=== PATIENT | female | born 1960 | race African-American/Black ===

== ENCOUNTER 2017-05-28 22:27 | Inpatient (IN) | payer SELFPAY ==
[2017-05-28] MEDS ORDERED: NITROGLYCERIN/D5W 50 MG/250 ML RTUINJ IV ONE (22:31)
[2017-05-28] MEDS ORDERED: FUROSEMIDE INJ/PF 40 MG/4 ML SDV ONE (22:31)
[2017-05-28] MEDS ORDERED: FUROSEMIDE INJ/PF 40 MG/4 ML SDV IV ONE (22:58)
[2017-05-28] MEDS ORDERED: NITROGLYCERIN/D5W 50 MG/250 ML RTUINJ IV PRN (22:58)
--- NOTE | 2017-05-28 23:08 | ER Document Report ---
ED General - General Chief Complaint: Respiratory Distress Stated Complaint: DIFFICULTY BREATHING Time Seen by Provider: 05/28/17 23:04 Cannot obtain history due to: Unstable vital signs Notes: Patient is a 56-year-old female with a past medical history of morbid obesity, hypertension, hyperlipidemia, type 2 diabetes, who presents in severe respiratory distress. History is initially somewhat limited due to the severe nature of patient's symptoms at time of presentation. Per EMS, patient apparently began having difficulty breathing approximately 20 minutes prior to their arrival. When EMS arrived patient was in clear respiratory distress, saturating 65% on room air. Patient was placed on the CPAP, Nitropaste was applied as her blood pressure was noted to be extremely elevated, and she was transported to the emergency department. On tomorrow patient continues to gasp for air, is not able to provide any additional meaningful history. She does shake her head no when asked if she has had similar symptoms in the past. - Related Data Allergies/Adverse Reactions: No Known Drug Allergies Allergy (Verified 05/28/17 23:15) Past Medical History - General Information source: Emergency Med Personnel Cannot obtain history due to: Unstable vital signs - Social History Smoking Status: Unknown if Ever Smoked Lives with: Family Family History: Reviewed & Not Pertinent Review of Systems - Review of Systems Notes: Constitutional: Negative for fever. HENT: Negative for sore throat. Eyes: Negative for visual changes. Cardiovascular: Negative for chest pain. Respiratory: Positive for shortness of breath. Gastrointestinal: Negative for abdominal pain, vomiting or diarrhea. Genitourinary: Negative for dysuria. Musculoskeletal: Negative for back pain. Skin: Negative for rash. Neurological: Negative for headaches, weakness or numbness. 10 point ROS negative except as marked above and in HPI. Physical Exam - Vital signs Vitals: Resp Pulse Ox 30 H 98 05/28/17 22:27 05/28/17 22:27 Interpretation: Hypoxic, Tachypneic Notes: PHYSICAL EXAMINATION: GENERAL: Appears extremely unwell, and respiratory distress, unable to speak more than 1-2 words in a sentence. HEAD: Atraumatic, normocephalic. EYES: Pupils equal round and reactive to light, extraocular movements intact, sclera anicteric, conjunctiva are normal. ENT: nares patent, oropharynx clear without exudates. Moist mucous membranes. NECK: Normal range of motion, supple without lymphadenopathy LUNGS: Diminished breath sounds at the bases bilaterally. Scattered rhonchi throughout. HEART: Regular tachycardia without murmurs ABDOMEN: Soft, obese abdomen, nontender, normoactive bowel sounds. No guarding , no rebound. No masses appreciated. EXTREMITIES: 3+ pitting edema that is equal and symmetric in the bilateral lower extremities. NEUROLOGICAL: No focal neurological deficits. Moves all extremities spontaneously and on command. PSYCH: Appropriately anxious SKIN: Warm, Dry, normal turgor, no rashes or lesions noted. Course - Re-evaluation Re-evalutation: 05/28/175 Patient presents in severe respiratory distress, initial oxygen saturations for EMS was 65% on room air. She arrives on CPAP. Patient was admitted transition to our bed and placed on monitor. Initial blood pressures were noted to be in the 230s systolic. IV access is established. The bedside pleural ultrasound shows diffuse B-lines. IVC grossly distended. Patient had diffuse crackles on lung examination. I did push 500 mmc of nitroglycerin IV. We waited 3 minutes and patient continued to persist with blood pressures in the mid 200s on initial 500 mcg IV push of nitroglycerin was administered. After receiving a total of 1 mg of nitroglycerin IV push patient had significant improvement in her symptoms and blood pressure. 40 mg of IV furosemide was also administered. Presentation is most consistent with flash pulmonary edema in the setting of CHF. Patient is critically ill require frequent reassessments 05/28/17 23:08 Patient's blood pressure is normalizing now down to the 150 systolic on 100 mg/ min drip of nitroglycerin. She continues on BiPAP. Work of breathing is much improved. She is now saturating 98% on 35% FiO2. Labs have been initiated. Will continue to monitor very closely. 05/29/17 00:18 Patient blood pressure continues to trend down nicely and we are weaning off of the nitroglycerin infusion currently down to 40 mg/min. Her blood work has returned and does show mildly elevated troponin at 0.045 as well as a elevated creatinine with no known prior history of chronic kidney disease with her current GFR at 16. She is continuing to make urine. I suspect that there is some component of chronic renal failure but there may also be a large component of acute renal failure given her severe hypertension and distress at time of presentation. I have discussed the case with Dr. Garza who is agreeable to admit the patient. Patient overall clinically appears dramatically improved relative to time of presentation. - Vital Signs Vital signs: Temp Pulse Resp BP Pulse Ox 97.9 F 15 182/91 H 100 05/29/17 03:06 05/29/17 03:06 05/29/17 03:06 05/29/17 03:06 - Laboratory Result Diagrams: 05/28/17 22:38 05/28/17 22:38 Laboratory results interpreted by me: 05/28/17 05/28/17 05/28/17 22:38 22:38 22:38 WBC 14.6 H RBC 3.33 L Hgb 9.3 L Hct 28.1 L RDW 16.7 H Seg Neutrophils % 79.6 H Absolute Neutrophils 11.6 H VBG pH BUN 35 H Creatinine 4.18 H Est GFR ( Amer) 13 L Est GFR (Non-Af Amer) 11 L Glucose 295 H Calcium 6.9 L* NT-Pro-B Natriuret Pep 16546 H Total Protein 5.8 L Albumin 3.0 L 05/28/17 23:26 WBC RBC Hgb Hct RDW Seg Neutrophils % Absolute Neutrophils VBG pH 7.21 L BUN Creatinine Est GFR ( Amer) Est GFR (Non-Af Amer) Glucose Calcium NT-Pro-B Natriuret Pep Total Protein Albumin - Diagnostic Test Radiology reviewed: Image reviewed, Reports reviewed Radiology results interpreted by me: 05/29/17 03:39 Chest x-ray: Vascular congestion, cardiomegaly - EKG Interpretation by Me Additional EKG results interpreted by me: 05/29/17 03:40 Normal sinus rhythm. Rate 96. No ST elevations or depressions. LVH. QTC 501 Critical Care Note - Critical Care Note Total time excluding time spent on procedures (mins): 40 Comments: Critical care time spent obtaining history from patient or surrogate, discussions with consultants, development of treatment plan with patient or surrogate, evaluation of patient's response to treatment, examination of patient , ordering and performing treatments and interventions, ordering and review of laboratory studies, re-evaluation of patient's condition, ordering and review of radiographic studies and review of old charts Discharge - Discharge Clinical Impression: Hypertensive emergency, Acute kidney injury superimposed on chronic kidney disease Congestive heart failure Qualifiers: Congestive heart failure type: unspecified congestive heart failure type Congestive heart failure chronicity: acute Qualified Code(s): I50.9 - Heart failure, unspecified Condition: Fair Disposition: ADMITTED INPATIENT Admitting Provider: Hospitalist [facility] Admitted: [facility]
--- NOTE | 2017-05-28 23:14 | RADIOLOGY REPORT (SQ) ---
EXAM DESCRIPTION: CHEST SINGLE VIEW COMPLETED DATE/TIME: 05/28/2017 10:37 pm REASON FOR STUDY: DIFFICULTY BREATHING COMPARISON: None. EXAM PARAMETERS: NUMBER OF VIEWS: One view. TECHNIQUE: Single frontal radiographic view of the chest acquired. RADIATION DOSE: NA LIMITATIONS: None. FINDINGS: LUNGS AND PLEURA: No consolidation, masses or pneumothorax. No pleural effusion. MEDIASTINUM AND HILAR STRUCTURES: Age-appropriate. HEART AND VASCULAR STRUCTURES: Borderline cardiomegaly. BONES: No acute findings. HARDWARE: None in the chest. OTHER: No other significant finding. IMPRESSION: NO ACUTE RADIOGRAPHIC FINDING IN THE CHEST. TECHNICAL DOCUMENTATION: JOB ID: [id number] 2010 [employer]- All Rights Reserved
--- NOTE | 2017-05-28 23:16 | EKG REPORT ---
SEVERITY:- ABNORMAL ECG - SINUS RHYTHM NONSPECIFIC T ABNORMALITIES, LATERAL LEADS BORDERLINE PROLONGED QT INTERVAL : Confirmed by: Jalen Hallman MD 28-May-2017 23:15:52
[2017-05-28 23:31] LABS: ABSOLUTE BASOPHILS # (AUTO) 0.1 10^3/uL (0.0-0.2); ABSOLUTE LYMPHOCYTES (AUTO) 2.1 10^3/uL (0.5-4.7); ABSOLUTE MONOCYTES (AUTO) 0.7 10^3/uL (0.1-1.4); ABSOLUTE NEUT (AUTO) 11.6 10^3/uL (1.7-8.2); BASOPHILS % (AUTO) 0.5 % (0-2); EOSINOPHILS % (AUTO) 0.2 % (0-6); HEMATOCRIT 28.1 % (36.0-47.0); HEMOGLOBIN 9.3 g/dL (12.0-15.5); HGB HCT DIFFERENCE -0.2; LYMPHOCYTES % (AUTO) 14.6 % (13-45); MEAN CORPUSCULAR HEMOGLOBIN 27.8 pg (27.0-33.4); MEAN CORPUSCULAR VOLUME 84 fl (80-97); MONOCYTES % (AUTO) 5.1 % (3-13); RED BLOOD COUNT 3.33 10^6/uL (3.72-5.28); RED CELL DISTRIBUTION WIDTH 16.7 % (11.5-14.0); SEGMENTED NEUTROPHILS % (AUTO) 79.6 % (42-78); WHITE BLOOD COUNT 14.6 10^3/uL (4.0-10.5)
[2017-05-28 23:37] LABS: VENOUS BLOOD BASE EXCESS -4.8 mmol/L; VENOUS BLOOD HCO3 23.4 mmol/L (20-32); VENOUS BLOOD PCO2 59.8 mmHg (35-63); VENOUS BLOOD PH 7.21 (7.30-7.42)
[2017-05-28 23:47] LABS: ALANINE AMINOTRANSFERASE 25 U/L (9-52); ALKALINE PHOSPHATASE 109 U/L (38-126); ANION GAP 8 (5-19); ASPARTATE AMINO TRANSFERASE 23 U/L (14-36); BILIRUBIN,DIRECT 0.3 mg/dL (0.0-0.4); BILIRUBIN,TOTAL 0.3 mg/dL (0.2-1.3); BLOOD UREA NITROGEN 35 mg/dL (7-20); CARBON DIOXIDE 25 mmol/L (22-30); CHLORIDE 105 mmol/L (98-107); CREATININE RESULT 4.18 mg/dL (0.52-1.25); GLUCOSE 295 mg/dL (75-110); POTASSIUM 3.8 mmol/L (3.6-5.0); SODIUM 137.8 mmol/L (137-145); TOTAL PROTEIN 5.8 g/dL (6.3-8.2)
[2017-05-29 00:05] LABS: CALCIUM 6.9 mg/dL (8.4-10.2)
[2017-05-29 00:06] LABS: TROPONIN I 0.045 ng/mL
[2017-05-29] MEDS ORDERED: ONDANSETRON HCL INJ/PF 4 MG/2 ML SDV IV PRN (01:43)
[2017-05-29] MEDS ORDERED: ASPIRIN 325 MG TABLET, ENT COATED PO ONE (02:15)
[2017-05-29] MEDS ORDERED: DEXTROSE 40% GEL 15 GM TUBE PO PRN ×2 (02:24)
[2017-05-29] MEDS ORDERED: GLUCAGON,HUMAN RECOMB 1 MG INJ IM PRN (02:24)
[2017-05-29] MEDS ORDERED: DEXTROSE 50%-WATER 25 GM/50 ML DISP.SYRIN IV PRN ×2 (02:24)
[2017-05-29] MEDS ORDERED: MAGNESIUM SULFATE/D5W 1 GM/100 ML RTUPB IV ONE (02:28)
[2017-05-29] MEDS: ASPIRIN 325 MG TABLET, ENT COATED PO SCH (02:30)
[2017-05-29 02:35] LABS: APPEARANCE,URINE SLIGHTLY-CLOUDY; BILIRUBIN,URINE NEGATIVE (NEGATIVE); GLUCOSE, URINE >=500 mg/dL (NEGATIVE); KETONES,URINE NEGATIVE (NEGATIVE); LEUKOCYTE ESTERASE,URINE NEGATIVE (NEGATIVE); NITRITE,URINE NEGATIVE (NEGATIVE); PROTEIN,URINE >=500 mg/dL (NEGATIVE); URINE SPECIFIC GRAVITY 1.012; UROBILINOGEN,URINE NEGATIVE mg/dL (<2.0)
[2017-05-29] MEDS ORDERED: CALCIUM GLUCONATE 1000 MG/10 ML INJ IV ONE (02:42)
--- NOTE | 2017-05-29 02:50 | PDOC H&P ---
History of Present Illness Admission Date/PCP: 05/29/17 00:51 No PCP History of Present Illness: JESUS CALDERÓN is a 56 year old female with past medical history of insulin- dependent diabetes mellitus, hype tension, and chronic kidney disease who presented to the emergency department with shortness of breath. Patient's daughter is at bedside and reports that her mother has not been taking her blood pressure medication since moving in with her. Patient does report a history of an elevated kidney numbers. Patient reports that she had shortness of breath all of a sudden, but her daughter does note that her mother has been short of breath with exertion and had significant edema over the past several weeks. Patient does admit to PND and orthopnea. Patient was initially found by EMS to have saturations of 65% on room air and was placed on CPAP which is transitioned to BiPAP in the emergency department. Patient was initially started on a nitroglycerin drip, and given IV Lasix. Patient's blood pressure dramatically improved and patient has been weaned off of nitroglycerin drip. Initial blood pressures were in the 230 systolic. She is referred to the hospitalist service for hypertensive emergency and pulmonary edema in the setting of acute congestive heart failure. Bedside review of patient's medications include an unlabeled bottle of tramadol , Norvasc which was last filled on 817, Tradjenta, Procardia, Nexium, pravastatin, Lantus, and NovoLog FlexPen. Patient currently she is automatically generated by [employer] and does not reflect an accurate description of her medications. She also admits that she has not been taking her blood sugar at home. Past Medical History Cardiac Medical History: Reports: Hyperlipidema, Hypertension Endocrine Medical History: Reports: Diabetes Mellitus Type 2, Obesity Renal/ Medical History: Reports: Chronic Kidney Disease Past Surgical History Past Surgical History: Reports: Cholecystectomy, Hysterectomy Social History Smoking Status: Current Every Day Smoker Cigarettes Packs Per Day: 0.2 Frequency of Alcohol Use: None Hx Recreational Drug Use: No Hx Prescription Drug Abuse: No - Advance Directive Resuscitation Status: Full Code Surrogate healthcare decision maker:: Jake Mario, daughter Family History Family History: DM, Hypertension Parental Family History Reviewed: Yes Children Family History Reviewed: Yes Sibling(s) Family History Reviewed.: Yes Medication/Allergy Allergies/Adverse Reactions: No Known Drug Allergies Allergy (Verified 05/28/17 23:15) Review of Systems Constitutional: PRESENT: fatigue, weight gain. ABSENT: chills, fever(s), headache(s), weight loss Eyes: ABSENT: visual disturbances Ears: ABSENT: hearing changes Cardiovascular: PRESENT: dyspnea on exertion, edema, orthropnea. ABSENT: chest pain, palpitations Respiratory: PRESENT: dyspnea. ABSENT: cough, hemoptysis, sputum Gastrointestinal: ABSENT: abdominal pain, constipation, diarrhea, hematemesis, hematochezia, melena, nausea, vomiting Genitourinary: ABSENT: dysuria, hematuria Musculoskeletal: ABSENT: joint swelling Integumentary: ABSENT: rash, wounds Neurological: ABSENT: abnormal gait, abnormal speech, confusion, dizziness, focal weakness, syncope Psychiatric: ABSENT: anxiety, depression, homidical ideation, suicidal ideation Endocrine: ABSENT: cold intolerance, heat intolerance, polydipsia, polyuria Hematologic/Lymphatic: ABSENT: easy bleeding, easy bruising Physical Exam Vital Signs: Temp Pulse Resp BP Pulse Ox 98.0 F 15 157/82 H 100 05/29/17 01:56 05/29/17 01:56 05/29/17 01:56 05/29/17 01:56 General appearance: PRESENT: morbidly obese, severe distress, well-developed, well-nourished Head exam: PRESENT: atraumatic, normocephalic Eye exam: PRESENT: conjunctiva pink, EOMI, PERRLA. ABSENT: conjunctival injection, scleral icterus Ear exam: PRESENT: normal external ear exam Mouth exam: PRESENT: moist, tongue midline Neck exam: PRESENT: other - Limited by body habitus. ABSENT: JVD, lymphadenopathy, thyromegaly, tracheal deviation Respiratory exam: PRESENT: rales, tachypnea, wheezes. ABSENT: accessory muscle use, retraction, rhonchi, unlabored - On BiPAP Cardiovascular exam: PRESENT: gallop, RRR, +S1, +S2, systolic murmur. ABSENT: diastolic murmur, rubs Pulses: PRESENT: normal dorsalis pedis pul Vascular exam: PRESENT: normal capillary refill GI/Abdominal exam: PRESENT: distended, normal bowel sounds, soft. ABSENT: firm , guarding, mass, Tilley's sign, organolmegaly, rebound, rigid, tenderness Rectal exam: PRESENT: deferred Extremities exam: PRESENT: full ROM, other - 3+ bilateral lower extremity edema. ABSENT: calf tenderness, clubbing Neurological exam: PRESENT: alert, awake, oriented to person, oriented to place , oriented to time, oriented to situation, CN II-XII grossly intact. ABSENT: motor sensory deficit Psychiatric exam: PRESENT: appropriate affect, normal mood. ABSENT: homicidal ideation, suicidal ideation Skin exam: PRESENT: dry, intact, warm. ABSENT: cyanosis, rash Results Laboratory Results: 05/28/17 05/28/17 05/28/17 22:38 22:38 22:38 WBC 14.6 H Hgb 9.3 L MCV 84 Plt Count 243 VBG pH VBG pCO2 VBG HCO3 Sodium 137.8 Potassium 3.8 Chloride 105 Carbon Dioxide 25 Anion Gap 8 BUN 35 H Creatinine 4.18 H Glucose 295 H Calcium 6.9 L* Magnesium Total Bilirubin 0.3 Direct Bilirubin 0.3 AST 23 ALT 25 Alkaline Phosphatase 109 Troponin I 0.045 NT-Pro-B Natriuret Pep 68274 H Total Protein 5.8 L Albumin 3.0 L 05/28/17 05/28/17 22:38 23:26 WBC Hgb MCV Plt Count VBG pH 7.21 L VBG pCO2 59.8 VBG HCO3 23.4 Sodium Potassium Chloride Carbon Dioxide Anion Gap BUN Creatinine Glucose Calcium Magnesium 1.7 Total Bilirubin Direct Bilirubin AST ALT Alkaline Phosphatase Troponin I NT-Pro-B Natriuret Pep Total Protein Albumin Impressions: Chest X-Ray 05/28/17 00:00 IMPRESSION: NO ACUTE RADIOGRAPHIC FINDING IN THE CHEST. Status: Imported from PACS Assessment & Plan - Diagnosis (1) Hypertensive emergency Is this a current diagnosis for this admission?: Yes (2) Congestive heart failure Qualifiers: Congestive heart failure type: unspecified congestive heart failure type Congestive heart failure chronicity: acute Qualified Code(s): I50.9 - Heart failure, unspecified Is this a current diagnosis for this admission?: Yes Plan: Likely secondary to her hypertensive emergency and likely an acute on chronic episode. Will obtain echo. No LYLA/ARB at this time secondary to acute on chronic renal failure. No beta-blockers at this time secondary to acute phase of congestive heart failure. Place patient on Lasix. Consult transition of care nurse as well as heart failure education nurse. (3) Acute kidney injury superimposed on chronic kidney disease Is this a current diagnosis for this admission?: Yes Plan: Will attempt to obtain outside records from [facility] regarding past hospitalizations and particularly to look at her prior creatinine. She does report that her creatinine has been elevated in the past, but cannot tell me what it was. obtain spot urine creatinine and sodium. Obtain renal ultrasound (4) Insulin dependent diabetes mellitus Is this a current diagnosis for this admission?: Yes Plan: Check hemoglobin A1c. Place patient on reduced dose of Lantus and on sliding scale. Place patient on carb controlled diet. Consult public health educator (5) Anemia Qualifiers: Anemia type: unspecified type Qualified Code(s): D64.9 - Anemia, unspecified Is this a current diagnosis for this admission?: Yes Plan: Likely anemia of chronic disease. Check occult blood and iron studies. (6) Leukocytosis Qualifiers: Leukocytosis type: unspecified Qualified Code(s): D72.829 - Elevated white blood cell count, unspecified Is this a current diagnosis for this admission?: Yes Plan: Likely demargination due to stress response, will follow repeat CBC. Patient admits to no antecedent illness. (7) Hypocalcemia Is this a current diagnosis for this admission?: Yes Plan: Check PTH and vitamin D studies. Give IV calcium gluconate (8) Noncompliance Is this a current diagnosis for this admission?: Yes Plan: Patient is self admittedly noncompliant. Have expressed to her the importance of compliance including need for dialysis, loss of limb, early heart disease, or stroke. (9) Morbid obesity Is this a current diagnosis for this admission?: Yes (10) Tobacco abuse Is this a current diagnosis for this admission?: Yes Plan: Encourage cessation. Have offered nicotine patch but was declined. - Time Time Spent: 50 to 70 Minutes Medications reviewed and adjusted accordingly: Yes Anticipated discharge: Home with Homehealth Within: Other - Upon improvement of symptomatology - Inpatient Certification Based on my medical assessment, after consideration of the patient's comorbidities, presenting symptoms, or acuity I expect that the services needed warrant INPATIENT care.: Yes I certify that my determination is in accordance with my understanding of Medicare's requirements for reasonable and necessary INPATIENT services [42 CFR 412.3e].: Yes Medical Necessity: Need Close Monitoring Due to Risk of Patient Decompensation, Need For Continuous Telemetry Monitoring Post Hospital Care: D/C Service Desk Analyst Documentation
[2017-05-29 03:00] LABS: CREATINE KINASE MB 2.49 ng/mL (<4.55); TROPONIN I 0.051 ng/mL
[2017-05-29 03:59] LABS: URINE CREATININE 61.6 mg/dL (15-278)
[2017-05-29] MEDS: NITROGLYCERIN 2% OINTMENT 1 GM PACKET TP SCH ×3 (04:30→18:12)
[2017-05-29] MEDS: HEPARIN SOD (PORCINE) 5,000 UNIT/ML 1 ML SYRINGE SUBCUT SCH ×3 (05:00→21:36)
[2017-05-29] MEDS ORDERED: FUROSEMIDE INJ/PF 40 MG/4 ML SDV IV SCH ×2 (06:00→10:00)
--- NOTE | 2017-05-29 06:25 | RADIOLOGY REPORT (SQ) ---
EXAM DESCRIPTION: U/S RETROPERITON (RENAL/AORTA) COMPLETED DATE/TIME: 05/29/2017 5:50 am REASON FOR STUDY: arf COMPARISON: None. TECHNIQUE: Grayscale images acquired of the kidneys and bladder and recorded on PACS. Additional yaquelin ected color Doppler images recorded. LIMITATIONS: Patient's body habitus. FINDINGS: RIGHT KIDNEY: Poorly visualized. Measures 8.5 x 4.5 x 5.1 cm. Increased renal cortical echogenicity. No hydronephrosis. LEFT KIDNEY: Measures 11.5 x 5.7 x 5.0 cm. Increased renal cortical echogenicity. No hydronephrosis . BLADDER: Decompressed by a Ruelas catheter. IMPRESSION: No hydronephrosis. Increased echogenicity of the renal parenchyma, suggestive of medica l renal disease. TECHNICAL DOCUMENTATION: JOB ID: [id number] 2010 [employer]- All Rights Reserved
[2017-05-29] MEDS: INSULIN LISPRO 100 UNIT/ML 3 ML VIAL SUBCUT SCH ×3 (07:00→15:07)
[2017-05-29 09:05] LABS: CREATINE KINASE MB 2.97 ng/mL (<4.55); TROPONIN I 0.059 ng/mL
--- NOTE | 2017-05-29 13:10 | Progress Note ---
Provider Note Provider Note: Patient was admitted this morning by Dr. Garza for dyspnea due to CHF exacerbation and hypertensive emergency. Patient is currently on bipap and is asking for something for anxiety. Patient given vistaril. Patient lasix increased to 60mg IV bid. Cardiac echo is still pending.
--- NOTE | 2017-05-29 15:21 | XCELERA REPORT ---
[address] [address] Transthoracic Echocardiogram Report Name: JESUS CALDERÓN Age: 56 yrs Gender: Female : 1960 Patient Status: Inpatient Patient Location: [address] [place], [place] [id number] Study Date: 05/29/2017 02:14 PM Height: 64 in Weight: 314 lb BSA: 2.4 m2 Procedure: A two-dimensional transthoracic echocardiogram with color flow and Doppler was performed. Study Quality: Fair. Reason For Study: CHF History: CHF. Ordering Physician: RUBY PATEL Performed By: Margoth Galvez Interpretation Summary The left ventricle is normal in size. There is moderate concentric left ventricular hypertrophy. LV EF is > THAN 60% Doppler measurements suggest normal left ventricular diastolic function The left ventricular wall motion is normal. There is no thrombus. The right ventricle is normal in size and function. The left atrial size is normal. There is no evidence of mitral valve prolapse. There is no mitral valve stenosis. There is no mitral regurgitation noted. There is no aortic valvular vegetation. There is no aortic valve stenosis There is no LVOT obstruction. No aortic regurgitation is present. There is no tricuspid stenosis. There is a trace amount of tricuspid regurgitation Right ventricular systolic pressure is normal. rvsp IS 20 MM OF hG , WITH ra MEAN OF 5. There is no pericardial effusion. MMode/2D Measurements & Calculations RVDd: 2.3 cm LVIDd: 4.8 cmFS: 34.7 % Ao root diam: 2.9 cm IVSd: 1.5 cm LVIDs: 3.2 cmEDV(Teich): 109.5 ml LVPWd: 1.5 cmESV(Teich): 39.7 ml Ao root area: 6.4 cm2 EF(Teich): 63.7 % LA dimension: 3.6 cm LVOT diam: 2.2 cm LVOT area: 3.7 cm2 Doppler Measurements & Calculations MV E max elton: MV P1/2t max elton: Ao V2 max: LV V1 max P.0 cm/sec 115.0 cm/sec 143.6 cm/sec 3.7 mmHg MV A max elton: MV P1/2t: 53.4 msec Ao max PG: LV V1 max: 105.1 cm/sec MVA(P1/2t): 4.1 cm2 8.2 mmHg 95.8 cm/sec MV E/A: 1.1 MV dec slope: SHAISTA(V,D): 2.5 cm2 630.8 cm/sec2 PA V2 max: PI end-d elton: TR max elton: 82.4 cm/sec 112.9 cm/sec 193.7 cm/sec PA max P.7 mmHg TR max P.0 mmHg Left Ventricle The left ventricle is normal in size. There is moderate concentric left ventricular hypertrophy. LV EF is > THAN 60%. Left ventricular systolic function is normal. Doppler measurements suggest normal left ventricular diastolic function. The left ventricular wall motion is normal. There is no thrombus. There is no ventricular septal defect visualized. Right Ventricle The right ventricle is normal in size and function. Atria The right atrium is normal. The left atrial size is normal. The interatrial septum is intact with no evidence for an atrial septal defect. Mitral Valve There is no evidence of mitral valve prolapse. There is no vegetation seen on the mitral valve. There is no mitral valve stenosis. There is no mitral regurgitation noted. Aortic Valve There is no aortic valvular vegetation. There is no aortic valve stenosis. There is no LVOT obstruction. No aortic regurgitation is present. Tricuspid Valve There is no tricuspid stenosis. There is a trace amount of tricuspid regurgitation. Right ventricular systolic pressure is normal. rvsp IS 20 MM OF hG , WITH ra MEAN OF 5. Pulmonic Valve There is no pulmonic valvular stenosis. There is a trace amount of pulmonic regurgitation. Great Vessels The aortic root is normal size. Effusions There is no pericardial effusion. : RUBY PATEL > Ivory Mcelroy
[2017-05-29 16:02] LABS: CREATINE KINASE MB 3.51 ng/mL (<4.55); TROPONIN I 0.043 ng/mL
[2017-05-29] MEDS: FUROSEMIDE INJ/PF 40 MG/4 ML SDV IV SCH (18:11)
[2017-05-29] MEDS: INSULIN LISPRO 100 UNIT/ML 3 ML VIAL SUBCUT PRN (21:38)
[2017-05-29] MEDS: INSULIN GLARGINE,HUM.REC.ANLOG 300 UNIT/3 ML INSULN.PEN SUBCUT SCH (21:40)
[2017-05-30] MEDS: NITROGLYCERIN 2% OINTMENT 1 GM PACKET TP SCH ×4 (02:20→17:58)
[2017-05-30 05:14] LABS: ABSOLUTE BASOPHILS # (AUTO) 0.1 10^3/uL (0.0-0.2); ABSOLUTE EOSINOPHILS # (AUTO) 0.1 10^3/uL (0.0-0.6); ABSOLUTE LYMPHOCYTES (AUTO) 2.6 10^3/uL (0.5-4.7); ABSOLUTE MONOCYTES (AUTO) 0.7 10^3/uL (0.1-1.4); ABSOLUTE NEUT (AUTO) 6.8 10^3/uL (1.7-8.2); BASOPHILS % (AUTO) 0.6 % (0-2); EOSINOPHILS % (AUTO) 0.9 % (0-6); HEMATOCRIT 24.1 % (36.0-47.0); HGB HCT DIFFERENCE -0.1; LYMPHOCYTES % (AUTO) 25.3 % (13-45); MEAN CORPUSCULAR HGB CONC 33.3 g/dL (32.0-36.0); MEAN CORPUSCULAR VOLUME 84 fl (80-97); MONOCYTES % (AUTO) 7.1 % (3-13); RED BLOOD COUNT 2.87 10^6/uL (3.72-5.28); RED CELL DISTRIBUTION WIDTH 16.8 % (11.5-14.0); SEGMENTED NEUTROPHILS % (AUTO) 66.1 % (42-78); WHITE BLOOD COUNT 10.3 10^3/uL (4.0-10.5)
[2017-05-30] MEDS: FUROSEMIDE INJ/PF 40 MG/4 ML SDV IV SCH (05:23)
[2017-05-30 05:24] LABS: STAIN REACTIVITY CHECK ACCEPTABLE
[2017-05-30] MEDS: HEPARIN SOD (PORCINE) 5,000 UNIT/ML 1 ML SYRINGE SUBCUT SCH ×3 (05:24→21:39)
[2017-05-30 05:36] LABS: ANION GAP 12 (5-19); BLOOD UREA NITROGEN 45 mg/dL (7-20); CARBON DIOXIDE 24 mmol/L (22-30); CHLORIDE 105 mmol/L (98-107); CHOLESTEROL 255.82 mg/dL (0-200); CREATININE RESULT 5.61 mg/dL (0.52-1.25); Direct HDL 62 mg/dL (>40); GLUCOSE 61 mg/dL (75-110); POTASSIUM 3.8 mmol/L (3.6-5.0); SODIUM 140.5 mmol/L (137-145); TRIGLYCERIDES 201 mg/dL (<150)
[2017-05-30 05:46] LABS: DIRECT LDL 138 mg/dL (<100)
[2017-05-30 06:08] LABS: VLDL CHOLESTEROL 40.2 mg/dL (10-31)
[2017-05-30 06:11] LABS: CALCIUM 6.4 mg/dL (8.4-10.2)
[2017-05-30] MEDS ORDERED: CALCIUM GLUCONATE 1000 MG/10 ML INJ IV ONE (06:23)
[2017-05-30] MEDS: INSULIN LISPRO 100 UNIT/ML 3 ML VIAL SUBCUT SCH ×3 (07:54→16:06)
[2017-05-30] MEDS ORDERED: NORMAL SALINE 1000 ML 1,000 ML IV PRN ×2 (08:07→18:58)
[2017-05-30] MEDS: ASPIRIN 325 MG TABLET, ENT COATED PO SCH (09:35)
[2017-05-30] MEDS ORDERED: PSEUDOEPHEDRINE HCL 30 MG TABLET PO ONE (12:30)
--- NOTE | 2017-05-30 13:12 | RADIOLOGY REPORT (SQ) ---
EXAM DESCRIPTION: CHEST PA/LAT COMPLETED DATE/TIME: 05/30/2017 12:44 pm REASON FOR STUDY: SOB COMPARISON: None. EXAM PARAMETERS: NUMBER OF VIEWS: two views TECHNIQUE: Digital Frontal and Lateral radiographic views of the chest acquired. RADIATION DOSE: NA LIMITATIONS: none FINDINGS: LUNGS AND PLEURA: Increased density over the posterior clear space on lateral view. This could represent airspace disease in the superior segment left lower lobe. Remainder of the lungs are clear. No pleural effusion. No pneumothorax. MEDIASTINUM AND HILAR STRUCTURES: No masses or contour abnormalities. HEART AND VASCULAR STRUCTURES: Heart normal size. No evidence for failure. BONES: No acute findings. HARDWARE: None in the chest. OTHER: No other significant finding. IMPRESSION: Suspect airspace disease in the superior segment left lower lobe best shown on lateral f ilm TECHNICAL DOCUMENTATION: JOB ID: [id number] [employer]- All Rights Reserved
--- NOTE | 2017-05-30 13:18 | RADIOLOGY REPORT (SQ) ---
EXAM DESCRIPTION: NM LUNG VENT/PERF SCAN COMPLETED DATE/TIME: 05/30/2017 1:09 pm REASON FOR STUDY: Shortness of breathe COMPARISON: Two-view chest 05/30/2017 RADIONUCLIDE AND DOSE: 5.3 millicuries TC-99m MAA Intravenous 29.7 millicuries TC-99m DTPA Inhaled aerosol TECHNIQUE: Two views of the lungs acquired post ventilation of DTPA aerosol. Eight views of the lungs acquired following injection of MAA. LIMITATIONS: None. FINDINGS: VENTILATION: Symmetric and homogeneous distribution of DTPA aerosol during ventilatory pha se. No significant areas of photopenia. PERFUSION: Perfusion images with normal homogenous activity and no wedge-shaped or segmental defects. No ventilation-perfusion mismatches. OTHER: No other significant finding. IMPRESSION: NORMAL VENTILATION-PERFUSION LUNG SCAN. NEGATIVE FOR PULMONARY EMBOLI. TECHNICAL DOCUMENTATION: JOB ID: [id number] [employer]- All Rights Reserved
[2017-05-30] MEDS: IPRATROPIUM/ALBUTEROL 0.5-2.5 MG/3 ML AMPUL NEB SCH (15:46)
[2017-05-30] MEDS: INSULIN LISPRO 100 UNIT/ML 3 ML VIAL SUBCUT PRN ×2 (17:15→21:42)
[2017-05-30] MEDS: FERROUS SULFATE 325 MG TABLET PO SCH (17:17)
[2017-05-30] MEDS: BUDESONIDE NEB 0.5 MG/2 ML AMPUL NEB SCH (19:49)
[2017-05-30] MEDS: HYDROXYZINE PAMOATE 25 MG CAPSULE PO PRN (21:36)
[2017-05-30] MEDS: GUAIFENESIN 600 MG TABLET.SA PO SCH (21:38)
[2017-05-30] MEDS: TRAZODONE HCL 50 MG TABLET PO SCH (21:38)
[2017-05-30] MEDS: INSULIN GLARGINE,HUM.REC.ANLOG 300 UNIT/3 ML INSULN.PEN SUBCUT SCH (21:44)
[2017-05-31] MEDS: IPRATROPIUM/ALBUTEROL 0.5-2.5 MG/3 ML AMPUL NEB SCH ×3 (00:09→16:07)
[2017-05-31] MEDS: NITROGLYCERIN 2% OINTMENT 1 GM PACKET TP SCH ×4 (01:06→17:53)
--- NOTE | 2017-05-31 04:17 | PDOC PROGRESS REPORT ---
Subjective Progress Note for:: 05/30/17 Subjective:: Patient admitted for SOB, she was found to be extremely hypertensive and diagnosed with hypertensive emergency with possible flash pulmonary edema. She was placed on bipap. Patient is now doing with her breathing. Patient stating that she has bad anxiety. Patient is asking for something to sleep. Patient states she was told about her kidney function being a little abnormal in the past but she does not know the number. Patient has poor IV access but is refusing a central line. Reason For Visit: ACUTE CONGESTIVE HEART FAILURE Physical Exam Vital Signs: Temp Pulse Resp BP Pulse Ox 98.2 F 81 20 152/78 H 100 05/30/17 07:17 05/30/17 11:19 05/30/17 07:17 05/30/17 07:17 05/30/17 07:17 Intake & Output 05/29/17 05/30/17 05/31/17 06:59 06:59 06:59 Intake Total 370 696 Output Total 950 1400 Balance -580 -704 General appearance: PRESENT: no acute distress, morbidly obese Eye exam: ABSENT: scleral icterus Ear exam: PRESENT: normal external ear exam Mouth exam: PRESENT: moist Neck exam: ABSENT: carotid bruit, JVD, lymphadenopathy, thyromegaly Respiratory exam: PRESENT: clear to auscultation adrianne. ABSENT: rales, rhonchi, wheezes Cardiovascular exam: PRESENT: RRR. ABSENT: diastolic murmur, rubs, systolic murmur GI/Abdominal exam: PRESENT: normal bowel sounds, soft. ABSENT: distended, guarding, mass, organolmegaly, rebound, tenderness Rectal exam: PRESENT: deferred Gentrourinary exam: PRESENT: indwelling catheter Extremities exam: PRESENT: full ROM, +2 edema. ABSENT: calf tenderness, clubbing Neurological exam: PRESENT: alert, awake, oriented to person, oriented to place , oriented to time, oriented to situation, CN II-XII grossly intact. ABSENT: motor sensory deficit Psychiatric exam: PRESENT: appropriate affect, normal mood. ABSENT: homicidal ideation, suicidal ideation Skin exam: PRESENT: dry, intact, warm, other. ABSENT: cyanosis, rash Results Laboratory Results: 05/30/17 04:41 05/30/17 04:41 05/30/17 05/30/17 04:41 04:41 WBC 10.3 RBC 2.87 L Hgb 8.0 L Hct 24.1 L MCV 84 MCH 28.0 MCHC 33.3 RDW 16.8 H Plt Count 195 Seg Neutrophils % 66.1 Lymphocytes % 25.3 Monocytes % 7.1 Eosinophils % 0.9 Basophils % 0.6 Absolute Neutrophils 6.8 Absolute Lymphocytes 2.6 Absolute Monocytes 0.7 Absolute Eosinophils 0.1 Absolute Basophils 0.1 Retic Count (auto) 3.50 H Absolute Retic 0.100 Sodium 140.5 Potassium 3.8 Chloride 105 Carbon Dioxide 24 Anion Gap 12 BUN 45 H Creatinine 5.61 H Est GFR ( Amer) 10 L Est GFR (Non-Af Amer) 8 L Glucose 61 L Calcium 6.4 L* Magnesium 2.0 Iron 32.2 L TIBC 201 L % Saturation 16 Ferritin 76.10 Triglycerides 201 H Cholesterol 255.82 H LDL Cholesterol Direct 138 H VLDL Cholesterol 40.2 H HDL Cholesterol 62 Vitamin B12 366.0 Folate 8.60 05/29/17 05/29/17 05/29/17 02:11 02:11 08:10 Creatine Kinase 696 H 697 H CK-MB (CK-2) 2.49 Troponin I 0.051 05/29/17 05/29/17 05/29/17 08:10 15:28 15:28 Creatine Kinase 647 H CK-MB (CK-2) 2.97 3.51 Troponin I 0.059 0.043 Impressions: Renal Ultrasound 05/29/17 00:00 IMPRESSION: No hydronephrosis. Increased echogenicity of the renal parenchyma , suggestive of medical renal disease. Chest X-Ray 05/30/17 00:00 IMPRESSION: Suspect airspace disease in the superior segment left lower lobe best shown on lateral film Lung Scan-VQ NM 05/30/17 00:00 IMPRESSION: NORMAL VENTILATION-PERFUSION LUNG SCAN. NEGATIVE FOR PULMONARY EMBOLI. Assessment & Plan - Diagnosis (1) Pneumonia Qualifiers: Pneumonia type: due to unspecified organism Laterality: left Lung location: lower lobe of lung Qualified Code(s): J18.1 - Lobar pneumonia, unspecified organism Is this a current diagnosis for this admission?: Yes Plan: Airspace disease seen on 2 view chest X ray. Patient presented with SOB and leukocytosis. Patient started on ceftriaxone and doxycycline. (2) COPD (chronic obstructive pulmonary disease) Qualifiers: COPD type: COPD with acute exacerbation Qualified Code(s): J44.1 - Chronic obstructive pulmonary disease with (acute) exacerbation Is this a current diagnosis for this admission?: Yes Plan: Most likely due to pneumonia. Patient is a recent smoker. Patient started on nebs and po steroids. Continue with PRN bipap. (3) Acute kidney injury superimposed on chronic kidney disease Is this a current diagnosis for this admission?: Yes Plan: Possible secondary to diabetes and hypertension. Now that its know that patient cardiac history is normal will start IV fluids, discontinue lasix and monitor strict I/O. Patient has zhu in place. (4) Hypertensive emergency Is this a current diagnosis for this admission?: Yes Plan: Patient with SBP in the 200 with SOB requiring IV antihypertensive. Patient's blood pressure is now better controlled. (5) Insulin dependent diabetes mellitus Is this a current diagnosis for this admission?: Yes Plan: Patient A1c >8. Continue current basal bolus insulin regimen. This may need to be adjusted as patient was started on oral prednisone for COPD exacerbation. (6) Leukocytosis Qualifiers: Leukocytosis type: unspecified Qualified Code(s): D72.829 - Elevated white blood cell count, unspecified Is this a current diagnosis for this admission?: Yes Plan: Due to pneumonia. Improving. (7) Noncompliance Is this a current diagnosis for this admission?: Yes Plan: Patient needs to be referred to a PCP. Patient counseled on taking her medications. Patient daughter at bedside who will assist mother. (8) Tobacco abuse Is this a current diagnosis for this admission?: Yes Plan: Patient counseled on cessation. (9) Congestive heart failure Qualifiers: Congestive heart failure type: unspecified congestive heart failure type Congestive heart failure chronicity: acute Qualified Code(s): I50.9 - Heart failure, unspecified Is this a current diagnosis for this admission?: Yes Plan: Patient does not have CHF based on her recent echo. She does have COPD exacerbation as a result of a pneumonia for which she is currently being treated. Which may explain her SOB. Furthermore, PE was ruled out with VQ scan. - Time Time Spent with patient: 15-24 minutes Anticipated discharge: Home with Homehealth Within: within 72 hours - Inpatient Certification Medical Necessity: Significant Comorbidiites Make Outpatient Treatment Too Risky , Need Close Monitoring Due to Risk of Patient Decompensation, Need for IV Antibiotics
[2017-05-31] MEDS: HEPARIN SOD (PORCINE) 5,000 UNIT/ML 1 ML SYRINGE SUBCUT SCH ×3 (05:32→22:19)
[2017-05-31 07:11] LABS: ANION GAP 9 (5-19); BLOOD UREA NITROGEN 55 mg/dL (7-20); CARBON DIOXIDE 24 mmol/L (22-30); CHLORIDE 106 mmol/L (98-107); CREATININE RESULT 5.24 mg/dL (0.52-1.25); GLUCOSE 134 mg/dL (75-110); POTASSIUM 3.8 mmol/L (3.6-5.0); SODIUM 138.5 mmol/L (137-145)
[2017-05-31 07:23] LABS: CALCIUM 6.8 mg/dL (8.4-10.2)
[2017-05-31] MEDS: BUDESONIDE NEB 0.5 MG/2 ML AMPUL NEB SCH ×2 (08:10→19:43)
[2017-05-31] MEDS: CEFTRIAXONE 1 GM/D5W RTU 1 GM/50 ML RTUPB IV SCH (09:34)
[2017-05-31] MEDS: GUAIFENESIN 600 MG TABLET.SA PO SCH ×2 (09:35→22:18)
[2017-05-31] MEDS: FERROUS SULFATE 325 MG TABLET PO SCH ×2 (09:36→17:53)
[2017-05-31] MEDS: INSULIN LISPRO 100 UNIT/ML 3 ML VIAL SUBCUT SCH ×3 (09:36→17:54)
[2017-05-31] MEDS: DULOXETINE HCL 20 MG CAPSULE.DR PO SCH (09:36)
[2017-05-31] MEDS: ASPIRIN 325 MG TABLET, ENT COATED PO SCH (09:36)
[2017-05-31] MEDS ORDERED: DOXYCYCLINE HYCLATE 100 MG TABLET PO SCH (10:00)
[2017-05-31] MEDS ORDERED: PREDNISONE 20 MG TABLET PO SCH (10:00)
--- NOTE | 2017-05-31 10:35 | PDOC PROGRESS REPORT ---
Subjective Progress Note for:: 05/31/17 Subjective:: Pt states that she is not sure of her renal function. Pt states that she is feeling better. Reason For Visit: ACUTE CONGESTIVE HEART FAILURE Physical Exam Vital Signs: Temp Pulse Resp BP Pulse Ox 97.3 F 84 16 182/69 H 96 05/31/17 07:50 05/31/17 08:10 05/31/17 08:10 05/31/17 07:50 05/31/17 08:10 Intake & Output 05/30/17 05/31/17 06/01/17 06:59 06:59 06:59 Intake Total 370 2152 Output Total 950 2725 Balance -580 -573 Weight 143.2 kg General appearance: PRESENT: no acute distress, well-developed, well-nourished Head exam: PRESENT: atraumatic, normocephalic Eye exam: PRESENT: conjunctiva pink, EOMI, PERRLA. ABSENT: scleral icterus Ear exam: PRESENT: normal external ear exam Mouth exam: PRESENT: moist, tongue midline Neck exam: ABSENT: carotid bruit, JVD, lymphadenopathy, thyromegaly Respiratory exam: PRESENT: clear to auscultation adrianne. ABSENT: rales, rhonchi, wheezes Cardiovascular exam: PRESENT: RRR. ABSENT: diastolic murmur, rubs, systolic murmur Pulses: PRESENT: normal dorsalis pedis pul Vascular exam: PRESENT: normal capillary refill GI/Abdominal exam: PRESENT: normal bowel sounds, soft. ABSENT: distended, guarding, mass, organolmegaly, rebound, tenderness Rectal exam: PRESENT: deferred Extremities exam: PRESENT: full ROM. ABSENT: calf tenderness, clubbing, pedal edema Neurological exam: PRESENT: alert, awake, oriented to person, oriented to place , oriented to time, oriented to situation, CN II-XII grossly intact. ABSENT: motor sensory deficit Psychiatric exam: PRESENT: appropriate affect, normal mood. ABSENT: homicidal ideation, suicidal ideation Skin exam: PRESENT: dry, intact, warm. ABSENT: cyanosis, rash Results Laboratory Results: 05/30/17 04:41 05/31/17 06:20 05/31/17 06:20 Sodium 138.5 Potassium 3.8 Chloride 106 Carbon Dioxide 24 Anion Gap 9 BUN 55 H Creatinine 5.24 H Est GFR ( Amer) 10 L Est GFR (Non-Af Amer) 9 L Glucose 134 H Calcium 6.8 L* Magnesium 2.0 05/29/17 05/29/17 05/29/17 02:11 02:11 08:10 Creatine Kinase 696 H 697 H CK-MB (CK-2) 2.49 Troponin I 0.051 05/29/17 05/29/17 05/29/17 08:10 15:28 15:28 Creatine Kinase 647 H CK-MB (CK-2) 2.97 3.51 Troponin I 0.059 0.043 Impressions: Renal Ultrasound 05/29/17 00:00 IMPRESSION: No hydronephrosis. Increased echogenicity of the renal parenchyma , suggestive of medical renal disease. Chest X-Ray 05/30/17 00:00 IMPRESSION: Suspect airspace disease in the superior segment left lower lobe best shown on lateral film Lung Scan-VQ NM 05/30/17 00:00 IMPRESSION: NORMAL VENTILATION-PERFUSION LUNG SCAN. NEGATIVE FOR PULMONARY EMBOLI. Assessment & Plan - Diagnosis (1) Pulmonary edema Qualifiers: Chronicity: acute Qualified Code(s): J81.0 - Acute pulmonary edema Is this a current diagnosis for this admission?: Yes Plan: Pt given Lasix x 1. Will continue to monitor. Resolved. (2) Acute kidney injury superimposed on chronic kidney disease Is this a current diagnosis for this admission?: Yes Plan: Will continue light IVF hydration. Renal function slightly improved. Will continue monitor. (3) Congestive heart failure Qualifiers: Congestive heart failure type: unspecified congestive heart failure type Congestive heart failure chronicity: chronic Qualified Code(s): I50.9 - Heart failure, unspecified Is this a current diagnosis for this admission?: Yes Plan: Resolved. (4) Hypertensive emergency Is this a current diagnosis for this admission?: Yes Plan: Will add Procardia. Will monitor blood pressure. (5) Insulin dependent diabetes mellitus Is this a current diagnosis for this admission?: Yes Plan: Will continue current insulin regimen. (6) Morbid obesity Is this a current diagnosis for this admission?: Yes Plan: discuss dietary changes. (7) Pneumonia Qualifiers: Pneumonia type: due to unspecified organism Laterality: left Lung location: lower lobe of lung Qualified Code(s): J18.1 - Lobar pneumonia, unspecified organism Is this a current diagnosis for this admission?: Yes Plan: Will continue Rocephin. (8) Tobacco abuse Is this a current diagnosis for this admission?: Yes Plan: Encourage pt to stop smoking. (9) COPD (chronic obstructive pulmonary disease) Qualifiers: COPD type: COPD with acute exacerbation Qualified Code(s): J44.1 - Chronic obstructive pulmonary disease with (acute) exacerbation Is this a current diagnosis for this admission?: Yes Plan: Resolved. Will discontinue steroids. - Time Time Spent with patient: 15-24 minutes
[2017-05-31] MEDS: INSULIN LISPRO 100 UNIT/ML 3 ML VIAL SUBCUT PRN ×2 (17:58→22:28)
[2017-05-31] MEDS: NIFEDIPINE 30 MG TAB.ER.24 PO SCH (22:18)
[2017-05-31] MEDS: TRAZODONE HCL 50 MG TABLET PO SCH (22:19)
[2017-05-31] MEDS: INSULIN GLARGINE,HUM.REC.ANLOG 300 UNIT/3 ML INSULN.PEN SUBCUT SCH (22:23)
[2017-06-01] MEDS: IPRATROPIUM/ALBUTEROL 0.5-2.5 MG/3 ML AMPUL NEB SCH ×4 (00:11→23:57)
[2017-06-01] MEDS: NITROGLYCERIN 2% OINTMENT 1 GM PACKET TP SCH ×5 (01:14→23:33)
[2017-06-01 05:15] LABS: ABSOLUTE LYMPHOCYTES (AUTO) 1.8 10^3/uL (0.5-4.7); ABSOLUTE MONOCYTES (AUTO) 0.7 10^3/uL (0.1-1.4); ABSOLUTE NEUT (AUTO) 7.1 10^3/uL (1.7-8.2); BASOPHILS % (AUTO) 0.3 % (0-2); EOSINOPHILS % (AUTO) 0.1 % (0-6); HEMATOCRIT 23.1 % (36.0-47.0); HGB HCT DIFFERENCE 0.3; LYMPHOCYTES % (AUTO) 18.4 % (13-45); MEAN CORPUSCULAR HEMOGLOBIN 28.2 pg (27.0-33.4); MEAN CORPUSCULAR HGB CONC 33.6 g/dL (32.0-36.0); MEAN CORPUSCULAR VOLUME 84 fl (80-97); MONOCYTES % (AUTO) 7.2 % (3-13); RED BLOOD COUNT 2.75 10^6/uL (3.72-5.28); WHITE BLOOD COUNT 9.6 10^3/uL (4.0-10.5)
[2017-06-01 05:40] LABS: ALANINE AMINOTRANSFERASE 30 U/L (9-52); ALBUMIN 2.9 g/dL (3.5-5.0); ALKALINE PHOSPHATASE 100 U/L (38-126); ANION GAP 12 (5-19); ASPARTATE AMINO TRANSFERASE 15 U/L (14-36); BILIRUBIN,DIRECT 0.2 mg/dL (0.0-0.4); BILIRUBIN,TOTAL 0.2 mg/dL (0.2-1.3); BLOOD UREA NITROGEN 52 mg/dL (7-20); CARBON DIOXIDE 21 mmol/L (22-30); CHLORIDE 106 mmol/L (98-107); CREATININE RESULT 4.87 mg/dL (0.52-1.25); GLUCOSE 192 mg/dL (75-110); POTASSIUM 3.7 mmol/L (3.6-5.0); SODIUM 138.5 mmol/L (137-145); TOTAL PROTEIN 5.4 g/dL (6.3-8.2)
[2017-06-01 05:42] LABS: HEMOGLOBIN 7.8 g/dL (12.0-15.5)
[2017-06-01] MEDS: HEPARIN SOD (PORCINE) 5,000 UNIT/ML 1 ML SYRINGE SUBCUT SCH ×3 (06:13→23:23)
[2017-06-01 06:26] LABS: CALCIUM 6.7 mg/dL (8.4-10.2)
[2017-06-01] MEDS: BUDESONIDE NEB 0.5 MG/2 ML AMPUL NEB SCH ×2 (07:57→20:13)
[2017-06-01] MEDS: FERROUS SULFATE 325 MG TABLET PO SCH ×2 (08:25→17:57)
[2017-06-01] MEDS: INSULIN LISPRO 100 UNIT/ML 3 ML VIAL SUBCUT SCH ×3 (08:25→18:02)
[2017-06-01] MEDS: INSULIN LISPRO 100 UNIT/ML 3 ML VIAL SUBCUT PRN ×2 (08:27→18:02)
[2017-06-01] MEDS: ASPIRIN 325 MG TABLET, ENT COATED PO SCH (10:17)
[2017-06-01] MEDS: GUAIFENESIN 600 MG TABLET.SA PO SCH ×2 (10:18→23:25)
[2017-06-01] MEDS: CEFTRIAXONE 1 GM/D5W RTU 1 GM/50 ML RTUPB IV SCH (10:18)
[2017-06-01] MEDS: NIFEDIPINE 30 MG TAB.ER.24 PO SCH ×2 (10:18→23:22)
[2017-06-01] MEDS: DULOXETINE HCL 20 MG CAPSULE.DR PO SCH (10:19)
[2017-06-01] MEDS ORDERED: HYDRALAZINE HCL 50 MG TABLET PO PRN ×2 (11:27→11:31)
[2017-06-01] MEDS ORDERED: HYDRALAZINE HCL 50 MG TABLET PO ONE (11:30)
--- NOTE | 2017-06-01 11:48 | PDOC PROGRESS REPORT ---
Subjective Progress Note for:: 06/01/17 Subjective:: Pt states that she is doing ok. Pt states that she has some swelling in her legs. Pt states that her breathing is good. Reason For Visit: ACUTE CONGESTIVE HEART FAILURE Physical Exam Vital Signs: Temp Pulse Resp BP Pulse Ox 98.0 F 82 16 169/79 H 97 06/01/17 07:32 06/01/17 07:59 06/01/17 07:59 06/01/17 07:32 06/01/17 07:59 Intake & Output 05/31/17 06/01/17 06/02/17 06:59 06:59 06:59 Intake Total 2152 3039 Output Total 2725 2850 Balance -573 189 Weight 143.2 kg 143.8 kg General appearance: PRESENT: no acute distress, morbidly obese, other - laying in bed. Head exam: PRESENT: atraumatic, normocephalic Eye exam: PRESENT: conjunctiva pink, EOMI. ABSENT: scleral icterus Ear exam: PRESENT: normal external ear exam Mouth exam: PRESENT: moist, tongue midline Neck exam: ABSENT: carotid bruit, JVD, lymphadenopathy, thyromegaly Respiratory exam: PRESENT: clear to auscultation adrianne, other - diminished at bases bilaterally due to habitus.. ABSENT: rales, rhonchi, wheezes Cardiovascular exam: PRESENT: RRR, other - + 1 pitting edema of lower ext. ABSENT: diastolic murmur, rubs, systolic murmur Pulses: PRESENT: normal dorsalis pedis pul Vascular exam: PRESENT: normal capillary refill GI/Abdominal exam: PRESENT: normal bowel sounds, soft. ABSENT: distended, guarding, mass, organolmegaly, rebound, tenderness Rectal exam: PRESENT: deferred Extremities exam: PRESENT: full ROM, pedal edema, +1 edema - of leg ext bilaterally.. ABSENT: calf tenderness, clubbing Neurological exam: PRESENT: alert, awake, oriented to person, oriented to place , oriented to time, oriented to situation, CN II-XII grossly intact. ABSENT: motor sensory deficit Psychiatric exam: PRESENT: appropriate affect, normal mood. ABSENT: homicidal ideation, suicidal ideation Skin exam: PRESENT: dry, intact, warm. ABSENT: cyanosis, rash Results Laboratory Results: 06/01/17 04:52 06/01/17 04:52 06/01/17 06/01/17 06/01/17 04:52 04:52 04:52 WBC 9.6 RBC 2.75 L Hgb 7.8 L Hct 23.1 L MCV 84 MCH 28.2 MCHC 33.6 RDW 17.0 H Plt Count 181 Seg Neutrophils % 74.0 Lymphocytes % 18.4 Monocytes % 7.2 Eosinophils % 0.1 Basophils % 0.3 Absolute Neutrophils 7.1 Absolute Lymphocytes 1.8 Absolute Monocytes 0.7 Absolute Eosinophils 0.0 Absolute Basophils 0.0 Sodium 138.5 Potassium 3.7 Chloride 106 Carbon Dioxide 21 L Anion Gap 12 BUN 52 H Creatinine 4.87 H Est GFR ( Amer) 11 L Est GFR (Non-Af Amer) 9 L Glucose 192 H Calcium 6.7 L* Total Bilirubin 0.2 AST 15 ALT 30 Alkaline Phosphatase 100 Total Protein 5.4 L Albumin 2.9 L 2.8 L 05/29/17 05/29/17 05/29/17 02:11 02:11 08:10 Creatine Kinase 696 H 697 H CK-MB (CK-2) 2.49 Troponin I 0.051 05/29/17 05/29/17 05/29/17 08:10 15:28 15:28 Creatine Kinase 647 H CK-MB (CK-2) 2.97 3.51 Troponin I 0.059 0.043 Impressions: Renal Ultrasound 05/29/17 00:00 IMPRESSION: No hydronephrosis. Increased echogenicity of the renal parenchyma , suggestive of medical renal disease. Chest X-Ray 05/30/17 00:00 IMPRESSION: Suspect airspace disease in the superior segment left lower lobe best shown on lateral film Lung Scan-VQ NM 05/30/17 00:00 IMPRESSION: NORMAL VENTILATION-PERFUSION LUNG SCAN. NEGATIVE FOR PULMONARY EMBOLI. Assessment & Plan - Diagnosis (1) Pulmonary edema Qualifiers: Chronicity: acute Qualified Code(s): J81.0 - Acute pulmonary edema Is this a current diagnosis for this admission?: Yes Plan: Pt thought to have had flash pulmonary edema at time of admission and was given Lasix X 1. Resolved. Pt states that she is breathing fine. Will continue to monitor. Will check CXR. (2) Acute kidney injury superimposed on chronic kidney disease Is this a current diagnosis for this admission?: Yes Plan: Will continue light IVF hydration. Renal function slightly improved today. Will Consult Dr. Blanc. Will request for medical records again. Will continue monitor. (3) Congestive heart failure Qualifiers: Congestive heart failure type: unspecified congestive heart failure type Congestive heart failure chronicity: chronic Qualified Code(s): I50.9 - Heart failure, unspecified Is this a current diagnosis for this admission?: Yes Plan: Resolved. (4) Hypertensive emergency Is this a current diagnosis for this admission?: Yes Plan: Will increase Procardia today and will add PRN Hydralazine for SBP Greater than 160mmHg. (5) Insulin dependent diabetes mellitus Is this a current diagnosis for this admission?: Yes Plan: Will continue current insulin regimen. (6) Morbid obesity Is this a current diagnosis for this admission?: Yes Plan: Encourage dietary changes. (7) Pneumonia Qualifiers: Pneumonia type: due to unspecified organism Laterality: left Lung location: lower lobe of lung Qualified Code(s): J18.1 - Lobar pneumonia, unspecified organism Is this a current diagnosis for this admission?: Yes Plan: Will continue Rocephin. Will check CXR. If repeat imaging does not support diagnosis recommend discontinuing antibiotics. (8) Tobacco abuse Is this a current diagnosis for this admission?: Yes Plan: Encourage pt to stop smoking. (9) COPD (chronic obstructive pulmonary disease) Qualifiers: COPD type: COPD with acute exacerbation Qualified Code(s): J44.1 - Chronic obstructive pulmonary disease with (acute) exacerbation Is this a current diagnosis for this admission?: Yes Plan: Resolved. Will discontinue steroids. - Time Time Spent with patient: 15-24 minutes Anticipated discharge: Home - Will request for records from outside facility to obtain baseline renal function.
[2017-06-01 13:10] LABS: VITAMIN D 25-HYDROXY 5.3 ng/mL (30.0-100.0)
--- NOTE | 2017-06-01 14:24 | RADIOLOGY REPORT (SQ) ---
EXAM DESCRIPTION: CHEST SINGLE VIEW COMPLETED DATE/TIME: 06/01/2017 12:47 pm REASON FOR STUDY: Pulmonary edema and Pneumonia. COMPARISON: 05/30/2017 EXAM PARAMETERS: NUMBER OF VIEWS: One view. TECHNIQUE: Single frontal radiographic view of the chest acquired. RADIATION DOSE: NA LIMITATIONS: Body habitus. FINDINGS: LUNGS AND PLEURA: No opacities, masses or pneumothorax. No pleural effusion. MEDIASTINUM AND HILAR STRUCTURES: No masses. Contour normal. HEART AND VASCULAR STRUCTURES: Stable heart size. BONES: No acute findings. HARDWARE: None in the chest. OTHER: No other significant finding. IMPRESSION: NO ACUTE RADIOGRAPHIC FINDING IN THE CHEST. TECHNICAL DOCUMENTATION: JOB ID: [id number] All Rights Reserved
[2017-06-01] MEDS: CALCIUM CARBONATE 500 MG TABLET PO SCH (17:58)
--- NOTE | 2017-06-01 22:53 | PDOC CONSULTATION ---
Consultation Consult Date: 06/01/17 Attending physician:: TREVOR SAPP Consult reason:: I was asked by Dr. Sapp to see this patient for hypertension and renal failure. History of Present Illness Admission Date/PCP: 05/29/17 00:51 History of Present Illness: JESUS CALDERÓN is a 56 year old female with past medical history of insulin- dependent diabetes mellitus, hypertension, and chronic kidney disease who presented to the emergency department with shortness of breath. Patient's daughter is at bedside and reports that her mother has not been taking her blood pressure medication since moving in with her. Patient does report a history of an elevated kidney numbers. Patient reports that she had shortness of breath all of a sudden, but her daughter does note that her mother has been short of breath with exertion and had significant edema over the past several weeks. Patient does admit to PND and orthopnea. Patient was initially found by EMS to have saturations of 65% on room air and was placed on CPAP which is transitioned to BiPAP in the emergency department. Patient was initially started on a nitroglycerin drip, and given IV Lasix. Patient's blood pressure dramatically improved and patient has been weaned off of nitroglycerin drip. Initial blood pressures were in the 230 systolic. She is admitted to the hospitalist service for hypertensive emergency and pulmonary edema in the setting of acute congestive heart failure. Bedside review of patient's medications include an unlabeled bottle of tramadol , Norvasc which was last filled on 817, Tradjenta, Procardia, Nexium, pravastatin, Lantus, and NovoLog FlexPen. Patient currently she is automatically generated by [employer] and does not reflect an accurate description of her medications. She also admits that she has not been taking her blood sugar at home. Patient tells me that she does not have any cough no known fever or chills. She relates that in February her blood pressure medications were changed from Procardia to another new blood pressure medication which she could not remember. She said that her atenolol was also changed to atenolol plus diuretic combination. She admits to missing doses of medications and prior to admission she missed 3 doses of her blood pressure medications. However she claims that she is taking her insulin for her diabetes. She does not check her blood sugars and her blood pressures at home. Patient denies any chest pains. She denies any history of heart disease no history of congestive heart failure. She was last admitted in the hospital in May 2015 at [facility] for some MRSA infection. On presentation the patient has abnormal kidney function with BUN of 35 and creatinine 4.18 with estimated GFR of 13. On May 30 she had a BUN of 45 and creatinine of 5.61 with estimated GFR of 10. Today she has a BUN of 52 and creatinine of 4.87 with estimated GFR of 11. She has hypocalcemia with corrected calcium of 7.58 today. She has low vitamin D of 5.3 with elevated parathyroid hormone of 923.4. She has significant anemia with iron deficiency. Her urinalysis showed proteinuria and glucosuria. Her kidney ultrasound showed a small right kidney measuring 8.5 cm compared to the left kidney of 11.5 cm, there was increased echogenicity but no hydronephrosis. Patient's echocardiogram was interpreted as normal with normal systolic and diastolic dysfunction. Furthermore the patient tells me that her primary care provider told her that her kidney function was abnormal may be 7-8 months ago but could not really say as to what extent. She denies any history of kidney stones no history of any hepatitis B or C. She did mention though that she had some abnormal liver functions. She tells me that she does not have any problems with urination except for nocturia. She also relates that she was taking Mobic for the last 3-4 months and before that was taking ibuprofen for unknown period of time. As of this time we do not have the records from her primary provider yet so we do not have any known baseline kidney function. Past Medical History Cardiac Medical History: Reports: Hyperlipidemia, Hypertension-primary - Since 1995 Endocrine Medical History: Reports: Diabetes Mellitus Type 2, Obesity Complications of Diabetes: Reports: Autonomic Neuropathy, Retinopathy Past Surgical History Past Surgical History: Reports: Cholecystectomy, Hysterectomy Social History Information Source: Patient Lives with: Family Smoking Status: Former Smoker Cigarettes Packs Per Day: 0.2 Frequency of Alcohol Use: None Hx Recreational Drug Use: No Hx Prescription Drug Abuse: No - Advance Directive Resuscitation Status: Full Code Family History Family History: DM - Sibling, Hypertension - Siblings Parental Family History Reviewed: Yes Children Family History Reviewed: Yes Sibling(s) Family History Reviewed.: Yes Medication/Allergy Home Medications: Amlodipine Besylate [Norvasc 5 mg Tablet] 5 mg PO DAILY 05/29/17 Atenolol [Tenormin 50 mg Tablet] 50 mg PO DAILY 05/29/17 Clonazepam [Klonopin] 0.25 mg PO BID 05/29/17 Hydrochlorothiazide [Hydrodiuril 25 mg Tablet] 25 mg PO DAILY 05/29/17 Insulin Aspart [Novolog Flexpen] 10 unit SQ TID 05/29/17 Meloxicam [Mobic] 7.5 mg PO Q12 05/29/17 Allergies/Adverse Reactions: No Known Drug Allergies Allergy (Verified 05/28/17 23:15) Review of Systems All systems: reviewed and no additional remarkable complaints except as stated Review of Systems: Constitutional: ABSENT: chills, fatigue, fever(s), headache(s), weight gain, weight loss Eyes: ABSENT: visual disturbances Ears: ABSENT: hearing changes Cardiovascular: ABSENT: chest pain, orthropnea, palpitations; admits progressive shortness of breath and lower extremity edema Respiratory: ABSENT: cough, dyspnea, hemoptysis Gastrointestinal: ABSENT: abdominal pain, constipation, diarrhea, hematemesis, hematochezia, nausea, vomiting Genitourinary: ABSENT: dysuria, hematuria Musculoskeletal: ABSENT: joint swelling Integumentary: ABSENT: rash, wounds Neurological: ABSENT: abnormal gait, abnormal speech, confusion, dizziness, focal weakness, numbness, syncope Psychiatric: ABSENT: anxiety, depression Endocrine: ABSENT: cold intolerance, heat intolerance, polydipsia, polyuria Hematologic/Lymphatic: ABSENT: easy bleeding, easy bruising, lymphadenopathy Physical Exam Vital Signs: Temp Pulse Resp BP Pulse Ox 98.5 F 95 17 159/74 H 100 06/01/17 19:35 06/01/17 20:13 06/01/17 20:13 06/01/17 19:35 06/01/17 20:13 Intake & Output 05/31/17 06/01/17 06/02/17 06:59 06:59 06:59 Intake Total 2152 3039 2289 Output Total 5734 3190 1000 Balance -785 406 1981 Weight 143.2 kg 143.8 kg 143.8 kg Exam: General appearance: no acute distress, cooperative, well-developed, well- nourished, morbidly obese Head exam: PRESENT: atraumatic, normocephalic Eye exam: PRESENT: Conjunctiva pale, EOMI, PERRLA. ABSENT: conjunctival injection, scleral icterus Mouth exam: PRESENT: moist, neck supple, tongue midline Neck exam: PRESENT: full ROM. ABSENT: carotid bruit, JVD, lymphadenopathy, thyromegaly Respiratory exam: PRESENT: clear to auscultation bilaterally. ABSENT: rales, rhonchi, stridor, wheezes Cardiovascular exam: PRESENT: RRR, +S1, +S2. ABSENT: systolic murmur Pulses: PRESENT: normal radial pulses, normal dorsalis pedis pulses GI/Abdominal exam: PRESENT: normal bowel sounds, soft. ABSENT: guarding, mass, tenderness Rectal exam: deferred Extremities exam: PRESENT: full ROM. Grade 1 bilateral lower extremity edema which patient said has improved. ABSENT: calf tenderness Musculoskeletal: PRESENT: full ROM. ABSENT: deformity Neurological exam: PRESENT: alert, Awake, Oriented to person, Oriented to place , Oriented to time, reflexes normal, CN II-XII grossly intact. ABSENT: motor sensory deficit Psychiatric exam: PRESENT: appropriate affect, normal mood. ABSENT: homicidal ideation, suicidal ideation Skin exam: PRESENT: intact, dry, warm. ABSENT: rash Results Laboratory Results: 06/01/17 04:52 06/01/17 04:52 05/30/17 06/01/17 06/01/17 04:41 04:52 04:52 WBC 9.6 RBC 2.75 L Hgb 7.8 L Hct 23.1 L MCV 84 MCH 28.2 MCHC 33.6 RDW 17.0 H Plt Count 181 Seg Neutrophils % 74.0 Lymphocytes % 18.4 Monocytes % 7.2 Eosinophils % 0.1 Basophils % 0.3 Absolute Neutrophils 7.1 Absolute Lymphocytes 1.8 Absolute Monocytes 0.7 Absolute Eosinophils 0.0 Absolute Basophils 0.0 Sodium 138.5 Potassium 3.7 Chloride 106 Carbon Dioxide 21 L Anion Gap 12 BUN 52 H Creatinine 4.87 H Est GFR ( Amer) 11 L Est GFR (Non-Af Amer) 9 L Glucose 192 H Calcium 6.7 L* Transferrin 158 L Total Bilirubin 0.2 AST 15 ALT 30 Alkaline Phosphatase 100 Total Protein 5.4 L Albumin 2.9 L 06/01/17 04:52 WBC RBC Hgb Hct MCV MCH MCHC RDW Plt Count Seg Neutrophils % Lymphocytes % Monocytes % Eosinophils % Basophils % Absolute Neutrophils Absolute Lymphocytes Absolute Monocytes Absolute Eosinophils Absolute Basophils Sodium Potassium Chloride Carbon Dioxide Anion Gap BUN Creatinine Est GFR ( Amer) Est GFR (Non-Af Amer) Glucose Calcium Transferrin Total Bilirubin AST ALT Alkaline Phosphatase Total Protein Albumin 2.8 L 05/29/17 05/29/17 05/29/17 02:11 02:11 08:10 Creatine Kinase 696 H 697 H CK-MB (CK-2) 2.49 Troponin I 0.051 05/29/17 05/29/17 05/29/17 08:10 15:28 15:28 Creatine Kinase 647 H CK-MB (CK-2) 2.97 3.51 Troponin I 0.059 0.043 Impressions: Renal Ultrasound 05/29/17 00:00 IMPRESSION: No hydronephrosis. Increased echogenicity of the renal parenchyma , suggestive of medical renal disease. Lung Scan-VQ NM 05/30/17 00:00 IMPRESSION: NORMAL VENTILATION-PERFUSION LUNG SCAN. NEGATIVE FOR PULMONARY EMBOLI. Chest X-Ray 06/01/17 00:00 IMPRESSION: NO ACUTE RADIOGRAPHIC FINDING IN THE CHEST. Assessment & Plan - Diagnosis (1) Renal failure Qualifiers: Renal failure chronicity: unspecified chronicity Qualified Code(s): N19 - Unspecified kidney failure Is this a current diagnosis for this admission?: Yes Plan: Acute versus chronic or acute on chronic. Patient is currently nonoliguric. Unknown baseline kidney function. Patient has significant proteinuria. There are several factors that points to progressive chronic kidney disease in this patient. Although we cannot totally rule out an acute component. The proteinuria points to a possible underlying diabetic nephropathy and likely a contribution of hypertensive nephrosclerosis in this patient with known noncompliance. Factors pointing to chronic kidney disease possibly nearing end- stage renal disease include uncontrolled hypertension, acute flash pulmonary edema, anemia, hyperparathyroidism, hypocalcemia, and peripheral edema. We will try to get records from [facility] from her primary care provider and [facility] currently called [facility]. I discussed with the patient in the presence of her daughter at bedside regarding the possibility of acute versus chronic kidney disease. If it is acute we expect the patient to have improvement. Since admission though we do not see much significant improvement in the patient's kidney function. If this is indeed a chronic progressive kidney disease in the patient's kidney function does not improve there is a high chance that the patient needs to be initiated with renal replacement therapy in the form of hemodialysis. We will monitor the patient very closely for the next few days and review previous records and decide accordingly. All questions of the patient and her daughter answered. (2) Pulmonary edema Qualifiers: Chronicity: acute Qualified Code(s): J81.0 - Acute pulmonary edema Is this a current diagnosis for this admission?: Yes Plan: Since the patient's echocardiogram did not support a diagnosis of congestive heart failure, it is very possible that this could be due to chronic kidney disease. He also needs to rule out possibility of renal artery stenosis especially with a smaller right kidney compared to the left in conjunction with hypertension. Currently the patient feels much better. (3) Hypertensive emergency Is this a current diagnosis for this admission?: Yes Plan: Continue current blood pressure medications. Since the patient's systolic blood pressure started very high as 230, current blood pressure readings of around 150-160 systolic is acceptable at this time. If the patient indeed has progressive chronic kidney disease a diuretic should be added for better blood pressure control in the next few days. We also need to rule out renal artery stenosis although difficult to the patient's body habitus. We will try to do duplex of renal arteries. This may be difficult to do but the other alternative cannot be done due to patient's renal failure. (4) Anemia in chronic kidney disease (CKD) Is this a current diagnosis for this admission?: Yes Plan: Patient would need to be initiated with Procrit if she does have chronic kidney disease after iron is corrected. (5) Iron deficiency anemia Is this a current diagnosis for this admission?: Yes Plan: Once the patient's blood pressure is a little bit better I think I would like to give the patient IV iron supplement. Continue oral iron for now. (6) Vitamin D deficiency Is this a current diagnosis for this admission?: Yes (7) Secondary hyperparathyroidism (of renal origin) Is this a current diagnosis for this admission?: Yes Plan: We will start calcitriol. (8) Small kidney, unilateral Is this a current diagnosis for this admission?: Yes Plan: Needs to rule out renal artery stenosis. (9) Hypocalcemia Is this a current diagnosis for this admission?: Yes Plan: We will check phosphorus since this could be most likely secondary to hyperphosphatemia and will correct it accordingly. (10) Insulin dependent diabetes mellitus Is this a current diagnosis for this admission?: Yes (11) Hyperlipidemia Is this a current diagnosis for this admission?: Yes (12) Morbid obesity Is this a current diagnosis for this admission?: Yes (13) Noncompliance Is this a current diagnosis for this admission?: Yes - Notes Notes: Discussed impression and plan with the patient and daughter at bedside extensively. I answered all their questions to the best of my knowledge. I will follow the patient with you. Thank you very much for this consultation. - Time Time Spent: Greater than 70 Minutes
[2017-06-01] MEDS: INSULIN GLARGINE,HUM.REC.ANLOG 300 UNIT/3 ML INSULN.PEN SUBCUT SCH (23:23)
[2017-06-01] MEDS: TRAZODONE HCL 50 MG TABLET PO SCH (23:37)
[2017-06-02 05:32] LABS: URINE CREATININE 30.8 mg/dL (15-278)
[2017-06-02 05:43] LABS: URINE PROTEIN 300.9 mg/dL (<12)
[2017-06-02] MEDS: HEPARIN SOD (PORCINE) 5,000 UNIT/ML 1 ML SYRINGE SUBCUT SCH ×3 (06:29→22:21)
[2017-06-02] MEDS: NITROGLYCERIN 2% OINTMENT 1 GM PACKET TP SCH ×3 (06:29→17:29)
[2017-06-02 06:33] LABS: ABSOLUTE BASOPHILS # (AUTO) 0.1 10^3/uL (0.0-0.2); ABSOLUTE EOSINOPHILS # (AUTO) 0.1 10^3/uL (0.0-0.6); ABSOLUTE MONOCYTES (AUTO) 0.6 10^3/uL (0.1-1.4); ABSOLUTE NEUT (AUTO) 7.2 10^3/uL (1.7-8.2); BASOPHILS % (AUTO) 0.6 % (0-2); EOSINOPHILS % (AUTO) 0.6 % (0-6); HEMATOCRIT 23.9 % (36.0-47.0); HEMOGLOBIN 8.1 g/dL (12.0-15.5); HGB HCT DIFFERENCE 0.4; LYMPHOCYTES % (AUTO) 20.4 % (13-45); MEAN CORPUSCULAR HEMOGLOBIN 28.5 pg (27.0-33.4); MEAN CORPUSCULAR HGB CONC 33.8 g/dL (32.0-36.0); MEAN CORPUSCULAR VOLUME 84 fl (80-97); MONOCYTES % (AUTO) 5.8 % (3-13); RED BLOOD COUNT 2.83 10^6/uL (3.72-5.28); RED CELL DISTRIBUTION WIDTH 16.8 % (11.5-14.0); SEGMENTED NEUTROPHILS % (AUTO) 72.6 % (42-78); WHITE BLOOD COUNT 9.9 10^3/uL (4.0-10.5)
[2017-06-02 06:44] LABS: ANION GAP 11 (5-19); BLOOD UREA NITROGEN 50 mg/dL (7-20); CALCIUM 7.1 mg/dL (8.4-10.2); CARBON DIOXIDE 22 mmol/L (22-30); CHLORIDE 106 mmol/L (98-107); CREATININE RESULT 4.65 mg/dL (0.52-1.25); GLUCOSE 96 mg/dL (75-110); PHOSPHORUS 5.4 mg/dL (2.5-4.5); POTASSIUM 3.9 mmol/L (3.6-5.0)
--- NOTE | 2017-06-02 08:27 | RADIOLOGY REPORT (SQ) ---
EXAM DESCRIPTION: U/S LTD DUPLEX ART/GLORIA FLOW COMPLETED DATE/TIME: 06/02/2017 6:23 am REASON FOR STUDY: R/ JARET, Hypertension, Renal failure COMPARISON: None. TECHNIQUE: Realtime and static grayscale images acquired. Selected color Doppler, velocities and spe ctral images recorded. LIMITATIONS: Limited imaging due to the patient's obesity. FINDINGS: RIGHT KIDNEY: RENAL ARTERY VELOCITIES: 76 cm/sec. Segmental artery velocity 89 cm/sec. RENAL VEIN: Color doppler flow present, patent. VELOCITY RATIO: 0.79. Normal waveforms. KIDNEY: Normal size. No significant pathology. LEFT KIDNEY: RENAL ARTERY VELOCITIES: 88 cm/sec. Segmental artery velocity 37 cm/sec. RENAL VEIN: Color doppler flow present, patent. VELOCITY RATIO: 0.91. Normal waveforms. KIDNEY: Normal size. No significant pathology. BLADDER: Normal. OTHER: No other significant finding. IMPRESSION: NO DOPPLER EVIDENCE OF HEMODYNAMICALLY SIGNIFICANT RENAL ARTERY STENOSIS. COMMENT: NORMAL RENAL ARTERY/AORTA VELOCITY RATIO IS LESS THAN OR EQUAL TO 3.5. TECHNICAL DOCUMENTATION: JOB ID: [id number] All Rights Reserved
[2017-06-02] MEDS: ONDANSETRON HCL INJ/PF 4 MG/2 ML SDV IV PRN ×2 (08:31→17:40)
[2017-06-02] MEDS: INSULIN LISPRO 100 UNIT/ML 3 ML VIAL SUBCUT SCH ×3 (08:32→16:30)
[2017-06-02] MEDS: IPRATROPIUM/ALBUTEROL 0.5-2.5 MG/3 ML AMPUL NEB SCH ×3 (09:01→23:51)
[2017-06-02] MEDS: BUDESONIDE NEB 0.5 MG/2 ML AMPUL NEB SCH ×2 (09:02→20:46)
[2017-06-02] MEDS: FERROUS SULFATE 325 MG TABLET PO SCH ×2 (09:04→17:29)
[2017-06-02] MEDS ORDERED: CALCITRIOL 0.25 MCG CAPSULE PO SCH (10:00)
[2017-06-02] MEDS: ASPIRIN 325 MG TABLET, ENT COATED PO SCH (10:13)
[2017-06-02] MEDS: CALCIUM CARBONATE 500 MG TABLET PO SCH ×2 (10:13→17:29)
[2017-06-02] MEDS: DULOXETINE HCL 20 MG CAPSULE.DR PO SCH (10:14)
[2017-06-02] MEDS: GUAIFENESIN 600 MG TABLET.SA PO SCH ×2 (10:15→22:21)
[2017-06-02] MEDS: NIFEDIPINE 30 MG TAB.ER.24 PO SCH ×2 (10:15→22:22)
[2017-06-02] MEDS: CEFTRIAXONE 1 GM/D5W RTU 1 GM/50 ML RTUPB IV SCH (10:16)
[2017-06-02] MEDS: INSULIN LISPRO 100 UNIT/ML 3 ML VIAL SUBCUT PRN (11:50)
[2017-06-02 14:22] LABS: VITAMIN D 1,25 DIHYDROXY 11.7 pg/mL (19.9-79.3)
--- NOTE | 2017-06-02 17:08 | PDOC PROGRESS REPORT ---
Subjective Progress Note for:: 06/02/17 Subjective:: Overall the patient just is not feeling well today. She states she is not sleeping well at night and that she feels constipated. She denies fever chills. Her shortness of breath is somewhat improved. She has been followed closely by the nephrology service and we certainly appreciate their input. She has had no chest pain. She really does not have a cough. No nausea, vomiting or diarrhea. No dysuria, frequency or hematuria Reason For Visit: ACUTE CONGESTIVE HEART FAILURE Physical Exam Vital Signs: Temp Pulse Resp BP Pulse Ox 98.1 F 100 18 139/87 H 100 06/02/17 11:08 06/02/17 16:05 06/02/17 16:05 06/02/17 11:08 06/02/17 16:05 Intake & Output 06/01/17 06/02/17 06/03/17 06:59 06:59 06:59 Intake Total 3039 3407 300 Output Total 2850 2925 375 Balance 189 482 -75 Weight 143.8 kg 144.2 kg General appearance: PRESENT: no acute distress, obese, well-developed, well- nourished Head exam: PRESENT: atraumatic, normocephalic Mouth exam: PRESENT: moist, tongue midline Neck exam: ABSENT: carotid bruit, JVD, lymphadenopathy, thyromegaly Respiratory exam: PRESENT: other - She has some fine crackles in the lower bases bilaterally. ABSENT: rales, rhonchi, wheezes Cardiovascular exam: PRESENT: RRR. ABSENT: diastolic murmur, rubs, systolic murmur GI/Abdominal exam: PRESENT: other - Morbidly obese. I cannot assess for organomegaly due to the patient's body habitus. Her abdomen is somewhat firm. ABSENT: organolmegaly, tenderness Rectal exam: PRESENT: deferred Extremities exam: PRESENT: +1 edema. ABSENT: calf tenderness Neurological exam: PRESENT: alert, awake, oriented to person, oriented to place , oriented to time, oriented to situation, CN II-XII grossly intact. ABSENT: motor sensory deficit Psychiatric exam: PRESENT: depressed. ABSENT: agitated, anxious Skin exam: PRESENT: dry, intact, warm. ABSENT: cyanosis, rash Results Laboratory Results: 06/02/17 06:10 06/02/17 06:10 06/02/17 06/02/17 06:10 06:10 WBC 9.9 RBC 2.83 L Hgb 8.1 L Hct 23.9 L MCV 84 MCH 28.5 MCHC 33.8 RDW 16.8 H Plt Count 210 Seg Neutrophils % 72.6 Lymphocytes % 20.4 Monocytes % 5.8 Eosinophils % 0.6 Basophils % 0.6 Absolute Neutrophils 7.2 Absolute Lymphocytes 2.0 Absolute Monocytes 0.6 Absolute Eosinophils 0.1 Absolute Basophils 0.1 Sodium 139.0 Potassium 3.9 Chloride 106 Carbon Dioxide 22 Anion Gap 11 BUN 50 H Creatinine 4.65 H Est GFR ( Amer) 12 L Est GFR (Non-Af Amer) 10 L Glucose 96 Calcium 7.1 L Phosphorus 5.4 H 05/29/17 05/29/17 05/29/17 02:11 02:11 08:10 Creatine Kinase 696 H 697 H CK-MB (CK-2) 2.49 Troponin I 0.051 05/29/17 05/29/17 05/29/17 08:10 15:28 15:28 Creatine Kinase 647 H CK-MB (CK-2) 2.97 3.51 Troponin I 0.059 0.043 Impressions: Renal Ultrasound 05/29/17 00:00 IMPRESSION: No hydronephrosis. Increased echogenicity of the renal parenchyma , suggestive of medical renal disease. Lung Scan-VQ NM 05/30/17 00:00 IMPRESSION: NORMAL VENTILATION-PERFUSION LUNG SCAN. NEGATIVE FOR PULMONARY EMBOLI. Chest X-Ray 06/01/17 00:00 IMPRESSION: NO ACUTE RADIOGRAPHIC FINDING IN THE CHEST. Vascular Ultrasound 06/02/17 00:00 IMPRESSION: NO DOPPLER EVIDENCE OF HEMODYNAMICALLY SIGNIFICANT RENAL ARTERY STENOSIS. Assessment & Plan - Diagnosis (1) Acute on chronic renal failure Plan: This seems to be the patient's biggest problem. She has been followed closely by nephrology. Will check a chemistry panel in the morning. We certainly appreciate their input. Her creatinine is still 4.65. (2) Acute respiratory failure with hypoxia Plan: Secondary to vascular congestion and diastolic congestive heart failure exacerbation. Patient remains on oxygen. (3) Acute diastolic (congestive) heart failure Plan: The patient had a normal echocardiogram. This is presumed diastolic dysfunction. Also her vascular congestion is likely related to her underlying renal failure. She is being followed closely by nephrology. (4) Pulmonary edema Qualifiers: Chronicity: acute Qualified Code(s): J81.0 - Acute pulmonary edema Is this a current diagnosis for this admission?: Yes Plan: Resolved at this point. (5) Pneumonia Qualifiers: Pneumonia type: due to unspecified organism Laterality: left Lung location: lower lobe of lung Qualified Code(s): J18.1 - Lobar pneumonia, unspecified organism Is this a current diagnosis for this admission?: Yes Plan: Ruled out. The initial concerns were for gram-positive organisms. I do not believe the patient had pneumonia. (6) COPD with exacerbation Plan: Resolved. (7) Hypertensive emergency Plan: Much improved. Continue current regimen. (8) Insulin dependent diabetes mellitus Is this a current diagnosis for this admission?: Yes Plan: I will place her back on her home regimen of insulin. (9) Morbid obesity Is this a current diagnosis for this admission?: Yes Plan: Dietary discretion is advised. Her morbid obesity is contributing to all of her problems. (10) Tobacco abuse Is this a current diagnosis for this admission?: Yes Plan: Certainly she needs to quit smoking in light of her respiratory issues. (11) Anemia Qualifiers: Anemia type: unspecified type Qualified Code(s): D64.9 - Anemia, unspecified Is this a current diagnosis for this admission?: Yes Plan: This is an anemia of chronic disease (12) Constipation Plan: She will be placed on a bowel regimen (13) Insomnia Plan: I am going to increase the patient's trazodone tonight. (14) Medical non-compliance Plan: Unfortunately she has a history of medical noncompliance. - Time Time Spent with patient: 25-34 minutes - Inpatient Certification Medical Necessity: Significant Comorbidiites Make Outpatient Treatment Too Risky , Need Close Monitoring Due to Risk of Patient Decompensation - Inpatient hospitalization remains necessary. The patient is having no improvement in her renal function. She is at high risk of decompensation. She needs further input from nephrology and close monitoring in the hospital. Timing of disposition will be determined by her clinical course
--- NOTE | 2017-06-02 17:35 | PSYCHOLOGICAL NOTE ---
Psych Note - Psych Note Psych Note: Patient is a 56 year old female admitted to hospitalist care due to hypertensive emergency, congestive heart failure, acute kidney injury superimposed on chronic kidney disease, insulin dependent diabetes mellitus, anemia, hypocalcemia, noncompliance, morbid obesity and tobacco use. A psychiatric consult was ordered for anxiety. Hospitalist ordered Cymbalta which patient refused and asked for the Klonopin she is prescribed at home. Patient reported her outpatient provider is at the [facility] in [place]. She noted she was seeing Lillie Freire but that provider left the practice so she has been seeing Dr. Pérez. She noted she had been on Xanax for 13-15 years until 4-5 months ago when she was switched to Klonopin 1MG BID which was decreased to the current 0.25BID. She stated she was also prescribed something for depression/mood, it ended in "clam" or "anastasia" and was a pink pill. She reported when Dr. Pérez took over her care he did not continue this. She stated she is going through a recent separation with her because he is diagnosed with Schizophrenia. She stated his behaviors and symptoms kept her from sleeping and caused anxiety. She denied SI/HI. She denied previous hospitalizations. Patient was alert and oriented to person, place, and situation. Mood was euthymic with congruent affect. She denied SI/HI and these were not presenting concerns. She did not appear to be responding to internal stimuli AEB fair eye contact and ability to carry on dialogue conversation. Thought processes were organized and linear. Conversational speech was WNL for rate, tone and prosody. Intellectual abilities are estimated to be average. Insight, judgment and impulse control are fair AEB linear and organized thinking. Consulted with Dr. Dumont who completed a Narcotic/Controlled Substance report on patient. Since December 2016 [address] Lillie Freire and Dr. Pérez were prescribing medications. She also saw a Ting Miranda in [place]. It appeared she was getting some of the same prescriptions (such as Ambien) from these doctors. She filled scripts at a [facility] in [place], a [facility] in [place] and a [facility] in [place]. The most recent date for medications refills was 03/17/2017 which was Lyrica 100MG (270 pills for 90 days). The last time a benzodiazepine (Klonopin) was filled was in January 2017. There is concern patient is possibly medication seeking. Diagnosis: V61.10 (Z63.0) Relationship Distress with Spouse (she noted anxiety and poor sleep in response to hers 's Schizophrenia symptoms to the extent that she has filed for separation) R/O 300.00 (F41.9) Unspecified Anxiety Disorder Multiple medical problems Impression/Plan: Psychiatric team in agreement with attending hospitalist in avoiding use of benzodiazepines given these are addictive medications. Also per Narcotic/Controlled Substance report patient has not had any benzodiazepines prescribed since January 2017. Consulted with Dr. Dumont regarding the management and care of patient. Attending hospitalist aware of recommendations.
--- NOTE | 2017-06-02 19:14 | PDOC PROGRESS REPORT ---
Subjective Progress Note for:: 06/02/17 Subjective:: Patient said she is feeling nauseated and has no appetite. She continues to have some urine output. She denies any shortness of breath nor weakness nor tiredness. I reviewed the patient's records from [facility] as well as her records from [facility]. It appears that the patient does not really have much blood work including BMP since June when her BUN was 18, creatinine 1.17 and estimated GFR of 61%. She has had blood work for hemoglobin A1c ranging from 8-13 from her primary care provider Dr. Barth son. Since the patient does not have insurance she does not seem to be doing a lot of blood work. Reason For Visit: ACUTE CONGESTIVE HEART FAILURE Physical Exam Vital Signs: Temp Pulse Resp BP Pulse Ox 98.3 F 100 18 164/79 H 100 06/02/17 16:02 06/02/17 16:05 06/02/17 16:05 06/02/17 16:02 06/02/17 16:05 Intake & Output 06/01/17 06/02/17 06/03/17 06:59 06:59 06:59 Intake Total 3039 3407 780 Output Total 2850 2925 375 Balance 189 482 405 Weight 143.8 kg 144.2 kg Exam: General appearance: PRESENT: no acute distress, cooperative, well-developed, well-nourished Head exam: PRESENT: atraumatic, normocephalic Eye exam: PRESENT: conjunctiva pale, PERRLA. ABSENT: scleral icterus Neck exam: ABSENT: JVD Respiratory exam: PRESENT: Normal breath sounds. ABSENT: crackles, rales, rhonchi, unlabored, wheezes Cardiovascular exam: PRESENT: Regular rate rhythm -+S1, +S2. ABSENT: diastolic murmur, systolic murmur GI/Abdominal exam: PRESENT: normal bowel sounds, soft. ABSENT: guarding, mass, tenderness Extremities exam: Grade 1 bilateral lower extremity edema Neurological exam: PRESENT: alert, awake, oriented to person, place and time. Skin exam: PRESENT: dry, warm, Results Laboratory Results: 06/02/17 06:10 06/02/17 06:10 06/02/17 06/02/17 06:10 06:10 WBC 9.9 RBC 2.83 L Hgb 8.1 L Hct 23.9 L MCV 84 MCH 28.5 MCHC 33.8 RDW 16.8 H Plt Count 210 Seg Neutrophils % 72.6 Lymphocytes % 20.4 Monocytes % 5.8 Eosinophils % 0.6 Basophils % 0.6 Absolute Neutrophils 7.2 Absolute Lymphocytes 2.0 Absolute Monocytes 0.6 Absolute Eosinophils 0.1 Absolute Basophils 0.1 Sodium 139.0 Potassium 3.9 Chloride 106 Carbon Dioxide 22 Anion Gap 11 BUN 50 H Creatinine 4.65 H Est GFR ( Amer) 12 L Est GFR (Non-Af Amer) 10 L Glucose 96 Calcium 7.1 L Phosphorus 5.4 H 05/29/17 05/29/17 05/29/17 02:11 02:11 08:10 Creatine Kinase 696 H 697 H CK-MB (CK-2) 2.49 Troponin I 0.051 05/29/17 05/29/17 05/29/17 08:10 15:28 15:28 Creatine Kinase 647 H CK-MB (CK-2) 2.97 3.51 Troponin I 0.059 0.043 Impressions: Renal Ultrasound 05/29/17 00:00 IMPRESSION: No hydronephrosis. Increased echogenicity of the renal parenchyma , suggestive of medical renal disease. Lung Scan-VQ NM 05/30/17 00:00 IMPRESSION: NORMAL VENTILATION-PERFUSION LUNG SCAN. NEGATIVE FOR PULMONARY EMBOLI. Chest X-Ray 06/01/17 00:00 IMPRESSION: NO ACUTE RADIOGRAPHIC FINDING IN THE CHEST. Vascular Ultrasound 06/02/17 00:00 IMPRESSION: NO DOPPLER EVIDENCE OF HEMODYNAMICALLY SIGNIFICANT RENAL ARTERY STENOSIS. Assessment & Plan - Diagnosis (1) Renal failure Qualifiers: Renal failure chronicity: unspecified chronicity Qualified Code(s): N19 - Unspecified kidney failure Is this a current diagnosis for this admission?: Yes Plan: Acute versus chronic or acute on chronic. Patient is currently nonoliguric. Unknown baseline kidney function. Records from July 23, 2015 showed an EGFR of 61% with creatinine of 1.17 but nothing in the interim. Patient has significant proteinuria. There are several factors that points to progressive chronic kidney disease in this patient. Although we cannot totally rule out an acute component. The proteinuria points to a possible underlying diabetic nephropathy and likely a contribution of hypertensive nephrosclerosis in this patient with known noncompliance. Factors pointing to chronic kidney disease possibly nearing end-stage renal disease include uncontrolled hypertension, acute flash pulmonary edema, anemia, hyperparathyroidism, hypocalcemia, and peripheral edema. I reviewed records from [facility] from her primary care provider and [facility] currently [facility]. Patient has significant nephrotic range proteinuria of 9.8 g. Kidney function today does not show any significant clinical improvement. Today did not ask sensitive discussion with the patient and her daughter Jake on the phone regarding a good possibility of end-stage renal disease versus acute on chronic kidney disease. I recommended that the patient start hemodialysis. Discussed benefits and risks including the procedures. Also discussed another option of kidney transplant evaluation in the future. Given the patient's condition and probably difficulty for [place] of medical care because of no insurance, I recommended to the patient to start dialysis now. Depending on the patient's response in terms of her kidney function will determine if she would need dialysis only temporarily or chronically. If she needs hemodialysis chronically then patient will need a PermCath to be placed and to be arranged for outpatient chronic hemodialysis treatment. Patient told me that she has already started application for Medicaid insurance with the professor of social work. After discussion and answering the patient and daughters questions they both consented to starting hemodialysis tomorrow. I have spoken with vascular surgeon Dr. Macias to place a trialysis catheter tomorrow so that we can initiate dialysis afterwards. (2) Pulmonary edema Qualifiers: Chronicity: acute Qualified Code(s): J81.0 - Acute pulmonary edema Is this a current diagnosis for this admission?: Yes Plan: Since the patient's echocardiogram did not support a diagnosis of congestive heart failure, it is very possible that this could be due to chronic kidney disease. Duplex of renal artery showed no evidence of hemodynamically significant renal artery stenosis. Nevertheless worsening kidney function can cause this as well. Currently the patient feels much better. (3) Hypertensive emergency Is this a current diagnosis for this admission?: Yes Plan: Continue current blood pressure medications. Since the patient's systolic blood pressure started very high as 230, current blood pressure readings of around 150-160 systolic is acceptable at this time. We will slowly initiate on her medications so I am going to start patient on atenolol 50 mg p.o. daily and furosemide 20 mg p.o. daily. (4) Anemia in chronic kidney disease (CKD) Is this a current diagnosis for this admission?: Yes Plan: Patient would need to be initiated with Procrit and IV Venofer during dialysis.. (5) Iron deficiency anemia Is this a current diagnosis for this admission?: Yes Plan: Once the patient's blood pressure is a little bit better I think I would like to give the patient IV iron supplement. (6) Vitamin D deficiency Is this a current diagnosis for this admission?: Yes (7) Secondary hyperparathyroidism (of renal origin) Is this a current diagnosis for this admission?: Yes Plan: We will replace calcitriol with Zemplar to be given IV during dialysis. (8) Small kidney, unilateral Is this a current diagnosis for this admission?: Yes Plan: Right kidney smaller than the left. Duplex of renal artery showed no evidence of renal artery stenosis. (9) Hypocalcemia Is this a current diagnosis for this admission?: Yes Plan: Continue calcium supplement (10) Hyperphosphatemia Is this a current diagnosis for this admission?: Yes (11) Insulin dependent diabetes mellitus Is this a current diagnosis for this admission?: Yes (12) Hyperlipidemia Is this a current diagnosis for this admission?: Yes (13) Morbid obesity Is this a current diagnosis for this admission?: Yes (14) Noncompliance Is this a current diagnosis for this admission?: Yes - Time Time with patient: Greater than 35 minutes
[2017-06-02] MEDS: HYDROXYZINE PAMOATE 25 MG CAPSULE PO PRN (20:39)
[2017-06-02] MEDS ORDERED: TUBERCULIN,PURIF.PROT.DERIV. 5 TU/0.1 ML TEST 1 ML VIAL ID ONE (21:00)
[2017-06-02] MEDS ORDERED: INSULIN GLARGINE,HUM.REC.ANLOG 300 UNIT/3 ML INSULN.PEN SUBCUT SCH (22:00)
[2017-06-02] MEDS: TRAZODONE HCL 50 MG TABLET PO SCH (22:21)
[2017-06-03] MEDS: NITROGLYCERIN 2% OINTMENT 1 GM PACKET TP SCH ×5 (00:34→23:56)
[2017-06-03] MEDS ORDERED: PARICALCITOL INJ/PF 5 MCG/1 ML SDV IV PRN (05:00)
[2017-06-03] MEDS ORDERED: NORMAL SALINE 1000 ML 1,000 ML IV PRN (05:00)
[2017-06-03] MEDS ORDERED: IRON SUCROSE COMPLEX INJ/PF 100 MG/5 ML SDV IV PRN (05:00)
[2017-06-03] MEDS ORDERED: EPOETIN ALFA INJ 20000 UNIT/1 ML VIAL (RENAL) IV PRN (05:00)
[2017-06-03] MEDS ORDERED: HEPARIN SOD (PORCINE) 1,000 UNIT/ML 10 ML VIAL IV PRN (05:00)
[2017-06-03 06:15] LABS: ABSOLUTE BASOPHILS # (AUTO) 0.1 10^3/uL (0.0-0.2); BASOPHILS % (AUTO) 0.7 % (0-2); EOSINOPHILS % (AUTO) 0.4 % (0-6); LYMPHOCYTES % (AUTO) 16.6 % (13-45)
[2017-06-03 06:30] LABS: ABSOLUTE LYMPHOCYTES (AUTO) 1.3 10^3/uL (0.5-4.7); ABSOLUTE MONOCYTES (AUTO) 0.4 10^3/uL (0.1-1.4); ABSOLUTE NEUT (AUTO) 6.3 10^3/uL (1.7-8.2); HEMATOCRIT 22.9 % (36.0-47.0); HGB HCT DIFFERENCE 0.2; MEAN CORPUSCULAR HEMOGLOBIN 28.2 pg (27.0-33.4); MEAN CORPUSCULAR HGB CONC 33.7 g/dL (32.0-36.0); MEAN CORPUSCULAR VOLUME 84 fl (80-97); MONOCYTES % (AUTO) 5.4 % (3-13); RED BLOOD COUNT 2.73 10^6/uL (3.72-5.28); RED CELL DISTRIBUTION WIDTH 16.9 % (11.5-14.0); SEGMENTED NEUTROPHILS % (AUTO) 76.9 % (42-78); WHITE BLOOD COUNT 8.1 10^3/uL (4.0-10.5)
[2017-06-03 06:31] LABS: ANION GAP 11 (5-19); BLOOD UREA NITROGEN 46 mg/dL (7-20); CALCIUM 7.4 mg/dL (8.4-10.2); CARBON DIOXIDE 22 mmol/L (22-30); CHLORIDE 107 mmol/L (98-107); CREATININE RESULT 4.52 mg/dL (0.52-1.25); GLUCOSE 53 mg/dL (75-110); MAGNESIUM 1.9 mg/dL (1.6-2.3); PHOSPHORUS 5.4 mg/dL (2.5-4.5); POTASSIUM 3.7 mmol/L (3.6-5.0); SODIUM 140.2 mmol/L (137-145)
[2017-06-03 06:33] LABS: HEMOGLOBIN 7.7 g/dL (12.0-15.5)
[2017-06-03] MEDS: ONDANSETRON HCL INJ/PF 4 MG/2 ML SDV IV PRN (06:42)
[2017-06-03] MEDS: HEPARIN SOD (PORCINE) 5,000 UNIT/ML 1 ML SYRINGE SUBCUT SCH ×3 (06:50→20:54)
[2017-06-03] MEDS: BUDESONIDE NEB 0.5 MG/2 ML AMPUL NEB SCH ×2 (08:29→19:46)
[2017-06-03] MEDS: IPRATROPIUM/ALBUTEROL 0.5-2.5 MG/3 ML AMPUL NEB SCH ×2 (08:29→16:54)
[2017-06-03] MEDS: FUROSEMIDE 20 MG TABLET PO SCH (09:53)
[2017-06-03] MEDS: CALCIUM CARBONATE 500 MG TABLET PO SCH ×2 (09:53→18:34)
[2017-06-03] MEDS: NIFEDIPINE 30 MG TAB.ER.24 PO SCH ×2 (09:54→20:55)
[2017-06-03] MEDS: DULOXETINE HCL 20 MG CAPSULE.DR PO SCH (09:54)
[2017-06-03] MEDS: GUAIFENESIN 600 MG TABLET.SA PO SCH ×2 (09:55→20:56)
[2017-06-03] MEDS: ASPIRIN 325 MG TABLET, ENT COATED PO SCH (09:55)
[2017-06-03] MEDS: ATENOLOL 50 MG TABLET PO SCH (09:55)
[2017-06-03] MEDS: CEFTRIAXONE 1 GM/D5W RTU 1 GM/50 ML RTUPB IV SCH (10:00)
--- NOTE | 2017-06-03 11:21 | PDOC PROGRESS REPORT ---
Subjective Progress Note for:: 06/03/17 Subjective:: The patient is resting in her bed. She states that she slept a little better last night. She is not having as much nausea this morning. She states that she is going down stairs this afternoon to get a temporary dialysis catheter placed. I spent quite some time discussing the plan of care with her and all of her questions were answered. Overall she denies fever chills. No chest pain. She states she felt as if her heart was racing a little bit this morning. No nausea this morning. She has not had any vomiting. She is tolerating her diet. No abdominal pain. She has not yet had a bowel movement today. She is making a little bit of urine. Reason For Visit: ACUTE CONGESTIVE HEART FAILURE Physical Exam Vital Signs: Temp Pulse Resp BP Pulse Ox 98.3 F 99 16 147/63 H 97 06/03/17 04:24 06/03/17 08:29 06/03/17 08:29 06/03/17 04:24 06/03/17 08:29 Intake & Output 06/02/17 06/03/17 06/04/17 06:59 06:59 06:59 Intake Total 3407 1308 Output Total 2925 675 Balance 482 633 Weight 144.2 kg 145 kg General appearance: PRESENT: no acute distress, obese, well-developed, well- nourished Head exam: PRESENT: atraumatic, normocephalic Respiratory exam: PRESENT: clear to auscultation adrianne. ABSENT: rales, rhonchi, wheezes Cardiovascular exam: PRESENT: RRR. ABSENT: diastolic murmur, rubs, systolic murmur GI/Abdominal exam: PRESENT: normal bowel sounds, soft, other - . I cannot assess for organomegaly due to the patient's body habitus her abdomen is obese. ABSENT: distended, guarding, mass, rebound, tenderness Extremities exam: PRESENT: full ROM. ABSENT: calf tenderness, clubbing, pedal edema Neurological exam: PRESENT: alert, awake, oriented to person, oriented to place , oriented to time, oriented to situation, CN II-XII grossly intact. ABSENT: motor sensory deficit Psychiatric exam: PRESENT: appropriate affect, normal mood. ABSENT: homicidal ideation, suicidal ideation Skin exam: PRESENT: dry, intact, warm. ABSENT: cyanosis, rash Results Laboratory Results: 06/03/17 05:53 06/03/17 05:53 06/03/17 06/03/17 05:53 05:53 WBC 8.1 RBC 2.73 L Hgb 7.7 L Hct 22.9 L MCV 84 MCH 28.2 MCHC 33.7 RDW 16.9 H Plt Count 208 Seg Neutrophils % 76.9 Lymphocytes % 16.6 Monocytes % 5.4 Eosinophils % 0.4 Basophils % 0.7 Absolute Neutrophils 6.3 Absolute Lymphocytes 1.3 Absolute Monocytes 0.4 Absolute Eosinophils 0.0 Absolute Basophils 0.1 Sodium 140.2 Potassium 3.7 Chloride 107 Carbon Dioxide 22 Anion Gap 11 BUN 46 H Creatinine 4.52 H Est GFR ( Amer) 12 L Est GFR (Non-Af Amer) 10 L Glucose 53 L Calcium 7.4 L Phosphorus 5.4 H Magnesium 1.9 05/29/17 05/29/17 05/29/17 02:11 02:11 08:10 Creatine Kinase 696 H 697 H CK-MB (CK-2) 2.49 Troponin I 0.051 05/29/17 05/29/17 05/29/17 08:10 15:28 15:28 Creatine Kinase 647 H CK-MB (CK-2) 2.97 3.51 Troponin I 0.059 0.043 Impressions: Renal Ultrasound 05/29/17 00:00 IMPRESSION: No hydronephrosis. Increased echogenicity of the renal parenchyma , suggestive of medical renal disease. Lung Scan-VQ NM 05/30/17 00:00 IMPRESSION: NORMAL VENTILATION-PERFUSION LUNG SCAN. NEGATIVE FOR PULMONARY EMBOLI. Chest X-Ray 06/01/17 00:00 IMPRESSION: NO ACUTE RADIOGRAPHIC FINDING IN THE CHEST. Vascular Ultrasound 06/02/17 00:00 IMPRESSION: NO DOPPLER EVIDENCE OF HEMODYNAMICALLY SIGNIFICANT RENAL ARTERY STENOSIS. Assessment & Plan - Diagnosis (1) Acute on chronic renal failure Plan: The patient is going downstairs to have a temporary dialysis catheter placed. Unfortunately her kidney function is not recuperating and she is not making much urine. Nephrology is following and we certainly appreciate their assistance. (2) Acute respiratory failure with hypoxia Plan: Secondary to vascular congestion and diastolic congestive heart failure exacerbation. Patient remains on oxygen. (3) Acute diastolic (congestive) heart failure Plan: The patient had a normal echocardiogram. This is presumed diastolic dysfunction. Also her vascular congestion is likely related to her underlying renal failure. She is being followed closely by nephrology. When she starts dialysis nephrology will be managing her volume status. (4) Pulmonary edema Qualifiers: Chronicity: acute Qualified Code(s): J81.0 - Acute pulmonary edema Is this a current diagnosis for this admission?: Yes Plan: Resolved at this point. (5) Pneumonia Qualifiers: Pneumonia type: due to unspecified organism Laterality: left Lung location: lower lobe of lung Qualified Code(s): J18.1 - Lobar pneumonia, unspecified organism Is this a current diagnosis for this admission?: Yes Plan: Ruled out. The initial concerns were for gram-positive organisms. I do not believe the patient had pneumonia. (6) COPD with exacerbation Plan: Resolved. (7) Hypertensive emergency Plan: Much improved. Continue current regimen. (8) Insulin dependent diabetes mellitus Is this a current diagnosis for this admission?: Yes Plan: I will place her back on her home regimen of insulin. (9) Tobacco abuse Is this a current diagnosis for this admission?: Yes (10) Morbid obesity Is this a current diagnosis for this admission?: Yes (12) Anemia Qualifiers: Anemia type: unspecified type Qualified Code(s): D64.9 - Anemia, unspecified Is this a current diagnosis for this admission?: Yes - Inpatient Certification Based on my medical assessment, after consideration of the patient's comorbidities, presenting symptoms, or acuity I expect that the services needed warrant INPATIENT care.: Yes I certify that my determination is in accordance with my understanding of Medicare's requirements for reasonable and necessary INPATIENT services [42 CFR 412.3e].: Yes Medical Necessity: Other - Inpatient hospitalization remains necessary. Her renal function continues to worsen. She is having a temporary dialysis catheter placed today and she will likely be dialyzed during this hospitalization. Timing of disposition will be determined by her clinical course.
--- NOTE | 2017-06-03 13:12 | Operative Report ---
Operative Report DATE OF SURGERY: 06/03/17 PREOPERATIVE DIAGNOSIS: Renal failure requiring hemodialysis. Multiple comorbidities. POSTOPERATIVE DIAGNOSIS: Renal failure requiring hemodialysis. Multiple comorbidities OPERATION: 1. Ultrasound evaluation of the femoral veins. 2. Insertion of temporary hemodialysis catheter on the real-time ultrasound guidance in the left femoral vein. SURGEON: ISAIAS PATRICIA DRAFTING CLERK: None ANESTHESIA: Local TISSUE REMOVED OR ALTERED: Not applicable. COMPLICATIONS: Difficult access in the right femoral vein. ESTIMATED BLOOD LOSS: 5 mL. INTRAOPERATIVE FINDINGS: Of very deeply placed femoral veins in this morbidly obese patient. Ultrasound was of great value in safe access. On the right side the micropuncture wire did not thread and therefore this was abandoned. On the left side the procedure was satisfactory and there was easy egress of blood and ingress of saline from all 3 ports. The veins were visualized on the ultrasound with some challenges due to the depth of the structures. PROCEDURE: After obtaining informed consent, the patient was positioned supine at bedside. The patient groin and adjacent areas were prepared with chlorhexidine and draped out with sterile linen. After the universal timeout the procedure commenced. A steriley sheathed ultrasound probe was used to evaluate the right femoral vein]. Local anesthesia was infiltrated adjacent to the probe. Access into the right femoral was accomplished using a micropuncture needle followed, by micropuncture wire and then with a micropuncture catheter. The passes was not smooth and the site was abandoned. The left side was now accessed in identical fashion successfully. This was followed by introduction of a 0.035 guidewire, the skin opening was enlarged slightly, serially larger dilators were now placed followed by introduction of a triaysis catheter. All of these transitions were smooth. Each lumen was aspirated of blood and irrigated with heparinized solution. The catheter was now sutured to the skin using 3-0 nylon. A Bio A patch was now applied, followed by sterile dressings. Caps were placed on the end of the each of the lumens. The procedure concluded. Copies dictated operative report to Dr. Isaias Macias MD.
[2017-06-03] MEDS: FOLIC ACID/VITAMIN B COMP W-C CAPSULE PO SCH (15:13)
--- NOTE | 2017-06-03 16:48 | PDOC PROGRESS REPORT ---
Subjective Progress Note for:: 06/03/17 Subjective:: I am seeing the patient during dialysis this afternoon. She underwent left trialysis catheter placement by Dr. Macias. She is tolerating dialysis very well without any problems or complaints. She had a little bit of nausea during placement of the trialysis catheter other than that she feels fine. Reason For Visit: Renal Failure Physical Exam Vital Signs: Temp Pulse Resp BP Pulse Ox 98.3 F 99 16 147/63 H 97 06/03/17 12:09 06/03/17 12:09 06/03/17 12:09 06/03/17 04:24 06/03/17 12:09 Intake & Output 06/02/17 06/03/17 06/04/17 06:59 06:59 06:59 Intake Total 3407 1308 Output Total 2925 675 Balance 482 633 Weight 144.2 kg 145 kg Vital signs during dialysis: Blood pressure 157/83, heart rate of 70, blood flow rate of 250 mL/min, dialysate flow rate of 500 mL/min. Exam: General appearance: PRESENT: no acute distress, cooperative, well-developed, well-nourished Head exam: PRESENT: atraumatic, normocephalic Eye exam: PRESENT: conjunctiva pale, PERRLA. ABSENT: scleral icterus Neck exam: ABSENT: JVD Respiratory exam: PRESENT: Diminished breath sounds. ABSENT: crackles, rales, rhonchi, unlabored, wheezes Cardiovascular exam: PRESENT: Regular rate rhythm -+S1, +S2. ABSENT: diastolic murmur, systolic murmur GI/Abdominal exam: PRESENT: normal bowel sounds, soft. ABSENT: guarding, mass, tenderness Extremities exam: Unchanged grade 1 bilateral lower extremity edema Neurological exam: PRESENT: alert, awake, oriented to person, place and time. Skin exam: PRESENT: dry, warm, Results Laboratory Results: 06/03/17 05:53 06/03/17 05:53 06/03/17 06/03/17 05:53 05:53 WBC 8.1 RBC 2.73 L Hgb 7.7 L Hct 22.9 L MCV 84 MCH 28.2 MCHC 33.7 RDW 16.9 H Plt Count 208 Seg Neutrophils % 76.9 Lymphocytes % 16.6 Monocytes % 5.4 Eosinophils % 0.4 Basophils % 0.7 Absolute Neutrophils 6.3 Absolute Lymphocytes 1.3 Absolute Monocytes 0.4 Absolute Eosinophils 0.0 Absolute Basophils 0.1 Sodium 140.2 Potassium 3.7 Chloride 107 Carbon Dioxide 22 Anion Gap 11 BUN 46 H Creatinine 4.52 H Est GFR ( Amer) 12 L Est GFR (Non-Af Amer) 10 L Glucose 53 L Calcium 7.4 L Phosphorus 5.4 H Magnesium 1.9 05/29/17 05/29/17 05/29/17 02:11 02:11 08:10 Creatine Kinase 696 H 697 H CK-MB (CK-2) 2.49 Troponin I 0.051 05/29/17 05/29/17 05/29/17 08:10 15:28 15:28 Creatine Kinase 647 H CK-MB (CK-2) 2.97 3.51 Troponin I 0.059 0.043 Impressions: Renal Ultrasound 05/29/17 00:00 IMPRESSION: No hydronephrosis. Increased echogenicity of the renal parenchyma , suggestive of medical renal disease. Lung Scan-VQ NM 05/30/17 00:00 IMPRESSION: NORMAL VENTILATION-PERFUSION LUNG SCAN. NEGATIVE FOR PULMONARY EMBOLI. Chest X-Ray 06/01/17 00:00 IMPRESSION: NO ACUTE RADIOGRAPHIC FINDING IN THE CHEST. Vascular Ultrasound 06/02/17 00:00 IMPRESSION: NO DOPPLER EVIDENCE OF HEMODYNAMICALLY SIGNIFICANT RENAL ARTERY STENOSIS. Assessment & Plan - Diagnosis (1) Renal failure Qualifiers: Renal failure chronicity: unspecified chronicity Qualified Code(s): N19 - Unspecified kidney failure Is this a current diagnosis for this admission?: Yes Plan: Acute versus chronic or acute on chronic. Patient is currently nonoliguric. Unknown baseline kidney function. Records from July 23, 2015 showed an EGFR of 61% with creatinine of 1.17 but nothing in the interim. Patient has significant proteinuria. There are several factors that points to progressive chronic kidney disease in this patient. Although we cannot totally rule out an acute component. The proteinuria points to a possible underlying diabetic nephropathy and likely a contribution of hypertensive nephrosclerosis in this patient with known noncompliance. Factors pointing to chronic kidney disease possibly nearing end-stage renal disease include uncontrolled hypertension, acute flash pulmonary edema, anemia, hyperparathyroidism, hypocalcemia, and peripheral edema. I reviewed records from [facility] from her primary care provider and [facility]. Patient has significant nephrotic range proteinuria of 9.8 g. Kidney function today does not show any significant clinical improvement. Patient is so far tolerating her first hemodialysis treatment. We are doing dialysis today for 2.5 hours, using the patient's left femoral trialysis catheter, with 3 potassium bath, blood flow rate of 250 mL per minute , dialysate flow rate of 500 mL per minute, ultrafiltration 3 L as tolerated, no heparin and Procrit with 20,000 units during dialysis intravenously. Patient is being monitored toward closely. We will plan to dialyze the patient on Thursday and monitor the patient's kidney function. We will decide next week if the patient needs short-term or long-term hemodialysis treatment and decide if she needs PermCath. (2) Pulmonary edema Qualifiers: Chronicity: acute Qualified Code(s): J81.0 - Acute pulmonary edema Is this a current diagnosis for this admission?: Yes Plan: Since the patient's echocardiogram did not support a diagnosis of congestive heart failure, it is very possible that this could be due to chronic kidney disease. Duplex of renal artery showed no evidence of hemodynamically significant renal artery stenosis. Nevertheless worsening kidney function can cause this as well. Currently the patient feels much better. (3) Hypertensive emergency Is this a current diagnosis for this admission?: Yes Plan: Continue current blood pressure medications. Since the patient's systolic blood pressure started very high as 230, current blood pressure readings of around 150-160 systolic is acceptable at this time. Continue current blood pressure regimen. (4) Anemia in chronic kidney disease (CKD) Is this a current diagnosis for this admission?: Yes Plan: Patient would need to be initiated with Procrit and IV Venofer during dialysis.. (5) Iron deficiency anemia Is this a current diagnosis for this admission?: Yes Plan: Once the patient's blood pressure is a little bit better I think I would like to give the patient IV iron supplement. (6) Vitamin D deficiency Is this a current diagnosis for this admission?: Yes (7) Secondary hyperparathyroidism (of renal origin) Is this a current diagnosis for this admission?: Yes Plan: We will replace calcitriol with Zemplar to be given IV during dialysis. (8) Small kidney, unilateral Is this a current diagnosis for this admission?: Yes Plan: Right kidney smaller than the left. Duplex of renal artery showed no evidence of renal artery stenosis. (9) Hypocalcemia Is this a current diagnosis for this admission?: Yes Plan: Continue calcium supplement (10) Hyperphosphatemia Is this a current diagnosis for this admission?: Yes Plan: Low phosphorus diet. (11) Insulin dependent diabetes mellitus Is this a current diagnosis for this admission?: Yes (12) Hyperlipidemia Is this a current diagnosis for this admission?: Yes (13) Morbid obesity Is this a current diagnosis for this admission?: Yes (14) Noncompliance Is this a current diagnosis for this admission?: Yes - Time Time with patient: 15-25 minutes
[2017-06-03] MEDS: TRAZODONE HCL 50 MG TABLET PO SCH (20:55)
[2017-06-03] MEDS: HYDROXYZINE PAMOATE 25 MG CAPSULE PO PRN (20:56)
[2017-06-03] MEDS: ACETAMINOPHEN 325 MG TABLET PO PRN (23:54)
[2017-06-03] MEDS: INSULIN GLARGINE,HUM.REC.ANLOG 300 UNIT/3 ML INSULN.PEN SUBCUT SCH (23:56)
[2017-06-04] MEDS: IPRATROPIUM/ALBUTEROL 0.5-2.5 MG/3 ML AMPUL NEB SCH ×4 (00:23→23:49)
[2017-06-04] MEDS: ONDANSETRON HCL INJ/PF 4 MG/2 ML SDV IV PRN ×2 (04:55→13:44)
[2017-06-04 05:03] LABS: ANION GAP 8 (5-19); BLOOD UREA NITROGEN 32 mg/dL (7-20); CALCIUM 7.6 mg/dL (8.4-10.2); CARBON DIOXIDE 28 mmol/L (22-30); CHLORIDE 104 mmol/L (98-107); CREATININE RESULT 3.69 mg/dL (0.52-1.25); GLUCOSE 76 mg/dL (75-110); PHOSPHORUS 4.2 mg/dL (2.5-4.5); SODIUM 140.3 mmol/L (137-145)
[2017-06-04 05:10] LABS: ABSOLUTE BASOPHILS # (AUTO) 0.1 10^3/uL (0.0-0.2); ABSOLUTE LYMPHOCYTES (AUTO) 2.3 10^3/uL (0.5-4.7); ABSOLUTE MONOCYTES (AUTO) 0.7 10^3/uL (0.1-1.4); ABSOLUTE NEUT (AUTO) 8.3 10^3/uL (1.7-8.2); BASOPHILS % (AUTO) 0.5 % (0-2); EOSINOPHILS % (AUTO) 0.4 % (0-6); HEMATOCRIT 24.4 % (36.0-47.0); HEMOGLOBIN 8.1 g/dL (12.0-15.5); HGB HCT DIFFERENCE -0.1; MEAN CORPUSCULAR HEMOGLOBIN 27.5 pg (27.0-33.4); MEAN CORPUSCULAR HGB CONC 33.1 g/dL (32.0-36.0); MEAN CORPUSCULAR VOLUME 83 fl (80-97); MONOCYTES % (AUTO) 6.4 % (3-13); RED BLOOD COUNT 2.93 10^6/uL (3.72-5.28); RED CELL DISTRIBUTION WIDTH 16.9 % (11.5-14.0); SEGMENTED NEUTROPHILS % (AUTO) 72.7 % (42-78); WHITE BLOOD COUNT 11.4 10^3/uL (4.0-10.5)
[2017-06-04] MEDS: HEPARIN SOD (PORCINE) 5,000 UNIT/ML 1 ML SYRINGE SUBCUT SCH ×3 (05:48→21:38)
[2017-06-04] MEDS: NITROGLYCERIN 2% OINTMENT 1 GM PACKET TP SCH ×4 (05:48→23:55)
[2017-06-04] MEDS: BUDESONIDE NEB 0.5 MG/2 ML AMPUL NEB SCH ×2 (08:04→20:10)
[2017-06-04] MEDS: DULOXETINE HCL 20 MG CAPSULE.DR PO SCH (10:13)
[2017-06-04] MEDS: GUAIFENESIN 600 MG TABLET.SA PO SCH ×2 (10:14→21:39)
[2017-06-04] MEDS: NIFEDIPINE 30 MG TAB.ER.24 PO SCH (10:14)
[2017-06-04] MEDS: ASPIRIN 325 MG TABLET, ENT COATED PO SCH (10:15)
[2017-06-04] MEDS: CALCIUM CARBONATE 500 MG TABLET PO SCH ×2 (10:15→17:09)
[2017-06-04] MEDS: FUROSEMIDE 20 MG TABLET PO SCH (10:16)
[2017-06-04] MEDS: CEFTRIAXONE 1 GM/D5W RTU 1 GM/50 ML RTUPB IV SCH (10:17)
[2017-06-04] MEDS: ATENOLOL 50 MG TABLET PO SCH (10:20)
[2017-06-04] MEDS: HYDROXYZINE PAMOATE 25 MG CAPSULE PO PRN ×2 (10:23→21:39)
[2017-06-04] MEDS ORDERED: PREGABALIN 25 MG CAPSULE PO ONE (14:30)
[2017-06-04] MEDS: FOLIC ACID/VITAMIN B COMP W-C CAPSULE PO SCH (17:09)
--- NOTE | 2017-06-04 17:22 | PDOC PROGRESS REPORT ---
Subjective Progress Note for:: 06/04/17 Subjective:: The patient states that she is feeling better today. States that she is having some pain and would like to take some Lyrica. I have expressed to her my concerns over her kidney function and she would like to take a very low dose. Otherwise she states that she tolerated her dialysis yesterday. She denies fever chills today. No chest pain, shortness of breath or heart palpitations. No nausea vomiting or diarrhea. She continues to make very little urine Reason For Visit: ACUTE CONGESTIVE HEART FAILURE Physical Exam Vital Signs: Temp Pulse Resp BP Pulse Ox 98.7 F 79 18 172/71 H 96 06/04/17 16:08 06/04/17 16:08 06/04/17 16:08 06/04/17 16:08 06/04/17 16:08 Intake & Output 06/03/17 06/04/17 06/05/17 06:59 06:59 06:59 Intake Total 1308 1204 275 Output Total 675 3200 600 Balance 633 -1996 -328 Weight 145 kg 141.3 kg General appearance: PRESENT: no acute distress, morbidly obese, well-developed Head exam: PRESENT: atraumatic Ear exam: PRESENT: normal external ear exam Mouth exam: PRESENT: moist, tongue midline Respiratory exam: PRESENT: clear to auscultation adrianne. ABSENT: rales, rhonchi, wheezes Cardiovascular exam: PRESENT: RRR. ABSENT: diastolic murmur, rubs, systolic murmur GI/Abdominal exam: PRESENT: normal bowel sounds, organolmegaly, soft, other - Her abdomen is obese. I cannot assess for organomegaly due to the patient's body habitus. ABSENT: distended, guarding, mass, rebound, tenderness Rectal exam: PRESENT: deferred Extremities exam: PRESENT: full ROM. ABSENT: calf tenderness, clubbing, pedal edema Neurological exam: PRESENT: alert, awake, oriented to person, oriented to place , oriented to time, oriented to situation, CN II-XII grossly intact. ABSENT: motor sensory deficit Psychiatric exam: PRESENT: appropriate affect, normal mood. ABSENT: homicidal ideation, suicidal ideation Skin exam: PRESENT: dry, intact, warm. ABSENT: cyanosis, rash Results Laboratory Results: 06/04/17 04:27 06/04/17 04:27 06/04/17 06/04/17 04:27 04:27 WBC 11.4 H RBC 2.93 L Hgb 8.1 L Hct 24.4 L MCV 83 MCH 27.5 MCHC 33.1 RDW 16.9 H Plt Count 220 Seg Neutrophils % 72.7 Lymphocytes % 20.0 Monocytes % 6.4 Eosinophils % 0.4 Basophils % 0.5 Absolute Neutrophils 8.3 H Absolute Lymphocytes 2.3 Absolute Monocytes 0.7 Absolute Eosinophils 0.0 Absolute Basophils 0.1 Sodium 140.3 Potassium 4.0 Chloride 104 Carbon Dioxide 28 Anion Gap 8 BUN 32 H Creatinine 3.69 H Est GFR ( Amer) 15 L Est GFR (Non-Af Amer) 13 L Glucose 76 Calcium 7.6 L Phosphorus 4.2 Magnesium 2.0 05/29/17 05/29/17 05/29/17 02:11 02:11 08:10 Creatine Kinase 696 H 697 H CK-MB (CK-2) 2.49 Troponin I 0.051 05/29/17 05/29/17 05/29/17 08:10 15:28 15:28 Creatine Kinase 647 H CK-MB (CK-2) 2.97 3.51 Troponin I 0.059 0.043 Impressions: Renal Ultrasound 05/29/17 00:00 IMPRESSION: No hydronephrosis. Increased echogenicity of the renal parenchyma , suggestive of medical renal disease. Lung Scan-VQ NM 05/30/17 00:00 IMPRESSION: NORMAL VENTILATION-PERFUSION LUNG SCAN. NEGATIVE FOR PULMONARY EMBOLI. Chest X-Ray 06/01/17 00:00 IMPRESSION: NO ACUTE RADIOGRAPHIC FINDING IN THE CHEST. Vascular Ultrasound 06/02/17 00:00 IMPRESSION: NO DOPPLER EVIDENCE OF HEMODYNAMICALLY SIGNIFICANT RENAL ARTERY STENOSIS. Assessment & Plan - Diagnosis (1) Acute on chronic renal failure Plan: The patient had her first dialysis yesterday. She is being followed by the nephrology service and we certainly appreciate their input. At this point it is not clear if her kidney function is going to recuperate. We will await further input. She does seem to feel better today. (2) Acute respiratory failure with hypoxia Plan: Secondary to vascular congestion and diastolic congestive heart failure exacerbation. Patient remains on oxygen. (3) Acute diastolic (congestive) heart failure Plan: The patient had a normal echocardiogram. This is presumed diastolic dysfunction. Also her vascular congestion is likely related to her underlying renal failure. She is being followed closely by nephrology. I will defer to nephrology on how to manage her volume status. She has been transitioned to 20 mg of p.o. Lasix daily. (4) Pulmonary edema Qualifiers: Chronicity: acute Qualified Code(s): J81.0 - Acute pulmonary edema Is this a current diagnosis for this admission?: Yes Plan: Resolved at this point. (5) Pneumonia Qualifiers: Pneumonia type: due to unspecified organism Laterality: left Lung location: lower lobe of lung Qualified Code(s): J18.1 - Lobar pneumonia, unspecified organism Is this a current diagnosis for this admission?: Yes Plan: Ruled out. The initial concerns were for gram-positive organisms. I do not believe the patient had pneumonia. (6) COPD with exacerbation Plan: Resolved. (7) Hypertensive emergency Plan: Much improved. Continue current regimen. (8) Insulin dependent diabetes mellitus Is this a current diagnosis for this admission?: Yes (9) Tobacco abuse Is this a current diagnosis for this admission?: Yes (10) Morbid obesity Is this a current diagnosis for this admission?: Yes (12) Anemia Qualifiers: Anemia type: unspecified type Qualified Code(s): D64.9 - Anemia, unspecified Is this a current diagnosis for this admission?: Yes (13) Insomnia Plan: I am going to increase the patient's trazodone tonight. - Time Time Spent with patient: 25-34 minutes - Inpatient Certification Based on my medical assessment, after consideration of the patient's comorbidities, presenting symptoms, or acuity I expect that the services needed warrant INPATIENT care.: Yes I certify that my determination is in accordance with my understanding of Medicare's requirements for reasonable and necessary INPATIENT services [42 CFR 412.3e].: Yes Medical Necessity: Other - Inpatient hospitalization remains necessary. She needs close monitoring of her kidney function. It is unclear whether she is going to need continued dialysis. Timing of disposition will be determined by her clinical course.
[2017-06-04] MEDS: ACETAMINOPHEN 325 MG TABLET PO PRN (20:54)
--- NOTE | 2017-06-04 20:56 | PDOC PROGRESS REPORT ---
Subjective Progress Note for:: 06/04/17 Subjective:: Patient tolerated her first hemodialysis treatment yesterday. Today she has been fairly stable. She denies any shortness of breath nor nausea nor vomiting. She continues to produce a good amount of urine output. She does not have any other complaints. Reason For Visit: ACUTE CONGESTIVE HEART FAILURE Physical Exam Vital Signs: Temp Pulse Resp BP Pulse Ox 98.7 F 69 18 172/71 H 100 06/04/17 16:08 06/04/17 16:36 06/04/17 16:36 06/04/17 16:08 06/04/17 16:36 Intake & Output 06/03/17 06/04/17 06/05/17 06:59 06:59 06:59 Intake Total 1308 1204 575 Output Total 675 3200 1050 Balance 633 1995 -244 Weight 145 kg 141.3 kg Exam: General appearance: PRESENT: no acute distress, cooperative, well-developed, well-nourished Head exam: PRESENT: atraumatic, normocephalic Eye exam: PRESENT: conjunctiva slightly pale, PERRLA. ABSENT: scleral icterus Neck exam: ABSENT: JVD Respiratory exam: PRESENT: Normal breath sounds. ABSENT: crackles, rales, rhonchi, unlabored, wheezes Cardiovascular exam: PRESENT: Regular rate rhythm -+S1, +S2. ABSENT: diastolic murmur, systolic murmur GI/Abdominal exam: PRESENT: normal bowel sounds, soft. ABSENT: guarding, mass, tenderness Extremities exam: Grade 1 bilateral lower extremity edema Neurological exam: PRESENT: alert, awake, oriented to person, place and time. Skin exam: PRESENT: dry, warm, Results Laboratory Results: 06/04/17 04:27 06/04/17 04:27 06/04/17 06/04/17 04:27 04:27 WBC 11.4 H RBC 2.93 L Hgb 8.1 L Hct 24.4 L MCV 83 MCH 27.5 MCHC 33.1 RDW 16.9 H Plt Count 220 Seg Neutrophils % 72.7 Lymphocytes % 20.0 Monocytes % 6.4 Eosinophils % 0.4 Basophils % 0.5 Absolute Neutrophils 8.3 H Absolute Lymphocytes 2.3 Absolute Monocytes 0.7 Absolute Eosinophils 0.0 Absolute Basophils 0.1 Sodium 140.3 Potassium 4.0 Chloride 104 Carbon Dioxide 28 Anion Gap 8 BUN 32 H Creatinine 3.69 H Est GFR ( Amer) 15 L Est GFR (Non-Af Amer) 13 L Glucose 76 Calcium 7.6 L Phosphorus 4.2 Magnesium 2.0 05/29/17 05/29/17 05/29/17 02:11 02:11 08:10 Creatine Kinase 696 H 697 H CK-MB (CK-2) 2.49 Troponin I 0.051 05/29/17 05/29/17 05/29/17 08:10 15:28 15:28 Creatine Kinase 647 H CK-MB (CK-2) 2.97 3.51 Troponin I 0.059 0.043 Impressions: Renal Ultrasound 05/29/17 00:00 IMPRESSION: No hydronephrosis. Increased echogenicity of the renal parenchyma , suggestive of medical renal disease. Lung Scan-VQ NM 05/30/17 00:00 IMPRESSION: NORMAL VENTILATION-PERFUSION LUNG SCAN. NEGATIVE FOR PULMONARY EMBOLI. Chest X-Ray 06/01/17 00:00 IMPRESSION: NO ACUTE RADIOGRAPHIC FINDING IN THE CHEST. Vascular Ultrasound 06/02/17 00:00 IMPRESSION: NO DOPPLER EVIDENCE OF HEMODYNAMICALLY SIGNIFICANT RENAL ARTERY STENOSIS. Assessment & Plan - Diagnosis (1) Renal failure Qualifiers: Renal failure chronicity: unspecified chronicity Qualified Code(s): N19 - Unspecified kidney failure Is this a current diagnosis for this admission?: Yes Plan: Acute versus chronic or acute on chronic. Patient is currently nonoliguric. Unknown baseline kidney function. Records from July 23, 2015 showed an EGFR of 61% with creatinine of 1.17 but nothing in the interim. Patient has significant proteinuria. There are several factors that points to progressive chronic kidney disease in this patient. Although we cannot totally rule out an acute component. The proteinuria points to a possible underlying diabetic nephropathy and likely a contribution of hypertensive nephrosclerosis in this patient with known noncompliance. Factors pointing to chronic kidney disease possibly nearing end-stage renal disease include uncontrolled hypertension, acute flash pulmonary edema, anemia, hyperparathyroidism, hypocalcemia, and peripheral edema. I reviewed records from [facility] from her primary care provider and [facility] currently called [facility]. Patient has significant nephrotic range proteinuria of 9.8 g. Kidney function today appears to be improved after her first hemodialysis yesterday. We will plan to do hemodialysis in the morning again. We will then monitor her kidney function over the weekend and see if she will have any renal recovery and decide from there if she is going to need either long-term or short-term hemodialysis treatment. (2) Pulmonary edema Qualifiers: Chronicity: acute Qualified Code(s): J81.0 - Acute pulmonary edema Is this a current diagnosis for this admission?: Yes Plan: Since the patient's echocardiogram did not support a diagnosis of congestive heart failure, it is very possible that this could be due to chronic kidney disease. Duplex of renal artery showed no evidence of hemodynamically significant renal artery stenosis. Nevertheless worsening kidney function can cause this as well. Currently the patient feels much better. (3) Hypertensive emergency Is this a current diagnosis for this admission?: Yes Plan: Continue current blood pressure medications. Since the patient's systolic blood pressure started very high as 230, current blood pressure readings of around 150-160 systolic is acceptable at this time. I will increase her atenolol 200 mg p.o. daily. (4) Anemia in chronic kidney disease (CKD) Is this a current diagnosis for this admission?: Yes Plan: Patient would need to be initiated with Procrit and IV Venofer during dialysis.. (5) Iron deficiency anemia Is this a current diagnosis for this admission?: Yes Plan: Once the patient's blood pressure is a little bit better I think I would like to give the patient IV iron supplement. (6) Vitamin D deficiency Is this a current diagnosis for this admission?: Yes (7) Secondary hyperparathyroidism (of renal origin) Is this a current diagnosis for this admission?: Yes Plan: We will replace calcitriol with Zemplar to be given IV during dialysis. (8) Small kidney, unilateral Is this a current diagnosis for this admission?: Yes Plan: Right kidney smaller than the left. Duplex of renal artery showed no evidence of renal artery stenosis. (9) Hypocalcemia Is this a current diagnosis for this admission?: Yes Plan: Continue calcium supplement (10) Hyperphosphatemia Is this a current diagnosis for this admission?: Yes Plan: Low phosphorus diet. (11) Insulin dependent diabetes mellitus Is this a current diagnosis for this admission?: Yes (12) Hyperlipidemia Is this a current diagnosis for this admission?: Yes (13) Morbid obesity Is this a current diagnosis for this admission?: Yes (14) Noncompliance Is this a current diagnosis for this admission?: Yes - Time Time with patient: 15-25 minutes
[2017-06-04] MEDS: TRAZODONE HCL 50 MG TABLET PO SCH (21:39)
[2017-06-04] MEDS: INSULIN GLARGINE,HUM.REC.ANLOG 300 UNIT/3 ML INSULN.PEN SUBCUT SCH (23:51)
[2017-06-05 03:37] LABS: HEPATITIS C QUANTITATION HCV Not Detected IU/mL (.)
[2017-06-05] MEDS ORDERED: EPOETIN ALFA INJ 20000 UNIT/1 ML VIAL (RENAL) IV PRN (05:00)
[2017-06-05] MEDS ORDERED: IRON SUCROSE COMPLEX INJ/PF 100 MG/5 ML SDV IV PRN (05:00)
[2017-06-05] MEDS ORDERED: PARICALCITOL INJ/PF 5 MCG/1 ML SDV IV PRN (05:00)
[2017-06-05] MEDS ORDERED: HEPARIN SOD (PORCINE) 1,000 UNIT/ML 10 ML VIAL IV PRN (05:00)
[2017-06-05] MEDS ORDERED: NORMAL SALINE 1000 ML 1,000 ML IV PRN (05:00)
[2017-06-05] MEDS: NITROGLYCERIN 2% OINTMENT 1 GM PACKET TP SCH ×3 (06:02→18:25)
[2017-06-05] MEDS: NIFEDIPINE 30 MG TAB.ER.24 PO SCH ×3 (06:03→21:13)
[2017-06-05] MEDS: HEPARIN SOD (PORCINE) 5,000 UNIT/ML 1 ML SYRINGE SUBCUT SCH ×3 (06:03→21:13)
[2017-06-05 06:40] LABS: ABSOLUTE BASOPHILS # (AUTO) 0.1 10^3/uL (0.0-0.2); ABSOLUTE EOSINOPHILS # (AUTO) 0.1 10^3/uL (0.0-0.6); ABSOLUTE LYMPHOCYTES (AUTO) 1.8 10^3/uL (0.5-4.7); ABSOLUTE MONOCYTES (AUTO) 0.7 10^3/uL (0.1-1.4); ABSOLUTE NEUT (AUTO) 8.5 10^3/uL (1.7-8.2); BASOPHILS % (AUTO) 0.9 % (0-2); EOSINOPHILS % (AUTO) 0.6 % (0-6); HEMATOCRIT 26.6 % (36.0-47.0); HEMOGLOBIN 8.5 g/dL (12.0-15.5); HGB HCT DIFFERENCE -1.1; LYMPHOCYTES % (AUTO) 16.5 % (13-45); MEAN CORPUSCULAR HEMOGLOBIN 27.2 pg (27.0-33.4); MEAN CORPUSCULAR HGB CONC 32.1 g/dL (32.0-36.0); MEAN CORPUSCULAR VOLUME 85 fl (80-97); RED BLOOD COUNT 3.14 10^6/uL (3.72-5.28); RED CELL DISTRIBUTION WIDTH 16.9 % (11.5-14.0); WHITE BLOOD COUNT 11.1 10^3/uL (4.0-10.5)
[2017-06-05 06:54] LABS: ANION GAP 9 (5-19); BLOOD UREA NITROGEN 33 mg/dL (7-20); CALCIUM 7.8 mg/dL (8.4-10.2); CARBON DIOXIDE 26 mmol/L (22-30); CHLORIDE 102 mmol/L (98-107); CREATININE RESULT 4.32 mg/dL (0.52-1.25); GLUCOSE 232 mg/dL (75-110); PHOSPHORUS 4.6 mg/dL (2.5-4.5); POTASSIUM 4.5 mmol/L (3.6-5.0)
[2017-06-05] MEDS: IPRATROPIUM/ALBUTEROL 0.5-2.5 MG/3 ML AMPUL NEB SCH ×3 (08:03→19:45)
[2017-06-05] MEDS: BUDESONIDE NEB 0.5 MG/2 ML AMPUL NEB SCH ×2 (08:05→19:45)
[2017-06-05] MEDS: CEFTRIAXONE 1 GM/D5W RTU 1 GM/50 ML RTUPB IV SCH (13:12)
[2017-06-05] MEDS: FUROSEMIDE 20 MG TABLET PO SCH (13:14)
[2017-06-05] MEDS: ASPIRIN 325 MG TABLET, ENT COATED PO SCH (13:15)
[2017-06-05] MEDS: CALCIUM CARBONATE 500 MG TABLET PO SCH ×2 (13:17→18:25)
[2017-06-05] MEDS: GUAIFENESIN 600 MG TABLET.SA PO SCH ×2 (13:17→21:12)
[2017-06-05] MEDS: DULOXETINE HCL 20 MG CAPSULE.DR PO SCH (13:18)
[2017-06-05] MEDS: ATENOLOL 50 MG TABLET PO SCH (13:23)
[2017-06-05] MEDS: ACETAMINOPHEN 325 MG TABLET PO PRN ×2 (16:34→21:12)
[2017-06-05] MEDS: FOLIC ACID/VITAMIN B COMP W-C CAPSULE PO SCH (16:34)
[2017-06-05] MEDS: ONDANSETRON HCL INJ/PF 4 MG/2 ML SDV IV PRN (18:25)
--- NOTE | 2017-06-05 19:09 | PDOC PROGRESS REPORT ---
Subjective Progress Note for:: 06/05/17 Subjective:: The patient is a 56-year-old obese -[place] female with a past medical history significant for insulin-dependent diabetes mellitus, hypertension and chronic kidney disease. She presented to the emergency room with shortness of breath. The patient was found to be acutely volume overloaded with a hypertensive emergency and pulmonary edema may. She was admitted to the hospital for IV diuresis. The patient was found to have acute worsening of her renal failure. 2D echocardiogram did not reveal any evidence of congestive heart failure. She has been diuresed for presumed diastolic dysfunction although her acutely decompensated state could be due to her acute on chronic renal failure. Unfortunately her renal function did not improve. She has been followed closely by nephrology and has had a temporary dialysis catheter placed. She is now had [address] Blanc would like to keep the patient in the hospital over the weekend and it is unclear if her kidneys are going to recover. A decision will be made hopefully at the beginning of the week on whether she is going to require ongoing dialysis or not. Today when I saw the patient she states that she is feeling better. She has had some issues with nausea but it is improving after dialysis. She denies fever chills. No chest pain, shortness of breath or heart palpitations no abdominal pain or diarrhea. She is making a little bit of urine. Reason For Visit: ACUTE CONGESTIVE HEART FAILURE Physical Exam Vital Signs: Temp Pulse Resp BP Pulse Ox 98.4 F 82 16 175/64 H 96 06/05/17 15:40 06/05/17 16:08 06/05/17 16:08 06/05/17 15:40 06/05/17 16:08 Intake & Output 06/04/17 06/05/17 06/06/17 06:59 06:59 06:59 Intake Total 1204 1330 250 Output Total 3200 1800 400 Balance -1995 470 -150 Weight 141.3 kg 139.3 kg General appearance: PRESENT: no acute distress, morbidly obese, well-developed, well-nourished Head exam: PRESENT: atraumatic, normocephalic Mouth exam: PRESENT: dry mucosa Respiratory exam: PRESENT: clear to auscultation adrianne, other - She is diminished in the lower bases bilaterally. ABSENT: rales, rhonchi, wheezes Cardiovascular exam: PRESENT: RRR. ABSENT: diastolic murmur, rubs, systolic murmur GI/Abdominal exam: PRESENT: normal bowel sounds, soft. ABSENT: distended, guarding, mass, organolmegaly, rebound, tenderness Rectal exam: PRESENT: deferred Extremities exam: PRESENT: +1 edema Musculoskeletal exam: PRESENT: ambulatory Neurological exam: PRESENT: alert, awake, oriented to person, oriented to place , oriented to time, oriented to situation, CN II-XII grossly intact. ABSENT: motor sensory deficit Psychiatric exam: PRESENT: appropriate affect, normal mood. ABSENT: homicidal ideation, suicidal ideation Skin exam: PRESENT: dry, intact, warm. ABSENT: cyanosis, rash Results Laboratory Results: 06/05/17 06:23 06/05/17 06:23 06/05/17 06/05/17 06:23 06:23 WBC 11.1 H RBC 3.14 L Hgb 8.5 L Hct 26.6 L MCV 85 MCH 27.2 MCHC 32.1 RDW 16.9 H Plt Count 234 Seg Neutrophils % 76.0 Lymphocytes % 16.5 Monocytes % 6.0 Eosinophils % 0.6 Basophils % 0.9 Absolute Neutrophils 8.5 H Absolute Lymphocytes 1.8 Absolute Monocytes 0.7 Absolute Eosinophils 0.1 Absolute Basophils 0.1 Sodium 137.0 Potassium 4.5 Chloride 102 Carbon Dioxide 26 Anion Gap 9 BUN 33 H Creatinine 4.32 H Est GFR ( Amer) 13 L Est GFR (Non-Af Amer) 11 L Glucose 232 H Calcium 7.8 L Phosphorus 4.6 H Magnesium 2.0 05/29/17 05/29/17 05/29/17 02:11 02:11 08:10 Creatine Kinase 696 H 697 H CK-MB (CK-2) 2.49 Troponin I 0.051 05/29/17 05/29/17 05/29/17 08:10 15:28 15:28 Creatine Kinase 647 H CK-MB (CK-2) 2.97 3.51 Troponin I 0.059 0.043 Impressions: Renal Ultrasound 05/29/17 00:00 IMPRESSION: No hydronephrosis. Increased echogenicity of the renal parenchyma , suggestive of medical renal disease. Lung Scan-VQ NM 05/30/17 00:00 IMPRESSION: NORMAL VENTILATION-PERFUSION LUNG SCAN. NEGATIVE FOR PULMONARY EMBOLI. Chest X-Ray 06/01/17 00:00 IMPRESSION: NO ACUTE RADIOGRAPHIC FINDING IN THE CHEST. Vascular Ultrasound 06/02/17 00:00 IMPRESSION: NO DOPPLER EVIDENCE OF HEMODYNAMICALLY SIGNIFICANT RENAL ARTERY STENOSIS. Assessment & Plan - Diagnosis (1) Acute on chronic renal failure Plan: The patient did have dialysis today. Dr. Blanc is following. It is unclear whether her kidneys are going to recover. She likely is reaching end-stage renal disease and will need to continue with hemodialysis. E will check (2) Acute respiratory failure with hypoxia Plan: Secondary to vascular congestion and diastolic congestive heart failure exacerbation. She has been weaned off of her oxygen today.. (3) Acute diastolic (congestive) heart failure Plan: The patient had a normal echocardiogram. This is presumed diastolic dysfunction. Also her vascular congestion is likely related to her underlying renal failure. She is being followed closely by nephrology. I will defer to nephrology on how to manage her volume status. She has been transitioned to 20 mg of p.o. Lasix daily. (4) Pulmonary edema Qualifiers: Chronicity: acute Qualified Code(s): J81.0 - Acute pulmonary edema Is this a current diagnosis for this admission?: Yes Plan: Resolved at this point. (5) Pneumonia Qualifiers: Pneumonia type: due to unspecified organism Laterality: left Lung location: lower lobe of lung Qualified Code(s): J18.1 - Lobar pneumonia, unspecified organism Is this a current diagnosis for this admission?: Yes Plan: Ruled out. The initial concerns were for gram-positive organisms. I do not believe the patient had pneumonia. (6) COPD with exacerbation Plan: Resolved. (8) Insulin dependent diabetes mellitus Is this a current diagnosis for this admission?: Yes Plan: Continue current regimen (9) Tobacco abuse Is this a current diagnosis for this admission?: Yes Plan: Certainly she needs to quit smoking in light of her respiratory issues. (10) Morbid obesity Is this a current diagnosis for this admission?: Yes Plan: Dietary discretion is advised. Her morbid obesity is contributing to all of her problems. (11) Constipation Plan: She will be placed on a bowel regimen (12) Anemia Qualifiers: Anemia type: unspecified type Qualified Code(s): D64.9 - Anemia, unspecified Is this a current diagnosis for this admission?: Yes Plan: This is an anemia of chronic disease - Time Time Spent with patient: 25-34 minutes - Inpatient Certification Based on my medical assessment, after consideration of the patient's comorbidities, presenting symptoms, or acuity I expect that the services needed warrant INPATIENT care.: Yes I certify that my determination is in accordance with my understanding of Medicare's requirements for reasonable and necessary INPATIENT services [42 CFR 412.3e].: Yes Medical Necessity: Other - Inpatient hospitalization remains necessary. At this point it is unclear whether the patient's kidneys are can recuperate. She will remain in the hospital for the weekend. Nephrology will follow closely. A decision will be made regarding her disposition on Thursday.
--- NOTE | 2017-06-05 19:16 | PDOC PROGRESS REPORT ---
Subjective Progress Note for:: 06/05/17 Subjective:: I saw the patient is morning around 9 AM while she she was on dialysis. She did not have any complaints. She was tolerating dialysis without any problems. She continues to produce a good amount of urine output. Reason For Visit: Renal Failure Physical Exam Vital Signs: Temp Pulse Resp BP Pulse Ox 98.4 F 82 16 175/64 H 96 06/05/17 15:40 06/05/17 16:08 06/05/17 16:08 06/05/17 15:40 06/05/17 16:08 Intake & Output 06/04/17 06/05/17 06/06/17 06:59 06:59 06:59 Intake Total 1204 1330 250 Output Total 3200 1800 400 Balance -1995 -470 -150 Weight 141.3 kg 139.3 kg Vitals during dialysis this morning: Blood pressure 186/92, heart rate 76, blood flow rate of 250 mL/min, dialysate flow rate of 500 mL/min. Exam: General appearance: PRESENT: no acute distress, cooperative, well-developed, well-nourished Head exam: PRESENT: atraumatic, normocephalic Eye exam: PRESENT: conjunctiva slightly pale, PERRLA. ABSENT: scleral icterus Neck exam: ABSENT: JVD Respiratory exam: PRESENT: Normal breath sounds. ABSENT: crackles, rales, rhonchi, unlabored, wheezes Cardiovascular exam: PRESENT: Regular rate rhythm -+S1, +S2. ABSENT: diastolic murmur, systolic murmur GI/Abdominal exam: PRESENT: normal bowel sounds, soft. ABSENT: guarding, mass, tenderness Extremities exam: Slightly decreased grade 1 bilateral lower extremity edema edema Neurological exam: PRESENT: alert, awake, oriented to person, place and time. Skin exam: PRESENT: dry, warm, Results Laboratory Results: 06/05/17 06:23 06/05/17 06:23 06/05/17 06/05/17 06:23 06:23 WBC 11.1 H RBC 3.14 L Hgb 8.5 L Hct 26.6 L MCV 85 MCH 27.2 MCHC 32.1 RDW 16.9 H Plt Count 234 Seg Neutrophils % 76.0 Lymphocytes % 16.5 Monocytes % 6.0 Eosinophils % 0.6 Basophils % 0.9 Absolute Neutrophils 8.5 H Absolute Lymphocytes 1.8 Absolute Monocytes 0.7 Absolute Eosinophils 0.1 Absolute Basophils 0.1 Sodium 137.0 Potassium 4.5 Chloride 102 Carbon Dioxide 26 Anion Gap 9 BUN 33 H Creatinine 4.32 H Est GFR ( Amer) 13 L Est GFR (Non-Af Amer) 11 L Glucose 232 H Calcium 7.8 L Phosphorus 4.6 H Magnesium 2.0 05/29/17 05/29/17 05/29/17 02:11 02:11 08:10 Creatine Kinase 696 H 697 H CK-MB (CK-2) 2.49 Troponin I 0.051 05/29/17 05/29/17 05/29/17 08:10 15:28 15:28 Creatine Kinase 647 H CK-MB (CK-2) 2.97 3.51 Troponin I 0.059 0.043 Impressions: Renal Ultrasound 05/29/17 00:00 IMPRESSION: No hydronephrosis. Increased echogenicity of the renal parenchyma , suggestive of medical renal disease. Lung Scan-VQ NM 05/30/17 00:00 IMPRESSION: NORMAL VENTILATION-PERFUSION LUNG SCAN. NEGATIVE FOR PULMONARY EMBOLI. Chest X-Ray 06/01/17 00:00 IMPRESSION: NO ACUTE RADIOGRAPHIC FINDING IN THE CHEST. Vascular Ultrasound 06/02/17 00:00 IMPRESSION: NO DOPPLER EVIDENCE OF HEMODYNAMICALLY SIGNIFICANT RENAL ARTERY STENOSIS. Assessment & Plan - Diagnosis (1) Renal failure Qualifiers: Qualified Code(s): N19 - Unspecified kidney failure Is this a current diagnosis for this admission?: Yes Plan: Acute versus chronic or acute on chronic. Patient is currently nonoliguric. Unknown baseline kidney function. Records from July 23, 2015 showed an EGFR of 61% with creatinine of 1.17 but nothing in the interim. Patient has significant proteinuria. There are several factors that points to progressive chronic kidney disease in this patient. Although we cannot totally rule out an acute component. The proteinuria points to a possible underlying diabetic nephropathy and likely a contribution of hypertensive nephrosclerosis in this patient with known noncompliance. Factors pointing to chronic kidney disease possibly nearing end-stage renal disease include uncontrolled hypertension, acute flash pulmonary edema, anemia, hyperparathyroidism, hypocalcemia, and peripheral edema. I reviewed records from [facility] from her primary care provider and [facility] currently called [facility]. Patient has significant nephrotic range proteinuria of 9.8 g. Kidney function today appears to be improved after her first hemodialysis yesterday. However today her creatinine is elevated again. We did dialysis today for 3 hours, using the patient's trialysis catheter, with 2 potassium bath, blood flow rate of 250 mL per minute, dialysate flow rate of 500 mL per minute, ultrafiltration 2 L as tolerated, no heparin and Procrit with 20,000 units during dialysis intravenously. Patient was monitored throughout dialysis and tolerated dialysis well. We will see how patient's kidney function is over the weekend and maybe we can decide early part of next week if the patient would need long-term chronic dialysis. (2) Pulmonary edema Qualifiers: Qualified Code(s): J81.0 - Acute pulmonary edema Is this a current diagnosis for this admission?: Yes Plan: Since the patient's echocardiogram did not support a diagnosis of congestive heart failure, it is very possible that this could be due to chronic kidney disease. Duplex of renal artery showed no evidence of hemodynamically significant renal artery stenosis. Nevertheless worsening kidney function can cause this as well. Currently the patient feels much better. This is resolved. (3) Hypertensive emergency Is this a current diagnosis for this admission?: Yes Plan: Continue current blood pressure medications. Since the patient's systolic blood pressure started very high as 230, current blood pressure readings of around 150-160 systolic is acceptable at this time. I will increase her atenolol 100 mg p.o. daily. (4) Anemia in chronic kidney disease (CKD) Is this a current diagnosis for this admission?: Yes Plan: Patient would need to be initiated with Procrit and IV Venofer during dialysis.. (5) Iron deficiency anemia Is this a current diagnosis for this admission?: Yes Plan: Patient is on IV Venofer on dialysis. (6) Vitamin D deficiency Is this a current diagnosis for this admission?: Yes (7) Secondary hyperparathyroidism (of renal origin) Is this a current diagnosis for this admission?: Yes Plan: She receives IV Zemplar on dialysis. (8) Small kidney, unilateral Is this a current diagnosis for this admission?: Yes Plan: Right kidney smaller than the left. Duplex of renal artery showed no evidence of renal artery stenosis. (9) Hypocalcemia Is this a current diagnosis for this admission?: Yes Plan: Continue calcium supplement (10) Hyperphosphatemia Is this a current diagnosis for this admission?: Yes Plan: Low phosphorus diet. (11) Insulin dependent diabetes mellitus Is this a current diagnosis for this admission?: Yes (12) Hyperlipidemia Is this a current diagnosis for this admission?: Yes (13) Morbid obesity Is this a current diagnosis for this admission?: Yes (14) Noncompliance Is this a current diagnosis for this admission?: Yes - Time Time with patient: 15-25 minutes
[2017-06-05] MEDS: INSULIN GLARGINE,HUM.REC.ANLOG 300 UNIT/3 ML INSULN.PEN SUBCUT SCH (21:12)
[2017-06-05] MEDS: TRAZODONE HCL 50 MG TABLET PO SCH (21:13)
[2017-06-06] MEDS: NITROGLYCERIN 2% OINTMENT 1 GM PACKET TP SCH ×4 (00:12→17:08)
[2017-06-06] MEDS: HYDROXYZINE PAMOATE 25 MG CAPSULE PO PRN ×2 (00:19→17:08)
[2017-06-06] MEDS: ACETAMINOPHEN 325 MG TABLET PO PRN ×3 (04:11→18:54)
[2017-06-06] MEDS: HEPARIN SOD (PORCINE) 5,000 UNIT/ML 1 ML SYRINGE SUBCUT SCH ×3 (05:34→22:18)
[2017-06-06 06:11] LABS: ABSOLUTE BASOPHILS # (AUTO) 0.2 10^3/uL (0.0-0.2); ABSOLUTE EOSINOPHILS # (AUTO) 0.1 10^3/uL (0.0-0.6); ABSOLUTE LYMPHOCYTES (AUTO) 2.5 10^3/uL (0.5-4.7); ABSOLUTE MONOCYTES (AUTO) 0.9 10^3/uL (0.1-1.4); ABSOLUTE NEUT (AUTO) 9.9 10^3/uL (1.7-8.2); BASOPHILS % (AUTO) 1.1 % (0-2); EOSINOPHILS % (AUTO) 0.9 % (0-6); HEMATOCRIT 25.4 % (36.0-47.0); HEMOGLOBIN 8.4 g/dL (12.0-15.5); HGB HCT DIFFERENCE -0.2; LYMPHOCYTES % (AUTO) 18.5 % (13-45); MEAN CORPUSCULAR HEMOGLOBIN 27.8 pg (27.0-33.4); MEAN CORPUSCULAR VOLUME 84 fl (80-97); MONOCYTES % (AUTO) 6.7 % (3-13); RED CELL DISTRIBUTION WIDTH 16.7 % (11.5-14.0); SEGMENTED NEUTROPHILS % (AUTO) 72.8 % (42-78); WHITE BLOOD COUNT 13.6 10^3/uL (4.0-10.5)
[2017-06-06 06:52] LABS: BLOOD UREA NITROGEN 22 mg/dL (7-20); CALCIUM 7.8 mg/dL (8.4-10.2); GLUCOSE 105 mg/dL (75-110)
[2017-06-06 06:53] LABS: ANION GAP 8 (5-19); CARBON DIOXIDE 28 mmol/L (22-30); CHLORIDE 100 mmol/L (98-107); POTASSIUM 3.7 mmol/L (3.6-5.0); SODIUM 136.4 mmol/L (137-145)
[2017-06-06] MEDS: IPRATROPIUM/ALBUTEROL 0.5-2.5 MG/3 ML AMPUL NEB SCH ×3 (08:26→20:35)
[2017-06-06] MEDS: BUDESONIDE NEB 0.5 MG/2 ML AMPUL NEB SCH ×2 (08:27→20:35)
[2017-06-06] MEDS: CEFTRIAXONE 1 GM/D5W RTU 1 GM/50 ML RTUPB IV SCH (09:26)
[2017-06-06] MEDS: ATENOLOL 50 MG TABLET PO SCH (09:28)
[2017-06-06] MEDS: CALCIUM CARBONATE 500 MG TABLET PO SCH ×2 (09:28→17:10)
[2017-06-06] MEDS: ASPIRIN 325 MG TABLET, ENT COATED PO SCH (09:28)
[2017-06-06] MEDS: GUAIFENESIN 600 MG TABLET.SA PO SCH ×2 (09:29→22:18)
[2017-06-06] MEDS: FUROSEMIDE 20 MG TABLET PO SCH (09:30)
[2017-06-06] MEDS: NIFEDIPINE 30 MG TAB.ER.24 PO SCH ×2 (09:30→22:17)
[2017-06-06] MEDS ORDERED: PREGABALIN 25 MG CAPSULE PO ONE (11:00)
--- NOTE | 2017-06-06 11:25 | PDOC PROGRESS REPORT ---
Subjective Progress Note for:: 06/06/17 Subjective:: The patient is a 56-year-old obese -[place] female. She has a history of insulin-dependent diabetes mellitus, hypertension and possibly chronic kidney disease. Apparently, her laboratory results from [place] demonstrated a fairly normal creatinine of 1.17 in June 2015. There were no ongoing labs that we have had access to. The patient presented with acute shortness of breath secondary to pulmonary edema. This is felt to be secondary to combinations of diastolic congestive heart failure aggravated by volume overloaded from acute on chronic renal failure. The patient has started dialysis. She has had 2 sessions this hospitalization. It is unclear as to whether or not the patient will resume adequate renal function. She currently has a temporary dialysis catheter in place. She was also noted to be severely hypertensive on admission. This has improved significantly. Today, the patient states that she is feeling only slightly better from admission. She still has some shortness of breath. Her edema, is markedly improved. She has no complaints of abdominal pain. She has no nausea or vomiting. She did have nausea when she first presented. She has no skin lesions or rashes. Reason For Visit: ACUTE CONGESTIVE HEART FAILURE Physical Exam Vital Signs: Temp Pulse Resp BP Pulse Ox 98.5 F 73 14 144/67 H 93 06/06/17 07:49 06/06/17 08:26 06/06/17 08:26 06/06/17 07:49 06/06/17 08:26 Intake & Output 06/05/17 06/06/17 06/07/17 06:59 06:59 06:59 Intake Total 1330 260 Output Total 1800 4150 Balance -470 -3890 Weight 139.3 kg Additional comments: The patient is a morbidly obese black female. Her cognition and mentation appear to be normal. Her facial appearance is noteworthy for edema. This is global. Her oropharynx is benign. Her lungs are clear to auscultation bilaterally. Her cardiac exam is regular without murmurs, gallops or rubs. The abdomen is soft and flat. Bowel sounds are hypoactive. The lower extremities do demonstrate 1+ edema. According to the patient and her daughter this is markedly improved since admission. The skin is otherwise warm, dry and intact without lesions or rashes. Results Laboratory Results: 06/06/17 05:48 06/06/17 05:48 06/06/17 06/06/17 05:48 05:48 WBC 13.6 H RBC 3.00 L Hgb 8.4 L Hct 25.4 L MCV 84 MCH 27.8 MCHC 33.0 RDW 16.7 H Plt Count 238 Seg Neutrophils % 72.8 Lymphocytes % 18.5 Monocytes % 6.7 Eosinophils % 0.9 Basophils % 1.1 Absolute Neutrophils 9.9 H Absolute Lymphocytes 2.5 Absolute Monocytes 0.9 Absolute Eosinophils 0.1 Absolute Basophils 0.2 Sodium 136.4 L Potassium 3.7 Chloride 100 Carbon Dioxide 28 Anion Gap 8 BUN 22 H Creatinine 3.30 H Est GFR ( Amer) 18 L Est GFR (Non-Af Amer) 15 L Glucose 105 Calcium 7.8 L 05/29/17 05/29/17 05/29/17 02:11 02:11 08:10 Creatine Kinase 696 H 697 H CK-MB (CK-2) 2.49 Troponin I 0.051 05/29/17 05/29/17 05/29/17 08:10 15:28 15:28 Creatine Kinase 647 H CK-MB (CK-2) 2.97 3.51 Troponin I 0.059 0.043 Impressions: Renal Ultrasound 05/29/17 00:00 IMPRESSION: No hydronephrosis. Increased echogenicity of the renal parenchyma , suggestive of medical renal disease. Lung Scan-VQ NM 05/30/17 00:00 IMPRESSION: NORMAL VENTILATION-PERFUSION LUNG SCAN. NEGATIVE FOR PULMONARY EMBOLI. Chest X-Ray 06/01/17 00:00 IMPRESSION: NO ACUTE RADIOGRAPHIC FINDING IN THE CHEST. Vascular Ultrasound 06/02/17 00:00 IMPRESSION: NO DOPPLER EVIDENCE OF HEMODYNAMICALLY SIGNIFICANT RENAL ARTERY STENOSIS. Assessment & Plan - Diagnosis (1) Acute diastolic (congestive) heart failure Is this a current diagnosis for this admission?: Yes (2) Acute on chronic renal failure Is this a current diagnosis for this admission?: Yes (3) Acute respiratory failure with hypoxia Is this a current diagnosis for this admission?: Yes (4) Anemia Qualifiers: Anemia type: unspecified type Qualified Code(s): D64.9 - Anemia, unspecified Is this a current diagnosis for this admission?: Yes (5) Anemia in chronic kidney disease (CKD) Is this a current diagnosis for this admission?: Yes (6) COPD (chronic obstructive pulmonary disease) Qualifiers: COPD type: COPD with acute exacerbation Qualified Code(s): J44.1 - Chronic obstructive pulmonary disease with (acute) exacerbation Is this a current diagnosis for this admission?: Yes (7) Constipation Is this a current diagnosis for this admission?: Yes (8) Insulin dependent diabetes mellitus Is this a current diagnosis for this admission?: Yes (9) Morbid obesity Is this a current diagnosis for this admission?: Yes (10) Pneumonia Qualifiers: Pneumonia type: due to unspecified organism Laterality: left Lung location: lower lobe of lung Qualified Code(s): J18.1 - Lobar pneumonia, unspecified organism Is this a current diagnosis for this admission?: Yes (11) Pulmonary edema Qualifiers: Chronicity: acute Qualified Code(s): J81.0 - Acute pulmonary edema Is this a current diagnosis for this admission?: Yes (12) Tobacco abuse Is this a current diagnosis for this admission?: Yes - Time Time Spent with patient: 25-34 minutes - Inpatient Certification Medical Necessity: Risk of Complication if Not Cared For in Hospital, Other - Need for acute and emergent dialysis. - Plan Summary Plan Summary: The patient presented with volume overload which is likely secondary to acute on chronic renal failure. This likely led to an exacerbation of diastolic congestive heart failure. This led to pulmonary edema. The patient has been treated with intravenous diuresis followed by oral Lasix. Her blood pressure was out of control upon admission due to hypertensive emergency from the above. Her blood pressure regimen is now adequate. She does not appear to have presented with pneumonia or COPD with exacerbation. Pneumonia was ruled out clinically. She had pulmonary edema. Her anemia will be treated with Venofer and Procrit. Nephrology is following. The plan at this time will be to keep the patient in the hospital over the weekend. We will need to determine if she will need dialysis as an outpatient and if so she will need access placed.
[2017-06-06] MEDS: ONDANSETRON HCL INJ/PF 4 MG/2 ML SDV IV PRN (14:49)
[2017-06-06] MEDS: FOLIC ACID/VITAMIN B COMP W-C CAPSULE PO SCH (16:33)
[2017-06-06] MEDS: TRAZODONE HCL 50 MG TABLET PO SCH (22:17)
[2017-06-06] MEDS: INSULIN GLARGINE,HUM.REC.ANLOG 300 UNIT/3 ML INSULN.PEN SUBCUT SCH (22:18)
[2017-06-07] MEDS: NITROGLYCERIN 2% OINTMENT 1 GM PACKET TP SCH ×4 (00:07→17:53)
[2017-06-07] MEDS: ACETAMINOPHEN 325 MG TABLET PO PRN ×3 (05:29→22:14)
[2017-06-07] MEDS: HEPARIN SOD (PORCINE) 5,000 UNIT/ML 1 ML SYRINGE SUBCUT SCH ×3 (05:29→22:16)
[2017-06-07 06:37] LABS: ABSOLUTE BASOPHILS # (AUTO) 0.1 10^3/uL (0.0-0.2); ABSOLUTE EOSINOPHILS # (AUTO) 0.1 10^3/uL (0.0-0.6); ABSOLUTE LYMPHOCYTES (AUTO) 2.2 10^3/uL (0.5-4.7); ABSOLUTE MONOCYTES (AUTO) 0.8 10^3/uL (0.1-1.4); ABSOLUTE NEUT (AUTO) 8.6 10^3/uL (1.7-8.2); BASOPHILS % (AUTO) 0.8 % (0-2); EOSINOPHILS % (AUTO) 0.8 % (0-6); HEMATOCRIT 24.7 % (36.0-47.0); HEMOGLOBIN 8.1 g/dL (12.0-15.5); HGB HCT DIFFERENCE -0.4; MEAN CORPUSCULAR HEMOGLOBIN 28.1 pg (27.0-33.4); MEAN CORPUSCULAR HGB CONC 32.8 g/dL (32.0-36.0); MEAN CORPUSCULAR VOLUME 86 fl (80-97); MONOCYTES % (AUTO) 6.6 % (3-13); RED BLOOD COUNT 2.88 10^6/uL (3.72-5.28); RED CELL DISTRIBUTION WIDTH 17.3 % (11.5-14.0); SEGMENTED NEUTROPHILS % (AUTO) 72.8 % (42-78); WHITE BLOOD COUNT 11.8 10^3/uL (4.0-10.5)
[2017-06-07 07:07] LABS: ANION GAP 10 (5-19); BLOOD UREA NITROGEN 27 mg/dL (7-20); CALCIUM 7.8 mg/dL (8.4-10.2); CARBON DIOXIDE 28 mmol/L (22-30); CHLORIDE 100 mmol/L (98-107); CREATININE RESULT 4.47 mg/dL (0.52-1.25); GLUCOSE 80 mg/dL (75-110); POTASSIUM 3.5 mmol/L (3.6-5.0); SODIUM 138.1 mmol/L (137-145)
[2017-06-07] MEDS: IPRATROPIUM/ALBUTEROL 0.5-2.5 MG/3 ML AMPUL NEB SCH ×3 (07:53→19:29)
[2017-06-07] MEDS: BUDESONIDE NEB 0.5 MG/2 ML AMPUL NEB SCH ×2 (07:53→19:29)
[2017-06-07] MEDS: HYDROXYZINE PAMOATE 25 MG CAPSULE PO PRN ×3 (08:30→22:23)
[2017-06-07] MEDS: FUROSEMIDE 20 MG TABLET PO SCH (09:58)
[2017-06-07] MEDS: ATENOLOL 50 MG TABLET PO SCH (10:00)
[2017-06-07] MEDS: CALCIUM CARBONATE 500 MG TABLET PO SCH ×2 (10:01→17:55)
[2017-06-07] MEDS: ASPIRIN 325 MG TABLET, ENT COATED PO SCH (10:01)
[2017-06-07] MEDS: NIFEDIPINE 30 MG TAB.ER.24 PO SCH ×2 (10:01→22:15)
[2017-06-07] MEDS: PREGABALIN 25 MG CAPSULE PO SCH (10:01)
[2017-06-07] MEDS: GUAIFENESIN 600 MG TABLET.SA PO SCH ×2 (10:03→22:16)
--- NOTE | 2017-06-07 10:26 | PDOC PROGRESS REPORT ---
Subjective Progress Note for:: 06/07/17 Subjective:: The patient is a 56-year-old obese -[place] female. She has a history of insulin-dependent diabetes mellitus, hypertension and possibly chronic kidney disease. Apparently, her laboratory results from [place] demonstrated a fairly normal creatinine of 1.17 in June 2015. There were no ongoing labs that we have had access to. The patient presented with acute shortness of breath secondary to pulmonary edema. This is felt to be secondary to combinations of diastolic congestive heart failure aggravated by volume overloaded from acute on chronic renal failure. The patient has started dialysis. She has had 2 sessions this hospitalization. It is unclear as to whether or not the patient will resume adequate renal function. She currently has a temporary dialysis catheter in place. She was also noted to be severely hypertensive on admission. This has improved significantly. Last night, the patient told me that she slept much better. She states that she really has not had any shortness of breath, orthopnea or PND since last . Her only complaint this morning was that she had a large amount of diarrhea earlier this morning. Dr. Velez was notified and sent a C. difficile PCR analysis. Reason For Visit: ACUTE CONGESTIVE HEART FAILURE Physical Exam Vital Signs: Temp Pulse Resp BP Pulse Ox 98.5 F 71 12 143/52 H 93 06/07/17 07:22 06/07/17 07:53 06/07/17 07:53 06/07/17 07:22 06/07/17 07:53 Intake & Output 06/06/17 06/07/17 06/08/17 06:59 06:59 06:59 Intake Total 260 731 Output Total 4150 650 Balance -3890 81 Weight 136.3 kg Additional comments: The patient is an obese, black female. She is laying in bed flat. She does not appear to be in any distress. The edema in her face appears improved when compared to yesterday. Her lungs are clear to auscultation bilaterally. Her cardiac exam is regular without murmurs, gallops or rubs. The abdomen is obese but soft. Bowel sounds are present and are normoactive. There is no guarding or rebound and there are no hernias or masses present. Patient does continue to have bilateral lower extremity edema. In general, this appears stable to improved. The skin is warm, dry and intact without lesions or rashes. Results Laboratory Results: 06/07/17 06:12 06/07/17 06:12 06/07/17 06/07/17 06:12 06:12 WBC 11.8 H RBC 2.88 L Hgb 8.1 L Hct 24.7 L MCV 86 MCH 28.1 MCHC 32.8 RDW 17.3 H Plt Count 276 Seg Neutrophils % 72.8 Lymphocytes % 19.0 Monocytes % 6.6 Eosinophils % 0.8 Basophils % 0.8 Absolute Neutrophils 8.6 H Absolute Lymphocytes 2.2 Absolute Monocytes 0.8 Absolute Eosinophils 0.1 Absolute Basophils 0.1 Sodium 138.1 Potassium 3.5 L Chloride 100 Carbon Dioxide 28 Anion Gap 10 BUN 27 H Creatinine 4.47 H Est GFR ( Amer) 12 L Est GFR (Non-Af Amer) 10 L Glucose 80 Calcium 7.8 L 05/29/17 05/29/17 05/29/17 02:11 02:11 08:10 Creatine Kinase 696 H 697 H CK-MB (CK-2) 2.49 Troponin I 0.051 05/29/17 05/29/17 05/29/17 08:10 15:28 15:28 Creatine Kinase 647 H CK-MB (CK-2) 2.97 3.51 Troponin I 0.059 0.043 Impressions: Renal Ultrasound 05/29/17 00:00 IMPRESSION: No hydronephrosis. Increased echogenicity of the renal parenchyma , suggestive of medical renal disease. Lung Scan-VQ NM 05/30/17 00:00 IMPRESSION: NORMAL VENTILATION-PERFUSION LUNG SCAN. NEGATIVE FOR PULMONARY EMBOLI. Chest X-Ray 06/01/17 00:00 IMPRESSION: NO ACUTE RADIOGRAPHIC FINDING IN THE CHEST. Vascular Ultrasound 06/02/17 00:00 IMPRESSION: NO DOPPLER EVIDENCE OF HEMODYNAMICALLY SIGNIFICANT RENAL ARTERY STENOSIS. Assessment & Plan - Diagnosis (1) Acute diastolic (congestive) heart failure Is this a current diagnosis for this admission?: Yes (2) Acute on chronic renal failure Is this a current diagnosis for this admission?: Yes (3) Acute respiratory failure with hypoxia Is this a current diagnosis for this admission?: Yes (4) Anemia Qualifiers: Anemia type: unspecified type Qualified Code(s): D64.9 - Anemia, unspecified Is this a current diagnosis for this admission?: Yes (5) Anemia in chronic kidney disease (CKD) Is this a current diagnosis for this admission?: Yes (6) COPD (chronic obstructive pulmonary disease) Qualifiers: COPD type: COPD with acute exacerbation Qualified Code(s): J44.1 - Chronic obstructive pulmonary disease with (acute) exacerbation Is this a current diagnosis for this admission?: Yes (7) Constipation Is this a current diagnosis for this admission?: Yes (8) Insulin dependent diabetes mellitus Is this a current diagnosis for this admission?: Yes (9) Morbid obesity Is this a current diagnosis for this admission?: Yes (10) Pneumonia Qualifiers: Pneumonia type: due to unspecified organism Laterality: left Lung location: lower lobe of lung Qualified Code(s): J18.1 - Lobar pneumonia, unspecified organism Is this a current diagnosis for this admission?: Yes (11) Pulmonary edema Qualifiers: Chronicity: acute Qualified Code(s): J81.0 - Acute pulmonary edema Is this a current diagnosis for this admission?: Yes (12) Tobacco abuse Is this a current diagnosis for this admission?: Yes (13) Diarrhea Is this a current diagnosis for this admission?: Yes - Plan Summary Plan Summary: The patient presented with volume overload which is likely secondary to acute on chronic renal failure. Per nephrology, most of the patient's presentation is likely due to chronic renal failure. This likely led to an exacerbation of diastolic congestive heart failure. This led to pulmonary edema. Appears that the patient's presentation was most consistent with flash pulmonary edema, but, it does not appear that the patient has renal artery stenosis. The patient has been treated with intravenous diuresis followed by oral Lasix. Her blood pressure was out of control upon admission due to hypertensive emergency from the above. Her blood pressure regimen is now adequate. She does not appear to have presented with pneumonia or COPD with exacerbation. Pneumonia was ruled out clinically. She had pulmonary edema. Antibiotics were discontinued. Her anemia will be treated with Venofer and Procrit. Nephrology is following. The plan at this time will be to keep the patient in the hospital over the weekend. We will need to determine if she will need dialysis as an outpatient and if so she will need access placed. The patient developed diarrhea overnight. C. difficile analysis is pending. I have started the patient on lactobacillus. She is not receiving any constipation drugs.
[2017-06-07] MEDS ORDERED: POTASSIUM CHLORIDE 10 MEQ TABLET.SA PO ONE (11:30)
[2017-06-07] MEDS ORDERED: LACTOBACILLUS ACIDOPHILUS 250 MG TAB PO ONE (11:30)
[2017-06-07] MEDS: INSULIN LISPRO 100 UNIT/ML 3 ML VIAL SUBCUT PRN (13:31)
[2017-06-07] MEDS: FOLIC ACID/VITAMIN B COMP W-C CAPSULE PO SCH (16:12)
[2017-06-07] MEDS: LOPERAMIDE HCL 2 MG CAPSULE PO PRN (17:54)
[2017-06-07] MEDS: LACTOBACILLUS ACIDOPHILUS 250 MG TAB PO SCH (17:55)
[2017-06-07] MEDS ORDERED: PARICALCITOL INJ/PF 5 MCG/1 ML SDV IV ONE (18:30)
[2017-06-07] MEDS: TRAZODONE HCL 50 MG TABLET PO SCH (22:16)
[2017-06-07] MEDS ORDERED: INSULIN GLARGINE,HUM.REC.ANLOG 300 UNIT/3 ML INSULN.PEN SUBCUT ONE (22:32)
[2017-06-07] MEDS: INSULIN GLARGINE,HUM.REC.ANLOG 300 UNIT/3 ML INSULN.PEN SUBCUT SCH (23:10)
[2017-06-08] MEDS: NITROGLYCERIN 2% OINTMENT 1 GM PACKET TP SCH ×5 (00:33→23:48)
[2017-06-08] MEDS: ACETAMINOPHEN 325 MG TABLET PO PRN ×2 (04:14→07:58)
[2017-06-08] MEDS ORDERED: HEPARIN SOD (PORCINE) 1,000 UNIT/ML 10 ML VIAL IV PRN (05:00)
[2017-06-08 05:23] LABS: ABSOLUTE BASOPHILS # (AUTO) 0.1 10^3/uL (0.0-0.2); ABSOLUTE EOSINOPHILS # (AUTO) 0.1 10^3/uL (0.0-0.6); ABSOLUTE LYMPHOCYTES (AUTO) 2.5 10^3/uL (0.5-4.7); ABSOLUTE MONOCYTES (AUTO) 0.6 10^3/uL (0.1-1.4); ABSOLUTE NEUT (AUTO) 6.1 10^3/uL (1.7-8.2); BASOPHILS % (AUTO) 0.8 % (0-2); HEMATOCRIT 24.6 % (36.0-47.0); HEMOGLOBIN 8.2 g/dL (12.0-15.5); LYMPHOCYTES % (AUTO) 26.8 % (13-45); MEAN CORPUSCULAR HEMOGLOBIN 28.9 pg (27.0-33.4); MEAN CORPUSCULAR HGB CONC 33.5 g/dL (32.0-36.0); MEAN CORPUSCULAR VOLUME 86 fl (80-97); MONOCYTES % (AUTO) 6.7 % (3-13); RED BLOOD COUNT 2.85 10^6/uL (3.72-5.28); RED CELL DISTRIBUTION WIDTH 17.1 % (11.5-14.0); SEGMENTED NEUTROPHILS % (AUTO) 64.7 % (42-78); WHITE BLOOD COUNT 9.4 10^3/uL (4.0-10.5)
[2017-06-08 05:41] LABS: ANION GAP 9 (5-19); BLOOD UREA NITROGEN 32 mg/dL (7-20); CALCIUM 7.2 mg/dL (8.4-10.2); CARBON DIOXIDE 27 mmol/L (22-30); CHLORIDE 102 mmol/L (98-107); CREATININE RESULT 4.79 mg/dL (0.52-1.25); GLUCOSE 114 mg/dL (75-110); POTASSIUM 3.6 mmol/L (3.6-5.0); SODIUM 138.3 mmol/L (137-145)
[2017-06-08] MEDS: HEPARIN SOD (PORCINE) 5,000 UNIT/ML 1 ML SYRINGE SUBCUT SCH ×3 (05:55→22:48)
[2017-06-08] MEDS: IPRATROPIUM/ALBUTEROL 0.5-2.5 MG/3 ML AMPUL NEB SCH ×2 (09:08→15:57)
[2017-06-08] MEDS: BUDESONIDE NEB 0.5 MG/2 ML AMPUL NEB SCH ×2 (09:09→19:48)
[2017-06-08] MEDS: GUAIFENESIN 600 MG TABLET.SA PO SCH ×2 (09:56→22:51)
[2017-06-08] MEDS: FUROSEMIDE 20 MG TABLET PO SCH (09:56)
[2017-06-08] MEDS: ASPIRIN 325 MG TABLET, ENT COATED PO SCH (09:56)
[2017-06-08] MEDS: CALCIUM CARBONATE 500 MG TABLET PO SCH ×2 (09:56→17:19)
[2017-06-08] MEDS: NIFEDIPINE 30 MG TAB.ER.24 PO SCH ×2 (09:56→22:47)
[2017-06-08] MEDS: LACTOBACILLUS ACIDOPHILUS 250 MG TAB PO SCH ×2 (09:56→17:19)
[2017-06-08] MEDS: NORMAL SALINE 1000 ML 1,000 ML IV SCH (09:56)
[2017-06-08] MEDS: ATENOLOL 50 MG TABLET PO SCH (09:56)
[2017-06-08] MEDS ORDERED: EPOETIN ALFA INJ 20000 UNIT/1 ML VIAL (RENAL) IV SCH (10:00)
[2017-06-08] MEDS: IRON SUCROSE COMPLEX INJ/PF 100 MG/5 ML SDV IV SCH (11:00)
[2017-06-08] MEDS: PARICALCITOL INJ/PF 5 MCG/1 ML SDV IV SCH (11:00)
--- NOTE | 2017-06-08 11:00 | PDOC PROGRESS REPORT ---
Subjective Progress Note for:: 06/08/17 Subjective:: The patient is a 56-year-old obese -[place] female. She has a history of insulin-dependent diabetes mellitus, hypertension and possibly chronic kidney disease. Apparently, her laboratory results from [place] demonstrated a fairly normal creatinine of 1.17 in June 2015. There were no ongoing labs that we have had access to. The patient presented with acute shortness of breath secondary to pulmonary edema. This is felt to be secondary to combinations of diastolic congestive heart failure aggravated by volume overloaded from acute on chronic renal failure. The patient has started dialysis during this hospitalization. Currently, the patient has a temporary dialysis catheter in place. I did discuss the case with nephrology this morning. She will require placement of a permacath. Our nephrology attending is going to consult surgery today. Yesterday, the patient developed diarrhea. She is negative for Clostridium difficile toxin. She was started on Imodium with good effect. This morning, she is receiving dialysis. She states that she feels feels much better. Her breathing is nearly normal. The diarrhea is resolving and she has no other complaints this morning. The patient also mentioned to me that she is having severe pain. Apparently, she has a cracked tooth. This has caused a lesion on her tongue which is exquisitely painful. Reason For Visit: ACUTE CONGESTIVE HEART FAILURE Physical Exam Vital Signs: Temp Pulse Resp BP Pulse Ox 98.9 F 71 18 132/83 H 100 06/08/17 03:12 06/08/17 09:08 06/08/17 09:08 06/08/17 03:12 06/08/17 09:08 Intake & Output 06/07/17 06/08/17 06/09/17 06:59 06:59 06:59 Intake Total 731 888 Output Total 650 1100 Balance 81 -212 Weight 136.3 kg 136.2 kg Additional comments: I saw the patient on dialysis this morning. She appeared to be resting comfortably. I did examine her mouth. She does have bad dentition. In the lower left jaw she has 2 broken teeth that appear to be infected. She does have a lesion on her tongue. This does not appear to be infected. Otherwise, her facial appearance is normal. Her lungs are noted to be clear to auscultation bilaterally. Her cardiac exam is regular. I do not appreciate any murmurs, gallops or rubs. The abdomen is soft and flat. Bowel sounds are present in the lower quadrants. The lower extremities are warm to touch. Overall, she has 1+ anasarca. Again, her edema appears to be improved. The skin is otherwise warm, dry and intact without lesions or rashes. Results Laboratory Results: 06/08/17 04:39 06/08/17 04:39 06/07/17 06/08/17 06/08/17 12:10 04:39 04:39 WBC 9.4 RBC 2.85 L Hgb 8.2 L Hct 24.6 L MCV 86 MCH 28.9 MCHC 33.5 RDW 17.1 H Plt Count 256 Seg Neutrophils % 64.7 Lymphocytes % 26.8 Monocytes % 6.7 Eosinophils % 1.0 Basophils % 0.8 Absolute Neutrophils 6.1 Absolute Lymphocytes 2.5 Absolute Monocytes 0.6 Absolute Eosinophils 0.1 Absolute Basophils 0.1 Sodium 138.3 Potassium 3.6 Chloride 102 Carbon Dioxide 27 Anion Gap 9 BUN 32 H Creatinine 4.79 H Est GFR ( Amer) 11 L Est GFR (Non-Af Amer) 9 L Glucose 114 H Calcium 7.2 L Stool Occult Blood NEGATIVE 05/29/17 05/29/17 05/29/17 02:11 02:11 08:10 Creatine Kinase 696 H 697 H CK-MB (CK-2) 2.49 Troponin I 0.051 05/29/17 05/29/17 05/29/17 08:10 15:28 15:28 Creatine Kinase 647 H CK-MB (CK-2) 2.97 3.51 Troponin I 0.059 0.043 Impressions: Renal Ultrasound 05/29/17 00:00 IMPRESSION: No hydronephrosis. Increased echogenicity of the renal parenchyma , suggestive of medical renal disease. Lung Scan-VQ NM 05/30/17 00:00 IMPRESSION: NORMAL VENTILATION-PERFUSION LUNG SCAN. NEGATIVE FOR PULMONARY EMBOLI. Chest X-Ray 06/01/17 00:00 IMPRESSION: NO ACUTE RADIOGRAPHIC FINDING IN THE CHEST. Vascular Ultrasound 06/02/17 00:00 IMPRESSION: NO DOPPLER EVIDENCE OF HEMODYNAMICALLY SIGNIFICANT RENAL ARTERY STENOSIS. Assessment & Plan - Diagnosis (1) Acute diastolic (congestive) heart failure Is this a current diagnosis for this admission?: Yes Plan: The patient is responding well to dialysis. She is on a low-dose of oral Lasix. She is still making urine and we plan to continue Lasix for now. (2) Acute on chronic renal failure Is this a current diagnosis for this admission?: Yes Plan: The patient may recover her renal function, however, for now she will need ongoing dialysis. Nephrology is following the patient closely. The plan going forward will be to have the patient get a permacath so that outpatient dialysis can be started. (3) Acute respiratory failure with hypoxia Is this a current diagnosis for this admission?: Yes Plan: Resolved. (4) Anemia Qualifiers: Anemia type: unspecified type Qualified Code(s): D64.9 - Anemia, unspecified Is this a current diagnosis for this admission?: Yes Plan: Been managed by nephrology. Patient is receiving Procrit and Venofer. (5) Anemia in chronic kidney disease (CKD) Is this a current diagnosis for this admission?: Yes Plan: See above (6) COPD (chronic obstructive pulmonary disease) Qualifiers: COPD type: COPD with acute exacerbation Qualified Code(s): J44.1 - Chronic obstructive pulmonary disease with (acute) exacerbation Is this a current diagnosis for this admission?: Yes Plan: Stable. Patient is receiving inhaled budesonide and albuterol with Atrovent as needed. (7) Constipation Is this a current diagnosis for this admission?: Yes Plan: Resolved. (8) Insulin dependent diabetes mellitus Is this a current diagnosis for this admission?: Yes Plan: Patient is currently receiving basal insulin plus sliding scale with good control of blood sugars. (9) Morbid obesity Is this a current diagnosis for this admission?: Yes (10) Pneumonia Qualifiers: Pneumonia type: due to unspecified organism Laterality: left Lung location: lower lobe of lung Qualified Code(s): J18.1 - Lobar pneumonia, unspecified organism Is this a current diagnosis for this admission?: Yes Plan: Ruled out. Antibiotics have been discontinued. (11) Pulmonary edema Qualifiers: Chronicity: acute Qualified Code(s): J81.0 - Acute pulmonary edema Is this a current diagnosis for this admission?: Yes Plan: Resolving. (12) Tobacco abuse Is this a current diagnosis for this admission?: Yes (13) Diarrhea Is this a current diagnosis for this admission?: Yes Plan: This is probably secondary to an aggressive bowel regimen and possibly aggravated by antibiotics. Antibiotics have been discontinued. Patient has been tested for C. difficile colitis which is negative. We have used Imodium as needed. Continue lactobacillus. - Time Time Spent with patient: 25-34 minutes - Inpatient Certification Medical Necessity: Risk of Complication if Not Cared For in Hospital - The patient will require placement of dialysis access prior to discharge. - Plan Summary Plan Summary: The patient is improving. Her medical problems are stabilizing. At this point she will require placement of a permacath so that outpatient dialysis can be arranged. The nephrology attending will place a consult for surgery. We anticipate that surgery will occur tomorrow or Thursday.
[2017-06-08] MEDS: PREGABALIN 25 MG CAPSULE PO SCH (12:35)
[2017-06-08] MEDS: HYDROXYZINE PAMOATE 25 MG CAPSULE PO PRN ×2 (12:38→22:51)
[2017-06-08] MEDS: LOPERAMIDE HCL 2 MG CAPSULE PO PRN (12:39)
[2017-06-08] MEDS: OXYCODONE HCL IR 5 MG TABLET PO PRN ×2 (14:12→20:13)
[2017-06-08] MEDS: FOLIC ACID/VITAMIN B COMP W-C CAPSULE PO SCH (17:19)
[2017-06-08] MEDS: INSULIN LISPRO 100 UNIT/ML 3 ML VIAL SUBCUT PRN ×2 (17:19→22:48)
--- NOTE | 2017-06-08 19:38 | PDOC PROGRESS REPORT ---
Subjective Progress Note for:: 06/08/17 Subjective:: I saw the patient during dialysis this morning at around 8:20 AM. Patient looks much better and she admits that she feels better. She did have a diarrhea over the weekend after Thursday's dialysis. Her C. difficile toxin was negative. Diarrhea was better today. She denies any shortness of breath and she said she is eating fine. Her blood pressure is somewhat elevated during dialysis but it has been better and she is not on dialysis. She still makes some urine in between dialysis. She otherwise does not have any other further complaints. Reason For Visit: Renal failure Physical Exam Vital Signs: Temp Pulse Resp BP Pulse Ox 99.3 F 82 18 153/57 H 100 06/08/17 16:13 06/08/17 16:13 06/08/17 16:13 06/08/17 16:13 06/08/17 16:13 Intake & Output 06/07/17 06/08/17 06/09/17 06:59 06:59 06:59 Intake Total 010 318 0541 Output Total 650 1100 300 Balance 81 -212 975 Weight 136.3 kg 136.2 kg Vitals during dialysis: Blood pressure 186/87, heart rate of 73, blood flow rate of 300 mL/min dialysate flow rate of 500 mL/min using her trialysis catheter. Exam: General appearance: PRESENT: no acute distress, cooperative, well-developed, well-nourished Head exam: PRESENT: atraumatic, normocephalic Eye exam: PRESENT: conjunctiva pale, PERRLA. ABSENT: scleral icterus Neck exam: ABSENT: JVD Respiratory exam: PRESENT: Normal breath sounds. ABSENT: crackles, rales, rhonchi, unlabored, wheezes Cardiovascular exam: PRESENT: Regular rate rhythm -+S1, +S2. ABSENT: diastolic murmur, systolic murmur GI/Abdominal exam: PRESENT: normal bowel sounds, soft. ABSENT: guarding, mass, tenderness Extremities exam: Improved bilateral grade 1 lower extremity edema Neurological exam: PRESENT: alert, awake, oriented to person, place and time. Skin exam: PRESENT: dry, warm, Results Laboratory Results: 06/08/17 04:39 06/08/17 04:39 06/08/17 06/08/17 04:39 04:39 WBC 9.4 RBC 2.85 L Hgb 8.2 L Hct 24.6 L MCV 86 MCH 28.9 MCHC 33.5 RDW 17.1 H Plt Count 256 Seg Neutrophils % 64.7 Lymphocytes % 26.8 Monocytes % 6.7 Eosinophils % 1.0 Basophils % 0.8 Absolute Neutrophils 6.1 Absolute Lymphocytes 2.5 Absolute Monocytes 0.6 Absolute Eosinophils 0.1 Absolute Basophils 0.1 Sodium 138.3 Potassium 3.6 Chloride 102 Carbon Dioxide 27 Anion Gap 9 BUN 32 H Creatinine 4.79 H Est GFR ( Amer) 11 L Est GFR (Non-Af Amer) 9 L Glucose 114 H Calcium 7.2 L 05/29/17 05/29/17 05/29/17 02:11 02:11 08:10 Creatine Kinase 696 H 697 H CK-MB (CK-2) 2.49 Troponin I 0.051 05/29/17 05/29/17 05/29/17 08:10 15:28 15:28 Creatine Kinase 647 H CK-MB (CK-2) 2.97 3.51 Troponin I 0.059 0.043 Impressions: Renal Ultrasound 05/29/17 00:00 IMPRESSION: No hydronephrosis. Increased echogenicity of the renal parenchyma , suggestive of medical renal disease. Lung Scan-VQ NM 05/30/17 00:00 IMPRESSION: NORMAL VENTILATION-PERFUSION LUNG SCAN. NEGATIVE FOR PULMONARY EMBOLI. Chest X-Ray 06/01/17 00:00 IMPRESSION: NO ACUTE RADIOGRAPHIC FINDING IN THE CHEST. Vascular Ultrasound 06/02/17 00:00 IMPRESSION: NO DOPPLER EVIDENCE OF HEMODYNAMICALLY SIGNIFICANT RENAL ARTERY STENOSIS. Assessment & Plan - Diagnosis (1) Renal failure Qualifiers: Renal failure chronicity: unspecified chronicity Qualified Code(s): N19 - Unspecified kidney failure Is this a current diagnosis for this admission?: Yes Plan: Acute versus chronic or acute on chronic. Patient is currently nonoliguric. Unknown baseline kidney function. Records from July 23, 2015 showed an EGFR of 61% with creatinine of 1.17 but nothing in the interim. Patient has significant proteinuria. There are several factors that points to progressive chronic kidney disease in this patient. Although we cannot totally rule out an acute component. The proteinuria points to a possible underlying diabetic nephropathy and likely a contribution of hypertensive nephrosclerosis in this patient with known noncompliance. Factors pointing to chronic kidney disease possibly nearing end-stage renal disease include uncontrolled hypertension, acute flash pulmonary edema, anemia, hyperparathyroidism, hypocalcemia, and peripheral edema. I reviewed records from [facility] from her primary care provider and [facility] currently called [facility]. Patient has significant nephrotic range proteinuria of 9.8 g. Patient's creatinine is still rising every day after hemodialysis treatment. I suspect the patient would need chronic outpatient hemodialysis. I think we will need to have a PermCath placed and to arrange the patient for outpatient hemodialysis. I discussed this with the hospitalist DOS Dr. Ruiz this morning. I have also Dr. Dr. Ady Macias to schedule the patient for PermCath placement in the next 1-2 days. We did dialysis today for 3 hours, using the patient's trialysis catheter, with [3] potassium bath, blood flow rate of 300 mL per minute, dialysate flow rate of 500 mL per minute, ultrafiltration 2 L as tolerated, no heparin and Procrit with 20,000 units during dialysis intravenously or subcutaneous if given after dialysis. Patient tolerated hemodialysis well without any problems today. (2) Pulmonary edema Qualifiers: Chronicity: acute Qualified Code(s): J81.0 - Acute pulmonary edema Is this a current diagnosis for this admission?: Yes Plan: Since the patient's echocardiogram did not support a diagnosis of congestive heart failure, it is very possible that this could be due to chronic kidney disease. Duplex of renal artery showed no evidence of hemodynamically significant renal artery stenosis. Nevertheless worsening kidney function can cause this as well. Currently the patient feels much better. This is resolved. (3) Hypertensive emergency Is this a current diagnosis for this admission?: Yes Plan: Continue current blood pressure regimen. I would increase the dose of Lasix. (4) Anemia in chronic kidney disease (CKD) Is this a current diagnosis for this admission?: Yes Plan: Patient would need to be initiated with Procrit and IV Venofer during dialysis.. (5) Iron deficiency anemia Is this a current diagnosis for this admission?: Yes Plan: Patient is on IV Venofer on dialysis. (6) Vitamin D deficiency Is this a current diagnosis for this admission?: Yes (7) Secondary hyperparathyroidism (of renal origin) Is this a current diagnosis for this admission?: Yes Plan: She receives IV Zemplar on dialysis. (8) Small kidney, unilateral Is this a current diagnosis for this admission?: Yes Plan: Right kidney smaller than the left. Duplex of renal artery showed no evidence of renal artery stenosis. (9) Hypocalcemia Is this a current diagnosis for this admission?: Yes Plan: Continue calcium supplement (10) Hyperphosphatemia Is this a current diagnosis for this admission?: Yes Plan: Low phosphorus diet. (11) Insulin dependent diabetes mellitus Is this a current diagnosis for this admission?: Yes (12) Hyperlipidemia Is this a current diagnosis for this admission?: Yes (13) Morbid obesity Is this a current diagnosis for this admission?: Yes (14) Noncompliance Is this a current diagnosis for this admission?: Yes - Time Time with patient: 15-25 minutes
[2017-06-08] MEDS ORDERED: FUROSEMIDE 20 MG TABLET PO SCH (19:39)
[2017-06-08] MEDS ORDERED: EPOETIN ALFA INJ 20000 UNIT/1 ML VIAL (RENAL) SUBCUT ONE (20:00)
[2017-06-08] MEDS: ONDANSETRON HCL INJ/PF 4 MG/2 ML SDV IV PRN (20:58)
[2017-06-08 21:37] LABS: ALANINE AMINOTRANSFERASE 30 U/L (9-52); ALBUMIN 3.3 g/dL (3.5-5.0); ALKALINE PHOSPHATASE 89 U/L (38-126); ANION GAP 9 (5-19); ASPARTATE AMINO TRANSFERASE 24 U/L (14-36); BILIRUBIN,DIRECT 0.3 mg/dL (0.0-0.4); BILIRUBIN,TOTAL 0.3 mg/dL (0.2-1.3); BLOOD UREA NITROGEN 29 mg/dL (7-20); CALCIUM 7.4 mg/dL (8.4-10.2); CARBON DIOXIDE 30 mmol/L (22-30); CHLORIDE 99 mmol/L (98-107); CREATININE RESULT 4.22 mg/dL (0.52-1.25); GLUCOSE 219 mg/dL (75-110); SODIUM 137.8 mmol/L (137-145); TOTAL PROTEIN 6.2 g/dL (6.3-8.2)
[2017-06-08] MEDS: TRAZODONE HCL 50 MG TABLET PO SCH (22:47)
[2017-06-08] MEDS: INSULIN GLARGINE,HUM.REC.ANLOG 300 UNIT/3 ML INSULN.PEN SUBCUT SCH (22:48)
[2017-06-09] MEDS: IPRATROPIUM/ALBUTEROL 0.5-2.5 MG/3 ML AMPUL NEB SCH ×4 (00:08→23:49)
[2017-06-09] MEDS: OXYCODONE HCL IR 5 MG TABLET PO PRN ×3 (04:20→17:15)
[2017-06-09] MEDS: HEPARIN SOD (PORCINE) 5,000 UNIT/ML 1 ML SYRINGE SUBCUT SCH ×3 (06:27→22:18)
[2017-06-09] MEDS: NITROGLYCERIN 2% OINTMENT 1 GM PACKET TP SCH ×4 (06:27→23:29)
[2017-06-09] MEDS: BUDESONIDE NEB 0.5 MG/2 ML AMPUL NEB SCH ×2 (07:59→19:43)
[2017-06-09] MEDS: NIFEDIPINE 30 MG TAB.ER.24 PO SCH ×2 (10:21→22:18)
[2017-06-09] MEDS: CALCIUM CARBONATE 500 MG TABLET PO SCH ×2 (10:21→17:00)
[2017-06-09] MEDS: PREGABALIN 25 MG CAPSULE PO SCH (10:21)
[2017-06-09] MEDS: ATENOLOL 50 MG TABLET PO SCH (10:21)
[2017-06-09] MEDS: ASPIRIN 325 MG TABLET, ENT COATED PO SCH (10:21)
[2017-06-09] MEDS: LACTOBACILLUS ACIDOPHILUS 250 MG TAB PO SCH ×2 (10:21→17:00)
[2017-06-09] MEDS: FUROSEMIDE 40 MG TABLET PO SCH (10:21)
[2017-06-09] MEDS: LOPERAMIDE HCL 2 MG CAPSULE PO PRN (10:22)
[2017-06-09] MEDS: GUAIFENESIN 600 MG TABLET.SA PO SCH ×2 (10:23→22:24)
[2017-06-09] MEDS: ACETAMINOPHEN 325 MG TABLET PO PRN (14:38)
[2017-06-09] MEDS: HYDROXYZINE PAMOATE 25 MG CAPSULE PO PRN ×2 (14:41→22:23)
--- NOTE | 2017-06-09 15:52 | PDOC PROGRESS REPORT ---
Subjective Progress Note for:: 06/09/17 Subjective:: Is doing so much better and feeling much better. Aside from pain over her cracked tooth she does not really have any much complaints. Her Ruelas catheter has been discontinued. Reason For Visit: Renal failure Physical Exam Vital Signs: Temp Pulse Resp BP Pulse Ox 98.8 F 74 18 154/53 H 99 06/09/17 12:39 06/09/17 12:39 06/09/17 12:39 06/09/17 12:39 06/09/17 12:39 Intake & Output 06/08/17 06/09/17 06/10/17 06:59 06:59 06:59 Intake Total 888 1699 Output Total 1100 3500 Balance -212 -1801 Weight 136.2 kg 134.2 kg Exam: General appearance: PRESENT: no acute distress, cooperative, well-developed, well-nourished Head exam: PRESENT: atraumatic, normocephalic Eye exam: PRESENT: conjunctiva pale, PERRLA. ABSENT: scleral icterus Neck exam: ABSENT: JVD Respiratory exam: PRESENT: Normal breath sounds. ABSENT: crackles, rales, rhonchi, unlabored, wheezes Cardiovascular exam: PRESENT: Regular rate rhythm -+S1, +S2. ABSENT: diastolic murmur, systolic murmur GI/Abdominal exam: PRESENT: normal bowel sounds, soft. ABSENT: guarding, mass, tenderness Extremities exam: Grade 1 bilateral lower extremity edema Neurological exam: PRESENT: alert, awake, oriented to person, place and time. Skin exam: PRESENT: dry, warm, Results Laboratory Results: 06/08/17 04:39 06/08/17 21:18 06/08/17 21:18 Sodium 137.8 Potassium 4.0 Chloride 99 Carbon Dioxide 30 Anion Gap 9 BUN 29 H Creatinine 4.22 H Est GFR ( Amer) 13 L Est GFR (Non-Af Amer) 11 L Glucose 219 H Calcium 7.4 L Total Bilirubin 0.3 AST 24 ALT 30 Alkaline Phosphatase 89 Total Protein 6.2 L Albumin 3.3 L 05/29/17 05/29/17 05/29/17 02:11 02:11 08:10 Creatine Kinase 696 H 697 H CK-MB (CK-2) 2.49 Troponin I 0.051 05/29/17 05/29/17 05/29/17 08:10 15:28 15:28 Creatine Kinase 647 H CK-MB (CK-2) 2.97 3.51 Troponin I 0.059 0.043 Impressions: Renal Ultrasound 05/29/17 00:00 IMPRESSION: No hydronephrosis. Increased echogenicity of the renal parenchyma , suggestive of medical renal disease. Lung Scan-VQ NM 05/30/17 00:00 IMPRESSION: NORMAL VENTILATION-PERFUSION LUNG SCAN. NEGATIVE FOR PULMONARY EMBOLI. Chest X-Ray 06/01/17 00:00 IMPRESSION: NO ACUTE RADIOGRAPHIC FINDING IN THE CHEST. Vascular Ultrasound 06/02/17 00:00 IMPRESSION: NO DOPPLER EVIDENCE OF HEMODYNAMICALLY SIGNIFICANT RENAL ARTERY STENOSIS. Assessment & Plan - Diagnosis (1) Renal failure Qualifiers: Renal failure chronicity: unspecified chronicity Qualified Code(s): N19 - Unspecified kidney failure Is this a current diagnosis for this admission?: Yes Plan: Acute versus chronic or acute on chronic. Patient is currently nonoliguric. Unknown baseline kidney function. Records from July 23, 2015 showed an EGFR of 61% with creatinine of 1.17 but nothing in the interim. Patient has significant proteinuria. There are several factors that points to progressive chronic kidney disease in this patient. Although we cannot totally rule out an acute component. The proteinuria points to a possible underlying diabetic nephropathy and likely a contribution of hypertensive nephrosclerosis in this patient with known noncompliance. Factors pointing to chronic kidney disease possibly nearing end-stage renal disease include uncontrolled hypertension, acute flash pulmonary edema, anemia, hyperparathyroidism, hypocalcemia, and peripheral edema. I reviewed records from [facility] from her primary care provider and [facility] currently called [facility]. Patient has significant nephrotic range proteinuria of 9.8 g. Patient's creatinine is still rising every day after hemodialysis treatment. I suspect the patient would need chronic outpatient hemodialysis. Think the patient actually have chronic kidney disease stage V requiring chronic hemodialysis. Dr. Macias have scheduled the patient for PermCath placement tomorrow at 11 AM. Next dialysis will be tomorrow morning after PermCath placement. service planner arranging for outpatient dialysis at [facility]. (2) Pulmonary edema Qualifiers: Chronicity: acute Qualified Code(s): J81.0 - Acute pulmonary edema Is this a current diagnosis for this admission?: Yes Plan: Since the patient's echocardiogram did not support a diagnosis of congestive heart failure, it is very possible that this could be due to chronic kidney disease. Duplex of renal artery showed no evidence of hemodynamically significant renal artery stenosis. Nevertheless worsening kidney function can cause this as well. Currently the patient feels much better. This is resolved. (3) Hypertensive emergency Is this a current diagnosis for this admission?: Yes Plan: Continue current blood pressure regimen. I would increase the dose of Lasix. Blood pressure control acceptable. (4) Anemia in chronic kidney disease (CKD) Is this a current diagnosis for this admission?: Yes Plan: Patient would need to be initiated with Procrit and IV Venofer during dialysis.. (5) Iron deficiency anemia Is this a current diagnosis for this admission?: Yes Plan: Patient is on IV Venofer on dialysis. (6) Vitamin D deficiency Is this a current diagnosis for this admission?: Yes (7) Secondary hyperparathyroidism (of renal origin) Is this a current diagnosis for this admission?: Yes Plan: She receives IV Zemplar on dialysis. (8) Small kidney, unilateral Is this a current diagnosis for this admission?: Yes Plan: Right kidney smaller than the left. Duplex of renal artery showed no evidence of renal artery stenosis. (9) Hypocalcemia Is this a current diagnosis for this admission?: Yes Plan: Continue calcium supplement (10) Hyperphosphatemia Is this a current diagnosis for this admission?: Yes Plan: Low phosphorus diet. (11) Insulin dependent diabetes mellitus Is this a current diagnosis for this admission?: Yes (12) Hyperlipidemia Is this a current diagnosis for this admission?: Yes (13) Morbid obesity Is this a current diagnosis for this admission?: Yes (14) Noncompliance Is this a current diagnosis for this admission?: Yes - Time Time with patient: 15-25 minutes
[2017-06-09] MEDS: FOLIC ACID/VITAMIN B COMP W-C CAPSULE PO SCH (16:58)
[2017-06-09] MEDS: INSULIN LISPRO 100 UNIT/ML 3 ML VIAL SUBCUT PRN ×2 (16:58→22:17)
--- NOTE | 2017-06-09 18:09 | PDOC PROGRESS REPORT ---
Subjective Progress Note for:: 06/09/17 Subjective:: 56-year-old female with past medical history of Insulin-dependent diabetes Hypertension Chronic kidney disease [place] hypertension Hyperlipidemia Obesity She presented to the hospital on May 29 with shortness of breath. Her daughter reported that she had not been taking her blood pressure medications. There was also report of significant edema which has slowly been increasing over the past several weeks. The patient admitted to paroxysmal nocturnal dyspnea and orthopnea and her sats were found to be 65% on room air by EMS after which she was placed on CPAP and then BiPAP. In the emergency room she was started on a nitroglycerin drip and was given intravenous Lasix her initial blood pressures were 230s systolic and they gradually improved. She was admitted with a diagnosis of hypertensive emergency pulmonary edema and acute diastolic congestive heart failure exacerbation due to fluid overload. She was evaluated by the nephrology service and was felt to have worsening of her kidney function. She was felt to have diabetic nephropathy and hypertensive nephrosclerosis worsened due to medication noncompliance. A temporary dialysis catheter was placed and dialysis was initiated. The plan now is to place a permacath. The patient did have some loose stools, C. difficile was reportedly negative. She also reported some tooth pain and has a cracked tooth and has dental caries for which she needs to see a dentist as an outpatient. Reason For Visit: ACUTE CONGESTIVE HEART FAILURE Physical Exam Vital Signs: Temp Pulse Resp BP Pulse Ox 98.6 F 81 16 154/43 H 100 06/09/17 07:54 06/09/17 07:55 06/09/17 07:55 06/09/17 07:54 06/09/17 07:55 Intake & Output 06/08/17 06/09/17 06/10/17 06:59 06:59 06:59 Intake Total 888 1699 Output Total 1100 3500 Balance -212 -1801 Weight 136.2 kg 134.2 kg Additional comments: Gen:Obese, middle-aged Afro-Greek female sitting comfortably in bed not in acute distress Lungs: Fair to auscultation bilaterally, normal respiratory effort Cardiac: S1-S2 regular no murmurs heard Abdomen: Soft, obese, no focal tenderness Skin: Warm and dry Results Laboratory Results: 06/08/17 04:39 06/08/17 21:18 06/08/17 21:18 Sodium 137.8 Potassium 4.0 Chloride 99 Carbon Dioxide 30 Anion Gap 9 BUN 29 H Creatinine 4.22 H Est GFR ( Amer) 13 L Est GFR (Non-Af Amer) 11 L Glucose 219 H Calcium 7.4 L Total Bilirubin 0.3 AST 24 ALT 30 Alkaline Phosphatase 89 Total Protein 6.2 L Albumin 3.3 L 05/29/17 05/29/17 05/29/17 02:11 02:11 08:10 Creatine Kinase 696 H 697 H CK-MB (CK-2) 2.49 Troponin I 0.051 05/29/17 05/29/17 05/29/17 08:10 15:28 15:28 Creatine Kinase 647 H CK-MB (CK-2) 2.97 3.51 Troponin I 0.059 0.043 Occult blood was negative stool. C. difficile toxin in the stool was negative Hepatitis panel was negative Impressions: Renal Ultrasound 05/29/17 00:00 IMPRESSION: No hydronephrosis. Increased echogenicity of the renal parenchyma , suggestive of medical renal disease. Lung Scan-VQ NM 05/30/17 00:00 IMPRESSION: NORMAL VENTILATION-PERFUSION LUNG SCAN. NEGATIVE FOR PULMONARY EMBOLI. Chest X-Ray 06/01/17 00:00 IMPRESSION: NO ACUTE RADIOGRAPHIC FINDING IN THE CHEST. Vascular Ultrasound 06/02/17 00:00 IMPRESSION: NO DOPPLER EVIDENCE OF HEMODYNAMICALLY SIGNIFICANT RENAL ARTERY STENOSIS. Assessment & Plan - Diagnosis (1) Acute diastolic (congestive) heart failure Is this a current diagnosis for this admission?: Yes (2) Acute on chronic renal failure Is this a current diagnosis for this admission?: Yes (3) Anemia in chronic kidney disease (CKD) Is this a current diagnosis for this admission?: Yes (4) COPD (chronic obstructive pulmonary disease) Qualifiers: COPD type: COPD with acute exacerbation Qualified Code(s): J44.1 - Chronic obstructive pulmonary disease with (acute) exacerbation Is this a current diagnosis for this admission?: Yes (5) Constipation Is this a current diagnosis for this admission?: Yes (6) Hyperlipidemia Is this a current diagnosis for this admission?: Yes (8) Pulmonary edema Qualifiers: Chronicity: acute Qualified Code(s): J81.0 - Acute pulmonary edema Is this a current diagnosis for this admission?: Yes (9) Secondary hyperparathyroidism (of renal origin) Is this a current diagnosis for this admission?: Yes - Time Time Spent with patient: 15-24 minutes
[2017-06-09] MEDS: TRAZODONE HCL 50 MG TABLET PO SCH (22:18)
[2017-06-09] MEDS: INSULIN GLARGINE,HUM.REC.ANLOG 300 UNIT/3 ML INSULN.PEN SUBCUT SCH (22:18)
[2017-06-10] MEDS: OXYCODONE HCL IR 5 MG TABLET PO PRN ×2 (03:59→18:44)
[2017-06-10] MEDS ORDERED: EPOETIN ALFA INJ 20000 UNIT/1 ML VIAL (RENAL) IV PRN (05:00)
[2017-06-10] MEDS ORDERED: NORMAL SALINE 1000 ML 1,000 ML IV PRN (05:00)
[2017-06-10] MEDS ORDERED: IRON SUCROSE COMPLEX INJ/PF 100 MG/5 ML SDV IV PRN (05:00)
[2017-06-10] MEDS ORDERED: PARICALCITOL INJ/PF 5 MCG/1 ML SDV IV PRN (05:00)
[2017-06-10 05:44] LABS: ABSOLUTE BASOPHILS # (AUTO) 0.1 10^3/uL (0.0-0.2); ABSOLUTE EOSINOPHILS # (AUTO) 0.1 10^3/uL (0.0-0.6); ABSOLUTE LYMPHOCYTES (AUTO) 2.4 10^3/uL (0.5-4.7); ABSOLUTE MONOCYTES (AUTO) 0.7 10^3/uL (0.1-1.4); BASOPHILS % (AUTO) 0.9 % (0-2); EOSINOPHILS % (AUTO) 1.8 % (0-6); HEMATOCRIT 22.4 % (36.0-47.0); HGB HCT DIFFERENCE -0.5; LYMPHOCYTES % (AUTO) 28.7 % (13-45); MEAN CORPUSCULAR HEMOGLOBIN 28.3 pg (27.0-33.4); MEAN CORPUSCULAR HGB CONC 32.8 g/dL (32.0-36.0); MEAN CORPUSCULAR VOLUME 87 fl (80-97); RED BLOOD COUNT 2.59 10^6/uL (3.72-5.28); RED CELL DISTRIBUTION WIDTH 17.6 % (11.5-14.0); SEGMENTED NEUTROPHILS % (AUTO) 60.6 % (42-78); WHITE BLOOD COUNT 8.2 10^3/uL (4.0-10.5)
[2017-06-10 05:55] LABS: HEMOGLOBIN 7.3 g/dL (12.0-15.5)
[2017-06-10 06:09] LABS: ANION GAP 9 (5-19); BLOOD UREA NITROGEN 31 mg/dL (7-20); CALCIUM 7.4 mg/dL (8.4-10.2); CARBON DIOXIDE 29 mmol/L (22-30); CHLORIDE 101 mmol/L (98-107); GLUCOSE 123 mg/dL (75-110); PHOSPHORUS 4.9 mg/dL (2.5-4.5); POTASSIUM 3.5 mmol/L (3.6-5.0); SODIUM 138.5 mmol/L (137-145)
[2017-06-10] MEDS: BUDESONIDE NEB 0.5 MG/2 ML AMPUL NEB SCH ×2 (07:32→20:05)
[2017-06-10] MEDS: IPRATROPIUM/ALBUTEROL 0.5-2.5 MG/3 ML AMPUL NEB SCH ×3 (07:33→20:05)
[2017-06-10] MEDS: HEPARIN SOD (PORCINE) 5,000 UNIT/ML 1 ML SYRINGE SUBCUT SCH ×3 (09:13→21:56)
[2017-06-10] MEDS: NITROGLYCERIN 2% OINTMENT 1 GM PACKET TP SCH ×4 (09:14→23:50)
[2017-06-10] MEDS ORDERED: LIDOCAINE 0.5% INJ-PF (5 MG/ML) 50 ML SDV ONE (09:53)
[2017-06-10] MEDS ORDERED: BACITRACIN INJ 50,000 UNIT VIAL ONE (09:54)
[2017-06-10] MEDS ORDERED: FENTANYL CITRATE INJ/PF 100 MCG/2 ML AMPUL ONE (09:54)
[2017-06-10] MEDS ORDERED: MIDAZOLAM 2 MG/2 ML INJ ONE (09:54)
[2017-06-10] MEDS ORDERED: OXYCODONE-ACETAMINOPHEN 5-325 MG TABLET PO ONE (10:00)
[2017-06-10] MEDS ORDERED: DIAZEPAM 5 MG TABLET PO ONE (10:00)
[2017-06-10] MEDS: NIFEDIPINE 30 MG TAB.ER.24 PO SCH ×2 (10:28→21:58)
[2017-06-10] MEDS: LACTOBACILLUS ACIDOPHILUS 250 MG TAB PO SCH ×2 (10:29→18:43)
[2017-06-10] MEDS: PREGABALIN 25 MG CAPSULE PO SCH (10:31)
[2017-06-10] MEDS: CALCIUM CARBONATE 500 MG TABLET PO SCH ×2 (10:31→18:44)
[2017-06-10] MEDS: ATENOLOL 50 MG TABLET PO SCH (10:33)
[2017-06-10] MEDS ORDERED: CEFAZOLIN INJ 1 GM VIAL ONE (11:06)
[2017-06-10] MEDS: ASPIRIN 325 MG TABLET, ENT COATED PO SCH (12:56)
[2017-06-10] MEDS: FUROSEMIDE 40 MG TABLET PO SCH (12:57)
[2017-06-10] MEDS: GUAIFENESIN 600 MG TABLET.SA PO SCH ×2 (13:00→22:07)
--- NOTE | 2017-06-10 13:47 | Operative Report ---
Operative Report DATE OF SURGERY: 06/10/17 PREOPERATIVE DIAGNOSIS: Renal failure requiring hemodialysis. Multiple comorbidities. POSTOPERATIVE DIAGNOSIS: Renal failure requiring hemodialysis. Multiple comorbidities OPERATION: 1. Ultrasound evaluation of the Right Internal Jugular vein. 2. Insertion of Perm catheter under the real-time ultrasound guidance in the right internal jugular vein. 3. Angiogram and interpretation. SURGEON: ISAIAS PATRICIA ASSOCIATE PROFESSOR OF COUNSELING: None ANESTHESIA: Moderate Sedation TISSUE REMOVED OR ALTERED: Not applicable. ESTIMATED BLOOD LOSS: 5 mL. INTRAOPERATIVE FINDINGS: Of very deeply placed internal jugular vein in this morbidly obese patient. Ultrasound was of great value in safe access. On the right side the PermCath was inserted in the normal fashion uneventfully. Easy egress of blood and ingress of heparinized solution. Smooth flow of contrast demonstrated through the right atrium, ventricle and pulmonary outflow tract. PROCEDURE: After obtaining informed consent, the patient was taken to the [Seat Joiner] and positioned supine. The [right neck] and chest were prepared with chlorhexidine and draped out with sterile linen. After the " universal timeout", in which it was verified that the patient continued to receive antibiotic, the procedure commenced. A steriley sheathed ultrasound probe was used to evaluate the [ right internal jugular] vein. Local anesthesia was infiltrated adjacent to the probe. Access into the [right internal jugular] vein was obtained using a micropuncture needle, followed by micropuncture wire and then a micropuncture catheter. This was followed by introduction of a 0.035 guidewire the tip of which was placed down into the inferior vena cava . A 23 cm long [Permcatheter ] was now positioned over the chest and an exit site marked and locally anesthetized ,the catheter was placed between the 2 incisions. Proximally, the catheter was now positioned using a peel-away sheath, after dilation. Easy ingress of heparinized solution and egress of blood obtained through both ports. A completion angiogram was done by injecting contrast. The findings were as dictated. The neck incision was now closed using interrupted 3-0 PDS to the subcutaneous tissues, the catheter was anchored at the exit site using 3- 0 PDS. A Biopatch device was now placed adjacent to the catheter. Dressings were applied and the procedure concluded. Exposure time: [0.2 minutes]. Exposure: [46.13 cGy] per centimeters squared. Contrast amount: [5 mL] of Bcskxa-Z-500 low osmolality. Copies of the dictated operative report for Dr. Isaias Macias MD.concluded. Copies of the dictated operative report for Dr. Isaias Macias MD.
--- NOTE | 2017-06-10 14:45 | RADIOLOGY REPORT (SQ) ---
EXAM DESCRIPTION: TUNNELED CENTRAL LINE; GUIDANCE FLUOROSCOPIC COMPLETED DATE/TIME: 06/10/2017 1:56 pm REASON FOR STUDY: T82.858A ACUTE CONGESTIVE HEART FAILURE/ NEED VASCULAR ACCESS COMPARISON: AP chest 06/01/2017 FLUOROSCOPY TIME: 0.2 minutes 10 digital chest images saved to PACS. TECHNIQUE: Intra-operative images acquired during surgical procedure to evaluate progress. NUMBER OF IMAGES: 10 digital chest images LIMITATIONS: None. FINDINGS: Intra procedural imaging and fluoro during placement of a right-sided central venous dialy sis catheter with the tip in the right atrium. Please see the operative report for further details IMPRESSION: INTRA PROCEDURAL IMAGING ABOVE . COMMENT: Quality ID [id number]: Final reports for procedures using fluoroscopy that document radiation exp osure indices, or exposure time and number of fluorographic images (if radiation exposure indices are not available) Please consult full operative report of the attending physician for description of the procedure. TECHNICAL DOCUMENTATION: JOB ID: [id number] [email or web address]- All Rights Reserved
[2017-06-10] MEDS ORDERED: NORMAL SALINE 250 ML IV PRN (17:05)
--- NOTE | 2017-06-10 17:14 | PDOC PROGRESS REPORT ---
Subjective Progress Note for:: 06/10/17 Subjective:: The patient is a 56-year-old -[place] female with past medical history of Insulin-dependent diabetes Hypertension Chronic kidney disease [place] hypertension Hyperlipidemia Obesity She presented to the hospital on May 29 with shortness of breath. Her daughter reported that she had not been taking her blood pressure medications. There was also report of significant edema which has slowly been increasing over the past several weeks. The patient admitted to paroxysmal nocturnal dyspnea and orthopnea and her sats were found to be 65% on room air by EMS after which she was placed on CPAP and then BiPAP. In the emergency room she was started on a nitroglycerin drip and was given intravenous Lasix. Her initial blood pressures were 230s systolic and they gradually improved. She was admitted with a diagnosis of hypertensive emergency pulmonary edema and acute diastolic congestive heart failure exacerbation due to fluid overload. The patient was evaluated by the nephrology service and was felt to have worsening of her kidney function. She was felt to have diabetic nephropathy and hypertensive nephrosclerosis worsened due to medication noncompliance. A temporary dialysis catheter was placed and dialysis was initiated. The plan is to place a permacath today No complaints at present. Reason For Visit: ACUTE CONGESTIVE HEART FAILURE/ NEED VAS. ACCESS Physical Exam Vital Signs: Temp Pulse Resp BP Pulse Ox 98.2 F 61 14 154/65 H 100 06/10/17 08:59 06/10/17 16:40 06/10/17 16:40 06/10/17 08:59 06/10/17 08:59 Intake & Output 06/09/17 06/10/17 06/11/17 06:59 06:59 06:59 Intake Total 1699 1680 Output Total 3500 600 Balance -1801 1080 Weight 134.2 kg 133.7 kg Additional comments: Laser for [place] female sitting up in her chair not in acute distress Lungs: Clear to auscultation bilaterally normal respiratory effort Cardiac: S1-S2 regular no murmurs heard, trace pedal edema bilaterally Abdomen: Soft obese, no focal tenderness normal bowel sounds Skin: Warm and dry Neurologic: Awake and alert oriented 3 Results Laboratory Results: 06/10/17 05:02 06/10/17 05:02 06/10/17 06/10/17 06/10/17 05:02 05:02 06:30 WBC 8.2 RBC 2.59 L Hgb 7.3 L Hct 22.4 L MCV 87 MCH 28.3 MCHC 32.8 RDW 17.6 H Plt Count 243 Seg Neutrophils % 60.6 Lymphocytes % 28.7 Monocytes % 8.0 Eosinophils % 1.8 Basophils % 0.9 Absolute Neutrophils 5.0 Absolute Lymphocytes 2.4 Absolute Monocytes 0.7 Absolute Eosinophils 0.1 Absolute Basophils 0.1 Sodium 138.5 Potassium 3.5 L Chloride 101 Carbon Dioxide 29 Anion Gap 9 BUN 31 H Creatinine 4.70 H Est GFR ( Amer) 12 L Est GFR (Non-Af Amer) 10 L Glucose 123 H Calcium 7.4 L Phosphorus 4.9 H Blood Type A NEGATIVE Antibody Screen NEGATIVE 05/29/17 05/29/17 05/29/17 02:11 02:11 08:10 Creatine Kinase 696 H 697 H CK-MB (CK-2) 2.49 Troponin I 0.051 05/29/17 05/29/17 05/29/17 08:10 15:28 15:28 Creatine Kinase 647 H CK-MB (CK-2) 2.97 3.51 Troponin I 0.059 0.043 Impressions: Renal Ultrasound 05/29/17 00:00 IMPRESSION: No hydronephrosis. Increased echogenicity of the renal parenchyma , suggestive of medical renal disease. Lung Scan-VQ NM 05/30/17 00:00 IMPRESSION: NORMAL VENTILATION-PERFUSION LUNG SCAN. NEGATIVE FOR PULMONARY EMBOLI. Chest X-Ray 06/01/17 00:00 IMPRESSION: NO ACUTE RADIOGRAPHIC FINDING IN THE CHEST. Vascular Ultrasound 06/02/17 00:00 IMPRESSION: NO DOPPLER EVIDENCE OF HEMODYNAMICALLY SIGNIFICANT RENAL ARTERY STENOSIS. Central Venous Line 06/10/17 00:00 IMPRESSION: INTRA PROCEDURAL IMAGING ABOVE . Guidance Fluoroscopy 06/10/17 00:00 IMPRESSION: INTRA PROCEDURAL IMAGING ABOVE . Assessment & Plan - Diagnosis (1) Acute diastolic (congestive) heart failure Is this a current diagnosis for this admission?: Yes (2) Acute on chronic renal failure Is this a current diagnosis for this admission?: Yes (3) Anemia in chronic kidney disease (CKD) Is this a current diagnosis for this admission?: Yes (4) COPD (chronic obstructive pulmonary disease) Qualifiers: COPD type: COPD with acute exacerbation Qualified Code(s): J44.1 - Chronic obstructive pulmonary disease with (acute) exacerbation Is this a current diagnosis for this admission?: Yes (5) Constipation Is this a current diagnosis for this admission?: Yes Plan: Resolved (6) Hyperlipidemia Is this a current diagnosis for this admission?: Yes (8) Pulmonary edema Qualifiers: Chronicity: acute Qualified Code(s): J81.0 - Acute pulmonary edema Is this a current diagnosis for this admission?: Yes (9) Secondary hyperparathyroidism (of renal origin) Is this a current diagnosis for this admission?: Yes - Time Time Spent with patient: 15-24 minutes - Plan Summary Plan Summary: Continue nifedipine and hydralazine and atenolol for blood pressure control. Continue Lasix. Transfer text IV iron was ordered for anemia. For permacath placement today
--- NOTE | 2017-06-10 17:16 | PDOC PROGRESS REPORT ---
Subjective Progress Note for:: 06/10/17 Subjective:: I am seeing the patient on dialysis tonight. She is doing good and feeling better. She does not really have any complaints. She is tolerating dialysis very well with good blood pressures and hemodynamically stable. She tells me that she had bleeding hemorrhoids around Thanksgiving. Her hemoglobin continues to be low despite Venofer and Procrit that were given on dialysis. Reason For Visit: ACUTE CONGESTIVE HEART FAILURE/ NEED VAS. ACCESS Physical Exam Vital Signs: Temp Pulse Resp BP Pulse Ox 98.2 F 61 14 154/65 H 100 06/10/17 08:59 06/10/17 16:40 06/10/17 16:40 06/10/17 08:59 06/10/17 08:59 Intake & Output 06/09/17 06/10/17 06/11/17 06:59 06:59 06:59 Intake Total 1699 1680 Output Total 3500 600 Balance -1801 1080 Weight 134.2 kg 133.7 kg Vitals during dialysis: Blood pressure 120/69, heart rate of 51, blood flow rate of 300 mL/min, dialysate flow rate of 500 mL/min. Exam: General appearance: PRESENT: no acute distress, cooperative, well-developed, well-nourished Head exam: PRESENT: atraumatic, normocephalic Eye exam: PRESENT: conjunctiva pale, PERRLA. ABSENT: scleral icterus Neck exam: ABSENT: JVD Respiratory exam: PRESENT: Normal breath sounds. ABSENT: crackles, rales, rhonchi, unlabored, wheezes Cardiovascular exam: PRESENT: Regular rate rhythm -+S1, +S2. ABSENT: diastolic murmur, systolic murmur GI/Abdominal exam: PRESENT: normal bowel sounds, soft. ABSENT: guarding, mass, tenderness Extremities exam: Improved trace bilateral lower extremity edema Neurological exam: PRESENT: alert, awake, oriented to person, place and time. Skin exam: PRESENT: dry, warm, Results Laboratory Results: 06/10/17 05:02 06/10/17 05:02 06/10/17 06/10/17 06/10/17 05:02 05:02 06:30 WBC 8.2 RBC 2.59 L Hgb 7.3 L Hct 22.4 L MCV 87 MCH 28.3 MCHC 32.8 RDW 17.6 H Plt Count 243 Seg Neutrophils % 60.6 Lymphocytes % 28.7 Monocytes % 8.0 Eosinophils % 1.8 Basophils % 0.9 Absolute Neutrophils 5.0 Absolute Lymphocytes 2.4 Absolute Monocytes 0.7 Absolute Eosinophils 0.1 Absolute Basophils 0.1 Sodium 138.5 Potassium 3.5 L Chloride 101 Carbon Dioxide 29 Anion Gap 9 BUN 31 H Creatinine 4.70 H Est GFR ( Amer) 12 L Est GFR (Non-Af Amer) 10 L Glucose 123 H Calcium 7.4 L Phosphorus 4.9 H Blood Type A NEGATIVE Antibody Screen NEGATIVE 05/29/17 05/29/17 05/29/17 02:11 02:11 08:10 Creatine Kinase 696 H 697 H CK-MB (CK-2) 2.49 Troponin I 0.051 05/29/17 05/29/17 05/29/17 08:10 15:28 15:28 Creatine Kinase 647 H CK-MB (CK-2) 2.97 3.51 Troponin I 0.059 0.043 Impressions: Renal Ultrasound 05/29/17 00:00 IMPRESSION: No hydronephrosis. Increased echogenicity of the renal parenchyma , suggestive of medical renal disease. Lung Scan-VQ NM 05/30/17 00:00 IMPRESSION: NORMAL VENTILATION-PERFUSION LUNG SCAN. NEGATIVE FOR PULMONARY EMBOLI. Chest X-Ray 06/01/17 00:00 IMPRESSION: NO ACUTE RADIOGRAPHIC FINDING IN THE CHEST. Vascular Ultrasound 06/02/17 00:00 IMPRESSION: NO DOPPLER EVIDENCE OF HEMODYNAMICALLY SIGNIFICANT RENAL ARTERY STENOSIS. Central Venous Line 06/10/17 00:00 IMPRESSION: INTRA PROCEDURAL IMAGING ABOVE . Guidance Fluoroscopy 06/10/17 00:00 IMPRESSION: INTRA PROCEDURAL IMAGING ABOVE . Assessment & Plan - Diagnosis (1) Renal failure Qualifiers: Renal failure chronicity: unspecified chronicity Qualified Code(s): N19 - Unspecified kidney failure Is this a current diagnosis for this admission?: Yes Plan: Acute versus chronic or acute on chronic. Patient is currently nonoliguric. Unknown baseline kidney function. Records from July 23, 2015 showed an EGFR of 61% with creatinine of 1.17 but nothing in the interim. Patient has significant proteinuria. There are several factors that points to progressive chronic kidney disease in this patient. Although we cannot totally rule out an acute component. The proteinuria points to a possible underlying diabetic nephropathy and likely a contribution of hypertensive nephrosclerosis in this patient with known noncompliance. Factors pointing to chronic kidney disease possibly nearing end-stage renal disease include uncontrolled hypertension, acute flash pulmonary edema, anemia, hyperparathyroidism, hypocalcemia, and peripheral edema. I reviewed records from [facility] from her primary care provider and [facility] currently called [facility]. Patient has significant nephrotic range proteinuria of 9.8 g. Patient's creatinine is still rising every day after hemodialysis treatment. I suspect the patient would need chronic outpatient hemodialysis. I Think the patient actually have chronic kidney disease stage V requiring chronic hemodialysis. Dr. Macias placed the PermCath this morning successfully. We are doing dialysis today for 3 hours, using the patient's right IJ PermCath, with 3 potassium bath, blood flow rate of 300 mL per minute, dialysate flow rate of 600 mL per minute, ultrafiltration 3 L as tolerated, no heparin and Procrit with 20,000 units during dialysis intravenously. (2) End stage renal disease on dialysis Is this a current diagnosis for this admission?: Yes Plan: As stated above patient is going to need chronic hemodialysis treatment. We are awaiting acceptance by [facility] for ongoing chronic outpatient dialysis treatment. Since the patient does not have insurance, it is taking a little bit of time for approval from [employer] administration. We will keep patient until patient is approved to go to [facility] for continuation of hemodialysis. (3) Pulmonary edema Qualifiers: Chronicity: acute Qualified Code(s): J81.0 - Acute pulmonary edema Is this a current diagnosis for this admission?: Yes Plan: Since the patient's echocardiogram did not support a diagnosis of congestive heart failure, it is very possible that this could be due to chronic kidney disease. Duplex of renal artery showed no evidence of hemodynamically significant renal artery stenosis. Nevertheless worsening kidney function can cause this as well. Currently the patient feels much better. This is resolved. (4) Hypertensive emergency Is this a current diagnosis for this admission?: Yes Plan: Continue current blood pressure regimen. I would increase the dose of Lasix. Blood pressure control acceptable. (5) Anemia in chronic kidney disease (CKD) Is this a current diagnosis for this admission?: Yes Plan: Patient would need to be initiated with Procrit and IV Venofer during dialysis. Patient's hemoglobin remains to be low despite Procrit and Venofer for the last hemodialysis treatments within the week. Stool is negative for occult blood. I will order blood transfusion for 1 unit of packed RBC tonight. (6) Iron deficiency anemia Is this a current diagnosis for this admission?: Yes Plan: Patient is on IV Venofer on dialysis. (7) Vitamin D deficiency Is this a current diagnosis for this admission?: Yes (8) Secondary hyperparathyroidism (of renal origin) Is this a current diagnosis for this admission?: Yes Plan: She receives IV Zemplar on dialysis. (9) Small kidney, unilateral Is this a current diagnosis for this admission?: Yes Plan: Right kidney smaller than the left. Duplex of renal artery showed no evidence of renal artery stenosis. (10) Hypocalcemia Is this a current diagnosis for this admission?: Yes Plan: Continue calcium supplement (11) Hyperphosphatemia Is this a current diagnosis for this admission?: Yes Plan: Low phosphorus diet. (12) Insulin dependent diabetes mellitus Is this a current diagnosis for this admission?: Yes (13) Hyperlipidemia Is this a current diagnosis for this admission?: Yes (14) Morbid obesity Is this a current diagnosis for this admission?: Yes (15) Noncompliance Is this a current diagnosis for this admission?: Yes - Time Time with patient: 15-25 minutes
[2017-06-10] MEDS ORDERED: HEPARIN SOD (PORCINE) 1,000 UNIT/ML 10 ML VIAL IV PRN (17:32)
[2017-06-10] MEDS: IRON SUCROSE COMPLEX INJ/PF 100 MG/5 ML SDV IV SCH (17:32)
[2017-06-10] MEDS: PARICALCITOL INJ/PF 5 MCG/1 ML SDV IV SCH (17:33)
[2017-06-10] MEDS: FOLIC ACID/VITAMIN B COMP W-C CAPSULE PO SCH (18:44)
[2017-06-10] MEDS: NORMAL SALINE 1000 ML 1,000 ML IV SCH (19:13)
[2017-06-10] MEDS: INSULIN GLARGINE,HUM.REC.ANLOG 300 UNIT/3 ML INSULN.PEN SUBCUT SCH (21:56)
[2017-06-10] MEDS: INSULIN LISPRO 100 UNIT/ML 3 ML VIAL SUBCUT PRN (21:56)
[2017-06-10] MEDS: TRAZODONE HCL 50 MG TABLET PO SCH (21:57)
[2017-06-10] MEDS: HYDROXYZINE PAMOATE 25 MG CAPSULE PO PRN (22:02)
[2017-06-11 00:18] LABS: HEMATOCRIT 27.8 % (36.0-47.0); HEMOGLOBIN 9.1 g/dL (12.0-15.5); HGB HCT DIFFERENCE -0.5; MEAN CORPUSCULAR HEMOGLOBIN 28.2 pg (27.0-33.4); MEAN CORPUSCULAR HGB CONC 32.7 g/dL (32.0-36.0); MEAN CORPUSCULAR VOLUME 86 fl (80-97); RED BLOOD COUNT 3.22 10^6/uL (3.72-5.28); WHITE BLOOD COUNT 10.1 10^3/uL (4.0-10.5)
[2017-06-11] MEDS: ACETAMINOPHEN 325 MG TABLET PO PRN (03:25)
[2017-06-11] MEDS: HYDROXYZINE PAMOATE 25 MG CAPSULE PO PRN ×2 (03:25→22:15)
[2017-06-11 06:03] LABS: HEMATOCRIT 26.8 % (36.0-47.0); HEMOGLOBIN 8.6 g/dL (12.0-15.5); MEAN CORPUSCULAR HEMOGLOBIN 27.7 pg (27.0-33.4); MEAN CORPUSCULAR HGB CONC 32.2 g/dL (32.0-36.0); MEAN CORPUSCULAR VOLUME 86 fl (80-97); RED BLOOD COUNT 3.12 10^6/uL (3.72-5.28); RED CELL DISTRIBUTION WIDTH 17.4 % (11.5-14.0); WHITE BLOOD COUNT 11.4 10^3/uL (4.0-10.5)
[2017-06-11] MEDS: NITROGLYCERIN 2% OINTMENT 1 GM PACKET TP SCH ×4 (06:20→23:19)
[2017-06-11] MEDS: HEPARIN SOD (PORCINE) 5,000 UNIT/ML 1 ML SYRINGE SUBCUT SCH ×3 (06:21→22:11)
[2017-06-11] MEDS: ONDANSETRON HCL INJ/PF 4 MG/2 ML SDV IV PRN (07:26)
[2017-06-11] MEDS: BUDESONIDE NEB 0.5 MG/2 ML AMPUL NEB SCH ×2 (07:54→19:47)
[2017-06-11] MEDS: IPRATROPIUM/ALBUTEROL 0.5-2.5 MG/3 ML AMPUL NEB SCH ×3 (07:54→23:45)
[2017-06-11] MEDS: OXYCODONE HCL IR 5 MG TABLET PO PRN ×3 (08:34→23:16)
[2017-06-11] MEDS: INSULIN LISPRO 100 UNIT/ML 3 ML VIAL SUBCUT PRN ×4 (08:34→22:14)
[2017-06-11] MEDS: LACTOBACILLUS ACIDOPHILUS 250 MG TAB PO SCH ×2 (09:28→17:20)
[2017-06-11] MEDS: CALCIUM CARBONATE 500 MG TABLET PO SCH ×2 (09:28→17:21)
[2017-06-11] MEDS: PREGABALIN 25 MG CAPSULE PO SCH (09:29)
[2017-06-11] MEDS: ASPIRIN 325 MG TABLET, ENT COATED PO SCH (09:29)
[2017-06-11] MEDS: FUROSEMIDE 40 MG TABLET PO SCH (09:29)
[2017-06-11] MEDS: ATENOLOL 50 MG TABLET PO SCH (09:29)
[2017-06-11] MEDS: NIFEDIPINE 30 MG TAB.ER.24 PO SCH ×2 (09:29→22:10)
[2017-06-11] MEDS: GUAIFENESIN 600 MG TABLET.SA PO SCH ×2 (09:30→22:16)
[2017-06-11] MEDS: FOLIC ACID/VITAMIN B COMP W-C CAPSULE PO SCH (15:42)
--- NOTE | 2017-06-11 17:18 | PDOC PROGRESS REPORT ---
Subjective Progress Note for:: 06/11/17 Subjective:: The patient is a 56-year-old -Congolese female with past medical history of Insulin-dependent diabetes Hypertension Chronic kidney disease [place] hypertension Hyperlipidemia Obesity She presented to the hospital on May 29 with shortness of breath. Her daughter reported that she had not been taking her blood pressure medications. There was also report of significant edema which has slowly been increasing over the past several weeks. The patient admitted to paroxysmal nocturnal dyspnea and orthopnea and her sats were found to be 65% on room air by EMS after which she was placed on CPAP and then BiPAP. In the emergency room she was started on a nitroglycerin drip and was given intravenous Lasix. Her initial blood pressures were 230s systolic and they gradually improved. She was admitted with a diagnosis of hypertensive emergency pulmonary edema and acute diastolic congestive heart failure exacerbation due to fluid overload. The patient was evaluated by the nephrology service and was felt to have worsening of her kidney function. She was felt to have diabetic nephropathy and hypertensive nephrosclerosis worsened due to medication noncompliance. A temporary dialysis catheter was placed and dialysis was initiated. Permacath was placed on June 10. Outpatient dialysis will start on Thursday. Plan is to dialyze her tomorrow morning and subsequently discharged her home. She has no complaints at present. Reason For Visit: ACUTE CONGESTIVE HEART FAILURE/ NEED VAS. ACCESS Physical Exam Vital Signs: Temp Pulse Resp BP Pulse Ox 99.0 F 74 16 143/60 H 98 06/11/17 15:29 06/11/17 15:29 06/11/17 15:29 06/11/17 15:29 06/11/17 15:29 Intake & Output 06/10/17 06/11/17 06/12/17 06:59 06:59 06:59 Intake Total 1680 1005 440 Output Total 600 3400 Balance 1080 -2394 440 Weight 133.7 kg 135.4 kg Additional comments: Middle-aged female sitting up in bed not in acute distress Lungs: Clear to auscultation bilaterally normal respiratory effort Cardiac: S1-S2 regular and no cyanosis Abdomen: Soft, obese, no focal tenderness, normal bowel sounds Skin: Warm and Results Laboratory Results: 06/11/17 05:44 06/10/17 05:02 06/10/17 06/10/17 06/11/17 06:30 23:58 05:44 WBC 10.1 11.4 H RBC 3.22 L 3.12 L Hgb 9.1 L 8.6 L Hct 27.8 L 26.8 L MCV 86 86 MCH 28.2 27.7 MCHC 32.7 32.2 RDW 17.0 H 17.4 H Plt Count 221 228 Blood Type A NEGATIVE Antibody Screen NEGATIVE 05/29/17 05/29/17 05/29/17 02:11 02:11 08:10 Creatine Kinase 696 H 697 H CK-MB (CK-2) 2.49 Troponin I 0.051 05/29/17 05/29/17 05/29/17 08:10 15:28 15:28 Creatine Kinase 647 H CK-MB (CK-2) 2.97 3.51 Troponin I 0.059 0.043 Impressions: Renal Ultrasound 05/29/17 00:00 IMPRESSION: No hydronephrosis. Increased echogenicity of the renal parenchyma , suggestive of medical renal disease. Lung Scan-VQ NM 05/30/17 00:00 IMPRESSION: NORMAL VENTILATION-PERFUSION LUNG SCAN. NEGATIVE FOR PULMONARY EMBOLI. Chest X-Ray 06/01/17 00:00 IMPRESSION: NO ACUTE RADIOGRAPHIC FINDING IN THE CHEST. Vascular Ultrasound 06/02/17 00:00 IMPRESSION: NO DOPPLER EVIDENCE OF HEMODYNAMICALLY SIGNIFICANT RENAL ARTERY STENOSIS. Central Venous Line 06/10/17 00:00 IMPRESSION: INTRA PROCEDURAL IMAGING ABOVE . Guidance Fluoroscopy 06/10/17 00:00 IMPRESSION: INTRA PROCEDURAL IMAGING ABOVE . Assessment & Plan - Diagnosis (1) Acute diastolic (congestive) heart failure Is this a current diagnosis for this admission?: Yes (2) Acute on chronic renal failure Is this a current diagnosis for this admission?: Yes (3) Anemia in chronic kidney disease (CKD) Is this a current diagnosis for this admission?: Yes (4) COPD (chronic obstructive pulmonary disease) Qualifiers: COPD type: COPD with acute exacerbation Qualified Code(s): J44.1 - Chronic obstructive pulmonary disease with (acute) exacerbation Is this a current diagnosis for this admission?: Yes (5) Constipation Is this a current diagnosis for this admission?: Yes (6) Hyperlipidemia Is this a current diagnosis for this admission?: Yes (8) Pulmonary edema Qualifiers: Chronicity: acute Qualified Code(s): J81.0 - Acute pulmonary edema Is this a current diagnosis for this admission?: Yes (9) Secondary hyperparathyroidism (of renal origin) Is this a current diagnosis for this admission?: Yes - Time Time Spent with patient: 15-24 minutes - Plan Summary Plan Summary: Continue current management with no changes. Nephrology input appreciated. Plan for discharge home tomorrow after dialysis.
[2017-06-11] MEDS: INSULIN GLARGINE,HUM.REC.ANLOG 300 UNIT/3 ML INSULN.PEN SUBCUT SCH (22:14)
[2017-06-11] MEDS: TRAZODONE HCL 50 MG TABLET PO SCH (22:15)
[2017-06-12] MEDS ORDERED: NORMAL SALINE 1000 ML 1,000 ML IV PRN (05:00)
[2017-06-12] MEDS ORDERED: IRON SUCROSE COMPLEX INJ/PF 100 MG/5 ML SDV IV PRN (05:00)
[2017-06-12] MEDS ORDERED: PARICALCITOL INJ/PF 5 MCG/1 ML SDV IV PRN (05:00)
[2017-06-12] MEDS ORDERED: HEPARIN SOD (PORCINE) 1,000 UNIT/ML 10 ML VIAL IV PRN (05:00)
[2017-06-12] MEDS: HEPARIN SOD (PORCINE) 5,000 UNIT/ML 1 ML SYRINGE SUBCUT SCH ×2 (05:12→14:38)
[2017-06-12] MEDS: NITROGLYCERIN 2% OINTMENT 1 GM PACKET TP SCH ×2 (05:14→14:13)
[2017-06-12] MEDS: OXYCODONE HCL IR 5 MG TABLET PO PRN ×2 (06:23→14:07)
[2017-06-12] MEDS: IPRATROPIUM/ALBUTEROL 0.5-2.5 MG/3 ML AMPUL NEB SCH ×2 (07:43→16:03)
[2017-06-12] MEDS: BUDESONIDE NEB 0.5 MG/2 ML AMPUL NEB SCH (07:43)
[2017-06-12 09:45] LABS: HEMATOCRIT 27.6 % (36.0-47.0); HEMOGLOBIN 9.1 g/dL (12.0-15.5); HGB HCT DIFFERENCE -0.3; MEAN CORPUSCULAR HEMOGLOBIN 28.7 pg (27.0-33.4); MEAN CORPUSCULAR HGB CONC 33.1 g/dL (32.0-36.0); MEAN CORPUSCULAR VOLUME 87 fl (80-97); RED BLOOD COUNT 3.18 10^6/uL (3.72-5.28); WHITE BLOOD COUNT 7.8 10^3/uL (4.0-10.5)
[2017-06-12 10:22] LABS: ANION GAP 11 (5-19); BLOOD UREA NITROGEN 31 mg/dL (7-20); CALCIUM 7.8 mg/dL (8.4-10.2); CARBON DIOXIDE 29 mmol/L (22-30); CHLORIDE 98 mmol/L (98-107); CREATININE RESULT 4.63 mg/dL (0.52-1.25); GLUCOSE 235 mg/dL (75-110); MAGNESIUM 1.9 mg/dL (1.6-2.3); POTASSIUM 3.9 mmol/L (3.6-5.0)
[2017-06-12] MEDS: EPOETIN ALFA INJ 20000 UNIT/1 ML VIAL (RENAL) IV PRN ×2 (10:51→11:40)
[2017-06-12] MEDS: IRON SUCROSE COMPLEX INJ/PF 100 MG/5 ML SDV IV SCH (11:38)
[2017-06-12] MEDS: PARICALCITOL INJ/PF 5 MCG/1 ML SDV IV SCH (11:41)
--- NOTE | 2017-06-12 12:58 | PDOC PROGRESS REPORT ---
Subjective Progress Note for:: 06/12/17 Subjective:: I am seeing the patient during dialysis at this time. She is doing fine and has no complaints. She is hemodynamically stable. She is at her dry weight of 133 kg so were not getting much ultrafiltration today. She is already set up at [facility] for Thursday for her next dialysis. She is currently tolerating dialysis without problems. Reason For Visit: ACUTE CONGESTIVE HEART FAILURE/ NEED VAS. ACCESS Physical Exam Vital Signs: Temp Pulse Resp BP Pulse Ox 98.9 F 86 18 143/56 H 100 06/12/17 08:32 06/12/17 08:32 06/12/17 08:32 06/12/17 08:32 06/12/17 08:32 Intake & Output 06/11/17 06/12/17 06/13/17 06:59 06:59 06:59 Intake Total 1005 1701 474 Output Total 3400 1200 Balance -2395 501 474 Weight 135.4 kg 136 kg Vital signs during dialysis: Blood pressure of 136/66, heart rate of 78, weight of 133 kg, blood flow rate of 300 mL/min, dialysate flow rate of 600 mL/min. Exam: General appearance: PRESENT: no acute distress, cooperative, well-developed, well-nourished Head exam: PRESENT: atraumatic, normocephalic Eye exam: PRESENT: conjunctiva slightly pale, PERRLA. ABSENT: scleral icterus Neck exam: ABSENT: JVD Respiratory exam: PRESENT: Normal breath sounds. ABSENT: crackles, rales, rhonchi, unlabored, wheezes Cardiovascular exam: PRESENT: Regular rate rhythm -+S1, +S2. ABSENT: diastolic murmur, systolic murmur GI/Abdominal exam: PRESENT: normal bowel sounds, soft. ABSENT: guarding, mass, tenderness Extremities exam: Very minimal trace edema only in the right leg than left leg almost has no edema Neurological exam: PRESENT: alert, awake, oriented to person, place and time. Skin exam: PRESENT: dry, warm, Results Laboratory Results: 06/12/17 09:25 06/12/17 09:25 06/12/17 06/12/17 09:25 09:25 WBC 7.8 RBC 3.18 L Hgb 9.1 L Hct 27.6 L MCV 87 MCH 28.7 MCHC 33.1 RDW 18.0 H Plt Count 207 Sodium 138.0 Potassium 3.9 Chloride 98 Carbon Dioxide 29 Anion Gap 11 BUN 31 H Creatinine 4.63 H Est GFR ( Amer) 12 L Est GFR (Non-Af Amer) 10 L Glucose 235 H Calcium 7.8 L Magnesium 1.9 05/29/17 05/29/17 05/29/17 02:11 02:11 08:10 Creatine Kinase 696 H 697 H CK-MB (CK-2) 2.49 Troponin I 0.051 05/29/17 05/29/17 05/29/17 08:10 15:28 15:28 Creatine Kinase 647 H CK-MB (CK-2) 2.97 3.51 Troponin I 0.059 0.043 Impressions: Renal Ultrasound 05/29/17 00:00 IMPRESSION: No hydronephrosis. Increased echogenicity of the renal parenchyma , suggestive of medical renal disease. Lung Scan-VQ NM 05/30/17 00:00 IMPRESSION: NORMAL VENTILATION-PERFUSION LUNG SCAN. NEGATIVE FOR PULMONARY EMBOLI. Chest X-Ray 06/01/17 00:00 IMPRESSION: NO ACUTE RADIOGRAPHIC FINDING IN THE CHEST. Vascular Ultrasound 06/02/17 00:00 IMPRESSION: NO DOPPLER EVIDENCE OF HEMODYNAMICALLY SIGNIFICANT RENAL ARTERY STENOSIS. Central Venous Line 06/10/17 00:00 IMPRESSION: INTRA PROCEDURAL IMAGING ABOVE . Guidance Fluoroscopy 06/10/17 00:00 IMPRESSION: INTRA PROCEDURAL IMAGING ABOVE . Assessment & Plan - Diagnosis (1) Renal failure Qualifiers: Renal failure chronicity: unspecified chronicity Qualified Code(s): N19 - Unspecified kidney failure Is this a current diagnosis for this admission?: Yes Plan: Acute versus chronic or acute on chronic. Patient is currently nonoliguric. Unknown baseline kidney function. Records from July 23, 2015 showed an EGFR of 61% with creatinine of 1.17 but nothing in the interim. Patient has significant proteinuria. There are several factors that points to progressive chronic kidney disease in this patient. Although we cannot totally rule out an acute component. The proteinuria points to a possible underlying diabetic nephropathy and likely a contribution of hypertensive nephrosclerosis in this patient with known noncompliance. Factors pointing to chronic kidney disease possibly nearing end-stage renal disease include uncontrolled hypertension, acute flash pulmonary edema, anemia, hyperparathyroidism, hypocalcemia, and peripheral edema. I reviewed records from [facility] from her primary care provider and [facility] currently called [facility]. Patient has significant nephrotic range proteinuria of 9.8 g. Patient's creatinine is still rising every day after hemodialysis treatment. I suspect the patient would need chronic outpatient hemodialysis. I Think the patient actually have chronic kidney disease stage V requiring chronic hemodialysis. Dr. Macias placed the PermCath last Thursday, June 10. We are doing dialysis today for 3 hours, using the patient's right IJ PermCath, with 3 potassium bath, blood flow rate of 300 mL per minute, dialysate flow rate of 600 mL per minute, ultrafiltration 1 L as tolerated, no heparin and Procrit with 20,000 units during dialysis intravenously. Patient is being monitored throughout dialysis treatment. (2) End stage renal disease on dialysis Is this a current diagnosis for this admission?: Yes Plan: As stated above patient is going to need chronic hemodialysis treatment. Patient has been us accepted by [facility] as a patient. Her next hemodialysis will be on Thursday at [facility]. Patient is instructed to be there at 2:30 PM to sign paperwork's followed by her dialysis treatment. Patient to continue all current medications being given here in the hospital. (3) Pulmonary edema Qualifiers: Chronicity: acute Qualified Code(s): J81.0 - Acute pulmonary edema Is this a current diagnosis for this admission?: Yes Plan: Since the patient's echocardiogram did not support a diagnosis of congestive heart failure, it is very possible that this could be due to chronic kidney disease. Duplex of renal artery showed no evidence of hemodynamically significant renal artery stenosis. Nevertheless worsening kidney function can cause this as well. Currently the patient feels much better. This is resolved. (4) Hypertensive emergency Is this a current diagnosis for this admission?: Yes Plan: Continue current blood pressure regimen. I would increase the dose of Lasix. Blood pressure control acceptable. (5) Anemia in chronic kidney disease (CKD) Is this a current diagnosis for this admission?: Yes Plan: Patient would need to be initiated with Procrit and IV Venofer during dialysis. Patient has negative stool for occult blood. She was transfused 1 unit of packed RBC 3 days ago. (6) Iron deficiency anemia Is this a current diagnosis for this admission?: Yes Plan: Patient is on IV Venofer on dialysis. (7) Vitamin D deficiency Is this a current diagnosis for this admission?: Yes (8) Secondary hyperparathyroidism (of renal origin) Is this a current diagnosis for this admission?: Yes Plan: She receives IV Zemplar on dialysis. (9) Small kidney, unilateral Is this a current diagnosis for this admission?: Yes Plan: Right kidney smaller than the left. Duplex of renal artery showed no evidence of renal artery stenosis. (10) Hypocalcemia Is this a current diagnosis for this admission?: Yes Plan: Continue calcium supplement (11) Hyperphosphatemia Is this a current diagnosis for this admission?: Yes Plan: Low phosphorus diet. (12) Insulin dependent diabetes mellitus Is this a current diagnosis for this admission?: Yes (13) Hyperlipidemia Is this a current diagnosis for this admission?: Yes (14) Morbid obesity Is this a current diagnosis for this admission?: Yes (15) Noncompliance Is this a current diagnosis for this admission?: Yes - Time Time with patient: 15-25 minutes
[2017-06-12] MEDS: ASPIRIN 325 MG TABLET, ENT COATED PO SCH (14:07)
[2017-06-12] MEDS: CALCIUM CARBONATE 500 MG TABLET PO SCH (14:07)
[2017-06-12] MEDS: PREGABALIN 25 MG CAPSULE PO SCH (14:08)
[2017-06-12] MEDS: HYDROXYZINE PAMOATE 25 MG CAPSULE PO PRN (14:08)
[2017-06-12] MEDS: LACTOBACILLUS ACIDOPHILUS 250 MG TAB PO SCH (14:09)
[2017-06-12] MEDS: ATENOLOL 50 MG TABLET PO SCH (14:09)
[2017-06-12] MEDS: NORMAL SALINE 1000 ML 1,000 ML IV SCH (14:13)
[2017-06-12] MEDS: FUROSEMIDE 40 MG TABLET PO SCH (14:13)
[2017-06-12] MEDS: GUAIFENESIN 600 MG TABLET.SA PO SCH (14:13)
[2017-06-12] MEDS: NIFEDIPINE 30 MG TAB.ER.24 PO SCH (14:13)
--- NOTE | 2017-06-12 15:24 | PDOC DISCHARGE SUMMARY ---
General - Admit/Disc Date/PCP Admission Date/Primary Care Provider: 05/29/17 00:51 No PCP on admission. Needs to establish care with PCP Discharge Date: 06/12/17 - Discharge Diagnosis (1) Acute diastolic (congestive) heart failure Is this a current diagnosis for this admission?: Yes (2) Acute on chronic renal failure Is this a current diagnosis for this admission?: Yes (3) Anemia in chronic kidney disease (CKD) Is this a current diagnosis for this admission?: Yes (4) COPD (chronic obstructive pulmonary disease) Is this a current diagnosis for this admission?: Yes (5) Constipation Is this a current diagnosis for this admission?: Yes (6) Hyperlipidemia Is this a current diagnosis for this admission?: Yes (8) Pulmonary edema Is this a current diagnosis for this admission?: Yes (9) Secondary hyperparathyroidism (of renal origin) Is this a current diagnosis for this admission?: Yes - Additional Information Resuscitation Status: Full Code Discharge Diet: Cardiac, Diabetic Discharge Activity: Activity As Tolerated, Balance Activity w/Rest, Weigh Daily Prescriptions: Insulin Glargine,Hum.rec.anlog [Lantus Insulin 100 Unit/mL] 48 unit SUBCUT QHS # 1 insuln.pen Hydralazine HCl [Apresoline 50 mg Tablet] 50 mg PO Q8HP PRN #60 tablet PRN Reason: Folic Acid/Vitamin B Comp W-C [Nephrocaps Multiple Vitamin Capsule] 1 cap PO ACSUPPER #30 capsule Furosemide [Lasix 40 mg Tablet] 40 mg PO DAILY #30 tablet Insulin Admin. Supplies [Inpen (For Novolog)] See Protocol SQ TID #1 insuln.pen Nifedipine [Procardia XL 30 mg Tablet] 60 mg PO Q12 #60 tab.er.24 Pregabalin [Lyrica 25 mg Capsule] 25 mg PO DAILY #30 capsule Home Medications: Atenolol [Tenormin 50 mg Tablet] 50 mg PO DAILY 05/29/17 Clonazepam [Klonopin] 0.25 mg PO BID 05/29/17 Aspirin [Ecotrin 325 mg EC Tablet] 325 mg PO DAILY tabec 06/12/17 Atenolol [Tenormin 50 mg Tablet] 100 mg PO DAILY tablet 06/12/17 Folic Acid/Vitamin B Comp W-C [Nephrocaps Multiple Vitamin Capsule] 1 cap PO ACSUPPER #30 capsule 06/12/17 Furosemide [Lasix 40 mg Tablet] 40 mg PO DAILY #30 tablet 06/12/17 Hydralazine HCl [Apresoline 50 mg Tablet] 50 mg PO Q8HP PRN #60 tablet 06/12/17 Insulin Admin. Supplies [Inpen (For Novolog)] See Protocol SQ TID #1 insuln.pen 06/12/17 Insulin Glargine,Hum.rec.anlog [Lantus Insulin 100 Unit/mL] 48 unit SUBCUT QHS # 1 insuln.pen 06/12/17 Nifedipine [Procardia XL 30 mg Tablet] 60 mg PO Q12 #60 tab.er.24 06/12/17 Pregabalin [Lyrica 25 mg Capsule] 25 mg PO DAILY #30 capsule 06/12/17 Trazodone HCl [Desyrel 50 mg Tablet] 100 mg PO QHS tablet 06/12/17 History of Present Illness History of Present Illness: The patient is a 56-year-old -[place] female with past medical history of Eslyn dependent diabetes Hypertension Chronic kidney disease Hyperlipidemia Obesity Presented to the hospital on May 29 with shortness of breath. Her daughter reported that she had not been taking her blood pressure medications at home. The patient reported significant edema which had been slowly increasing over the past several weeks and she also admitted to paroxysmal nocturnal dyspnea and orthopnea. She was found to be hypoxic on room air satting 65% and was eventually placed on BiPAP and was started on intravenous Lasix and a nitroglycerin drip. Her initial blood pressures were in the 230s systolic. She was admitted with a diagnosis of hypertensive emergency Pulmonary edema Acute diastolic congestive heart failure exacerbation due to fluid overload. The patient was evaluated by the nephrology service and they felt that she had worsening of her kidney function. She was diagnosed with acute on chronic kidney failure due to progressive diabetic nephropathy and hypertensive nephrosclerosis worsened due to medication noncompliance. A temporary dialysis catheter was placed and dialysis was initiated. Permacath was placed on June 10. She is stable for discharge. She was given prescriptions for new medications. Outpatient dialysis will start on Thursday. Physical Exam Vital Signs: Temp Pulse Resp BP Pulse Ox 98.9 F 86 18 143/56 H 100 06/12/17 08:32 06/12/17 08:32 06/12/17 08:32 06/12/17 08:32 06/12/17 08:32 Intake & Output 06/11/17 06/12/17 06/13/17 06:59 06:59 06:59 Intake Total 1005 1701 474 Output Total 3400 1200 Balance -2395 501 474 Weight 135.4 kg 136 kg Additional comments: Obese, middle-aged -[place] female sitting up in bed not in acute distress Lungs: Clear to auscultation bilaterally normal respiratory effort Neurologic: Awake and alert oriented 3. Results Laboratory Results: 06/12/17 09:25 06/12/17 09:25 06/12/17 06/12/17 09:25 09:25 WBC 7.8 RBC 3.18 L Hgb 9.1 L Hct 27.6 L MCV 87 MCH 28.7 MCHC 33.1 RDW 18.0 H Plt Count 207 Sodium 138.0 Potassium 3.9 Chloride 98 Carbon Dioxide 29 Anion Gap 11 BUN 31 H Creatinine 4.63 H Est GFR ( Amer) 12 L Est GFR (Non-Af Amer) 10 L Glucose 235 H Calcium 7.8 L Magnesium 1.9 05/29/17 05/29/17 05/29/17 02:11 02:11 08:10 Creatine Kinase 696 H 697 H CK-MB (CK-2) 2.49 Troponin I 0.051 05/29/17 05/29/17 05/29/17 08:10 15:28 15:28 Creatine Kinase 647 H CK-MB (CK-2) 2.97 3.51 Troponin I 0.059 0.043 Impressions: Renal Ultrasound 05/29/17 00:00 IMPRESSION: No hydronephrosis. Increased echogenicity of the renal parenchyma , suggestive of medical renal disease. Lung Scan-VQ NM 05/30/17 00:00 IMPRESSION: NORMAL VENTILATION-PERFUSION LUNG SCAN. NEGATIVE FOR PULMONARY EMBOLI. Chest X-Ray 06/01/17 00:00 IMPRESSION: NO ACUTE RADIOGRAPHIC FINDING IN THE CHEST. Vascular Ultrasound 06/02/17 00:00 IMPRESSION: NO DOPPLER EVIDENCE OF HEMODYNAMICALLY SIGNIFICANT RENAL ARTERY STENOSIS. Central Venous Line 06/10/17 00:00 IMPRESSION: INTRA PROCEDURAL IMAGING ABOVE . Guidance Fluoroscopy 06/10/17 00:00 IMPRESSION: INTRA PROCEDURAL IMAGING ABOVE . Qualifiers PATEINT BEING DISCHARGED WITH ANY OF THE FOLLOWING DIAGNOSIS?: No, Heart Failure HF Pt being discharged on ACEI for LVEF less than 40%?: No Reason(s) for not prescribing ACEI:: Medical Contraindication HF Pt being discharged on ARBS for LVEF less than 40%?: No Reason(s) for not prescribing ARBS:: Medical Contraindication HF Pt with Afib discharged with Warfarin?: No Reason(s) for not prescribing Warfarin:: Procedure not indicated HF Pt discharged on evidence-based Beta Liset:: Yes Plan Discharge Plan: Follow-up with primary care physician in 1 week Next dialysis as an outpatient on Thursday, June 15. Time Spent: Greater than 30 Minutes
[2017-06-12 16:34] VITALS: BP 133/51
== END 2017-06-12 17:34 | disposition home or self-care (01) | DRG 291 ==
LOC: ER 22:27 → EH 05-29 00:51 → 3W 05-29 12:30
PROVIDERS: ADMIT Family Medicine; ATTEND Family Medicine
PROC: 5A09557 Assistance with Respiratory Ventilation, Greater than 96 Consecutive Hours, Continuous Positive Airway Pressure (ICD-10-PCS; 2017-05-28)
PROC: 06HN33Z Insertion of Infusion Device into Left Femoral Vein, Percutaneous Approach (ICD-10-PCS; 2017-06-03)
PROC: B54CZZA Ultrasonography of Left Lower Extremity Veins, Guidance (ICD-10-PCS; 2017-06-03)
PROC: 5A1D70Z Performance of Urinary Filtration, Intermittent, Less than 6 Hours Per Day (ICD-10-PCS; 2017-06-03)
PROC: 06H033Z Insertion of Infusion Device into Inferior Vena Cava, Percutaneous Approach (ICD-10-PCS; principal; 2017-06-10)
PROC: 0JH63WZ Insertion of Totally Implantable Vascular Access Device into Chest Subcutaneous Tissue and Fascia, Percutaneous Approach (ICD-10-PCS; 2017-06-10)
PROC: B549ZZA Ultrasonography of Inferior Vena Cava, Guidance (ICD-10-PCS; 2017-06-10)
PROC: 30233N1 Transfusion of Nonautologous Red Blood Cells into Peripheral Vein, Percutaneous Approach (ICD-10-PCS; 2017-06-10)
DX: I13.2 Hypertensive heart and chronic kidney disease with heart failure and with stage 5 chronic kidney disease, or end stage renal disease (principal); I50.31 Acute diastolic (congestive) heart failure; N18.6 End stage renal disease; J96.01 Acute respiratory failure with hypoxia; N17.9 Acute kidney failure, unspecified; I16.1 Hypertensive emergency; Z68.43 Body mass index [BMI] 50.0-59.9, adult; I50.30 Unspecified diastolic (congestive) heart failure; E11.22 Type 2 diabetes mellitus with diabetic chronic kidney disease; E11.21 Type 2 diabetes mellitus with diabetic nephropathy; E78.5 Hyperlipidemia, unspecified; E66.9 Obesity, unspecified; K59.00 Constipation, unspecified; G47.00 Insomnia, unspecified; F17.210 Nicotine dependence, cigarettes, uncomplicated; E83.51 Hypocalcemia; E21.3 Hyperparathyroidism, unspecified; E55.9 Vitamin D deficiency, unspecified; J44.9 Chronic obstructive pulmonary disease, unspecified; E11.40 Type 2 diabetes mellitus with diabetic neuropathy, unspecified; E11.319 Type 2 diabetes mellitus with unspecified diabetic retinopathy without macular edema; I87.2 Venous insufficiency (chronic) (peripheral); D63.1 Anemia in chronic kidney disease; Z99.2 Dependence on renal dialysis; Z82.49 Family history of ischemic heart disease and other diseases of the circulatory system; Z91.19 Patient's noncompliance with other medical treatment and regimen; Z79.4 Long term (current) use of insulin; Z83.3 Family history of diabetes mellitus; Z59.7 Insufficient social insurance and welfare support; Z90.49 Acquired absence of other specified parts of digestive tract; Z90.710 Acquired absence of both cervix and uterus
CPT/HCPCS: 36415; 36430; 36556; 36558; 51702; 71010; 71020; 76770; 76937; 77001; 78582; 80048; 80053; 80061; 81001; 82040; 82272; 82306; 82330; 82550; 82553; 82570; 82607; 82652; 82728; 82746; 82803; 82962; 83036; 83540; 83550; 83735; 83880; 83970; 84100; 84156; 84165; 84300; 84443; 84466; 84484; 85025; 85027; 85045; 86317; 86704; 86850; 86900; 86901; 86920; 87340; 87493; 87522; 93005; 93010; 93306; 93976; 94640; 94660; 96365; 96366; 96375; 99291; A9540; A9567; C1713; C1752; J0610; J0690; J0696; J1644; J1756; J1815; J1940; J2250; J2405; J2501; J3010; J3475; J3490; J7030; J7512; J7620; P9016; Q4081; Q9967; Q9969

== ENCOUNTER 2017-08-10 10:22 | Day surgery (SDC) | payer MEDICAID ==
[~2017-08-10 10:22] MED LIST: CEFAZOLIN 1 GM/D5W RTU 1 GM/50 ML RTUPB IV PRN; GLYCOPYRROLATE INJ 0.4 MG/2 ML VIAL ONE; PHENYLEPHRINE HCL INJ/PF 10 MG/1 ML SDV ONE
[2017-08-10 11:13] LABS: HEMOGLOBIN 9.5 g/dL (12.0-15.5); MEAN CORPUSCULAR HEMOGLOBIN 25.5 pg (27.0-33.4); MEAN CORPUSCULAR HGB CONC 31.6 g/dL (32.0-36.0); MEAN CORPUSCULAR VOLUME 81 fl (80-97); PLATELET COUNT 287 10^3/uL (150-450); RED BLOOD COUNT 3.71 10^6/uL (3.72-5.28); RED CELL DISTRIBUTION WIDTH 18.3 % (11.5-14.0); WHITE BLOOD COUNT 8.9 10^3/uL (4.0-10.5)
[2017-08-10] MEDS ORDERED: NITROGLYCERIN/D5W 0 MG/0 ML RTUINJ IV ONE (11:14)
[2017-08-10 11:28] LABS: ANION GAP 6 (5-19); BLOOD UREA NITROGEN 18 mg/dL (7-20); CALCIUM 8.4 mg/dL (8.4-10.2); CARBON DIOXIDE 31 mmol/L (22-30); CHLORIDE 101 mmol/L (98-107); GLUCOSE 112 mg/dL (75-110); SODIUM 137.5 mmol/L (137-145)
[2017-08-10] MEDS ORDERED: LIDOCAINE 2% INJ-PF (20 MG/ML) 10 ML AMPUL ONE (11:35)
[2017-08-10] MEDS ORDERED: KETAMINE HCL INJ 500 MG/10 ML VIAL ONE (11:35)
[2017-08-10] MEDS ORDERED: PROPOFOL INJ 200 MG/20 ML VIAL IV ONE ×2 (11:36→14:27)
[2017-08-10] MEDS ORDERED: MIDAZOLAM 2 MG/2 ML INJ ONE (11:36)
[2017-08-10] MEDS ORDERED: FENTANYL CITRATE INJ/PF 100 MCG/2 ML AMPUL ONE ×2 (11:36→14:27)
[2017-08-10] MEDS: BUPIVACAINE HCL 0.25 % INJ/PF (2.5 MG/1 ML) 30 ML VIAL ONE ×2 (13:20→15:31)
[2017-08-10] MEDS: BACITRACIN INJ 50,000 UNIT VIAL ONE ×2 (13:20→15:30)
[2017-08-10] MEDS: LIDOCAINE 0.5% INJ-PF (5 MG/ML) 50 ML SDV ONE ×2 (13:21→15:31)
[2017-08-10] MEDS: HEPARIN SOD (PORCINE) 1,000 UNIT/ML 10 ML VIAL ONE ×2 (13:23→15:35)
[2017-08-10] MEDS: LIDOCAINE 1% INJ-PF (10 MG/ML) 30 ML SDV ONE ×2 (13:24→15:35)
[2017-08-10] MEDS ORDERED: OXYCODONE-ACETAMINOPHEN 5-325 MG TABLET PO PRN ×5 (13:32→20:01)
[2017-08-10] MEDS ORDERED: FENTANYL CITRATE INJ/PF 100 MCG/2 ML AMPUL IV PRN ×6 (13:32→15:44)
[2017-08-10] MEDS ORDERED: MEPERIDINE HCL/PF INJ 25 MG/1 ML DISP.SYRIN IV PRN ×2 (13:32→15:44)
[2017-08-10] MEDS ORDERED: ONDANSETRON HCL INJ/PF 4 MG/2 ML SDV IV PRN ×2 (13:32→15:44)
[2017-08-10] MEDS ORDERED: MORPHINE SULFATE 10 MG/ML INJ IV PRN ×2 (13:32→15:44)
[2017-08-10] MEDS ORDERED: PROMETHAZINE HCL INJ 25 MG/1 ML VIAL IV PRN ×4 (13:32→15:44)
[2017-08-10] MEDS ORDERED: DIPHENHYDRAMINE HCL 50 MG/ML VIAL IV PRN ×2 (13:32→15:44)
--- NOTE | 2017-08-10 14:18 | PDOC DISCHARGE SUMMARY ---
Discharge Summary (SDC) - Discharge Final Diagnosis: #1 end-stage renal disease on hemodialysis. 2. Morbid obesity. 3. Hypertension. Date of Surgery: 08/10/17 Discharge Date: 08/10/17 Condition: Good Treatment or Instructions: Discharge home [after recovery per ASU criteria]. Diet , [renal],as tolerated, when fully awake advance as tolerated. Activities within moderation encouraged. Follow up in my office by appointment in about [1 week]. Call for appointment. Leave wounds [covered], [keep clean and dry, until office visit in 1 week]. Hold of on school/work [until evaluation in office]. Meds per med rec. Percocet. May shower [in 48 hrs], [try to keep operated area as dry as possible]. Prescriptions: Oxycodone HCl/Acetaminophen [Percocet 5-325 mg Tablet] 1 tab PO ASDIR PRN #15 tab PRN Reason: Referrals: JONNY CHIANG MD [Primary Care Provider] - Discharge Diet: Other (Comments) - Renal. Respiratory Treatments at Home: Deep Breathing/Coughing Discharge Activity: Activity As Tolerated Report the Following to Your Physician Immediately: Shortness of Breath, Unusual Bleeding
--- NOTE | 2017-08-10 14:21 | Operative Report ---
Operative Report DATE OF SURGERY: 08/10/17 PREOPERATIVE DIAGNOSIS: #1 end-stage renal disease on hemodialysis. 2. Morbid obesity. 3. Hypertension. POSTOPERATIVE DIAGNOSIS: #1 end-stage renal disease on hemodialysis. 2. Morbid obesity. 3. Hypertension. OPERATION: Insertion of left brachiocephalic arteriovenous fistula. SURGEON: ISAIAS PATRICIA [employer] SOFTWARE CONSULTANT: None ANESTHESIA: LMAC TISSUE REMOVED OR ALTERED: Not applicable. COMPLICATIONS: None. ESTIMATED BLOOD LOSS: 5 mL. INTRAOPERATIVE FINDINGS: Of an adequate cephalic accommodating a 3.5 mm coronary dilator. Fairly healthy arteries. Satisfactory anastomosis conducted at the radial and brachial junction. Satisfactory thrill at the end of the procedure. Significantly this vein is very deep in this patient who is morbidly obese. Superficial laceration will probably be needed at the second operation to make usable. PROCEDURE: Operative Report PROCEDURE: After reviewing the procedure with the patient, [she] was taken to the operating room. The patient was sedated and the left upper extremity] prepared with chlorhexidine and draped out with sterile linen. After the "" universal timeout", in which it was verified that the patient [received IV antibiotics] the procedure commenced. The sterilely sheathed ultrasound probe was used to evaluate the left venous and arterial systems, pertinent to the previously done vein mapping. Local anesthesia was infiltrated and a transverse incision made over the upper forearm , near the antecubital fossa. Dissection proceeded through the subcutaneous tissues down to the cephalic vein. This was dissected out proximally and distally for about 2 cm. Likewise major branches. The Bicipital aponeurosis was now incised longitudinally and the brachial artery dissected out for a distance of about 1.5 cm. Rubber loops were placed on either end. The patient was given 2500 units of heparin intravenously. The deep branch of the cephalic vein was transected and irrigated with heparinized solution. The distal branches were clipped Coronary dilators were accepted [up to 3.5 mm]. The artery was controlled proximally and distally with rubber loops. An arteriotomy approximately [1 cm] in length was made, the artery was irrigated proximally and distally with heparinized solution. The transected vein was now spatulated [using the branch patch technique], it was then anastomosed end to end to side into the brachial artery. This was done using a continuous suture of 6-0 Prolene. Controls of the fistula were now released and it was analyzed using a Doppler probe. Hemostasis was secured once optimal function was assured , the wound was irrigated with antibiotic containing solution and closed. Closure was done using interrupted 3-0 PDS for the subcutaneous tissues. The skin was closed using a continuous subcutaneous suture of 4-0 Monocryl which was reinforced with Steri-Strips over benzoin. I then left the operative field and returned with a stethoscope covered with a sterile Tegaderm dressing. This allowed external auscultation of the fistula. Auscultation was [satisfactory]. The procedure was concluded by applying a Kerlix dressing over the surgical site. DICTATING PHYSICIAN: ISAIAS NAPOLES M.D.
[2017-08-10] MEDS ORDERED: BUPIVACAINE HCL 0.25 % INJ/PF (2.5 MG/1 ML) 30 ML VIAL ONE (14:36)
[2017-08-10] MEDS ORDERED: LIDOCAINE 1% INJ-PF (10 MG/ML) 30 ML SDV ONE (14:36)
[2017-08-10] MEDS ORDERED: LIDOCAINE 0.5% INJ-PF (5 MG/ML) 50 ML SDV ONE (14:37)
[2017-08-10] MEDS ORDERED: BACITRACIN INJ 50,000 UNIT VIAL ONE (14:37)
[2017-08-10] MEDS ORDERED: HEPARIN SOD (PORCINE) 1,000 UNIT/ML 10 ML VIAL ONE (14:38)
--- NOTE | 2017-08-10 16:33 | Operative Report ---
Operative Report DATE OF SURGERY: 08/10/17 PREOPERATIVE DIAGNOSIS: #1 end-stage renal disease on hemodialysis. Bleeding post AV fistula insertion. 2. Morbid obesity. 3. Hypertension. POSTOPERATIVE DIAGNOSIS: #1 end-stage renal disease on hemodialysis. Post control of bleeding and resutured. 2. Morbid obesity. 3. Hypertension. OPERATION: Emergency operative wound exploration, control of bleeding and closure of wound. SURGEON: ISAIAS PATRICIA GYM MANAGER: None ANESTHESIA: LMAC TISSUE REMOVED OR ALTERED: Not applicable. COMPLICATIONS: Of early postoperative bleeding. ESTIMATED BLOOD LOSS: 5 mL. INTRAOPERATIVE FINDINGS: Of a functioning arteriovenous fistula with bleeding from the heel. Controlled with sutures. Quite dry at the end of the procedure. PROCEDURE: Operative Report PROCEDURE: After reviewing the procedure with the patient, [she] was taken to the operating room. The patient was sedated and the left upper extremity] prepared with chlorhexidine and draped out with sterile linen. After the "" universal timeout", in which it was verified that the patient [received IV antibiotics] the procedure commenced. This patient is extremely difficult venous access, the previous one by anesthesia was done under ultrasound guidance. For this reason the permacatheter was accessed. I did myself observing strict sterile technique. Was placed in peroxide. The catheter was flushed with heparin and recapped under sterile conditions after the procedure. Local anesthesia was infiltrated and the transverse incision over the upper forearm, near the antecubital fossa, opened using a scalpel.. Dissection proceeded through the subcutaneous tissues down to the fistula. Rubber loops were placed on either end. Wound was now cleared of clots using peroxide and the area of bleeding nicely visualized. 3 interrupted sutures of 6-0 Prolene were placed at the area of bleeding at the heel of the fistula. These were tied. In addition the suture which was intact was placed in slight traction, a piece of 6 0 placed through it and this was tied to an adjacent 6-0 suture. This was to make sure that there was no lack of tension in the anastomosis. In addition a 15 [place] Beto drain was placed from laterally, the suction port kept away from the suture line with interposed subcutaneous tissue. This was anchored with 3-0 PDS. Controls of the fistula were now released and it was analyzed using a Doppler probe. Hemostasis was secured once optimal function was assured, the wound was irrigated with antibiotic containing solution and closed. Closure was done using interrupted 3-0 PDS for the subcutaneous tissues. The skin was closed using a continuous subcutaneous suture of 4-0 Monocryl which was reinforced with Steri-Strips over benzoin. I then left the operative field and returned with a stethoscope covered with a sterile Tegaderm dressing. This allowed external auscultation of the fistula. Auscultation was [satisfactory]. The procedure was concluded by applying a Kerlix dressing over the surgical site. DICTATING PHYSICIAN: ISAIAS NAPOLES M.D.
[2017-08-10] MEDS ORDERED: ONDANSETRON 4 MG TAB.RAPDIS ONE (16:49)
[2017-08-10] MEDS ORDERED: OXYCODONE-ACETAMINOPHEN 5-325 MG TABLET ONE (16:49)
[2017-08-10] MEDS: OXYCODONE-ACETAMINOPHEN 5-325 MG TABLET PO PRN (20:27)
[2017-08-11] MEDS: OXYCODONE-ACETAMINOPHEN 5-325 MG TABLET PO PRN (03:13)
[2017-08-11 04:42] VITALS: BP 150/61
== END 2017-08-11 09:57 | disposition home or self-care (01) ==
LOC: OROUT 10:22 → 2N 18:07 → OROUT 08-11 09:57
PROVIDERS: ATTEND Surgery
PROC: 03180ZD Bypass Left Brachial Artery to Upper Arm Vein, Open Approach (ICD-10-PCS; 2017-08-10)
PROC: 0X370ZZ Control Bleeding in Left Upper Extremity, Open Approach (ICD-10-PCS; principal; 2017-08-10 12:30)
DX: T82.838A Hemorrhage due to vascular prosthetic devices, implants and grafts, initial encounter (principal); I12.0 Hypertensive chronic kidney disease with stage 5 chronic kidney disease or end stage renal disease; N18.6 End stage renal disease; E11.9 Type 2 diabetes mellitus without complications; Z99.2 Dependence on renal dialysis; E66.01 Morbid (severe) obesity due to excess calories; Z68.42 Body mass index [BMI] 45.0-49.9, adult; Z79.899 Other long term (current) drug therapy; Z86.14 Personal history of Methicillin resistant Staphylococcus aureus infection; Z90.49 Acquired absence of other specified parts of digestive tract; Z90.710 Acquired absence of both cervix and uterus
CPT/HCPCS: 36821; 35860; 36415; 82962; 85027; 80048; J2250; J3490 ×6; J0690; S0119; J3010; J1644; J2370; S0020; J2704; 1844

== ENCOUNTER 2017-08-19 04:20 | Inpatient (IN) | payer MEDICAID ==
--- NOTE | 2017-08-19 06:56 | ER Document Report ---
ED General - General Chief Complaint: Breathing Difficulty Stated Complaint: difficulty breathing Time Seen by Provider: 08/19/17 06:55 Notes: Patient received at sign out at [address] Chatman. Please see previous physician's note for further detail and complete physical exam. Patient reportedly called EMS last night for shortness of breath. EMS arrived and did a pulse ox check earlier in the evening and patient was fine. She called them again and when they arrived the second time her oxygen levels were in the 70s. Patient was placed on CPAP. Oxygen levels improved. Patient has a history of renal failure. On dialysis.. Followed by Dr. Vieyra. Dialyzes on Thursday, Thursday, Thursday. Did dialyze on Thursday. Patient states that she has a history of severe anxiety. [place] like that she was having an anxiety attack earlier today as well. In the past she has had similar response. Her customs compliance director felt that this was more anxiety related in the past. Patient states that she feels more shortness of breath than usual. No prior history of DVT. Was seen here approximately 1 month ago for similar symptoms. TRAVEL OUTSIDE OF THE [place] IN LAST 30 DAYS: No - Related Data Allergies/Adverse Reactions: No Known Drug Allergies Allergy (Verified 05/28/17 23:15) Past Medical History - General Information source: Patient - Social History Smoking Status: Never Smoker Cigarette use (# per day): No Frequency of alcohol use: None Drug Abuse: None Lives with: Family Family History: Reviewed & Not Pertinent - Past Medical History Cardiac Medical History: Reports: Hx Hypercholesterolemia, Hx Hypertension - on meds Denies: Hx Coronary Artery Disease, Hx Heart Attack Pulmonary Medical History: Denies: Hx Asthma, Hx Bronchitis, Hx COPD, Hx Pneumonia Neurological Medical History: Denies: Hx Cerebrovascular Accident, Hx Seizures Endocrine Medical History: Reports: Hx Diabetes Mellitus Type 2 Renal/ Medical History: Denies: Hx Peritoneal Dialysis Musculoskeltal Medical History: Denies Hx Arthritis Past Surgical History: Reports: Hx Cholecystectomy, Hx Hysterectomy - Immunizations Hx Diphtheria, Pertussis, Tetanus Vaccination: No Physical Exam - Vital signs Interpretation: Normal - Respiratory Respiratory status: No respiratory distress Chest status: Nontender Breath sounds: Rales, Other - Bilateral crackles and rales. No: Stridor, Wheezing Chest palpation: Normal - Cardiovascular Rhythm: Regular Heart sounds: Normal auscultation Murmur: No - Extremities General upper extremity: Normal inspection, Nontender, Normal color, Normal ROM , Normal temperature General lower extremity: Normal inspection, Nontender, Edema, Normal color, Normal ROM, Normal temperature, Normal weight bearing. No: Wesley's sign Calf: Normal - Psychological Associated symptoms: Normal affect, Normal mood - Skin Skin Temperature: Warm Skin Moisture: Dry Skin Color: Normal Course - Re-evaluation Re-evalutation: 08/19/17 07:44 Patient had been on CPAP for approximately 2 hours prior to my taking over. CPAP was turned off. Oxygen level was at 100%. Currently patient at 95%. Chest x-ray shows cardiomegaly with vascular congestion. Heart rate is 77. Blood pressure is a little high at 165/69. BNP is grossly elevated at 20,000. Like likely patient is having some fluid overload at this time. This is a fairly new diagnosis with his kidney failure and dialysis. Will consult with her primary care doctor about whether he would like to treat her as an inpatient versus outpatient. Will also discuss case with her kidney specialist. 08/19/17 08:[address] Vieyra with nephrology. She recommends admitting the patient at this time and getting on the list for dialysis today. Will consult with Dr. Mederos who is her primary care doctor for admission. 08/19/17 08:[address] Mederos. Knows patient. Will admit to his service at this time. - Laboratory Result Diagrams: 08/19/17 04:45 08/19/17 04:45 Laboratory results interpreted by me: 08/19/17 08/19/17 08/19/17 04:45 04:45 04:45 WBC 13.0 H RBC 3.23 L Hgb 8.2 L Hct 26.2 L MCH 25.4 L MCHC 31.3 L RDW 18.5 H Seg Neutrophils % 92.3 H Lymphocytes % 5.4 L Monocytes % 1.7 L Absolute Neutrophils 12.0 H Creatinine 4.01 H Est GFR ( Amer) 14 L Est GFR (Non-Af Amer) 12 L Glucose 331 H Calcium 7.9 L NT-Pro-B Natriuret Pep 79050 H Total Protein 5.9 L Discharge - Discharge Clinical Impression: Congestive heart failure (CHF) Qualifiers: Heart failure type: unspecified Heart failure chronicity: acute on chronic Qualified Code(s): I50.9 - Heart failure, unspecified Acute on chronic renal failure Qualifiers: Acute renal failure type: unspecified Chronic kidney disease stage: on chronic dialysis Qualified Code(s): N17.9 - Acute kidney failure, unspecified; N18.9 - Chronic kidney disease, unspecified; N18.9 - Chronic kidney disease, unspecified ; Z99.2 - Dependence on renal dialysis; Z99.2 - Dependence on renal dialysis; Z99.2 - Dependence on renal dialysis; Z99.2 - Dependence on renal dialysis Condition: Good Disposition: ADMITTED INPATIENT Unit Admitted: [facility] - Dr. Mederos Referrals: TU VIEYRA MD [Primary Care Provider] - Follow up as needed
--- NOTE | 2017-08-19 07:33 | RADIOLOGY REPORT (SQ) ---
EXAM DESCRIPTION: CHEST SINGLE VIEW CLINICAL HISTORY: CHEST PAIN, SOB COMPARISON: 06/01/2017 FINDINGS: Single frontal view of the chest. Cardiomegaly. Right IJ dialysis catheter with tip in the high right atrium. Low lung volumes. Pulmonary vascular congestion. No consolidation, pneumothorax, or pleural effusion. No acute osseous abnormalities. Upper abdominal soft tissues are unremarkable. IMPRESSION: 1. Cardiomegaly with pulmonary vascular congestion.
[2017-08-19 07:50] LABS: ALANINE AMINOTRANSFERASE 20 U/L (9-52); ALBUMIN 3.6 g/dL (3.5-5.0); ALKALINE PHOSPHATASE 97 U/L (38-126); ANION GAP 13 (5-19); ASPARTATE AMINO TRANSFERASE 15 U/L (14-36); BILIRUBIN,DIRECT 0.2 mg/dL (0.0-0.4); BILIRUBIN,TOTAL 0.2 mg/dL (0.2-1.3); BLOOD UREA NITROGEN 19 mg/dL (7-20); CALCIUM 7.9 mg/dL (8.4-10.2); CARBON DIOXIDE 24 mmol/L (22-30); CHLORIDE 101 mmol/L (98-107); GLUCOSE 331 mg/dL (75-110); POTASSIUM 3.7 mmol/L (3.6-5.0); TOTAL PROTEIN 5.9 g/dL (6.3-8.2); TROPONIN I 0.016 ng/mL
[2017-08-19 07:52] LABS: ABSOLUTE BASOPHILS # (AUTO) 0.1 10^3/uL (0.0-0.2); ABSOLUTE LYMPHOCYTES (AUTO) 0.7 10^3/uL (0.5-4.7); ABSOLUTE MONOCYTES (AUTO) 0.2 10^3/uL (0.1-1.4); BASOPHILS % (AUTO) 0.5 % (0-2); EOSINOPHILS % (AUTO) 0.1 % (0-6); HEMATOCRIT 26.2 % (36.0-47.0); HEMOGLOBIN 8.2 g/dL (12.0-15.5); LYMPHOCYTES % (AUTO) 5.4 % (13-45); MEAN CORPUSCULAR HEMOGLOBIN 25.4 pg (27.0-33.4); MEAN CORPUSCULAR HGB CONC 31.3 g/dL (32.0-36.0); MEAN CORPUSCULAR VOLUME 81 fl (80-97); MONOCYTES % (AUTO) 1.7 % (3-13); PLATELET COUNT 314 10^3/uL (150-450); RED BLOOD COUNT 3.23 10^6/uL (3.72-5.28); RED CELL DISTRIBUTION WIDTH 18.5 % (11.5-14.0); SEGMENTED NEUTROPHILS % (AUTO) 92.3 % (42-78); TOTAL CELLS COUNTED % (AUTO) 100 %
--- NOTE | 2017-08-19 07:57 | EKG REPORT ---
SEVERITY:- ABNORMAL ECG - SINUS RHYTHM BORDERLINE PROLONGED QT INTERVAL LA ABNORMALITY NONSPECIFIC ST-T CHANGES INFEROLATERAL LEADS : Confirmed by: Jalen Hallman MD 19-Aug-2017 07:56:14
[2017-08-19] MEDS: ACETAMINOPHEN 325 MG TABLET PO PRN (09:54)
[2017-08-19] MEDS ORDERED: CEFTRIAXONE 1 GM/D5W RTU 1 GM/50 ML RTUPB IV SCH (10:00)
[2017-08-19] MEDS ORDERED: HYDRALAZINE HCL 50 MG TABLET PO PRN (11:44)
[2017-08-19] MEDS ORDERED: PROMETHAZINE HCL 25 MG TABLET PO PRN (11:44)
[2017-08-19] MEDS ORDERED: GLUCAGON,HUMAN RECOMB 1 MG INJ IM PRN (11:45)
[2017-08-19] MEDS ORDERED: DEXTROSE 40% GEL 15 GM TUBE PO PRN ×2 (11:45)
[2017-08-19] MEDS ORDERED: DEXTROSE 50%-WATER 25 GM/50 ML DISP.SYRIN IV PRN ×2 (11:45)
[2017-08-19] MEDS ORDERED: INSULIN LISPRO 100 UNIT/ML 3 ML VIAL SUBCUT PRN (11:45)
[2017-08-19] MEDS: CEFTRIAXONE SODIUM 1,000 MG in NORMAL SALINE 100 ML IV SCH (12:46)
[2017-08-19] MEDS: INSULIN LISPRO 100 UNIT/ML 3 ML VIAL SUBCUT PRN ×2 (12:48→22:12)
[2017-08-19 13:28] LABS: CREATINE KINASE MB 1.07 ng/mL (<4.55); TROPONIN I 0.019 ng/mL
[2017-08-19] MEDS ORDERED: CLONAZEPAM 1 MG TABLET PO ONE ×2 (14:00→20:15)
--- NOTE | 2017-08-19 16:02 | PDOC H&P ---
History of Present Illness Admission Date/PCP: 08/19/17 09:23 TU VIEYRA MD Patient complains of: Shortness of the breath History of Present Illness: JESUS CALDERÓN is a 57 year old female This is a 57-year-old females with very new to the practice one time seen last month in the office with a significant history of end-stage renal disease and currently hemodialysis following Dr. Vieyra and history of the diastolic congestive heart failureHistory of the chronic pain syndromes currently see the pain management at [facility] and also history of the severe anxiety disorders and multiple other comorbidity came to the emergency departments was noticed some shortness of the breath last night's and feeling like some chest discomfortAnd patients would like a severe anxiety in the emergency department patient initially put on a BiPAP and currently weaned off from the BiPAP to the oxygen's and doing well When I saw the patient in the emergency department patient's denied any chest pain denied any shortness of the breath Patient's also go for hemodialysis in the missed the dialysis one day last week but patient hemodialysis done on the Thursday At this point patient initial workup was all stable except patient's white count is elevated to 13,000 patient's denied any fever no chills Patient's denied any urinary symptoms Patient's chest x-ray consistence with the cardiomegaly with the vascular congestions Past Medical History Cardiac Medical History: Reports: Congestive Heart Failure, Hyperlipidema, Hypertension - on meds Denies: Coronary Artery Disease, Myocardial Infarction Pulmonary Medical History: Denies: Asthma, Bronchitis, Chronic Obstructive Pulmonary Disease (COPD), Pneumonia Neurological Medical History: Denies: Seizures Endocrine Medical History: Reports: Diabetes Mellitus Type 2 Renal/ Medical History: Reports: Chronic Kidney Disease, End Stage Renal Disease GI Medical History: Reports: Gastroesophageal Reflux Disease Musculoskeltal Medical History: Denies: Arthritis Psychiatric Medical History: Reports: Depression, General Anxiety Disorder Hematology: Denies: Anemia Past Surgical History Past Surgical History: Reports: Cholecystectomy, Hysterectomy Social History Lives with: Family Smoking Status: Never Smoker Frequency of Alcohol Use: None Hx Recreational Drug Use: No Hx Prescription Drug Abuse: No Family History Family History: Reviewed & Not Pertinent Parental Family History Reviewed: Yes Children Family History Reviewed: Yes Sibling(s) Family History Reviewed.: Yes Medication/Allergy Home Medications: Atenolol [Tenormin 50 mg Tablet] 100 mg PO DAILY 08/19/17 B Complex W-C No.20/Folic Acid [Nephrocaps Softgel] 1 mg PO DAILY 08/19/17 Clonazepam [Klonopin] 0.5 mg PO DAILY 08/19/17 Furosemide [Lasix 40 mg Tablet] 40 mg PO QAM 08/19/17 Hydralazine HCl [Apresoline 50 mg Tablet] 50 mg PO Q8HP PRN 08/19/17 Insulin Aspart [Novolog Insulin 100 Unit/1 ml 10 ml] 0 unit SUBCUT .SLD SCALE Insulin Glargine,Hum.rec.anlog [Lantus Insulin 100 Unit/1 ml 10 ml] 48 unit SUBCUT QHS 08/19/17 Nifedipine [Procardia Xl 30 mg Tablet] 60 mg PO Q12 08/19/17 Oxycodone HCl/Acetaminophen [Percocet 5-325 mg Tablet] 1 tab PO TIDP PRN Pregabalin [Lyrica 25 Mg Capsule] 25 mg PO DAILY 08/19/17 Promethazine HCl [Phenergan 25 mg Tablet] 25 mg PO Q8HP PRN 08/19/17 Trazodone HCl [Desyrel 50 mg Tablet] 100 mg PO QHS 08/19/17 Allergies/Adverse Reactions: No Known Drug Allergies Allergy (Verified 05/28/17 23:15) Review of Systems Constitutional: ABSENT: chills, fever(s), headache(s), weight gain, weight loss Eyes: ABSENT: visual disturbances Ears: ABSENT: hearing changes Cardiovascular: ABSENT: chest pain, dyspnea on exertion, edema, orthropnea, palpitations Respiratory: PRESENT: cough, dyspnea. ABSENT: hemoptysis Gastrointestinal: ABSENT: abdominal pain, constipation, diarrhea, hematemesis, hematochezia, nausea, vomiting Genitourinary: ABSENT: dysuria, hematuria Musculoskeletal: ABSENT: joint swelling Integumentary: ABSENT: rash, wounds Neurological: ABSENT: abnormal gait, abnormal speech, confusion, dizziness, focal weakness, syncope Psychiatric: PRESENT: anxiety. ABSENT: depression, homidical ideation, suicidal ideation Endocrine: ABSENT: cold intolerance, heat intolerance, menstrual abnormalities, polydipsia, polyuria Hematologic/Lymphatic: ABSENT: easy bleeding, easy bruising, lymphadenopathy Physical Exam Vital Signs: Temp Pulse Resp BP Pulse Ox 77 19 176/82 H 100 08/19/17 09:00 08/19/17 09:00 08/19/17 09:00 08/19/17 09:00 General appearance: PRESENT: no acute distress, well-developed, well-nourished Head exam: PRESENT: atraumatic, normocephalic Eye exam: PRESENT: conjunctiva pink, EOMI, PERRLA. ABSENT: scleral icterus Ear exam: PRESENT: normal external ear exam Mouth exam: PRESENT: moist, tongue midline Neck exam: PRESENT: full ROM. ABSENT: carotid bruit, JVD, lymphadenopathy, thyromegaly Respiratory exam: PRESENT: decreased breath sounds Cardiovascular exam: PRESENT: RRR. ABSENT: diastolic murmur, rubs, systolic murmur Pulses: PRESENT: normal dorsalis pedis pul, +2 pedal pulses bilateral Vascular exam: PRESENT: normal capillary refill GI/Abdominal exam: PRESENT: normal bowel sounds, soft. ABSENT: distended, guarding, mass, organolmegaly, rebound, tenderness Rectal exam: PRESENT: deferred Extremities exam: ABSENT: full ROM, left AKA, right AKA, left BKA, right BKA, calf tenderness, joint swelling, pedal edema, tenderness, other Neurological exam: PRESENT: alert, awake, oriented to person, oriented to place , oriented to time, oriented to situation, CN II-XII grossly intact. ABSENT: motor sensory deficit Psychiatric exam: PRESENT: appropriate affect, normal mood. ABSENT: homicidal ideation, suicidal ideation Skin exam: PRESENT: dry, intact, warm. ABSENT: cyanosis, rash Results Laboratory Results: 08/19/17 08/19/17 12:45 12:45 Creatine Kinase 117 CK-MB (CK-2) 1.07 Troponin I 0.019 Impressions: Chest X-Ray 08/19/17 00:00 IMPRESSION: 1. Cardiomegaly with pulmonary vascular congestion. Assessment & Plan - Diagnosis (1) Acute diastolic (congestive) heart failure Is this a current diagnosis for this admission?: Yes Plan: Most likely due to this end-stage renal disease will get the dialysis done today as per discussed with the nephrology and consult the cardiology and get the echocardiogram (2) End stage renal disease on dialysis Is this a current diagnosis for this admission?: Yes Plan: Discussed with the patient about compliance of her dialysis and continues to hemodialysis per nephrology today (3) Pulmonary edema Qualifiers: Chronicity: acute Is this a current diagnosis for this admission?: Yes Plan: Currently patient is going for the hemodialysis today (4) COPD (chronic obstructive pulmonary disease) Qualifiers: COPD type: chronic bronchitis Is this a current diagnosis for this admission?: Yes Plan: Get the nebulizer treatments (5) Hypertension Qualifiers: Hypertension type: essential hypertension Qualified Code(s): I10 - Essential (primary) hypertension Is this a current diagnosis for this admission?: Yes Plan: Continues to current medications (6) Anemia in chronic kidney disease (CKD) Qualifiers: Chronic kidney disease stage: on chronic dialysis Qualified Code(s): N18.6 - End stage renal disease; D63.1 - Anemia in chronic kidney disease; D63.1 - Anemia in chronic kidney disease; Z99.2 - Dependence on renal dialysis; Z99.2 - Dependence on renal dialysis; Z99.2 - Dependence on renal dialysis; Z99.2 - Dependence on renal dialysis Is this a current diagnosis for this admission?: Yes (7) Insulin dependent diabetes mellitus Is this a current diagnosis for this admission?: Yes Plan: Continues to insulin and continues to sliding scale (9) Secondary hyperparathyroidism (of renal origin) Is this a current diagnosis for this admission?: Yes Plan: Currently stable follow with the nephrology (10) Generalized anxiety disorder Is this a current diagnosis for this admission?: Yes Plan: Continues to current medications (11) Chronic pain syndrome Is this a current diagnosis for this admission?: Yes Plan: Continues to pain medication for pain management (12) Leukocytosis Qualifiers: Leukocytosis type: unspecified Qualified Code(s): D72.829 - Elevated white blood cell count, unspecified Is this a current diagnosis for this admission?: Yes Plan: Will get the blood culture urine culture and start the patient on Rocephin - Time Time Spent: 30 to 50 Minutes Medications reviewed and adjusted accordingly: Yes Anticipated discharge: Home Within: Other - Inpatient Certification Medical Necessity: Need Close Monitoring Due to Risk of Patient Decompensation, Need for Nebulizer Therapy and Monitoring of Response, Need for IV Antibiotics 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
[2017-08-19] MEDS ORDERED: HEPARIN SOD (PORCINE) 1,000 UNIT/ML 10 ML VIAL IV PRN (16:07)
--- NOTE | 2017-08-19 16:49 | PDOC CONSULTATION ---
Consultation Consult Date: 08/19/17 Attending physician:: JONNY MEDEROS Consult reason:: I was asked by Dr. Lester for Dr. Mederos to see this patient because of an acute shortness of breath in a patient with ESRD. 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 Patient said she started experiencing some shortness of breath at home yesterday especially on exertion. At around 10 PM her grandson called EMS. At that time her oxygen saturation was normal around 90s so patient decided to stay at home. Patient denies any wheezing. Subsequently her shortness of breath did not get any better but has gotten worse so they called the EMS again. At that time her oxygen saturations was around 70% so she was placed on CPAP. She also complained of some chest tightness so they gave her nitroglycerin sublingual. She was then brought to the emergency room. According to Dr. Lester who I spoke to this morning she was on CPAP for a couple of hours but subsequently improved and CPAP was taken off. Currently she is only on nasal cannula. Patient admits that she has some cysts cough with slight phlegm this morning but denies any fever nor chills. She has had some nausea, one episode of vomiting but no abdominal pain today. Of note when I saw her the first time around May she had the same episode of acute flash pulmonary edema. Currently well on dialysis she seems to be comfortable on nasal cannula. She can speak in full sentences and has told me the full account of what happened overnight. Patient did complete her hemodialysis treatment on Thursday without any complications according to the [facility] dialysis nurse. Last week she missed one dialysis treatment because he was not feeling well after an AV fistula was placed in her left arm on June [address] Macias. Other than that she is usually compliant with her dialysis treatment. Currently she is stable and tolerating dialysis well with ultrafiltration. Past Medical History Cardiac Medical History: Reports: CHF-Diastolic, Hyperlipidemia, Hypertension- primary - Since 1995 Endocrine Medical History: Reports: Diabetes Mellitus Type 2, Obesity Complications of Diabetes: Reports: Autonomic Neuropathy, Retinopathy Renal/ Medical History: Reports: End Stage Renal Disease, Secondary Hyperparathyroidism GI Medical History: Reports: Gastroesophageal Reflux Disease Musculoskeltal Medical History: Reports: Other - Chronic pain being followed by pain management Psychiatric Medical History: Reports: Depression, General Anxiety Disorder Hematology Medical History: Reports Anemia of Chronic Kidney Disease Past Surgical History Past Surgical History: Reports: Cholecystectomy, Dialysis Access Surgery AVF - by Dr. Macias, Hysterectomy Social History Information Source: Patient Lives with: Family Smoking Status: Former Smoker Frequency of Alcohol Use: None Hx Recreational Drug Use: No Hx Prescription Drug Abuse: No Family History Family History: DM - Sibling, Hypertension - Siblings Parental Family History Reviewed: Yes Children Family History Reviewed: Unknown Sibling(s) Family History Reviewed.: Yes Medication/Allergy Home Medications: Atenolol [Tenormin 50 mg Tablet] 100 mg PO DAILY 08/19/17 B Complex W-C No.20/Folic Acid [Nephrocaps Softgel] 1 mg PO DAILY 08/19/17 Clonazepam [Klonopin] 0.5 mg PO DAILY 08/19/17 Furosemide [Lasix 40 mg Tablet] 40 mg PO QAM 08/19/17 Hydralazine HCl [Apresoline 50 mg Tablet] 50 mg PO Q8HP PRN 08/19/17 Insulin Aspart [Novolog Insulin 100 Unit/1 ml 10 ml] 0 unit SUBCUT .SLD SCALE Insulin Glargine,Hum.rec.anlog [Lantus Insulin 100 Unit/1 ml 10 ml] 48 unit SUBCUT QHS 08/19/17 Nifedipine [Procardia Xl 30 mg Tablet] 60 mg PO Q12 08/19/17 Oxycodone HCl/Acetaminophen [Percocet 5-325 mg Tablet] 1 tab PO TIDP PRN Pregabalin [Lyrica 25 Mg Capsule] 25 mg PO DAILY 08/19/17 Promethazine HCl [Phenergan 25 mg Tablet] 25 mg PO Q8HP PRN 08/19/17 Trazodone HCl [Desyrel 50 mg Tablet] 100 mg PO QHS 08/19/17 Allergies/Adverse Reactions: No Known Drug Allergies Allergy (Verified 05/28/17 23:15) Review of Systems All systems: reviewed and no additional remarkable complaints except as stated Review of Systems: Constitutional: ABSENT: chills, fatigue, fever(s), headache(s), weight gain, weight loss Eyes: ABSENT: visual disturbances Ears: ABSENT: hearing changes Cardiovascular: ABSENT: Orthropnea, palpitations; admits chest pains, dyspnea on exertion, shortness of breath at rest, and mild edema Respiratory: ABSENT: Hemoptysis, wheezing; admits some cough Gastrointestinal: ABSENT: abdominal pain, constipation, diarrhea, hematemesis, hematochezia, vomiting; admits some nausea Genitourinary: ABSENT: dysuria, hematuria Musculoskeletal: ABSENT: joint swelling Integumentary: ABSENT: rash, wounds Neurological: ABSENT: abnormal gait, abnormal speech, confusion, dizziness, focal weakness, numbness, syncope Psychiatric: ABSENT: Depression; admits anxiety Endocrine: ABSENT: cold intolerance, heat intolerance, polydipsia, polyuria Hematologic/Lymphatic: ABSENT: easy bleeding, easy bruising, lymphadenopathy Physical Exam Vital Signs: Temp Pulse Resp BP Pulse Ox 77 19 176/82 H 100 08/19/17 09:00 08/19/17 09:00 08/19/17 09:00 08/19/17 09:00 Vitals during dialysis at the moment: Blood pressure 136/68, heart rate of 69, blood flow rate of 350 mL/min, dialysate flow rate of 800 mL/min. Exam: General appearance: no acute distress, cooperative, well-developed, well- nourished Head exam: PRESENT: atraumatic, normocephalic Eye exam: PRESENT: Conjunctiva slightly pale, EOMI, PERRLA. ABSENT: conjunctival injection, scleral icterus Mouth exam: PRESENT: moist, neck supple, tongue midline Neck exam: PRESENT: full ROM. ABSENT: carotid bruit, JVD, lymphadenopathy, thyromegaly Respiratory exam: PRESENT: Diminished to auscultation bilaterally. ABSENT: rales, rhonchi, stridor, wheezes Cardiovascular exam: PRESENT: RRR, +S1, +S2. ABSENT: systolic murmur Pulses: PRESENT: normal radial pulses, normal dorsalis pedis pulses GI/Abdominal exam: PRESENT: normal bowel sounds, soft. ABSENT: guarding, mass, tenderness Rectal exam: deferred Extremities exam: PRESENT: full ROM. Minimal trace lower extremity edema ABSENT : calf tenderness Musculoskeletal: PRESENT: full ROM. ABSENT: deformity Neurological exam: PRESENT: alert, Awake, Oriented to person, Oriented to place , Oriented to time, reflexes normal, CN II-XII grossly intact. ABSENT: motor sensory deficit Psychiatric exam: PRESENT: appropriate affect, normal mood. ABSENT: homicidal ideation, suicidal ideation Skin exam: PRESENT: intact, dry, warm. ABSENT: rash Results Laboratory Results: 08/19/17 08/19/17 12:45 12:45 Creatine Kinase 117 CK-MB (CK-2) 1.07 Troponin I 0.019 Laboratory 08/19/17 08/19/17 08/19/17 04:45 04:45 04:45 WBC 13.0 H RBC 3.23 L Hgb 8.2 L Hct 26.2 L MCV 81 MCH 25.4 L MCHC 31.3 L RDW 18.5 H Plt Count 314 Seg Neutrophils % 92.3 H Lymphocytes % 5.4 L Monocytes % 1.7 L Eosinophils % 0.1 Basophils % 0.5 Absolute Neutrophils 12.0 H Absolute Lymphocytes 0.7 Absolute Monocytes 0.2 Absolute Eosinophils 0.0 Absolute Basophils 0.1 Sodium 138.0 Potassium 3.7 Chloride 101 Carbon Dioxide 24 Anion Gap 13 BUN 19 Creatinine 4.01 H Est GFR ( Amer) 14 L Est GFR (Non-Af Amer) 12 L Glucose 331 H POC Glucose Calcium 7.9 L Total Bilirubin 0.2 Direct Bilirubin 0.2 Neonat Total Bilirubin Not Reportable Neonat Direct Bilirubin Not Reportable Neonat Indirect Bili Not Reportable AST 15 ALT 20 Alkaline Phosphatase 97 Creatine Kinase CK-MB (CK-2) Troponin I 0.016 NT-Pro-B Natriuret Pep 73564 H Total Protein 5.9 L Albumin 3.6 08/19/17 08/19/17 08/19/17 12:17 12:45 12:45 WBC RBC Hgb Hct MCV MCH MCHC RDW Plt Count Seg Neutrophils % Lymphocytes % Monocytes % Eosinophils % Basophils % Absolute Neutrophils Absolute Lymphocytes Absolute Monocytes Absolute Eosinophils Absolute Basophils Sodium Potassium Chloride Carbon Dioxide Anion Gap BUN Creatinine Est GFR ( Amer) Est GFR (Non-Af Amer) Glucose POC Glucose 235 H Calcium Total Bilirubin Direct Bilirubin Neonat Total Bilirubin Neonat Direct Bilirubin Neonat Indirect Bili AST ALT Alkaline Phosphatase Creatine Kinase 117 CK-MB (CK-2) 1.07 Troponin I 0.019 NT-Pro-B Natriuret Pep Total Protein Albumin Impressions: Chest X-Ray 08/19/17 00:00 IMPRESSION: 1. Cardiomegaly with pulmonary vascular congestion. Assessment & Plan - Diagnosis (1) Acute pulmonary edema Is this a current diagnosis for this admission?: Yes Plan: Patient had this episode during previous admission last year. Patient did not have evidence of renal artery stenosis at that time. She does have baseline diastolic congestive heart failure and end-stage renal disease which together could cause this. We will dialyze her today and get as much ultrafiltration as she can tolerate. (2) End-stage renal disease on hemodialysis Is this a current diagnosis for this admission?: Yes Plan: We will do dialysis today for 3 hours, using the patient's PermCath, with 3 potassium bath, blood flow rate of 350 mL per minute, dialysate flow rate of 800 mL per minute, ultrafiltration 3-4 L as tolerated, no heparin and Procrit with 20,000 units during dialysis intravenously. Patient will be monitored toward by our dialysis nurse during dialysis treatment. We will continue dialysis support while the patient is here in the hospital. (3) Acute diastolic (congestive) heart failure Is this a current diagnosis for this admission?: Yes Plan: As mentioned we will do ultrafiltration. Agree with Dr. Mederos's plan for cardiac evaluation. (4) Hypertension Qualifiers: Hypertension type: essential hypertension Qualified Code(s): I10 - Essential (primary) hypertension Is this a current diagnosis for this admission?: Yes Plan: Continue home medications. (5) Anemia in chronic kidney disease (CKD) Qualifiers: Chronic kidney disease stage: on chronic dialysis Qualified Code(s): N18.6 - End stage renal disease; D63.1 - Anemia in chronic kidney disease; D63.1 - Anemia in chronic kidney disease; Z99.2 - Dependence on renal dialysis; Z99.2 - Dependence on renal dialysis; Z99.2 - Dependence on renal dialysis; Z99.2 - Dependence on renal dialysis Is this a current diagnosis for this admission?: Yes Plan: Procrit during dialysis as needed. (6) Insulin dependent diabetes mellitus Is this a current diagnosis for this admission?: Yes (7) Generalized anxiety disorder Is this a current diagnosis for this admission?: Yes (8) Secondary hyperparathyroidism (of renal origin) Is this a current diagnosis for this admission?: Yes (9) Chronic pain syndrome Is this a current diagnosis for this admission?: Yes - Notes Notes: Thank you very much for this consultation. I will follow the patient with you while here in the hospital. - Time Time Spent: 50 to 70 Minutes
[2017-08-19] MEDS ORDERED: EPOETIN ALFA INJ 20000 UNIT/1 ML VIAL (RENAL) IV ONE (17:00)
[2017-08-19 17:20] LABS: CREATINE KINASE MB 1.11 ng/mL (<4.55); TROPONIN I 0.021 ng/mL
[2017-08-19] MEDS: OXYCODONE-ACETAMINOPHEN 5-325 MG TABLET PO PRN (19:10)
[2017-08-19] MEDS: HEPARIN SOD (PORCINE) 5,000 UNIT/ML 1 ML SYRINGE SUBCUT SCH ×2 (19:21→22:13)
--- NOTE | 2017-08-19 20:28 | PDOC CONSULTATION ---
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 Patient said she started experiencing some shortness of breath at home yesterday especially on exertion. At around 10 PM her grandson called EMS. At that time her oxygen saturation was normal around 90s so patient decided to stay at home. Patient denies any wheezing. Subsequently her shortness of breath did not get any better but has gotten worse so they called the EMS again. At that time her oxygen saturations was around 70% so she was placed on CPAP. She also complained of some chest tightness so they gave her nitroglycerin sublingual. She was then brought to the emergency room. According to Dr. Lester who I spoke to this morning she was on CPAP for a couple of hours but subsequently improved and CPAP was taken off. Currently she is only on nasal cannula. Patient admits that she has some cysts cough with slight phlegm this morning but denies any fever nor chills. She has had some nausea, one episode of vomiting but no abdominal pain today. Of note when I saw her the first time around May she had the same episode of acute flash pulmonary edema. Currently well on dialysis she seems to be comfortable on nasal cannula. She can speak in full sentences and has told me the full account of what happened overnight. Patient did complete her hemodialysis treatment on Thursday without any complications according to the [facility] dialysis nurse. Last week she missed one dialysis treatment because he was not feeling well after an AV fistula was placed in her left arm on June [address] Macias. Other than that she is usually compliant with her dialysis treatment. Currently she is stable and tolerating dialysis well with ultrafiltration. This history was reviewed and confirmed. Patient denied any prior history of myocardial infarction, angina. Patient does describe significant problems with sleep which includes predominantly insomnia, difficulty falling asleep and staying asleep. Past Medical History Cardiac Medical History: Reports: Congestive Heart Failure, Hyperlipidema, Hypertension - on meds Denies: Coronary Artery Disease, Myocardial Infarction Pulmonary Medical History: Denies: Asthma, Bronchitis, Chronic Obstructive Pulmonary Disease (COPD), Pneumonia Neurological Medical History: Denies: Seizures Endocrine Medical History: Reports: Diabetes Mellitus Type 2, Obesity Renal/ Medical History: Reports: Chronic Kidney Disease, End Stage Renal Disease GI Medical History: Reports: Gastroesophageal Reflux Disease Musculoskeltal Medical History: Reports: Other - Chronic pain being followed by pain management Denies: Arthritis Psychiatric Medical History: Reports: Depression, General Anxiety Disorder Hematology: Denies: Anemia Past Surgical History Past Surgical History: Reports: Cholecystectomy, Hysterectomy Social History Information Source: Patient Lives with: Family Smoking Status: Former Smoker Frequency of Alcohol Use: None Hx Recreational Drug Use: No Hx Prescription Drug Abuse: No - Advance Directive Resuscitation Status: Full Code Family History Family History: Hypertension Parental Family History Reviewed: Yes Children Family History Reviewed: Yes Sibling(s) Family History Reviewed.: Yes Medication/Allergy Home Medications: Atenolol [Tenormin 50 mg Tablet] 100 mg PO DAILY 08/19/17 B Complex W-C No.20/Folic Acid [Nephrocaps Softgel] 1 mg PO DAILY 08/19/17 Clonazepam [Klonopin] 0.5 mg PO DAILY 08/19/17 Furosemide [Lasix 40 mg Tablet] 40 mg PO QAM 08/19/17 Hydralazine HCl [Apresoline 50 mg Tablet] 50 mg PO Q8HP PRN 08/19/17 Insulin Aspart [Novolog Insulin 100 Unit/1 ml 10 ml] 0 unit SUBCUT .SLD SCALE Insulin Glargine,Hum.rec.anlog [Lantus Insulin 100 Unit/1 ml 10 ml] 48 unit SUBCUT QHS 08/19/17 Nifedipine [Procardia Xl 30 mg Tablet] 60 mg PO Q12 08/19/17 Oxycodone HCl/Acetaminophen [Percocet 5-325 mg Tablet] 1 tab PO TIDP PRN Pregabalin [Lyrica 25 Mg Capsule] 25 mg PO DAILY 08/19/17 Promethazine HCl [Phenergan 25 mg Tablet] 25 mg PO Q8HP PRN 08/19/17 Trazodone HCl [Desyrel 50 mg Tablet] 100 mg PO QHS 08/19/17 Allergies/Adverse Reactions: No Known Drug Allergies Allergy (Verified 05/28/17 23:15) Review of Systems Review of Systems: Please see history of present illness and past medical history as wall. Constitutional: No fever or chills reported. Head : No recent chronic headaches, recent head injury. Eyes: No recent eye pain, diplopia, redness, discharge, acute visual changes. Ears: No recent chronic ear pain, acute hearing loss, ear discharge. Oral cavity: No recent ulcerations, bleeding, oral cavity discomfort. Neck: No recent acute neck pain reported. Hematologic: No recent easy bruising or bleeding or hematologic malignancy reported. Lymphatic: No recent lymphatic malignancy, chronic lymphadenopathy reported yet Cardiovascular system review: See history of present illness. Patient denied any sustained palpitations, syncope, near syncope. Respiratory system review: No recent chronic cough, hemoptysis, blood clots in the lungs reported. Shortness of breath on exertion Gastrointestinal system review: Negative for any recent acute or chronic abdominal pain, hematemesis, melena, recent change in bowel habits. Genitourinary system review: No recent acute or chronic hematuria, flank pain, UTI etc. reported. Skin system review: Negative for any recent abnormal bruising, no rash, no pruritus reported. Neurologic: No prior history of strokes, mini strokes, seizure disorder. Psychologic: No history of major psychosis or major depression reported. Musculoskeletal: Minor aches and pains reported. No acute joint swelling reported. Endocrine: No recent polyuria, polydipsia, recent heat or cold intolerance. Physical Exam Vital Signs: Temp Pulse Resp BP Pulse Ox 99.3 F 74 18 182/71 H 97 08/19/17 18:43 08/19/17 18:43 08/19/17 18:43 08/19/17 18:43 08/19/17 18:43 Exam: GENERAL: well-nourished and in no acute distress. Alert and oriented x3 HEAD: Atraumatic, normocephalic. EYES: Pupils equal round and reactive to light, extraocular movements intact, sclera anicteric, conjunctiva are normal. ENT: TMs normal, nares patent, oropharynx clear without exudates. Moist mucous membranes. No oral ulcerations or bleeding gums noted NECK: supple without lymphadenopathy. Trachea is central. No cervical or axillary lymphadenopathy noted. Carotids are 2+, JVD WNL LUNGS: Respiration seems nonlabored, no significant accessory muscle action noted. Breath sounds clear to auscultation bilaterally and equal noted. No wheezes rales or rhonchi noted. No significant dullness noted on percussion. CHEST: Palpation of the chest wall shows no significant chest wall tenderness. No other significant abnormalities noted. 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 ABDOMEN: Soft, no significant tenderness appreciated, normoactive bowel sounds. No guarding, no rebound. No rigidity noted . No masses appreciated. EXTREMITIES: Pedal pulses are 1-2+, no calf tenderness noted. No clubbing or cyanosis.trace to 1+ pedal edema noted NEUROLOGICAL: Focused neurological exam showed no significant neurologic deficit. Normal speech, no focal weakness appreciated. PSYCH: Normal mood, normal affect. Judgment and insight within normal limits. SKIN: No significant ecchymosis, rash, ulcerations or signs of pruritus noted. Patient has fistula created in the left arm. MUSCULOSKELETAL EXAM: No significant joint swelling noted. Results Laboratory Results: 08/19/17 08/19/17 08/19/17 12:45 12:45 16:15 Creatine Kinase 117 129 CK-MB (CK-2) 1.07 Troponin I 0.019 08/19/17 16:15 Creatine Kinase CK-MB (CK-2) 1.11 Troponin I 0.021 EKG Comments: Shows sinus rhythm. No acute ST-T wave changes noted. Impressions: Chest X-Ray 08/19/17 00:00 IMPRESSION: 1. Cardiomegaly with pulmonary vascular congestion. Assessment & Plan - Diagnosis (1) Congestive heart failure Qualifiers: Heart failure type: unspecified Heart failure chronicity: acute on chronic Qualified Code(s): I50.9 - Heart failure, unspecified (2) Hypertension Qualifiers: Hypertension type: essential hypertension Qualified Code(s): I10 - Essential (primary) hypertension Is this a current diagnosis for this admission?: Yes (3) Acute diastolic (congestive) heart failure Is this a current diagnosis for this admission?: Yes (4) Anemia in chronic kidney disease (CKD) Qualifiers: Chronic kidney disease stage: on chronic dialysis Qualified Code(s): N18.6 - End stage renal disease; D63.1 - Anemia in chronic kidney disease; D63.1 - Anemia in chronic kidney disease; Z99.2 - Dependence on renal dialysis; Z99.2 - Dependence on renal dialysis; Z99.2 - Dependence on renal dialysis; Z99.2 - Dependence on renal dialysis Is this a current diagnosis for this admission?: Yes (5) End-stage renal disease on hemodialysis Is this a current diagnosis for this admission?: Yes (6) Hyperlipidemia Qualifiers: Hyperlipidemia type: unspecified Qualified Code(s): E78.5 - Hyperlipidemia , unspecified Is this a current diagnosis for this admission?: Yes (7) Insulin dependent diabetes mellitus Is this a current diagnosis for this admission?: Yes (8) Obesity Qualifiers: Obesity type: unspecified obesity type Obesity classification: unspecified obesity classification Is this a current diagnosis for this admission?: Yes (9) Sleep disorder Is this a current diagnosis for this admission?: Yes - Notes Notes: Acute respiratory failure: Patient presents with severe hypoxemia most likely related to CHF. Possibly related to acute on chronic diastolic heart failure. Patient also noted to have severe hypertension. Coronary artery disease: Patient noted to have some coronary calcification therefore has underlying CAD. At this point recommend optimization of therapy for CAD and heart failure. In this regard to recommend statin therapy, beta- krista therapy, aspirin and Plavix therapy. So far cardiac enzymes has been negative. Anemia: Recommend maintaining hemoglobin above 8 g percent. Dyslipidemia: LDL goal should be less than 70. Hypertension: Recommend good control of blood pressure. Blood pressure goal should be 135/85 or less in this young patient with diabetes, coronary artery disease. 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 Avoid any hypoglycemia. End-stage renal disease: Patient being followed by artillery specialist. Obesity: Patient advised in trying to attempt weight loss. Sleep disorder: Based on patient's comorbid diagnosis, body habitus she has high probability of having underlying sleep apnea syndrome. Have advised patient to schedule a sleep study as an outpatient. - Time Time Spent: 30 to 50 Minutes - CODE STATUS was discussed, patient remains full code. Surrogate decision-maker unchanged. Multiple medical problems were addressed. More than 50% of the time spent coordinating care, discussing management plans with involved caregivers. Management plans discussed with involved personnels. Medical decision making was of moderate to high complexity , patient's has multiple comorbidities. Medications reviewed and adjusted accordingly: Yes
[2017-08-19] MEDS ORDERED: INSULIN GLARGINE,HUM.REC.ANLOG 1,000 UNIT/10 ML UNIT SUBCUT SCH ×2 (22:00)
[2017-08-19] MEDS: NIFEDIPINE 30 MG TAB.ER.24 PO SCH (22:11)
[2017-08-19 22:12] LABS: POTASSIUM 3.6 mmol/L (3.6-5.0)
[2017-08-19] MEDS: INSULIN GLARGINE,HUM.REC.ANLOG 300 UNIT/3 ML INSULN.PEN SUBCUT SCH (22:12)
[2017-08-19] MEDS: TRAZODONE HCL 50 MG TABLET PO SCH (22:13)
[2017-08-19 22:25] LABS: CREATINE KINASE MB 0.98 ng/mL (<4.55); TROPONIN I 0.022 ng/mL
[2017-08-20] MEDS ORDERED: MAGNESIUM SULFATE/D5W 1 GM/100 ML RTUPB IV ONE (01:30)
[2017-08-20 05:24] LABS: ALANINE AMINOTRANSFERASE 23 U/L (9-52); ALBUMIN 3.2 g/dL (3.5-5.0); ALKALINE PHOSPHATASE 87 U/L (38-126); ANION GAP 7 (5-19); ASPARTATE AMINO TRANSFERASE 17 U/L (14-36); BILIRUBIN,DIRECT 0.2 mg/dL (0.0-0.4); BILIRUBIN,TOTAL 0.2 mg/dL (0.2-1.3); BLOOD UREA NITROGEN 17 mg/dL (7-20); CALCIUM 7.8 mg/dL (8.4-10.2); CARBON DIOXIDE 29 mmol/L (22-30); CHLORIDE 101 mmol/L (98-107); GLUCOSE 138 mg/dL (75-110); POTASSIUM 3.4 mmol/L (3.6-5.0); SODIUM 136.7 mmol/L (137-145); TOTAL PROTEIN 5.8 g/dL (6.3-8.2)
[2017-08-20 05:35] LABS: ABSOLUTE BASOPHILS # (AUTO) 0.1 10^3/uL (0.0-0.2); ABSOLUTE EOSINOPHILS # (AUTO) 0.1 10^3/uL (0.0-0.6); ABSOLUTE LYMPHOCYTES (AUTO) 2.8 10^3/uL (0.5-4.7); ABSOLUTE MONOCYTES (AUTO) 0.6 10^3/uL (0.1-1.4); ABSOLUTE NEUT (AUTO) 7.9 10^3/uL (1.7-8.2); BASOPHILS % (AUTO) 0.6 % (0-2); HEMATOCRIT 24.9 % (36.0-47.0); LYMPHOCYTES % (AUTO) 24.3 % (13-45); MEAN CORPUSCULAR HEMOGLOBIN 25.2 pg (27.0-33.4); MEAN CORPUSCULAR HGB CONC 31.8 g/dL (32.0-36.0); MEAN CORPUSCULAR VOLUME 79 fl (80-97); MONOCYTES % (AUTO) 5.2 % (3-13); PLATELET COUNT 274 10^3/uL (150-450); RED BLOOD COUNT 3.15 10^6/uL (3.72-5.28); RED CELL DISTRIBUTION WIDTH 18.3 % (11.5-14.0); SEGMENTED NEUTROPHILS % (AUTO) 68.9 % (42-78); TOTAL CELLS COUNTED % (AUTO) 100 %; WHITE BLOOD COUNT 11.4 10^3/uL (4.0-10.5)
[2017-08-20 05:39] LABS: HEMOGLOBIN 7.9 g/dL (12.0-15.5)
[2017-08-20] MEDS: HEPARIN SOD (PORCINE) 5,000 UNIT/ML 1 ML SYRINGE SUBCUT SCH ×3 (06:19→23:01)
[2017-08-20] MEDS ORDERED: FUROSEMIDE 40 MG TABLET PO SCH (08:00)
--- NOTE | 2017-08-20 08:05 | RADIOLOGY REPORT (SQ) ---
EXAM DESCRIPTION: CT CHEST WITHOUT COMPLETED DATE/TIME: 08/19/2017 7:08 pm REASON FOR STUDY: sob COMPARISON: Chest radiograph 08/19/2017 TECHNIQUE: CT scan performed of the chest without intravenous contrast. Images reviewed with lung, soft tissue and bone windows. Reconstructed coronal and sagittal MPR images reviewed. All images st ored on PACS. All CT scanners at this facility use dose modulation, iterative reconstruction, and/or weight based d osing when appropriate to reduce radiation dose to as low as reasonably achievable (ALARA). [facility]: Dose Right [facility]: CareDose [facility]: Dose Right [facility]: Teradose 4D [facility]: [employer] RADIATION DOSE: CT Rad equipment meets quality standard of care and radiation dose reduction techniq ues were employed. CTDIvol: 21.1 mGy. DLP: 789 mGy-cm. mGy. LIMITATIONS: No technical limitations. FINDINGS: LUNGS AND PLEURA: Minimal basilar parenchymal opacities and pleural reaction right greater than left. HILAR AND MEDIASTINAL STRUCTURES: No identified masses or abnormal nodes. No obvious aneurysm. HEART AND VASCULAR STRUCTURES: Coronary artery calcification. No pericardial effusion. UPPER ABDOMEN: No significant finding THYROID AND OTHER SOFT TISSUES: No masses. No adenopathy. BONES: Focal degenerative disc disease of the thoracic spine. HARDWARE: Venous access catheter. OTHER: No other significant findings. IMPRESSION: Minimal basilar parenchymal opacities and pleural reaction. TECHNICAL DOCUMENTATION: JOB ID: [id number] Quality ID # [id number]: Final reports with documentation of one or more dose reduction techniques (e.g., Au tomated exposure control, adjustment of the mA and/or kV according to patient size, use of iterative reconstruction technique) 2010 [employer]- All Rights Reserved
[2017-08-20] MEDS ORDERED: POTASSIUM CHLORIDE 10 MEQ TABLET.SA PO ONE (08:30)
--- NOTE | 2017-08-20 09:00 | PDOC PROGRESS REPORT ---
Subjective Progress Note for:: 08/20/17 Subjective:: Patient is currently feeling better after the hemodialysis yesterday and pretty much Pulmonary edema is resolved Patient's denied any chest pain denied any shortness of breath currently on nasal cannula Patient have a episode of the run of V. tach yesterday and patient's magnesium was checked and replace this morning magnesium was normal patient's potassium was 3.4 and replace it again Patient seen by the cardiology last night's Patient CT of the chest is all stable per the urine cultures grew some gram- negative rods currently on IV Rocephin Reason For Visit: SOB,CHF,RENAL FAILURE Physical Exam Vital Signs: Temp Pulse Resp BP Pulse Ox 98.3 F 71 18 150/66 H 100 08/20/17 07:55 08/20/17 07:55 08/20/17 07:55 08/20/17 07:55 08/20/17 07:55 Intake & Output 08/19/17 08/20/17 08/21/17 06:59 06:59 06:59 Intake Total 929 Output Total 4202 Balance -3273 Weight 133.2 kg General appearance: PRESENT: no acute distress, well-developed, well-nourished Head exam: PRESENT: atraumatic, normocephalic Eye exam: PRESENT: conjunctiva pink, EOMI, PERRLA. ABSENT: scleral icterus Ear exam: PRESENT: normal external ear exam Mouth exam: PRESENT: moist, tongue midline Neck exam: PRESENT: full ROM. ABSENT: carotid bruit, JVD, lymphadenopathy, thyromegaly Respiratory exam: PRESENT: clear to auscultation adrianne Cardiovascular exam: PRESENT: RRR. ABSENT: diastolic murmur, rubs, systolic murmur Pulses: PRESENT: normal dorsalis pedis pul, +2 pedal pulses bilateral Vascular exam: PRESENT: normal capillary refill GI/Abdominal exam: PRESENT: normal bowel sounds, soft. ABSENT: distended, guarding, mass, organolmegaly, rebound, tenderness Rectal exam: PRESENT: deferred Extremities exam: ABSENT: pedal edema Musculoskeletal exam: PRESENT: ambulatory Neurological exam: PRESENT: alert, awake, oriented to person, oriented to place , oriented to time, oriented to situation, CN II-XII grossly intact. ABSENT: motor sensory deficit Psychiatric exam: PRESENT: appropriate affect, normal mood. ABSENT: homicidal ideation, suicidal ideation Skin exam: PRESENT: dry, intact, warm. ABSENT: cyanosis, rash Results Laboratory Results: 08/20/17 04:41 08/20/17 04:41 08/19/17 08/20/17 08/20/17 21:43 04:41 04:41 WBC 11.4 H RBC 3.15 L Hgb 7.9 L Hct 24.9 L MCV 79 L MCH 25.2 L MCHC 31.8 L RDW 18.3 H Plt Count 274 Seg Neutrophils % 68.9 Lymphocytes % 24.3 Monocytes % 5.2 Eosinophils % 1.0 Basophils % 0.6 Absolute Neutrophils 7.9 Absolute Lymphocytes 2.8 Absolute Monocytes 0.6 Absolute Eosinophils 0.1 Absolute Basophils 0.1 Sodium 136.7 L Potassium 3.6 3.4 L Chloride 101 Carbon Dioxide 29 Anion Gap 7 BUN 17 Creatinine 3.69 H Est GFR ( Amer) 15 L Est GFR (Non-Af Amer) 13 L Glucose 138 H Calcium 7.8 L Magnesium 1.5 L 1.9 Total Bilirubin 0.2 AST 17 ALT 23 Alkaline Phosphatase 87 Total Protein 5.8 L Albumin 3.2 L 08/19/17 08/19/17 08/19/17 12:45 12:45 16:15 Creatine Kinase 117 129 CK-MB (CK-2) 1.07 Troponin I 0.019 NT-Pro-B Natriuret Pep 08/19/17 08/19/17 08/19/17 16:15 21:43 21:43 Creatine Kinase 131 CK-MB (CK-2) 1.11 0.98 Troponin I 0.021 0.022 NT-Pro-B Natriuret Pep 08/20/17 04:41 Creatine Kinase CK-MB (CK-2) Troponin I NT-Pro-B Natriuret Pep 75131 H Impressions: Chest CT 08/19/17 00:00 IMPRESSION: Minimal basilar parenchymal opacities and pleural reaction. Chest X-Ray 08/19/17 00:00 IMPRESSION: 1. Cardiomegaly with pulmonary vascular congestion. Assessment & Plan - Diagnosis (1) Acute diastolic (congestive) heart failure Is this a current diagnosis for this admission?: Yes Plan: Currently on hemodialysis doing well we will waiting for the echo report and follow with the cardiology (2) End stage renal disease on dialysis Is this a current diagnosis for this admission?: Yes Plan: Currently follow with the nephrology and hemodialysis schedule tomorrow again (3) Pulmonary edema Qualifiers: Chronicity: acute Is this a current diagnosis for this admission?: Yes Plan: Currently all resolved (4) COPD (chronic obstructive pulmonary disease) Qualifiers: COPD type: chronic bronchitis Is this a current diagnosis for this admission?: Yes Plan: Get the nebulizer treatments (5) Hypertension Qualifiers: Hypertension type: essential hypertension Qualified Code(s): I10 - Essential (primary) hypertension Is this a current diagnosis for this admission?: Yes Plan: Continues to current medications (6) Anemia in chronic kidney disease (CKD) Qualifiers: Chronic kidney disease stage: on chronic dialysis Qualified Code(s): N18.6 - End stage renal disease; D63.1 - Anemia in chronic kidney disease; D63.1 - Anemia in chronic kidney disease; Z99.2 - Dependence on renal dialysis; Z99.2 - Dependence on renal dialysis; Z99.2 - Dependence on renal dialysis; Z99.2 - Dependence on renal dialysis Is this a current diagnosis for this admission?: Yes Plan: Will be considered to give her blood transfusions tomorrow with the hemodialysis (7) Insulin dependent diabetes mellitus Is this a current diagnosis for this admission?: Yes Plan: Continues to insulin and continues to sliding scale (9) Secondary hyperparathyroidism (of renal origin) Is this a current diagnosis for this admission?: Yes Plan: Currently stable follow with the nephrology (10) Generalized anxiety disorder Is this a current diagnosis for this admission?: Yes Plan: Continues to current medications (11) Chronic pain syndrome Is this a current diagnosis for this admission?: Yes Plan: Continues to pain medication for pain management (12) Leukocytosis Qualifiers: Leukocytosis type: unspecified Qualified Code(s): D72.829 - Elevated white blood cell count, unspecified Is this a current diagnosis for this admission?: Yes Plan: Patient with gram-negative rods in the urine continues IV Rocephin wait for the culture and sensitivity (13) Urinary tract infection Qualifiers: Urinary tract infection type: site unspecified Is this a current diagnosis for this admission?: Yes Plan: Continues IV Rocephin - Time Time Spent with patient: 15-24 minutes Medications reviewed and adjusted accordingly: Yes Within: Other - Inpatient Certification Medical Necessity: Need Close Monitoring Due to Risk of Patient Decompensation, Need for IV Antibiotics Post Hospital Care: D/C [employer] Documentation - Plan Summary Plan Summary: Discussed with the patient about the test reports and discuss with the patient about follow-up plan
[2017-08-20] MEDS: PREGABALIN 25 MG CAPSULE PO SCH (09:40)
[2017-08-20] MEDS: OXYCODONE-ACETAMINOPHEN 5-325 MG TABLET PO PRN ×2 (09:40→15:43)
[2017-08-20] MEDS: NIFEDIPINE 30 MG TAB.ER.24 PO SCH ×2 (09:40→23:03)
[2017-08-20] MEDS ORDERED: CLONAZEPAM 1 MG TABLET PO SCH (10:00)
[2017-08-20] MEDS ORDERED: (PENDING PHARMACY ID) (Clonazepam [Klonopin] 0.5 MG) PO SCH (10:00)
[2017-08-20] MEDS ORDERED: ATENOLOL 50 MG TABLET PO SCH (10:00)
[2017-08-20] MEDS: CEFTRIAXONE SODIUM 1,000 MG in NORMAL SALINE 100 ML IV SCH (11:44)
[2017-08-20] MEDS: INSULIN LISPRO 100 UNIT/ML 3 ML VIAL SUBCUT PRN ×2 (12:29→17:23)
--- NOTE | 2017-08-20 12:58 | PDOC PROGRESS REPORT ---
Subjective Progress Note for:: 08/20/17 Subjective:: Patient complains of a vague flutter feeling in the chest. This is intermittent. Cardiac enzymes so far have been negative. Patient still has dyspnea. Patient blood pressure under better control. Telemetry strips shows wide-complex tachycardia, nonsustained at rate of around 100-120 bpm. Patient noted to be asymptomatic at that time. Patient claims significant problems with insomnia. Her electrolytes were noted to be showing hypokalemia and hypomagnesemia. Telemetry strips otherwise shows sinus rhythm. Reason For Visit: SOB,CHF,RENAL FAILURE Physical Exam Vital Signs: Temp Pulse Resp BP Pulse Ox 98.3 F 71 18 150/66 H 100 08/20/17 07:55 08/20/17 10:19 08/20/17 10:19 08/20/17 07:55 08/20/17 10:19 Intake & Output 08/19/17 08/20/17 08/21/17 06:59 06:59 06:59 Intake Total 929 458 Output Total 4202 Balance -3273 458 Weight 133.2 kg Exam: GENERAL: well-nourished and in no acute distress. Alert and oriented x3 HEAD: Atraumatic, normocephalic. EYES: Pupils equal round and reactive to light, extraocular movements intact, sclera anicteric, conjunctiva are normal. ENT: TMs normal, nares patent, oropharynx clear without exudates. Moist mucous membranes. No oral ulcerations or bleeding gums noted NECK: supple without lymphadenopathy. Trachea is central. No cervical or axillary lymphadenopathy noted. Carotids are 2+, JVD WNL LUNGS: Respiration seems nonlabored, no significant accessory muscle action noted. Breath sounds clear to auscultation bilaterally and equal noted. No wheezes rales or rhonchi noted. No significant dullness noted on percussion. CHEST: Palpation of the chest wall shows no significant chest wall tenderness. No other significant abnormalities noted. 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 ABDOMEN: Soft, no significant tenderness appreciated, normoactive bowel sounds. No guarding, no rebound. No rigidity noted . No masses appreciated. EXTREMITIES: Pedal pulses are 1-2+, no calf tenderness noted. No clubbing or cyanosis.trace to 1+ pedal edema noted. Patient noted to have AV fistula/graft in the left arm. NEUROLOGICAL: Focused neurological exam showed no significant neurologic deficit. Normal speech, no focal weakness appreciated. PSYCH: Normal mood, normal affect. Judgment and insight within normal limits. SKIN: No significant ecchymosis, rash, ulcerations or signs of pruritus noted. MUSCULOSKELETAL EXAM: No significant joint swelling noted. Results Laboratory Results: 08/20/17 04:41 08/20/17 04:41 08/19/17 08/20/17 08/20/17 21:43 04:41 04:41 WBC 11.4 H RBC 3.15 L Hgb 7.9 L Hct 24.9 L MCV 79 L MCH 25.2 L MCHC 31.8 L RDW 18.3 H Plt Count 274 Seg Neutrophils % 68.9 Lymphocytes % 24.3 Monocytes % 5.2 Eosinophils % 1.0 Basophils % 0.6 Absolute Neutrophils 7.9 Absolute Lymphocytes 2.8 Absolute Monocytes 0.6 Absolute Eosinophils 0.1 Absolute Basophils 0.1 Sodium 136.7 L Potassium 3.6 3.4 L Chloride 101 Carbon Dioxide 29 Anion Gap 7 BUN 17 Creatinine 3.69 H Est GFR ( Amer) 15 L Est GFR (Non-Af Amer) 13 L Glucose 138 H Calcium 7.8 L Magnesium 1.5 L 1.9 Total Bilirubin 0.2 AST 17 ALT 23 Alkaline Phosphatase 87 Total Protein 5.8 L Albumin 3.2 L 08/19/17 08/19/17 08/19/17 12:45 12:45 16:15 Creatine Kinase 117 129 CK-MB (CK-2) 1.07 Troponin I 0.019 NT-Pro-B Natriuret Pep 08/19/17 08/19/17 08/19/17 16:15 21:43 21:43 Creatine Kinase 131 CK-MB (CK-2) 1.11 0.98 Troponin I 0.021 0.022 NT-Pro-B Natriuret Pep 08/20/17 04:41 Creatine Kinase CK-MB (CK-2) Troponin I NT-Pro-B Natriuret Pep H EKG Comments: Twelve-lead EKG from yesterday reviewed. Showed sinus rhythm without acute ST- T wave changes. Telemetry strips shows nonsustained wide-complex tachycardia asymptomatic at that time. Impressions: Chest CT 08/19/17 00:00 IMPRESSION: Minimal basilar parenchymal opacities and pleural reaction. Chest X-Ray 08/19/17 00:00 IMPRESSION: 1. Cardiomegaly with pulmonary vascular congestion. Assessment & Plan - Diagnosis (1) Congestive heart failure Qualifiers: Heart failure type: unspecified Heart failure chronicity: acute on chronic Qualified Code(s): I50.9 - Heart failure, unspecified (2) Hypertension Qualifiers: Hypertension type: essential hypertension Qualified Code(s): I10 - Essential (primary) hypertension Is this a current diagnosis for this admission?: Yes (3) Acute diastolic (congestive) heart failure Is this a current diagnosis for this admission?: Yes (4) Anemia in chronic kidney disease (CKD) Qualifiers: Chronic kidney disease stage: on chronic dialysis Qualified Code(s): N18.6 - End stage renal disease; D63.1 - Anemia in chronic kidney disease; D63.1 - Anemia in chronic kidney disease; Z99.2 - Dependence on renal dialysis; Z99.2 - Dependence on renal dialysis; Z99.2 - Dependence on renal dialysis; Z99.2 - Dependence on renal dialysis Is this a current diagnosis for this admission?: Yes (5) End-stage renal disease on hemodialysis Is this a current diagnosis for this admission?: Yes (6) Hyperlipidemia Qualifiers: Hyperlipidemia type: unspecified Qualified Code(s): E78.5 - Hyperlipidemia , unspecified Is this a current diagnosis for this admission?: Yes (7) Insulin dependent diabetes mellitus Is this a current diagnosis for this admission?: Yes - Notes Notes: Acute respiratory failure: Patient presents with severe hypoxemia most likely related to CHF. Possibly related to acute on chronic diastolic heart failure. Patient also noted to have severe hypertension. Patient claims significant weight gain. She had dialysis on day of admission. Her next dialysis is tomorrow. Recommend fluid removal as tolerated. Coronary artery disease: Patient noted to have some coronary calcification therefore has underlying CAD. At this point recommend optimization of therapy for CAD and heart failure. In this regard to recommend statin therapy, beta- krista therapy, aspirin and Plavix therapy. So far cardiac enzymes has been negative. Anemia: Recommend maintaining hemoglobin above 8 g percent. Dyslipidemia: LDL goal should be less than 70. Hypertension: Recommend good control of blood pressure. Blood pressure goal should be 135/85 or less in this young patient with diabetes, coronary artery disease. Diabetes: Management is being left primary special educator. Avoid any hypoglycemia. End-stage renal disease: Patient being followed by rate and cost analyst. Sleep disorder: Patient describes significant problems with insomnia. Based on patient's comorbid diagnosis and body habitus she is likely to have significant sleep apnea problem. Patient will benefit from sleep study. Patient requesting hypnotics, will suggest trying Ambien or Lunesta while in the hospital. - Time Time with patient: Greater than 35 minutes - CODE STATUS was discussed, patient remains full code. Surrogate decision-maker unchanged. Multiple medical problems were addressed. More than 50% of the time spent coordinating care, discussing management plans with involved caregivers. Management plans discussed with involved personnels. Medical decision making was of moderate to high complexity, patient's has multiple comorbidities. Medications reviewed and adjusted accordingly: Yes
[2017-08-20] MEDS: IPRATROPIUM/ALBUTEROL 0.5-2.5 MG/3 ML AMPUL NEB PRN (14:53)
[2017-08-20] MEDS ORDERED: FUROSEMIDE 40 MG TABLET PO ONE (20:00)
[2017-08-20] MEDS: INSULIN GLARGINE,HUM.REC.ANLOG 300 UNIT/3 ML INSULN.PEN SUBCUT SCH (23:00)
[2017-08-20] MEDS: TRAZODONE HCL 50 MG TABLET PO SCH (23:01)
[2017-08-20] MEDS: ZOLPIDEM TARTRATE 5 MG TABLET PO SCH (23:01)
[2017-08-20] MEDS: ATORVASTATIN CALCIUM 40 MG TABLET PO SCH (23:02)
[2017-08-20] MEDS: CARVEDILOL 12.5 MG TABLET PO SCH (23:02)
[2017-08-21] MEDS ORDERED: EPOETIN ALFA INJ 20000 UNIT/1 ML VIAL (RENAL) IV PRN (05:00)
[2017-08-21] MEDS ORDERED: HEPARIN SOD (PORCINE) 1,000 UNIT/ML 10 ML VIAL IV PRN (05:00)
[2017-08-21] MEDS: OXYCODONE-ACETAMINOPHEN 5-325 MG TABLET PO PRN ×3 (05:38→18:36)
[2017-08-21] MEDS: HEPARIN SOD (PORCINE) 5,000 UNIT/ML 1 ML SYRINGE SUBCUT SCH ×3 (05:38→22:00)
[2017-08-21 05:46] LABS: ABSOLUTE EOSINOPHILS # (AUTO) 0.1 10^3/uL (0.0-0.6); ABSOLUTE LYMPHOCYTES (AUTO) 2.4 10^3/uL (0.5-4.7); ABSOLUTE MONOCYTES (AUTO) 0.6 10^3/uL (0.1-1.4); ABSOLUTE NEUT (AUTO) 6.8 10^3/uL (1.7-8.2); BASOPHILS % (AUTO) 0.2 % (0-2); HEMATOCRIT 25.2 % (36.0-47.0); HEMOGLOBIN 8.1 g/dL (12.0-15.5); LYMPHOCYTES % (AUTO) 24.3 % (13-45); MEAN CORPUSCULAR HEMOGLOBIN 25.7 pg (27.0-33.4); MEAN CORPUSCULAR HGB CONC 32.1 g/dL (32.0-36.0); MEAN CORPUSCULAR VOLUME 80 fl (80-97); MONOCYTES % (AUTO) 5.7 % (3-13); PLATELET COUNT 266 10^3/uL (150-450); RED BLOOD COUNT 3.15 10^6/uL (3.72-5.28); RED CELL DISTRIBUTION WIDTH 18.2 % (11.5-14.0); SEGMENTED NEUTROPHILS % (AUTO) 68.8 % (42-78); TOTAL CELLS COUNTED % (AUTO) 100 %; WHITE BLOOD COUNT 9.9 10^3/uL (4.0-10.5)
[2017-08-21 06:05] LABS: ANION GAP 9 (5-19); BLOOD UREA NITROGEN 28 mg/dL (7-20); CALCIUM 7.9 mg/dL (8.4-10.2); CARBON DIOXIDE 25 mmol/L (22-30); CHLORIDE 101 mmol/L (98-107); GLUCOSE 173 mg/dL (75-110); SODIUM 134.7 mmol/L (137-145)
[2017-08-21] MEDS: INSULIN LISPRO 100 UNIT/ML 3 ML VIAL SUBCUT PRN ×3 (07:41→22:01)
--- NOTE | 2017-08-21 10:04 | PDOC PROGRESS REPORT ---
Subjective Progress Note for:: 08/21/17 Subjective:: Patient is currently doing well Patient's denied any chest pain denied any shortness of breath Since seen at the hemodialysis site Dr. Blanc was there and discussed with Dr. Blanc and no need for any blood transfusions into the patient's hemoglobin is about [address] Petty and suggest that patients probably need outpatient' s cardiac cath will wait for the echocardiogram Patient's denied any chest pain denied any shortness of the breath Reason For Visit: SOB,CHF,RENAL FAILURE Physical Exam Vital Signs: Temp Pulse Resp BP Pulse Ox 98.1 F 68 20 143/60 H 100 08/21/17 08:00 08/21/17 08:00 08/21/17 08:00 08/21/17 08:00 08/21/17 09:08 Intake & Output 08/20/17 08/21/17 08/22/17 06:59 06:59 06:59 Intake Total 929 1785 Output Total 4202 Balance -3273 1785 Weight 133.2 kg 134.2 kg General appearance: PRESENT: no acute distress, well-developed, well-nourished Head exam: PRESENT: atraumatic, normocephalic Eye exam: PRESENT: conjunctiva pink, EOMI, PERRLA. ABSENT: scleral icterus Ear exam: PRESENT: normal external ear exam Mouth exam: PRESENT: moist, tongue midline Neck exam: PRESENT: full ROM. ABSENT: carotid bruit, JVD, lymphadenopathy, thyromegaly Respiratory exam: PRESENT: clear to auscultation adrianne Cardiovascular exam: PRESENT: RRR. ABSENT: diastolic murmur, rubs, systolic murmur Pulses: PRESENT: normal dorsalis pedis pul, +2 pedal pulses bilateral Vascular exam: PRESENT: normal capillary refill GI/Abdominal exam: PRESENT: normal bowel sounds, soft. ABSENT: distended, guarding, mass, organolmegaly, rebound, tenderness Rectal exam: PRESENT: deferred Musculoskeletal exam: PRESENT: ambulatory Neurological exam: PRESENT: alert, awake, oriented to person, oriented to place , oriented to time, oriented to situation, CN II-XII grossly intact. ABSENT: motor sensory deficit Psychiatric exam: PRESENT: appropriate affect, normal mood. ABSENT: homicidal ideation, suicidal ideation Skin exam: PRESENT: dry, intact, warm. ABSENT: cyanosis, rash Results Laboratory Results: 08/21/17 05:17 08/21/17 05:17 08/21/17 08/21/17 05:17 05:17 WBC 9.9 RBC 3.15 L Hgb 8.1 L Hct 25.2 L MCV 80 MCH 25.7 L MCHC 32.1 RDW 18.2 H Plt Count 266 Seg Neutrophils % 68.8 Lymphocytes % 24.3 Monocytes % 5.7 Eosinophils % 1.0 Basophils % 0.2 Absolute Neutrophils 6.8 Absolute Lymphocytes 2.4 Absolute Monocytes 0.6 Absolute Eosinophils 0.1 Absolute Basophils 0.0 Sodium 134.7 L Potassium 4.0 Chloride 101 Carbon Dioxide 25 Anion Gap 9 BUN 28 H Creatinine 4.98 H Est GFR ( Amer) 11 L Est GFR (Non-Af Amer) 9 L Glucose 173 H Calcium 7.9 L Magnesium 1.9 08/19/17 13:12 Clean Catch Midstream Urine Culture - Final Proteus Mirabilis Escherichia Coli 08/19/17 08/19/17 08/19/17 12:45 12:45 16:15 Creatine Kinase 117 129 CK-MB (CK-2) 1.07 Troponin I 0.019 NT-Pro-B Natriuret Pep 08/19/17 08/19/17 08/19/17 16:15 21:43 21:43 Creatine Kinase 131 CK-MB (CK-2) 1.11 0.98 Troponin I 0.021 0.022 NT-Pro-B Natriuret Pep 08/20/17 08/21/17 04:41 05:17 Creatine Kinase CK-MB (CK-2) Troponin I NT-Pro-B Natriuret Pep 38111 H 34650 H Impressions: Chest CT 08/19/17 00:00 IMPRESSION: Minimal basilar parenchymal opacities and pleural reaction. Chest X-Ray 08/19/17 00:00 IMPRESSION: 1. Cardiomegaly with pulmonary vascular congestion. Assessment & Plan - Diagnosis (1) Acute diastolic (congestive) heart failure Is this a current diagnosis for this admission?: Yes Plan: Currently on hemodialysis doing well we will waiting for the echo report and follow with the cardiology Discussed with the cardiology and suggest the patient's may get a benefit as outpatients cardiac cath (2) End stage renal disease on dialysis Is this a current diagnosis for this admission?: Yes Plan: Currently follow with the nephrology and hemodialysis schedule tomorrow again (3) Pulmonary edema Qualifiers: Chronicity: acute Is this a current diagnosis for this admission?: Yes Plan: Currently all resolved (4) COPD (chronic obstructive pulmonary disease) Qualifiers: COPD type: chronic bronchitis Is this a current diagnosis for this admission?: Yes Plan: Get the nebulizer treatments (5) Hypertension Qualifiers: Hypertension type: essential hypertension Qualified Code(s): I10 - Essential (primary) hypertension Is this a current diagnosis for this admission?: Yes Plan: Continues to current medications (6) Anemia in chronic kidney disease (CKD) Qualifiers: Chronic kidney disease stage: on chronic dialysis Qualified Code(s): N18.6 - End stage renal disease; D63.1 - Anemia in chronic kidney disease; D63.1 - Anemia in chronic kidney disease; Z99.2 - Dependence on renal dialysis; Z99.2 - Dependence on renal dialysis; Z99.2 - Dependence on renal dialysis; Z99.2 - Dependence on renal dialysis Is this a current diagnosis for this admission?: Yes Plan: Will be considered to give her blood transfusions tomorrow with the hemodialysis (7) Insulin dependent diabetes mellitus Is this a current diagnosis for this admission?: Yes Plan: Continues to insulin and continues to sliding scale (9) Secondary hyperparathyroidism (of renal origin) Is this a current diagnosis for this admission?: Yes Plan: Currently stable follow with the nephrology (10) Generalized anxiety disorder Is this a current diagnosis for this admission?: Yes Plan: This is requested the Xanax instead of the Klonopin (11) Chronic pain syndrome Is this a current diagnosis for this admission?: Yes Plan: Continues to pain medication for pain management (12) Leukocytosis Qualifiers: Leukocytosis type: unspecified Qualified Code(s): D72.829 - Elevated white blood cell count, unspecified Is this a current diagnosis for this admission?: Yes Plan: Patient with gram-negative rods in the urine continues IV Rocephin wait for the culture and sensitivity (13) Urinary tract infection Qualifiers: Urinary tract infection type: site unspecified Is this a current diagnosis for this admission?: Yes Plan: The urine cultures of the Proteus continues to Rocephin - Time Time Spent with patient: 15-24 minutes Medications reviewed and adjusted accordingly: Yes Anticipated discharge: Home Within: Other - Inpatient Certification Medical Necessity: Need Close Monitoring Due to Risk of Patient Decompensation, Need for IV Antibiotics Post Hospital Care: D/C Lathe Mechanic Documentation - Plan Summary Plan Summary: Continues to current medications as per discussed with the nephrology patient is going to stay in the weekends next dialysis on a Thursday and will decide on a Thursday about the discharge and the patient's
--- NOTE | 2017-08-21 12:40 | PDOC PROGRESS REPORT ---
Subjective Progress Note for:: 08/21/17 Subjective:: Patient claims that she feels better. She slept well with Ambien last night. Cardiac enzymes so far have been negative. Patient still has dyspnea. Patient blood pressure under better control. Patient noted to be asymptomatic at that time. Patient claims significant problems with insomnia. Her electrolytes were noted to be showing hypokalemia and hypomagnesemia. Telemetry strips otherwise shows sinus rhythm. Reason For Visit: SOB,CHF,RENAL FAILURE Physical Exam Vital Signs: Temp Pulse Resp BP Pulse Ox 98.1 F 68 20 143/60 H 100 08/21/17 08:00 08/21/17 08:00 08/21/17 08:00 08/21/17 08:00 08/21/17 09:08 Intake & Output 08/20/17 08/21/17 08/22/17 06:59 06:59 06:59 Intake Total 929 1785 Output Total 4202 Balance -3273 1785 Weight 133.2 kg 134.2 kg Exam: GENERAL: well-nourished and in no acute distress. Alert and oriented x3 HEAD: Atraumatic, normocephalic. EYES: Pupils equal round and reactive to light, extraocular movements intact, sclera anicteric, conjunctiva are normal. ENT: TMs normal, nares patent, oropharynx clear without exudates. Moist mucous membranes. No oral ulcerations or bleeding gums noted NECK: supple without lymphadenopathy. Trachea is central. No cervical or axillary lymphadenopathy noted. Carotids are 2+, JVD WNL LUNGS: Respiration seems nonlabored, no significant accessory muscle action noted. Breath sounds clear to auscultation bilaterally and equal noted. No wheezes rales or rhonchi noted. No significant dullness noted on percussion. CHEST: Palpation of the chest wall shows no significant chest wall tenderness. No other significant abnormalities noted. 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 ABDOMEN: Soft, no significant tenderness appreciated, normoactive bowel sounds. No guarding, no rebound. No rigidity noted . No masses appreciated. EXTREMITIES: Pedal pulses are 1-2+, no calf tenderness noted. No clubbing or cyanosis.trace to 1+ pedal edema noted. AV fistula noted in the left arm. NEUROLOGICAL: Focused neurological exam showed no significant neurologic deficit. Normal speech, no focal weakness appreciated. PSYCH: Normal mood, normal affect. Judgment and insight within normal limits. SKIN: No significant ecchymosis, rash, ulcerations or signs of pruritus noted. MUSCULOSKELETAL EXAM: No significant joint swelling noted. Results Laboratory Results: 08/21/17 05:17 08/21/17 05:17 08/21/17 08/21/17 05:17 05:17 WBC 9.9 RBC 3.15 L Hgb 8.1 L Hct 25.2 L MCV 80 MCH 25.7 L MCHC 32.1 RDW 18.2 H Plt Count 266 Seg Neutrophils % 68.8 Lymphocytes % 24.3 Monocytes % 5.7 Eosinophils % 1.0 Basophils % 0.2 Absolute Neutrophils 6.8 Absolute Lymphocytes 2.4 Absolute Monocytes 0.6 Absolute Eosinophils 0.1 Absolute Basophils 0.0 Sodium 134.7 L Potassium 4.0 Chloride 101 Carbon Dioxide 25 Anion Gap 9 BUN 28 H Creatinine 4.98 H Est GFR ( Amer) 11 L Est GFR (Non-Af Amer) 9 L Glucose 173 H Calcium 7.9 L Magnesium 1.9 08/19/17 13:12 Clean Catch Midstream Urine Culture - Final Proteus Mirabilis Escherichia Coli 08/19/17 08/19/17 08/19/17 12:45 12:45 16:15 Creatine Kinase 117 129 CK-MB (CK-2) 1.07 Troponin I 0.019 NT-Pro-B Natriuret Pep 08/19/17 08/19/17 08/19/17 16:15 21:43 21:43 Creatine Kinase 131 CK-MB (CK-2) 1.11 0.98 Troponin I 0.021 0.022 NT-Pro-B Natriuret Pep 08/20/17 08/21/17 04:41 05:17 Creatine Kinase CK-MB (CK-2) Troponin I NT-Pro-B Natriuret Pep 92851 H 76161 H EKG Comments: Telemetry strips shows sinus rhythm without any sustained tacky or bradycardia arrhythmias. Impressions: Chest CT 08/19/17 00:00 IMPRESSION: Minimal basilar parenchymal opacities and pleural reaction. Chest X-Ray 08/19/17 00:00 IMPRESSION: 1. Cardiomegaly with pulmonary vascular congestion. Assessment & Plan - Diagnosis (1) Congestive heart failure Qualifiers: Heart failure type: unspecified Heart failure chronicity: acute on chronic Qualified Code(s): I50.9 - Heart failure, unspecified (2) Hypertension Qualifiers: Hypertension type: essential hypertension Qualified Code(s): I10 - Essential (primary) hypertension Is this a current diagnosis for this admission?: Yes (3) Acute diastolic (congestive) heart failure Is this a current diagnosis for this admission?: Yes (4) Anemia in chronic kidney disease (CKD) Qualifiers: Chronic kidney disease stage: on chronic dialysis Qualified Code(s): N18.6 - End stage renal disease; D63.1 - Anemia in chronic kidney disease; D63.1 - Anemia in chronic kidney disease; Z99.2 - Dependence on renal dialysis; Z99.2 - Dependence on renal dialysis; Z99.2 - Dependence on renal dialysis; Z99.2 - Dependence on renal dialysis Is this a current diagnosis for this admission?: Yes (5) End-stage renal disease on hemodialysis Is this a current diagnosis for this admission?: Yes (6) Hyperlipidemia Qualifiers: Hyperlipidemia type: unspecified Qualified Code(s): E78.5 - Hyperlipidemia , unspecified Is this a current diagnosis for this admission?: Yes (7) Insulin dependent diabetes mellitus Is this a current diagnosis for this admission?: Yes (8) Insomnia Qualifiers: Insomnia type: unspecified Qualified Code(s): G47.00 - Insomnia, unspecified Is this a current diagnosis for this admission?: Yes - Notes Notes: Acute respiratory failure: Patient presents with severe hypoxemia most likely related to CHF. Possibly related to acute on chronic diastolic heart failure. Patient also noted to have severe hypertension. Patient claims significant weight gain. Patient seen on dialysis today. Patient's dry weight I am told by the dialysis nurse is 125 pounds. Some fluid removed on dialysis today. Coronary artery disease: Patient noted to have some coronary calcification therefore has underlying CAD. At this point recommend optimization of therapy for CAD and heart failure. In this regard to recommend statin therapy, beta- krista therapy, aspirin and Plavix therapy. So far cardiac enzymes has been negative. Anemia: Recommend maintaining hemoglobin above 8 g percent. Dyslipidemia: LDL goal should be less than 70. Hypertension: Recommend good control of blood pressure. Blood pressure goal should be 135/85 or less in this young patient with diabetes, coronary artery disease. Yesterday patient was switched over to carvedilol. Which seems to be working better. 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 Avoid any hypoglycemia. End-stage renal disease: Patient being followed by editor house organ. Sleep disorder: Patient describes significant problems with insomnia. Based on patient's comorbid diagnosis and body habitus she is likely to have significant sleep apnea problem. Patient will benefit from sleep study. Patient requesting hypnotics, will suggest trying Ambien or Lunesta while in the hospital. Insomnia: Patient noted to have insomnia. Discussed that this could be part and parcel of sleep apnea syndrome. - Time Time with patient: Greater than 35 minutes - CODE STATUS was discussed, patient remains full code. Surrogate decision-maker unchanged. Multiple medical problems were addressed. More than 50% of the time spent coordinating care, discussing management plans with involved caregivers. Management plans discussed with involved personnels. Medical decision making was of moderate to high complexity, patient's has multiple comorbidities. Medications reviewed and adjusted accordingly: Yes
[2017-08-21] MEDS: PREGABALIN 25 MG CAPSULE PO SCH (12:55)
[2017-08-21] MEDS: CEFTRIAXONE SODIUM 1,000 MG in NORMAL SALINE 100 ML IV SCH (12:56)
[2017-08-21] MEDS: CARVEDILOL 12.5 MG TABLET PO SCH ×2 (12:56→22:01)
[2017-08-21] MEDS: NIFEDIPINE 30 MG TAB.ER.24 PO SCH ×2 (12:56→22:01)
[2017-08-21] MEDS: ALPRAZOLAM 0.5 MG TABLET PO PRN (14:59)
--- NOTE | 2017-08-21 16:38 | PDOC PROGRESS REPORT ---
Subjective Progress Note for:: 08/21/17 Subjective:: I saw the patient during dialysis morning at around 8:40 AM. Patient was comfortable and is not short of breath. However she still describes dyspnea on exertion and minimal movement like going to the bathroom. She was able to sleep well last night. He tolerated dialysis well without any problems this morning. She is still having some cardiology workup including echocardiogram. Reason For Visit: SOB,CHF, ESRD Physical Exam Vital Signs: Temp Pulse Resp BP Pulse Ox 98.2 F 76 16 115/51 L 100 08/21/17 15:15 08/21/17 15:15 08/21/17 15:15 08/21/17 15:15 08/21/17 15:15 Intake & Output 08/20/17 08/21/17 08/22/17 06:59 06:59 06:59 Intake Total 929 1785 237 Output Total 4202 Balance -3273 1785 237 Weight 133.2 kg 134.2 kg 134.2 kg Vitals during dialysis: Blood pressure 160/77, heart rate 66, blood flow rate 300 mL/min, dialysate flow rate 600 mL/min. Exam: General appearance: PRESENT: no acute distress, cooperative, well-developed, well-nourished Head exam: PRESENT: atraumatic, normocephalic Eye exam: PRESENT: conjunctiva pale, PERRLA. ABSENT: scleral icterus Neck exam: ABSENT: JVD Respiratory exam: PRESENT: Diminished breath sounds. ABSENT: crackles, rales, rhonchi, unlabored, wheezes Cardiovascular exam: PRESENT: Regular rate rhythm -+S1, +S2. ABSENT: diastolic murmur, systolic murmur GI/Abdominal exam: PRESENT: normal bowel sounds, soft. ABSENT: guarding, mass, tenderness Extremities exam: ABSENT: No edema Neurological exam: PRESENT: alert, awake, oriented to person, place and time. Skin exam: PRESENT: dry, warm, Results Laboratory Results: 08/21/17 05:17 08/21/17 05:17 08/21/17 08/21/17 05:17 05:17 WBC 9.9 RBC 3.15 L Hgb 8.1 L Hct 25.2 L MCV 80 MCH 25.7 L MCHC 32.1 RDW 18.2 H Plt Count 266 Seg Neutrophils % 68.8 Lymphocytes % 24.3 Monocytes % 5.7 Eosinophils % 1.0 Basophils % 0.2 Absolute Neutrophils 6.8 Absolute Lymphocytes 2.4 Absolute Monocytes 0.6 Absolute Eosinophils 0.1 Absolute Basophils 0.0 Sodium 134.7 L Potassium 4.0 Chloride 101 Carbon Dioxide 25 Anion Gap 9 BUN 28 H Creatinine 4.98 H Est GFR ( Amer) 11 L Est GFR (Non-Af Amer) 9 L Glucose 173 H Calcium 7.9 L Magnesium 1.9 08/19/17 13:12 Clean Catch Midstream Urine Culture - Final Proteus Mirabilis Escherichia Coli 08/19/17 08/19/17 08/19/17 12:45 12:45 16:15 Creatine Kinase 117 129 CK-MB (CK-2) 1.07 Troponin I 0.019 NT-Pro-B Natriuret Pep 08/19/17 08/19/17 08/19/17 16:15 21:43 21:43 Creatine Kinase 131 CK-MB (CK-2) 1.11 0.98 Troponin I 0.021 0.022 NT-Pro-B Natriuret Pep 08/20/17 08/21/17 04:41 05:17 Creatine Kinase CK-MB (CK-2) Troponin I NT-Pro-B Natriuret Pep 81654 H 19211 H Impressions: Chest CT 08/19/17 00:00 IMPRESSION: Minimal basilar parenchymal opacities and pleural reaction. Chest X-Ray 08/19/17 00:00 IMPRESSION: 1. Cardiomegaly with pulmonary vascular congestion. Assessment & Plan - Diagnosis (1) End-stage renal disease on hemodialysis Is this a current diagnosis for this admission?: Yes Plan: We did dialysis today for 3 hours, using the patient's PermCath, with 3 potassium bath, blood flow rate of 350 mL per minute, dialysate flow rate of 800 mL per minute, ultrafiltration 3 L as tolerated, no heparin and Procrit with 20,000 units during dialysis intravenously. Patient tolerated dialysis without any issues. (2) Acute pulmonary edema Is this a current diagnosis for this admission?: Yes Plan: Patient had this episode during previous admission last year. Patient did not have evidence of renal artery stenosis at that time. She does have baseline diastolic congestive heart failure and end-stage renal disease which together could cause this. This seems to be resolved. We did dialyze her again today. (3) Acute diastolic (congestive) heart failure Is this a current diagnosis for this admission?: Yes Plan: As mentioned we will do ultrafiltration. Dr. Petty following the patient. (4) Hypertension Qualifiers: Hypertension type: essential hypertension Qualified Code(s): I10 - Essential (primary) hypertension Is this a current diagnosis for this admission?: Yes Plan: Continue home medications. (5) Anemia in chronic kidney disease (CKD) Qualifiers: Chronic kidney disease stage: on chronic dialysis Qualified Code(s): N18.6 - End stage renal disease; D63.1 - Anemia in chronic kidney disease; D63.1 - Anemia in chronic kidney disease; Z99.2 - Dependence on renal dialysis; Z99.2 - Dependence on renal dialysis; Z99.2 - Dependence on renal dialysis; Z99.2 - Dependence on renal dialysis Is this a current diagnosis for this admission?: Yes Plan: Procrit during dialysis as needed. If hemoglobin goes down below 8 I suggest blood transfusion with 1 unit packed RBC over the weekend. (6) Insulin dependent diabetes mellitus Is this a current diagnosis for this admission?: Yes (7) Generalized anxiety disorder Is this a current diagnosis for this admission?: Yes (8) Secondary hyperparathyroidism (of renal origin) Is this a current diagnosis for this admission?: Yes (9) Chronic pain syndrome Is this a current diagnosis for this admission?: Yes - Time Time with patient: 15-25 minutes
[2017-08-21] MEDS: ACETAMINOPHEN 325 MG TABLET PO PRN (18:05)
[2017-08-21] MEDS: INSULIN GLARGINE,HUM.REC.ANLOG 300 UNIT/3 ML INSULN.PEN SUBCUT SCH (22:00)
[2017-08-21] MEDS: ATORVASTATIN CALCIUM 40 MG TABLET PO SCH (22:01)
[2017-08-21] MEDS: TRAZODONE HCL 50 MG TABLET PO SCH (22:01)
[2017-08-21] MEDS: ZOLPIDEM TARTRATE 5 MG TABLET PO SCH (22:01)
[2017-08-22] MEDS: OXYCODONE-ACETAMINOPHEN 5-325 MG TABLET PO PRN ×3 (03:42→17:29)
[2017-08-22 05:52] LABS: ABSOLUTE BASOPHILS # (AUTO) 0.1 10^3/uL (0.0-0.2); ABSOLUTE EOSINOPHILS # (AUTO) 0.1 10^3/uL (0.0-0.6); ABSOLUTE LYMPHOCYTES (AUTO) 2.5 10^3/uL (0.5-4.7); ABSOLUTE MONOCYTES (AUTO) 0.5 10^3/uL (0.1-1.4); ABSOLUTE NEUT (AUTO) 6.4 10^3/uL (1.7-8.2); BASOPHILS % (AUTO) 1.3 % (0-2); EOSINOPHILS % (AUTO) 1.1 % (0-6); HEMATOCRIT 24.3 % (36.0-47.0); MEAN CORPUSCULAR HEMOGLOBIN 25.7 pg (27.0-33.4); MEAN CORPUSCULAR HGB CONC 31.7 g/dL (32.0-36.0); MEAN CORPUSCULAR VOLUME 81 fl (80-97); MONOCYTES % (AUTO) 4.9 % (3-13); RED CELL DISTRIBUTION WIDTH 18.8 % (11.5-14.0); SEGMENTED NEUTROPHILS % (AUTO) 66.7 % (42-78); TOTAL CELLS COUNTED % (AUTO) 100 %; WHITE BLOOD COUNT 9.5 10^3/uL (4.0-10.5)
[2017-08-22 06:18] LABS: PLATELET COUNT 185 10^3/uL (150-450)
[2017-08-22 06:19] LABS: HEMOGLOBIN 7.7 g/dL (12.0-15.5)
[2017-08-22] MEDS: HEPARIN SOD (PORCINE) 5,000 UNIT/ML 1 ML SYRINGE SUBCUT SCH ×3 (06:25→22:53)
[2017-08-22] MEDS: FUROSEMIDE 40 MG TABLET PO SCH (09:18)
[2017-08-22] MEDS: PREGABALIN 25 MG CAPSULE PO SCH (09:18)
[2017-08-22] MEDS: CARVEDILOL 12.5 MG TABLET PO SCH ×2 (09:18→22:54)
[2017-08-22] MEDS: NIFEDIPINE 30 MG TAB.ER.24 PO SCH ×2 (09:19→22:54)
[2017-08-22] MEDS: ALPRAZOLAM 0.5 MG TABLET PO PRN ×3 (09:23→23:16)
[2017-08-22] MEDS: INSULIN LISPRO 100 UNIT/ML 3 ML VIAL SUBCUT PRN ×3 (13:02→22:53)
[2017-08-22 13:18] LABS: HEMATOCRIT 25.9 % (36.0-47.0); HEMOGLOBIN 8.2 g/dL (12.0-15.5); MEAN CORPUSCULAR HEMOGLOBIN 25.8 pg (27.0-33.4); MEAN CORPUSCULAR HGB CONC 31.5 g/dL (32.0-36.0); MEAN CORPUSCULAR VOLUME 82 fl (80-97); PLATELET COUNT 281 10^3/uL (150-450); RED BLOOD COUNT 3.16 10^6/uL (3.72-5.28); RED CELL DISTRIBUTION WIDTH 18.9 % (11.5-14.0); WHITE BLOOD COUNT 9.3 10^3/uL (4.0-10.5)
--- NOTE | 2017-08-22 13:43 | PDOC PROGRESS REPORT ---
Subjective Progress Note for:: 08/22/17 Subjective:: Patient claims that she feels better. Patient is sleeping better with Ambien. Dose can be increased if needed. Cardiac enzymes so far have been negative. Patient still has dyspnea on mild exertion. Patient blood pressure under better control. Patient noted to be asymptomatic at that time. Patient claims significant problems with insomnia and possibly has underlying sleep apnea syndrome. Her electrolytes were noted to be showing hypokalemia and hypomagnesemia. Telemetry strips otherwise shows sinus rhythm. Reason For Visit: SOB,CHF,RENAL FAILURE Physical Exam Vital Signs: Temp Pulse Resp BP Pulse Ox 99.0 F 79 19 148/72 H 100 08/22/17 12:27 08/22/17 12:34 08/22/17 12:34 08/22/17 12:27 08/22/17 12:34 Intake & Output 08/21/17 08/22/17 08/23/17 06:59 06:59 06:59 Intake Total 1785 1642 Output Total 3402 Balance 1785 -1760 Weight 134.2 kg 132.6 kg Exam: GENERAL: well-nourished and in no acute distress. Alert and oriented x3 HEAD: Atraumatic, normocephalic. EYES: Pupils equal round and reactive to light, extraocular movements intact, sclera anicteric, conjunctiva are normal. ENT: TMs normal, nares patent, oropharynx clear without exudates. Moist mucous membranes. No oral ulcerations or bleeding gums noted NECK: supple without lymphadenopathy. Trachea is central. No cervical or axillary lymphadenopathy noted. Carotids are 2+, JVD WNL LUNGS: Respiration seems nonlabored, no significant accessory muscle action noted. Breath sounds clear to auscultation bilaterally and equal noted. No wheezes rales or rhonchi noted. No significant dullness noted on percussion. CHEST: Palpation of the chest wall shows no significant chest wall tenderness. No other significant abnormalities noted. 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 ABDOMEN: Soft, no significant tenderness appreciated, normoactive bowel sounds. No guarding, no rebound. No rigidity noted . No masses appreciated. EXTREMITIES: Pedal pulses are 1-2+, no calf tenderness noted. No clubbing or cyanosis.trace to 1+ pedal edema noted. Patient noted to have AV fistula left arm. NEUROLOGICAL: Focused neurological exam showed no significant neurologic deficit. Normal speech, no focal weakness appreciated. PSYCH: Normal mood, normal affect. Judgment and insight within normal limits. SKIN: No significant ecchymosis, rash, ulcerations or signs of pruritus noted. MUSCULOSKELETAL EXAM: No significant joint swelling noted. Results Laboratory Results: 08/22/17 13:07 08/21/17 05:17 08/22/17 08/22/17 08/22/17 05:05 05:05 13:07 WBC 9.5 9.3 RBC 3.00 L 3.16 L Hgb 7.7 L 8.2 L Hct 24.3 L 25.9 L MCV 81 82 MCH 25.7 L 25.8 L MCHC 31.7 L 31.5 L RDW 18.8 H 18.9 H Plt Count 185 281 Seg Neutrophils % 66.7 Lymphocytes % 26.0 Monocytes % 4.9 Eosinophils % 1.1 Basophils % 1.3 Absolute Neutrophils 6.4 Absolute Lymphocytes 2.5 Absolute Monocytes 0.5 Absolute Eosinophils 0.1 Absolute Basophils 0.1 Magnesium 1.8 08/19/17 08/19/17 08/19/17 12:45 12:45 16:15 Creatine Kinase 117 129 CK-MB (CK-2) 1.07 Troponin I 0.019 NT-Pro-B Natriuret Pep 08/19/17 08/19/17 08/19/17 16:15 21:43 21:43 Creatine Kinase 131 CK-MB (CK-2) 1.11 0.98 Troponin I 0.021 0.022 NT-Pro-B Natriuret Pep 08/20/17 08/21/17 08/22/17 04:41 05:17 05:05 Creatine Kinase CK-MB (CK-2) Troponin I NT-Pro-B Natriuret Pep 83291 H 01374 H 96575 H EKG Comments: Telemetry strips shows sinus rhythm without any sustained tacky or bradycardia arrhythmias. Impressions: Chest CT 08/19/17 00:00 IMPRESSION: Minimal basilar parenchymal opacities and pleural reaction. Chest X-Ray 08/19/17 00:00 IMPRESSION: 1. Cardiomegaly with pulmonary vascular congestion. Assessment & Plan - Diagnosis (1) Congestive heart failure Qualifiers: Heart failure type: unspecified Heart failure chronicity: acute on chronic Qualified Code(s): I50.9 - Heart failure, unspecified (2) Hypertension Qualifiers: Hypertension type: essential hypertension Qualified Code(s): I10 - Essential (primary) hypertension Is this a current diagnosis for this admission?: Yes (3) Acute diastolic (congestive) heart failure Is this a current diagnosis for this admission?: Yes (4) Anemia in chronic kidney disease (CKD) Qualifiers: Chronic kidney disease stage: on chronic dialysis Qualified Code(s): N18.6 - End stage renal disease; D63.1 - Anemia in chronic kidney disease; D63.1 - Anemia in chronic kidney disease; Z99.2 - Dependence on renal dialysis; Z99.2 - Dependence on renal dialysis; Z99.2 - Dependence on renal dialysis; Z99.2 - Dependence on renal dialysis Is this a current diagnosis for this admission?: Yes (5) End-stage renal disease on hemodialysis Is this a current diagnosis for this admission?: Yes (6) Hyperlipidemia Qualifiers: Hyperlipidemia type: unspecified Qualified Code(s): E78.5 - Hyperlipidemia , unspecified Is this a current diagnosis for this admission?: Yes (7) Insulin dependent diabetes mellitus Is this a current diagnosis for this admission?: Yes (8) Insomnia Qualifiers: Insomnia type: unspecified Qualified Code(s): G47.00 - Insomnia, unspecified Is this a current diagnosis for this admission?: Yes (9) Obesity Qualifiers: Obesity type: unspecified obesity type Serious obesity comorbidity presence : unspecified whether serious comorbidity present Is this a current diagnosis for this admission?: Yes - Notes Notes: Acute respiratory failure: Patient had presented with severe hypoxemia. This was most likely related to CHF secondary to volume excess and severe hypertension. Possibly related to acute on chronic diastolic heart failure. Patient claims significant weight gain recently. I was told by dialysis nurse that patient's dry weight I am told by the dialysis nurse is 125 KG. Coronary artery disease: Patient noted to have some coronary calcification therefore has underlying CAD. At this point recommend optimization of therapy for CAD and heart failure. In this regard to recommend statin therapy, beta- krista therapy, aspirin and Plavix therapy. So far cardiac enzymes has been negative. Anemia: Recommend maintaining hemoglobin above 8 g percent. Dyslipidemia: LDL goal should be less than 70. Hypertension: Recommend good control of blood pressure. Blood pressure goal should be 135/85 or less in this young patient with diabetes, coronary artery disease. Patient blood pressure under better control with carvedilol. Recommend adding angiotensin receptor blockers if no contraindication. 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 Avoid any hypoglycemia. End-stage renal disease: Patient being followed by ada accommodation consultant. Sleep disorder: Patient describes significant problems with insomnia. Based on patient's comorbid diagnosis and body habitus she is likely to have significant sleep apnea problem. Patient will benefit from sleep study. Patient sleeping better with Ambien. Insomnia: Continue with Ambien therapy, may increase dose to 10 mg if needed. Obesity: Patient encouraged to increase her activities and cut back on the calories. - Time Time with patient: 15-25 minutes - CODE STATUS was discussed, patient remains full code. Surrogate decision-maker unchanged. Multiple medical problems were addressed. More than 50% of the time spent coordinating care, discussing management plans with involved caregivers. Management plans discussed with involved personnels. Medical decision making was of moderate to high complexity , patient's has multiple comorbidities. Patient was encouraged to ambulate in the hallway. Medications reviewed and adjusted accordingly: Yes
[2017-08-22] MEDS: CEFTRIAXONE SODIUM 1,000 MG in NORMAL SALINE 100 ML IV SCH (16:52)
[2017-08-22] MEDS ORDERED: EPOETIN ALFA INJ 40000 UNIT/1 ML (RENAL) SUBCUT ONE (17:59)
--- NOTE | 2017-08-22 18:04 | PDOC PROGRESS REPORT ---
Subjective Progress Note for:: 08/22/17 Subjective:: She was seen by the bedside, she has E. coli UTI and Proteus UTI sensitive to fluoroquinolones. She has no IV access the only option is a, central line she has end-stage renal disease on maintenance hemodialysis it is better and advisable to avoid central l line in this patient on the hemodialysis, the IV Rocephin will be discontinued and transitioned to p.o. Levaquin. She also have anemia Reason For Visit: SOB,CHF,RENAL FAILURE Physical Exam Vital Signs: Temp Pulse Resp BP Pulse Ox 99.0 F 83 19 148/72 H 100 08/22/17 12:27 08/22/17 14:00 08/22/17 12:34 08/22/17 12:27 08/22/17 12:34 Intake & Output 08/21/17 08/22/17 08/23/17 06:59 06:59 06:59 Intake Total 1785 1642 Output Total 3402 Balance 1785 -1760 Weight 134.2 kg 132.6 kg General appearance: PRESENT: no acute distress, well-developed, well-nourished Head exam: PRESENT: atraumatic, normocephalic Eye exam: PRESENT: conjunctiva pink, EOMI, PERRLA Ear exam: PRESENT: normal external ear exam Mouth exam: PRESENT: moist, tongue midline Neck exam: PRESENT: full ROM Respiratory exam: PRESENT: clear to auscultation adrianne Cardiovascular exam: PRESENT: RRR, +S1, +S2 Pulses: PRESENT: normal dorsalis pedis pul, +2 pedal pulses bilateral Vascular exam: PRESENT: normal capillary refill GI/Abdominal exam: PRESENT: normal bowel sounds, soft Rectal exam: PRESENT: deferred Neurological exam: PRESENT: alert, awake, oriented to person, oriented to place , oriented to time, oriented to situation, CN II-XII grossly intact. ABSENT: motor sensory deficit Psychiatric exam: PRESENT: appropriate affect, normal mood Skin exam: PRESENT: dry, intact, warm Results Laboratory Results: 08/22/17 13:07 08/21/17 05:17 08/22/17 08/22/17 08/22/17 05:05 05:05 13:07 WBC 9.5 9.3 RBC 3.00 L 3.16 L Hgb 7.7 L 8.2 L Hct 24.3 L 25.9 L MCV 81 82 MCH 25.7 L 25.8 L MCHC 31.7 L 31.5 L RDW 18.8 H 18.9 H Plt Count 185 281 Seg Neutrophils % 66.7 Lymphocytes % 26.0 Monocytes % 4.9 Eosinophils % 1.1 Basophils % 1.3 Absolute Neutrophils 6.4 Absolute Lymphocytes 2.5 Absolute Monocytes 0.5 Absolute Eosinophils 0.1 Absolute Basophils 0.1 Magnesium 1.8 08/19/17 08/19/17 08/19/17 12:45 12:45 16:15 Creatine Kinase 117 129 CK-MB (CK-2) 1.07 Troponin I 0.019 NT-Pro-B Natriuret Pep 08/19/17 08/19/17 08/19/17 16:15 21:43 21:43 Creatine Kinase 131 CK-MB (CK-2) 1.11 0.98 Troponin I 0.021 0.022 NT-Pro-B Natriuret Pep 08/20/17 08/21/17 08/22/17 04:41 05:17 05:05 Creatine Kinase CK-MB (CK-2) Troponin I NT-Pro-B Natriuret Pep 31266 H 74041 H 66165 H Impressions: Chest CT 08/19/17 00:00 IMPRESSION: Minimal basilar parenchymal opacities and pleural reaction. Chest X-Ray 08/19/17 00:00 IMPRESSION: 1. Cardiomegaly with pulmonary vascular congestion. Assessment & Plan - Diagnosis (1) E. coli UTI Is this a current diagnosis for this admission?: Yes Plan: Levaquin 500 mg p.o. daily (2) Acute on chronic renal failure Qualifiers: Acute renal failure type: unspecified Chronic kidney disease stage: on chronic dialysis Qualified Code(s): N17.9 - Acute kidney failure, unspecified ; N18.9 - Chronic kidney disease, unspecified; N18.9 - Chronic kidney disease, unspecified; Z99.2 - Dependence on renal dialysis; Z99.2 - Dependence on renal dialysis; Z99.2 - Dependence on renal dialysis; Z99.2 - Dependence on renal dialysis Is this a current diagnosis for this admission?: Yes (3) Acute pulmonary edema Is this a current diagnosis for this admission?: Yes (4) Chronic pain syndrome Is this a current diagnosis for this admission?: Yes (5) Congestive heart failure Qualifiers: Heart failure type: unspecified Heart failure chronicity: acute on chronic Qualified Code(s): I50.9 - Heart failure, unspecified Is this a current diagnosis for this admission?: Yes (6) Generalized anxiety disorder Is this a current diagnosis for this admission?: Yes (7) Hypertension Qualifiers: Hypertension type: essential hypertension Qualified Code(s): I10 - Essential (primary) hypertension Is this a current diagnosis for this admission?: Yes (8) Insomnia Qualifiers: Insomnia type: unspecified Qualified Code(s): G47.00 - Insomnia, unspecified Is this a current diagnosis for this admission?: Yes (9) Iron deficiency anemia Qualifiers: Iron deficiency anemia type: unspecified iron deficiency Qualified Code(s) : D50.9 - Iron deficiency anemia, unspecified Is this a current diagnosis for this admission?: Yes Plan: [place]
[2017-08-22] MEDS: LEVOFLOXACIN 500 MG TABLET PO SCH (18:33)
[2017-08-22] MEDS ORDERED: EPOETIN ALFA INJ 40000 UNIT/1 ML (ONCOLOGY) ONE (19:15)
[2017-08-22] MEDS: INSULIN GLARGINE,HUM.REC.ANLOG 300 UNIT/3 ML INSULN.PEN SUBCUT SCH (22:53)
[2017-08-22] MEDS: TRAZODONE HCL 50 MG TABLET PO SCH (22:54)
[2017-08-22] MEDS: ATORVASTATIN CALCIUM 40 MG TABLET PO SCH (22:54)
[2017-08-22] MEDS: ZOLPIDEM TARTRATE 5 MG TABLET PO SCH (22:54)
[2017-08-22] MEDS: IPRATROPIUM/ALBUTEROL 0.5-2.5 MG/3 ML AMPUL NEB PRN (23:49)
[2017-08-23] MEDS: HEPARIN SOD (PORCINE) 5,000 UNIT/ML 1 ML SYRINGE SUBCUT SCH ×3 (06:09→21:51)
[2017-08-23] MEDS: OXYCODONE-ACETAMINOPHEN 5-325 MG TABLET PO PRN ×2 (07:34→19:37)
[2017-08-23] MEDS: FUROSEMIDE 40 MG TABLET PO SCH (11:17)
[2017-08-23] MEDS: CARVEDILOL 12.5 MG TABLET PO SCH ×2 (11:17→21:51)
[2017-08-23] MEDS: NIFEDIPINE 30 MG TAB.ER.24 PO SCH ×2 (11:18→21:51)
[2017-08-23] MEDS: ALPRAZOLAM 0.5 MG TABLET PO PRN ×2 (11:18→19:37)
[2017-08-23] MEDS: PREGABALIN 25 MG CAPSULE PO SCH (11:18)
--- NOTE | 2017-08-23 12:16 | PDOC PROGRESS REPORT ---
Subjective Progress Note for:: 08/23/17 Subjective:: Patient claims that she feels better. Patient is sleeping better with Ambien. Dose can be increased if needed. Cardiac enzymes so far have been negative. Patient still has dyspnea on mild exertion. Patient blood pressure under better control. Patient claims significant problems with insomnia and possibly has underlying sleep apnea syndrome. Telemetry strips otherwise shows sinus rhythm. Reason For Visit: SOB,CHF,RENAL FAILURE Physical Exam Vital Signs: Temp Pulse Resp BP Pulse Ox 98.8 F 71 18 114/42 L 100 08/23/17 07:32 08/23/17 07:32 08/23/17 07:32 08/23/17 07:32 08/23/17 07:32 Intake & Output 08/22/17 08/23/17 08/24/17 06:59 06:59 06:59 Intake Total 1642 2600 Output Total 3402 Balance -1760 2600 Weight 132.6 kg 126.1 kg Exam: GENERAL: well-nourished and in no acute distress. Alert and oriented x3 HEAD: Atraumatic, normocephalic. EYES: Pupils equal round and reactive to light, extraocular movements intact, sclera anicteric, conjunctiva are normal. ENT: TMs normal, nares patent, oropharynx clear without exudates. Moist mucous membranes. No oral ulcerations or bleeding gums noted NECK: supple without lymphadenopathy. Trachea is central. No cervical or axillary lymphadenopathy noted. Carotids are 2+, JVD WNL LUNGS: Respiration seems nonlabored, no significant accessory muscle action noted. Breath sounds clear to auscultation bilaterally and equal noted. No wheezes rales or rhonchi noted. No significant dullness noted on percussion. CHEST: Palpation of the chest wall shows no significant chest wall tenderness. No other significant abnormalities noted. HEART: [place] TAKER OFF HEMP FIBER, No PSH, 1/6 [place] aortic area, 1/6 [place] systolic murmur mitral area, no rubs, no gallops. ABDOMEN: Soft, no significant tenderness appreciated, normoactive bowel sounds. No guarding, no rebound. No rigidity noted . No masses appreciated. EXTREMITIES: Pedal pulses are 1-2+, no calf tenderness noted. No clubbing or cyanosis.trace to 1+ pedal edema noted. AV graft versus fistula noted left arm. NEUROLOGICAL: Focused neurological exam showed no significant neurologic deficit. Normal speech, no focal weakness appreciated. PSYCH: Normal mood, normal affect. Judgment and insight within normal limits. SKIN: No significant ecchymosis, rash, ulcerations or signs of pruritus noted. MUSCULOSKELETAL EXAM: No significant joint swelling noted. Results Laboratory Results: 08/22/17 13:07 08/21/17 05:17 08/22/17 13:07 WBC 9.3 RBC 3.16 L Hgb 8.2 L Hct 25.9 L MCV 82 MCH 25.8 L MCHC 31.5 L RDW 18.9 H Plt Count 281 08/19/17 08/19/17 08/19/17 12:45 12:45 16:15 Creatine Kinase 117 129 CK-MB (CK-2) 1.07 Troponin I 0.019 NT-Pro-B Natriuret Pep 08/19/17 08/19/17 08/19/17 16:15 21:43 21:43 Creatine Kinase 131 CK-MB (CK-2) 1.11 0.98 Troponin I 0.021 0.022 NT-Pro-B Natriuret Pep 08/20/17 08/21/17 08/22/17 04:41 05:17 05:05 Creatine Kinase CK-MB (CK-2) Troponin I NT-Pro-B Natriuret Pep 56376 H 60625 H 41025 H Impressions: Chest CT 08/19/17 00:00 IMPRESSION: Minimal basilar parenchymal opacities and pleural reaction. Chest X-Ray 08/19/17 00:00 IMPRESSION: 1. Cardiomegaly with pulmonary vascular congestion. Assessment & Plan - Diagnosis (1) Congestive heart failure Qualifiers: Heart failure type: unspecified Heart failure chronicity: acute on chronic Qualified Code(s): I50.9 - Heart failure, unspecified Is this a current diagnosis for this admission?: Yes (2) Hypertension Qualifiers: Hypertension type: essential hypertension Qualified Code(s): I10 - Essential (primary) hypertension Is this a current diagnosis for this admission?: Yes (3) Acute diastolic (congestive) heart failure Is this a current diagnosis for this admission?: Yes (4) Anemia in chronic kidney disease (CKD) Qualifiers: Chronic kidney disease stage: on chronic dialysis Qualified Code(s): N18.6 - End stage renal disease; D63.1 - Anemia in chronic kidney disease; D63.1 - Anemia in chronic kidney disease; Z99.2 - Dependence on renal dialysis; Z99.2 - Dependence on renal dialysis; Z99.2 - Dependence on renal dialysis; Z99.2 - Dependence on renal dialysis Is this a current diagnosis for this admission?: Yes (5) End-stage renal disease on hemodialysis Is this a current diagnosis for this admission?: Yes (6) Hyperlipidemia Qualifiers: Hyperlipidemia type: unspecified Qualified Code(s): E78.5 - Hyperlipidemia , unspecified Is this a current diagnosis for this admission?: Yes (7) Insulin dependent diabetes mellitus Is this a current diagnosis for this admission?: Yes (8) Insomnia Qualifiers: Insomnia type: unspecified Qualified Code(s): G47.00 - Insomnia, unspecified Is this a current diagnosis for this admission?: Yes (9) Obesity Qualifiers: Obesity type: unspecified obesity type Serious obesity comorbidity presence : unspecified whether serious comorbidity present Is this a current diagnosis for this admission?: Yes - Notes Notes: Congestive heart failure: Patient did have a previous echocardiogram but in view of recurrent symptoms of significant shortness of breath, it may be worthwhile to consider repeating the 2D echo. A order to such effect was entered. Acute respiratory failure: Patient had presented with severe hypoxemia. This was most likely related to CHF secondary to volume excess and severe hypertension. Possibly related to acute on chronic diastolic heart failure. Patient claims significant weight gain recently. I was told by dialysis nurse that patient's dry weight I am told by the dialysis nurse is 125 KG. Coronary artery disease: Patient noted to have some coronary calcification therefore has underlying CAD. At this point recommend optimization of therapy for CAD and heart failure. In this regard to recommend statin therapy, beta- krista therapy, aspirin and Plavix therapy. So far cardiac enzymes has been negative. Hemoglobin currently borderline and barely above 8 g percent. Anemia: Recommend maintaining hemoglobin above 8 g percent. Dyslipidemia: LDL goal should be less than 70. Hypertension: Recommend good control of blood pressure. Blood pressure goal should be 135/85 or less in this young patient with diabetes, coronary artery disease. Patient blood pressure under better control with carvedilol. Recommend adding angiotensin receptor blockers if no contraindication. 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 Avoid any hypoglycemia. End-stage renal disease: Patient being followed by maritime engineer. Sleep disorder: Patient describes significant problems with insomnia. Based on patient's comorbid diagnosis and body habitus she is likely to have significant sleep apnea problem. Patient will benefit from sleep study. Patient sleeping better with Ambien. Insomnia: Continue with Ambien therapy, may increase dose to 10 mg if needed. Obesity: Patient encouraged to increase her activities and cut back on the calories. - Time Time with patient: Greater than 35 minutes - CODE STATUS was discussed, patient remains full code. Surrogate decision-maker unchanged. Multiple medical problems were addressed. More than 50% of the time spent coordinating care, discussing management plans with involved caregivers. Management plans discussed with involved personnels. Medical decision making was of moderate to high complexity, patient's has multiple comorbidities. Medications reviewed and adjusted accordingly: Yes
[2017-08-23] MEDS: INSULIN LISPRO 100 UNIT/ML 3 ML VIAL SUBCUT PRN ×3 (12:43→23:05)
--- NOTE | 2017-08-23 13:58 | PDOC PROGRESS REPORT ---
Subjective Progress Note for:: 08/23/17 Subjective:: She was seen by the bedside, she has E. coli UTI and Proteus UTI sensitive to fluoroquinolones. She has no IV access the only option is a, central line she has end-stage renal disease on maintenance hemodialysis it is better and advisable to avoid central l line in this patient on the hemodialysis, the IV Rocephin will be discontinued and transitioned to p.o. Levaquin. She also have anemia Reason For Visit: SOB,CHF,RENAL FAILURE Physical Exam Vital Signs: Temp Pulse Resp BP Pulse Ox 98.8 F 71 18 114/42 L 100 08/23/17 07:32 08/23/17 07:32 08/23/17 07:32 08/23/17 07:32 08/23/17 07:32 Intake & Output 08/22/17 08/23/17 08/24/17 06:59 06:59 06:59 Intake Total 1642 2600 Output Total 3402 Balance -1760 2600 Weight 132.6 kg 126.1 kg General appearance: PRESENT: no acute distress Head exam: PRESENT: atraumatic, normocephalic Eye exam: PRESENT: conjunctiva pink, EOMI, PERRLA Ear exam: PRESENT: normal external ear exam Mouth exam: PRESENT: moist, tongue midline Neck exam: PRESENT: full ROM Respiratory exam: PRESENT: clear to auscultation adrianne Cardiovascular exam: PRESENT: RRR, +S1, +S2 Pulses: PRESENT: normal dorsalis pedis pul, +2 pedal pulses bilateral Vascular exam: PRESENT: normal capillary refill GI/Abdominal exam: PRESENT: normal bowel sounds, soft Rectal exam: PRESENT: deferred Neurological exam: PRESENT: alert, awake, oriented to person, oriented to place , oriented to time, oriented to situation, CN II-XII grossly intact Psychiatric exam: PRESENT: appropriate affect, normal mood Skin exam: PRESENT: dry, intact, warm. ABSENT: cyanosis, rash Results Laboratory Results: 08/22/17 13:07 08/21/17 05:17 08/19/17 08/19/17 08/19/17 12:45 12:45 16:15 Creatine Kinase 117 129 CK-MB (CK-2) 1.07 Troponin I 0.019 NT-Pro-B Natriuret Pep 08/19/17 08/19/17 08/19/17 16:15 21:43 21:43 Creatine Kinase 131 CK-MB (CK-2) 1.11 0.98 Troponin I 0.021 0.022 NT-Pro-B Natriuret Pep 08/20/17 08/21/17 08/22/17 04:41 05:17 05:05 Creatine Kinase CK-MB (CK-2) Troponin I NT-Pro-B Natriuret Pep 92594 H 33541 H 48347 H Impressions: Chest CT 08/19/17 00:00 IMPRESSION: Minimal basilar parenchymal opacities and pleural reaction. Chest X-Ray 08/19/17 00:00 IMPRESSION: 1. Cardiomegaly with pulmonary vascular congestion. Assessment & Plan - Diagnosis (1) E. coli UTI Is this a current diagnosis for this admission?: Yes (2) Acute on chronic renal failure Qualifiers: Acute renal failure type: unspecified Chronic kidney disease stage: on chronic dialysis Qualified Code(s): N17.9 - Acute kidney failure, unspecified ; N18.9 - Chronic kidney disease, unspecified; N18.9 - Chronic kidney disease, unspecified; Z99.2 - Dependence on renal dialysis; Z99.2 - Dependence on renal dialysis; Z99.2 - Dependence on renal dialysis; Z99.2 - Dependence on renal dialysis Is this a current diagnosis for this admission?: Yes (3) Acute pulmonary edema Is this a current diagnosis for this admission?: Yes (4) Chronic pain syndrome Is this a current diagnosis for this admission?: Yes (5) Congestive heart failure Qualifiers: Heart failure type: unspecified Heart failure chronicity: acute on chronic Qualified Code(s): I50.9 - Heart failure, unspecified Is this a current diagnosis for this admission?: Yes (6) Generalized anxiety disorder Is this a current diagnosis for this admission?: Yes (7) Hypertension Qualifiers: Hypertension type: essential hypertension Qualified Code(s): I10 - Essential (primary) hypertension Is this a current diagnosis for this admission?: Yes (8) Insomnia Qualifiers: Insomnia type: unspecified Qualified Code(s): G47.00 - Insomnia, unspecified Is this a current diagnosis for this admission?: Yes (9) Iron deficiency anemia Qualifiers: Iron deficiency anemia type: unspecified iron deficiency Qualified Code(s) : D50.9 - Iron deficiency anemia, unspecified Is this a current diagnosis for this admission?: Yes - Plan Summary Plan Summary: Continue p.o. antibiotic
[2017-08-23] MEDS: IPRATROPIUM/ALBUTEROL 0.5-2.5 MG/3 ML AMPUL NEB PRN (16:07)
[2017-08-23] MEDS: LEVOFLOXACIN 500 MG TABLET PO SCH (17:31)
--- NOTE | 2017-08-23 21:23 | EKG REPORT ---
SEVERITY:- ABNORMAL ECG - SINUS RHYTHM NONSPECIFIC ST-T CHANGES- INFEROLATERAL LEADS : Confirmed by: Jalen Hallman MD 23-Aug-2017 21:22:23
[2017-08-23] MEDS: TRAZODONE HCL 50 MG TABLET PO SCH (21:51)
[2017-08-23] MEDS: ZOLPIDEM TARTRATE 5 MG TABLET PO SCH (21:51)
[2017-08-23] MEDS: ATORVASTATIN CALCIUM 40 MG TABLET PO SCH (21:51)
[2017-08-23] MEDS: INSULIN GLARGINE,HUM.REC.ANLOG 300 UNIT/3 ML INSULN.PEN SUBCUT SCH (23:05)
[2017-08-24] MEDS: OXYCODONE-ACETAMINOPHEN 5-325 MG TABLET PO PRN ×2 (03:45→17:49)
[2017-08-24] MEDS ORDERED: NORMAL SALINE 1000 ML 1,000 ML IV PRN (05:00)
[2017-08-24] MEDS ORDERED: EPOETIN ALFA INJ 20000 UNIT/1 ML VIAL (RENAL) IV PRN (05:00)
[2017-08-24] MEDS ORDERED: HEPARIN SOD (PORCINE) 1,000 UNIT/ML 10 ML VIAL IV PRN (05:00)
[2017-08-24 05:53] LABS: HEMATOCRIT 23.6 % (36.0-47.0); MEAN CORPUSCULAR HEMOGLOBIN 26.1 pg (27.0-33.4); MEAN CORPUSCULAR HGB CONC 32.3 g/dL (32.0-36.0); MEAN CORPUSCULAR VOLUME 81 fl (80-97); PLATELET COUNT 261 10^3/uL (150-450); RED BLOOD COUNT 2.92 10^6/uL (3.72-5.28); RED CELL DISTRIBUTION WIDTH 19.1 % (11.5-14.0); WHITE BLOOD COUNT 8.3 10^3/uL (4.0-10.5)
[2017-08-24 06:07] LABS: ANION GAP 10 (5-19); BLOOD UREA NITROGEN 45 mg/dL (7-20); CALCIUM 8.3 mg/dL (8.4-10.2); CARBON DIOXIDE 28 mmol/L (22-30); CHLORIDE 98 mmol/L (98-107); GLUCOSE 128 mg/dL (75-110); POTASSIUM 4.4 mmol/L (3.6-5.0); SODIUM 136.4 mmol/L (137-145)
[2017-08-24] MEDS: HEPARIN SOD (PORCINE) 5,000 UNIT/ML 1 ML SYRINGE SUBCUT SCH ×3 (06:23→22:12)
[2017-08-24 06:29] LABS: ABSOLUTE LYMPHOCYTES# (MANUAL) 2.6 10^3/uL (0.5-4.7); ABSOLUTE MONOCYTES # (MANUAL) 0.2 10^3/uL (0.1-1.4); ABSOLUTE NEUTROPHILS# (MANUAL) 5.3 10^3/uL (1.7-8.2); BAND NEUTROPHILS % (MANUAL) 1 % (3-5); BASOPHILS % (MANUAL) 0 % (0-2); EOSINOPHILS % (MANUAL) 2 % (0-6); LYMPHOCYTES % (MANUAL) 31 % (13-45); MONOCYTES % (MANUAL) 3 % (3-13); SEGMENTED NEUTROPHILS % (MAN) 63 % (42-78); TOTAL CELLS COUNTED 100
[2017-08-24 06:31] LABS: ACANTHOCYTES 1+; ANISOCYTOSIS 2+; HYPOCHROMASIA 1+; PLATELET COMMENT ADEQUATE; POIKILOCYTOSIS 2+; POLYCHROMASIA 1+; STOMATOCYTES 1+
[2017-08-24 06:33] LABS: HEMOGLOBIN 7.6 g/dL (12.0-15.5)
[2017-08-24] MEDS ORDERED: NORMAL SALINE 250 ML IV PRN ×2 (08:15)
[2017-08-24] MEDS: NIFEDIPINE 30 MG TAB.ER.24 PO SCH ×2 (09:17→22:12)
[2017-08-24] MEDS: PREGABALIN 25 MG CAPSULE PO SCH (09:17)
[2017-08-24] MEDS: CARVEDILOL 12.5 MG TABLET PO SCH ×2 (09:17→22:12)
[2017-08-24] MEDS: ALPRAZOLAM 0.5 MG TABLET PO PRN ×2 (11:46→17:49)
--- NOTE | 2017-08-24 13:40 | PDOC PROGRESS REPORT ---
Subjective Progress Note for:: 08/24/17 Subjective:: Patient's currently doing fair and no other events happens in the weekends Patient scheduled for hemodialysis today Reason For Visit: SOB,CHF,RENAL FAILURE Physical Exam Vital Signs: Temp Pulse Resp BP Pulse Ox 98.6 F 74 18 142/63 H 100 08/24/17 11:59 08/24/17 11:59 08/24/17 11:59 08/24/17 11:59 08/24/17 11:59 Intake & Output 08/23/17 08/24/17 08/25/17 06:59 06:59 06:59 Intake Total 2600 1550 575 Balance 2600 1550 575 Weight 126.1 kg 125.3 kg General appearance: PRESENT: no acute distress, well-developed, well-nourished Head exam: PRESENT: atraumatic, normocephalic Eye exam: PRESENT: conjunctiva pink, EOMI, PERRLA. ABSENT: scleral icterus Ear exam: PRESENT: normal external ear exam Mouth exam: PRESENT: moist, tongue midline Neck exam: PRESENT: full ROM. ABSENT: carotid bruit, JVD, lymphadenopathy, thyromegaly Respiratory exam: PRESENT: clear to auscultation adrianne Cardiovascular exam: PRESENT: RRR. ABSENT: diastolic murmur, rubs, systolic murmur Pulses: PRESENT: normal dorsalis pedis pul, +2 pedal pulses bilateral Vascular exam: PRESENT: normal capillary refill GI/Abdominal exam: PRESENT: normal bowel sounds, soft. ABSENT: distended, guarding, mass, organolmegaly, rebound, tenderness Rectal exam: PRESENT: deferred Extremities exam: ABSENT: pedal edema Musculoskeletal exam: PRESENT: ambulatory Neurological exam: PRESENT: alert, awake, oriented to person, oriented to place , oriented to time, oriented to situation, CN II-XII grossly intact. ABSENT: motor sensory deficit Psychiatric exam: PRESENT: appropriate affect, normal mood. ABSENT: homicidal ideation, suicidal ideation Skin exam: PRESENT: dry, intact, warm. ABSENT: cyanosis, rash Results Laboratory Results: 08/24/17 05:08 08/24/17 05:08 08/24/17 08/24/17 08/24/17 05:08 05:08 09:56 WBC 8.3 RBC 2.92 L Hgb 7.6 L Hct 23.6 L MCV 81 MCH 26.1 L MCHC 32.3 RDW 19.1 H Plt Count 261 Seg Neutrophils % Not Reportable Lymphocytes % Not Reportable Monocytes % Not Reportable Eosinophils % Not Reportable Basophils % Not Reportable Absolute Neutrophils Not Reportable Absolute Lymphocytes Not Reportable Absolute Monocytes Not Reportable Absolute Eosinophils Not Reportable Absolute Basophils Not Reportable Sodium 136.4 L Potassium 4.4 Chloride 98 Carbon Dioxide 28 Anion Gap 10 BUN 45 H Creatinine 5.57 H Est GFR ( Amer) 10 L Est GFR (Non-Af Amer) 8 L Glucose 128 H Calcium 8.3 L Blood Type A NEGATIVE Antibody Screen NEGATIVE 08/19/17 12:45 Blood Blood Culture - Final NO GROWTH IN 5 DAYS 08/19/17 08/19/17 08/19/17 12:45 12:45 16:15 Creatine Kinase 117 129 CK-MB (CK-2) 1.07 Troponin I 0.019 NT-Pro-B Natriuret Pep 08/19/17 08/19/17 08/19/17 16:15 21:43 21:43 Creatine Kinase 131 CK-MB (CK-2) 1.11 0.98 Troponin I 0.021 0.022 NT-Pro-B Natriuret Pep 08/20/17 08/21/17 08/22/17 04:41 05:17 05:05 Creatine Kinase CK-MB (CK-2) Troponin I NT-Pro-B Natriuret Pep 97445 H 35412 H 97121 H Impressions: Chest CT 08/19/17 00:00 IMPRESSION: Minimal basilar parenchymal opacities and pleural reaction. Chest X-Ray 08/19/17 00:00 IMPRESSION: 1. Cardiomegaly with pulmonary vascular congestion. Assessment & Plan - Diagnosis (1) Acute diastolic (congestive) heart failure Is this a current diagnosis for this admission?: Yes Plan: Currently doing well continues with the hemodialysis (2) End stage renal disease on dialysis Is this a current diagnosis for this admission?: Yes Plan: Currently follow with the nephrology and hemodialysis schedule tomorrow again (3) Pulmonary edema Qualifiers: Chronicity: acute Is this a current diagnosis for this admission?: Yes Plan: Currently all resolved (4) COPD (chronic obstructive pulmonary disease) Qualifiers: COPD type: chronic bronchitis Is this a current diagnosis for this admission?: Yes Plan: Get the nebulizer treatments (5) Hypertension Qualifiers: Hypertension type: essential hypertension Qualified Code(s): I10 - Essential (primary) hypertension Is this a current diagnosis for this admission?: Yes Plan: Continues to current medications (6) Anemia in chronic kidney disease (CKD) Qualifiers: Chronic kidney disease stage: on chronic dialysis Qualified Code(s): N18.6 - End stage renal disease; D63.1 - Anemia in chronic kidney disease; D63.1 - Anemia in chronic kidney disease; Z99.2 - Dependence on renal dialysis; Z99.2 - Dependence on renal dialysis; Z99.2 - Dependence on renal dialysis; Z99.2 - Dependence on renal dialysis Is this a current diagnosis for this admission?: Yes Plan: Transfused 1 unit of blood today (7) Insulin dependent diabetes mellitus Is this a current diagnosis for this admission?: Yes Plan: Continues to insulin and continues to sliding scale (9) Secondary hyperparathyroidism (of renal origin) Is this a current diagnosis for this admission?: Yes Plan: Currently stable follow with the nephrology (10) Generalized anxiety disorder Is this a current diagnosis for this admission?: Yes Plan: This is requested the Xanax instead of the Klonopin (11) Chronic pain syndrome Is this a current diagnosis for this admission?: Yes Plan: Continues to pain medication for pain management (12) Leukocytosis Qualifiers: Leukocytosis type: unspecified Qualified Code(s): D72.829 - Elevated white blood cell count, unspecified Is this a current diagnosis for this admission?: Yes Plan: Currently all resolved (13) Urinary tract infection Qualifiers: Urinary tract infection type: site unspecified Is this a current diagnosis for this admission?: Yes Plan: The urine cultures of the Proteus continues to Rocephin - Time Time Spent with patient: 15-24 minutes Medications reviewed and adjusted accordingly: Yes Anticipated discharge: Home Within: within 24 hours - Inpatient Certification Medical Necessity: Need Close Monitoring Due to Risk of Patient Decompensation, Need for IV Antibiotics Post Hospital Care: D/C Endoscopy Tech Documentation - Plan Summary Plan Summary: Transfused 1 unit of the blood work scheduled hemodialysis today if the patient remains stable hopefully discharge tomorrow
[2017-08-24] MEDS: LEVOFLOXACIN 500 MG TABLET PO SCH (17:49)
--- NOTE | 2017-08-24 18:00 | PDOC PROGRESS REPORT ---
Subjective Progress Note for:: 08/24/17 Subjective:: I saw the patient during dialysis this afternoon around 1:20 PM. Patient still complaining of dyspnea on exertion as simple as standing up and going to the bathroom and some easy fatigability. She said she gets short chest pain every now and then not currently. She will receive 2 units of packed RBC during dialysis today. She is otherwise stable. Reason For Visit: SOB,CHF, ESRD Physical Exam Vital Signs: Temp Pulse Resp BP Pulse Ox 96.7 F L 68 16 168/76 H 99 08/24/17 16:00 08/24/17 16:00 08/24/17 16:00 08/24/17 16:00 08/24/17 14:41 Intake & Output 08/23/17 08/24/17 08/25/17 06:59 06:59 06:59 Intake Total 2600 1550 1575 Balance 2600 1550 1575 Weight 126.1 kg 125.3 kg Vitals during dialysis: Blood pressure 156/77, heart rate of 70, respiratory rate of 12, temperature 97.4, blood flow rate of 350 mL/min, dialysate flow rate of 800 mL/min. Exam: General appearance: PRESENT: no acute distress, cooperative, well-developed, well-nourished Head exam: PRESENT: atraumatic, normocephalic Eye exam: PRESENT: conjunctiva pale, PERRLA. ABSENT: scleral icterus Neck exam: ABSENT: JVD Respiratory exam: PRESENT: Diminished breath sounds. ABSENT: crackles, rales, rhonchi, unlabored, wheezes Cardiovascular exam: PRESENT: Regular rate rhythm -+S1, +S2. ABSENT: diastolic murmur, systolic murmur GI/Abdominal exam: PRESENT: normal bowel sounds, soft. ABSENT: guarding, mass, tenderness Extremities exam: ABSENT: No edema Neurological exam: PRESENT: alert, awake, oriented to person, place and time. Skin exam: PRESENT: dry, warm, Results Laboratory Results: 08/24/17 05:08 08/24/17 05:08 08/24/17 08/24/17 08/24/17 05:08 05:08 09:56 WBC 8.3 RBC 2.92 L Hgb 7.6 L Hct 23.6 L MCV 81 MCH 26.1 L MCHC 32.3 RDW 19.1 H Plt Count 261 Seg Neutrophils % Not Reportable Lymphocytes % Not Reportable Monocytes % Not Reportable Eosinophils % Not Reportable Basophils % Not Reportable Absolute Neutrophils Not Reportable Absolute Lymphocytes Not Reportable Absolute Monocytes Not Reportable Absolute Eosinophils Not Reportable Absolute Basophils Not Reportable Sodium 136.4 L Potassium 4.4 Chloride 98 Carbon Dioxide 28 Anion Gap 10 BUN 45 H Creatinine 5.57 H Est GFR ( Amer) 10 L Est GFR (Non-Af Amer) 8 L Glucose 128 H Calcium 8.3 L Blood Type A NEGATIVE Antibody Screen NEGATIVE 08/19/17 16:15 Blood Blood Culture - Final NO GROWTH IN 5 DAYS 08/19/17 12:45 Blood Blood Culture - Final NO GROWTH IN 5 DAYS 08/19/17 08/19/17 08/19/17 12:45 12:45 16:15 Creatine Kinase 117 129 CK-MB (CK-2) 1.07 Troponin I 0.019 NT-Pro-B Natriuret Pep 08/19/17 08/19/17 08/19/17 16:15 21:43 21:43 Creatine Kinase 131 CK-MB (CK-2) 1.11 0.98 Troponin I 0.021 0.022 NT-Pro-B Natriuret Pep 08/20/17 08/21/17 08/22/17 04:41 05:17 05:05 Creatine Kinase CK-MB (CK-2) Troponin I NT-Pro-B Natriuret Pep 81253 H 53642 H 05418 H Impressions: Chest CT 08/19/17 00:00 IMPRESSION: Minimal basilar parenchymal opacities and pleural reaction. Chest X-Ray 08/19/17 00:00 IMPRESSION: 1. Cardiomegaly with pulmonary vascular congestion. Assessment & Plan - Diagnosis (1) End-stage renal disease on hemodialysis Is this a current diagnosis for this admission?: Yes Plan: We did dialysis today for 3 hours, using the patient's PermCath, with 3 potassium bath, blood flow rate of 350 mL per minute, dialysate flow rate of 800 mL per minute, ultrafiltration 3-4 L, no heparin and Procrit with 20,000 units units during dialysis intravenously. Patient was transfused 2 units of packed RBC during dialysis today without any complications. (2) Acute pulmonary edema Is this a current diagnosis for this admission?: Yes Plan: Patient had this episode during previous admission last year. Patient did not have evidence of renal artery stenosis at that time. She does have baseline diastolic congestive heart failure and end-stage renal disease which together could cause this. This seems to be resolved. (3) Acute diastolic (congestive) heart failure Is this a current diagnosis for this admission?: Yes Plan: As mentioned we will do ultrafiltration. Dr. Petty following the patient. (4) Hypertension Qualifiers: Hypertension type: essential hypertension Qualified Code(s): I10 - Essential (primary) hypertension Is this a current diagnosis for this admission?: Yes Plan: Continue home medications. (5) Anemia in chronic kidney disease (CKD) Qualifiers: Chronic kidney disease stage: on chronic dialysis Qualified Code(s): N18.6 - End stage renal disease; D63.1 - Anemia in chronic kidney disease; D63.1 - Anemia in chronic kidney disease; Z99.2 - Dependence on renal dialysis; Z99.2 - Dependence on renal dialysis; Z99.2 - Dependence on renal dialysis; Z99.2 - Dependence on renal dialysis Is this a current diagnosis for this admission?: Yes Plan: Transfuse 2 units of packed RBC and was given Procrit 20,000 units IV during dialysis. (6) Insulin dependent diabetes mellitus Is this a current diagnosis for this admission?: Yes (7) Generalized anxiety disorder Is this a current diagnosis for this admission?: Yes (8) Secondary hyperparathyroidism (of renal origin) Is this a current diagnosis for this admission?: Yes (9) Chronic pain syndrome Is this a current diagnosis for this admission?: Yes - Notes Notes: From nephrology standpoint I think patient is stable enough to be discharged home any time that she is cleared by the other providers on the case including cardiology. If discharged tomorrow her next dialysis will be in her regular dialysis time on Thursday. - Time Time with patient: 15-25 minutes
[2017-08-24 18:36] LABS: ABSOLUTE BASOPHILS # (AUTO) 0.1 10^3/uL (0.0-0.2); ABSOLUTE EOSINOPHILS # (AUTO) 0.1 10^3/uL (0.0-0.6); ABSOLUTE LYMPHOCYTES (AUTO) 1.7 10^3/uL (0.5-4.7); ABSOLUTE MONOCYTES (AUTO) 0.7 10^3/uL (0.1-1.4); ABSOLUTE NEUT (AUTO) 6.5 10^3/uL (1.7-8.2); BASOPHILS % (AUTO) 0.8 % (0-2); EOSINOPHILS % (AUTO) 1.2 % (0-6); HEMATOCRIT 31.3 % (36.0-47.0); LYMPHOCYTES % (AUTO) 18.7 % (13-45); MEAN CORPUSCULAR HEMOGLOBIN 26.6 pg (27.0-33.4); MEAN CORPUSCULAR HGB CONC 32.8 g/dL (32.0-36.0); MEAN CORPUSCULAR VOLUME 81 fl (80-97); MONOCYTES % (AUTO) 7.6 % (3-13); PLATELET COUNT 255 10^3/uL (150-450); RED BLOOD COUNT 3.86 10^6/uL (3.72-5.28); SEGMENTED NEUTROPHILS % (AUTO) 71.7 % (42-78); TOTAL CELLS COUNTED % (AUTO) 100 %; WHITE BLOOD COUNT 9.1 10^3/uL (4.0-10.5)
[2017-08-24 18:37] LABS: HEMOGLOBIN 10.3 g/dL (12.0-15.5)
--- NOTE | 2017-08-24 20:02 | PDOC PROGRESS REPORT ---
Subjective Progress Note for:: 08/24/17 Subjective:: Patient continues with shortness of breath on mild exertion. She however denied any chest pain today. Patient noted to be severely anemic with hemoglobin less than 8 g percent. Patient to get 2 units of blood transfusion on dialysis. Reason For Visit: SOB,CHF,RENAL FAILURE Physical Exam Vital Signs: Temp Pulse Resp BP Pulse Ox 99.9 F 87 18 156/75 H 96 08/24/17 18:00 08/24/17 19:00 08/24/17 18:00 08/24/17 18:00 08/24/17 18:00 Intake & Output 08/23/17 08/24/17 08/25/17 06:59 06:59 06:59 Intake Total 2600 1550 2245 Balance 2600 1550 2245 Weight 126.1 kg 125.3 kg Exam: GENERAL: well-nourished and in no acute distress. Alert and oriented x3 HEAD: Atraumatic, normocephalic. EYES: Pupils equal round and reactive to light, extraocular movements intact, sclera anicteric, conjunctiva are normal. ENT: TMs normal, nares patent, oropharynx clear without exudates. Moist mucous membranes. No oral ulcerations or bleeding gums noted NECK: supple without lymphadenopathy. Trachea is central. No cervical or axillary lymphadenopathy noted. Carotids are 2+, JVD WNL LUNGS: Respiration seems nonlabored, no significant accessory muscle action noted. Breath sounds clear to auscultation bilaterally and equal noted. No wheezes rales or rhonchi noted. No significant dullness noted on percussion. CHEST: Palpation of the chest wall shows no significant chest wall tenderness. No other significant abnormalities noted. 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 ABDOMEN: Soft, no significant tenderness appreciated, normoactive bowel sounds. No guarding, no rebound. No rigidity noted . No masses appreciated. AV graft/ fistula noted in the left arm. EXTREMITIES: Pedal pulses are 1-2+, no calf tenderness noted. No clubbing or cyanosis.trace to 1+ pedal edema noted NEUROLOGICAL: Focused neurological exam showed no significant neurologic deficit. Normal speech, no focal weakness appreciated. PSYCH: Normal mood, normal affect. Judgment and insight within normal limits. SKIN: No significant ecchymosis, rash, ulcerations or signs of pruritus noted. MUSCULOSKELETAL EXAM: No significant joint swelling noted. Results Laboratory Results: 08/24/17 18:23 08/24/17 05:08 08/24/17 08/24/17 08/24/17 05:08 05:08 09:56 WBC 8.3 RBC 2.92 L Hgb 7.6 L Hct 23.6 L MCV 81 MCH 26.1 L MCHC 32.3 RDW 19.1 H Plt Count 261 Seg Neutrophils % Not Reportable Lymphocytes % Not Reportable Monocytes % Not Reportable Eosinophils % Not Reportable Basophils % Not Reportable Absolute Neutrophils Not Reportable Absolute Lymphocytes Not Reportable Absolute Monocytes Not Reportable Absolute Eosinophils Not Reportable Absolute Basophils Not Reportable Sodium 136.4 L Potassium 4.4 Chloride 98 Carbon Dioxide 28 Anion Gap 10 BUN 45 H Creatinine 5.57 H Est GFR ( Amer) 10 L Est GFR (Non-Af Amer) 8 L Glucose 128 H Calcium 8.3 L Blood Type A NEGATIVE Antibody Screen NEGATIVE 08/24/17 18:23 WBC 9.1 RBC 3.86 Hgb 10.3 L D Hct 31.3 L MCV 81 MCH 26.6 L MCHC 32.8 RDW 18.0 H Plt Count 255 Seg Neutrophils % 71.7 Lymphocytes % 18.7 Monocytes % 7.6 Eosinophils % 1.2 Basophils % 0.8 Absolute Neutrophils 6.5 Absolute Lymphocytes 1.7 Absolute Monocytes 0.7 Absolute Eosinophils 0.1 Absolute Basophils 0.1 Sodium Potassium Chloride Carbon Dioxide Anion Gap BUN Creatinine Est GFR ( Amer) Est GFR (Non-Af Amer) Glucose Calcium Blood Type Antibody Screen 08/19/17 16:15 Blood Blood Culture - Final NO GROWTH IN 5 DAYS 08/19/17 12:45 Blood Blood Culture - Final NO GROWTH IN 5 DAYS 08/19/17 08/19/17 08/19/17 12:45 12:45 16:15 Creatine Kinase 117 129 CK-MB (CK-2) 1.07 Troponin I 0.019 NT-Pro-B Natriuret Pep 08/19/17 08/19/17 08/19/17 16:15 21:43 21:43 Creatine Kinase 131 CK-MB (CK-2) 1.11 0.98 Troponin I 0.021 0.022 NT-Pro-B Natriuret Pep 08/20/17 08/21/17 08/22/17 04:41 05:17 05:05 Creatine Kinase CK-MB (CK-2) Troponin I NT-Pro-B Natriuret Pep 25945 H 01427 H 69734 H Impressions: Chest CT 08/19/17 00:00 IMPRESSION: Minimal basilar parenchymal opacities and pleural reaction. Chest X-Ray 08/19/17 00:00 IMPRESSION: 1. Cardiomegaly with pulmonary vascular congestion. Assessment & Plan - Diagnosis (1) Congestive heart failure Qualifiers: Heart failure type: unspecified Heart failure chronicity: acute on chronic Qualified Code(s): I50.9 - Heart failure, unspecified Is this a current diagnosis for this admission?: Yes (2) Hypertension Qualifiers: Hypertension type: essential hypertension Qualified Code(s): I10 - Essential (primary) hypertension Is this a current diagnosis for this admission?: Yes (3) Acute diastolic (congestive) heart failure Is this a current diagnosis for this admission?: Yes (4) Anemia in chronic kidney disease (CKD) Qualifiers: Chronic kidney disease stage: on chronic dialysis Qualified Code(s): N18.6 - End stage renal disease; D63.1 - Anemia in chronic kidney disease; D63.1 - Anemia in chronic kidney disease; Z99.2 - Dependence on renal dialysis; Z99.2 - Dependence on renal dialysis; Z99.2 - Dependence on renal dialysis; Z99.2 - Dependence on renal dialysis Is this a current diagnosis for this admission?: Yes (5) End-stage renal disease on hemodialysis Is this a current diagnosis for this admission?: Yes (6) Hyperlipidemia Qualifiers: Hyperlipidemia type: unspecified Qualified Code(s): E78.5 - Hyperlipidemia , unspecified Is this a current diagnosis for this admission?: Yes (7) Insulin dependent diabetes mellitus Is this a current diagnosis for this admission?: Yes (8) Insomnia Qualifiers: Insomnia type: unspecified Qualified Code(s): G47.00 - Insomnia, unspecified Is this a current diagnosis for this admission?: Yes (9) Obesity Qualifiers: Obesity type: unspecified obesity type Serious obesity comorbidity presence : unspecified whether serious comorbidity present Is this a current diagnosis for this admission?: Yes - Notes Notes: Congestive heart failure: Currently stable. Patient to have fluid removed on dialysis. Currently scheduled to get 2 units of blood transfusion. Acute respiratory failure: Patient had presented with severe hypoxemia. This was most likely related to CHF secondary to volume excess and severe hypertension. Possibly related to acute on chronic diastolic heart failure. Patient claims significant weight gain recently. I was told by dialysis nurse that patient's dry weight I am told by the dialysis nurse is 125 KG. Coronary artery disease: Patient noted to have some coronary calcification therefore has underlying CAD. At this point recommend optimization of therapy for CAD and heart failure. In this regard to recommend statin therapy, beta- krista therapy, aspirin and Plavix therapy. So far cardiac enzymes has been negative. Hemoglobin currently borderline and barely above 8 g percent. Anemia: Recommend maintaining hemoglobin above 8 g percent. Dyslipidemia: LDL goal should be less than 70. Hypertension: Recommend good control of blood pressure. Blood pressure goal should be 135/85 or less in this young patient with diabetes, coronary artery disease. Patient blood pressure under better control with carvedilol. Recommend adding angiotensin receptor blockers if no contraindication. Diabetes: Management is being left structural fitter. Avoid any hypoglycemia. End-stage renal disease: Patient being followed by bus driver/monitor. Sleep disorder: Patient describes significant problems with insomnia. Based on patient's comorbid diagnosis and body habitus she is likely to have significant sleep apnea problem. Patient will benefit from sleep study. Patient sleeping better with Ambien. Insomnia: Continue with Ambien therapy, may increase dose to 10 mg if needed. Obesity: Patient encouraged to increase her activities and cut back on the calories. - Time Time with patient: 15-25 minutes - CODE STATUS was discussed, patient remains full code. Surrogate decision-maker unchanged. Multiple medical problems were addressed. More than 50% of the time spent coordinating care, discussing management plans with involved caregivers. Management plans discussed with involved personnels. Medical decision making was of moderate to high complexity , patient's has multiple comorbidities. Medications reviewed and adjusted accordingly: Yes
[2017-08-24] MEDS: ATORVASTATIN CALCIUM 40 MG TABLET PO SCH (22:12)
[2017-08-24] MEDS: ZOLPIDEM TARTRATE 5 MG TABLET PO SCH (22:12)
[2017-08-24] MEDS: TRAZODONE HCL 50 MG TABLET PO SCH (22:12)
[2017-08-24] MEDS: INSULIN LISPRO 100 UNIT/ML 3 ML VIAL SUBCUT PRN (22:58)
[2017-08-24] MEDS: INSULIN GLARGINE,HUM.REC.ANLOG 300 UNIT/3 ML INSULN.PEN SUBCUT SCH (22:58)
[2017-08-25] MEDS: OXYCODONE-ACETAMINOPHEN 5-325 MG TABLET PO PRN ×4 (00:21→21:14)
[2017-08-25] MEDS: ALPRAZOLAM 0.5 MG TABLET PO PRN ×4 (00:23→21:14)
[2017-08-25] MEDS: HEPARIN SOD (PORCINE) 5,000 UNIT/ML 1 ML SYRINGE SUBCUT SCH ×3 (05:35→21:05)
[2017-08-25] MEDS: IPRATROPIUM/ALBUTEROL 0.5-2.5 MG/3 ML AMPUL NEB PRN (08:02)
[2017-08-25] MEDS: CARVEDILOL 12.5 MG TABLET PO SCH ×2 (09:38→21:05)
[2017-08-25] MEDS: NIFEDIPINE 30 MG TAB.ER.24 PO SCH ×2 (09:38→21:06)
[2017-08-25] MEDS: FUROSEMIDE 40 MG TABLET PO SCH (09:39)
[2017-08-25] MEDS: PREGABALIN 25 MG CAPSULE PO SCH (09:39)
--- NOTE | 2017-08-25 12:52 | PDOC DISCHARGE SUMMARY ---
General - Admit/Disc Date/PCP Admission Date/Primary Care Provider: 08/19/17 09:23 TU VIEYRA MD Discharge Date: 08/25/17 - Discharge Diagnosis (1) Acute diastolic (congestive) heart failure Is this a current diagnosis for this admission?: Yes Summary: Currently on hemodialysis stable (2) End stage renal disease on dialysis Is this a current diagnosis for this admission?: Yes Summary: Follow with the nephrology (3) Pulmonary edema Is this a current diagnosis for this admission?: Yes Summary: Currently all resolved (4) COPD (chronic obstructive pulmonary disease) Is this a current diagnosis for this admission?: Yes Summary: Currently all stable (5) Hypertension Is this a current diagnosis for this admission?: Yes Summary: Continues current medication (6) Anemia in chronic kidney disease (CKD) Is this a current diagnosis for this admission?: Yes Summary: Status post blood transfusions currently all stable (7) Insulin dependent diabetes mellitus Is this a current diagnosis for this admission?: Yes Summary: current insulin (8) Noncompliance Is this a current diagnosis for this admission?: No Summary: Discussed with the patient about compliance (9) Secondary hyperparathyroidism (of renal origin) Is this a current diagnosis for this admission?: Yes (10) Generalized anxiety disorder Is this a current diagnosis for this admission?: Yes Summary: Gilberto current medications follow outpatient psych (11) Chronic pain syndrome Is this a current diagnosis for this admission?: Yes Summary: Follow-up pain management (12) Leukocytosis Is this a current diagnosis for this admission?: Yes Summary: On the UTI currently all resolved (13) Urinary tract infection Is this a current diagnosis for this admission?: Yes Summary: with the Rocephin treatments currently all resolved - Additional Information Resuscitation Status: Full Code Discharge Diet: Diabetic Discharge Activity: Activity As Tolerated, Balance Activity w/Rest, Weigh Daily Prescriptions: Carvedilol [Coreg 12.5 mg Tablet] 25 mg PO Q12 #60 tablet Home Medications: B Complex W-C No.20/Folic Acid [Nephrocaps Softgel] 1 mg PO DAILY 08/19/17 Clonazepam [Klonopin] 0.5 mg PO DAILY 08/19/17 Furosemide [Lasix 40 mg Tablet] 40 mg PO QAM 08/19/17 Hydralazine HCl [Apresoline 50 mg Tablet] 50 mg PO Q8HP PRN 08/19/17 Insulin Aspart [Novolog Insulin (Aspart) 100 unit/mL] 0 unit SUBCUT .SLD SCALE 08/19/17 Insulin Glargine,Hum.rec.anlog [Lantus Insulin 100 Unit/1 ml 10 ml] 48 unit SUBCUT QHS 08/19/17 Nifedipine [Procardia XL 30 mg Tablet] 60 mg PO Q12 08/19/17 Oxycodone HCl/Acetaminophen [Percocet 5-325 mg Tablet] 1 tab PO TIDP PRN Pregabalin [Lyrica 25 mg Capsule] 25 mg PO DAILY 08/19/17 Promethazine HCl [Phenergan 25 mg Tablet] 25 mg PO Q8HP PRN 08/19/17 Trazodone HCl [Desyrel 50 mg Tablet] 100 mg PO QHS 08/19/17 Carvedilol [Coreg 12.5 mg Tablet] 25 mg PO Q12 #60 tablet 08/25/17 History of Present Illness History of Present Illness: JESUS CALDERÓN is a 57 year old female This is a 57-year-old females with very new to the practice one time seen last month in the office with a significant history of end-stage renal disease and currently hemodialysis following Dr. Vieyra and history of the diastolic congestive heart failureHistory of the chronic pain syndromes currently see the pain management at [facility] and also history of the severe anxiety disorders and multiple other comorbidity came to the emergency departments was noticed some shortness of the breath last night's and feeling like some chest discomfortAnd patients would like a severe anxiety in the emergency department patient initially put on a BiPAP and currently weaned off from the BiPAP to the oxygen's and doing well When I saw the patient in the emergency department patient's denied any chest pain denied any shortness of the breath Patient's also go for hemodialysis in the missed the dialysis one day last week but patient hemodialysis done on the Thursday At this point patient initial workup was all stable except patient's white count is elevated to 13,000 patient's denied any fever no chills Patient's denied any urinary symptoms Patient's chest x-ray consistence with the cardiomegaly with the vascular congestions Hospital Course Hospital Course: This is a 57-year-old female is present in the emergency department with a complaint was shortness of the breath with diagnosed with the pulmonary edema with the congestive heart failure underwent for the hemodialysis and resolved all the symptoms patient also have any check infections treated with the Rocephin. Patient also COPD with bronchitis was treated with the nebulizer treatments and response very well Since seen by the cardiology and seen by the nephrology and currently doing well Patients need a sleep study and outpatients cardiac cath per cardiology Patient's denied any chest pain denied any shortness of the breath on the discharge Walk in the hallway with the walker without any problem Patients remain afebrile patients back to the baseline's Physical Exam Vital Signs: Temp Pulse Resp BP Pulse Ox 98.9 F 82 18 148/64 H 96 08/25/17 07:50 08/25/17 08:02 08/25/17 08:02 08/25/17 07:50 08/25/17 08:02 Intake & Output 08/24/17 08/25/17 08/26/17 06:59 06:59 06:59 Intake Total 1550 2463 Output Total 900 Balance 1550 1563 Weight 125.3 kg 125.3 kg General appearance: PRESENT: no acute distress, well-developed, well-nourished Head exam: PRESENT: atraumatic, normocephalic Eye exam: PRESENT: conjunctiva pink, EOMI, PERRLA. ABSENT: scleral icterus Ear exam: PRESENT: normal external ear exam Mouth exam: PRESENT: moist, tongue midline Neck exam: PRESENT: full ROM. ABSENT: carotid bruit, JVD, lymphadenopathy, thyromegaly Respiratory exam: PRESENT: clear to auscultation adrianne Cardiovascular exam: PRESENT: RRR. ABSENT: diastolic murmur, rubs, systolic murmur Pulses: PRESENT: normal dorsalis pedis pul, +2 pedal pulses bilateral Vascular exam: PRESENT: normal capillary refill GI/Abdominal exam: PRESENT: normal bowel sounds, soft. ABSENT: distended, guarding, mass, organolmegaly, rebound, tenderness Rectal exam: PRESENT: deferred Extremities exam: ABSENT: full ROM, left AKA, right AKA, left BKA, right BKA, calf tenderness, joint swelling, pedal edema, tenderness, other Musculoskeletal exam: PRESENT: ambulatory Neurological exam: PRESENT: alert, awake, oriented to person, oriented to place , oriented to time, oriented to situation, CN II-XII grossly intact. ABSENT: motor sensory deficit Psychiatric exam: PRESENT: appropriate affect, normal mood. ABSENT: homicidal ideation, suicidal ideation Skin exam: PRESENT: dry, intact, warm. ABSENT: cyanosis, rash Results Laboratory Results: 08/24/17 18:23 08/24/17 05:08 08/24/17 08/24/17 09:56 18:23 WBC 9.1 RBC 3.86 Hgb 10.3 L D Hct 31.3 L MCV 81 MCH 26.6 L MCHC 32.8 RDW 18.0 H Plt Count 255 Seg Neutrophils % 71.7 Lymphocytes % 18.7 Monocytes % 7.6 Eosinophils % 1.2 Basophils % 0.8 Absolute Neutrophils 6.5 Absolute Lymphocytes 1.7 Absolute Monocytes 0.7 Absolute Eosinophils 0.1 Absolute Basophils 0.1 Blood Type A NEGATIVE Antibody Screen NEGATIVE 08/19/17 16:15 Blood Blood Culture - Final NO GROWTH IN 5 DAYS 08/19/17 12:45 Blood Blood Culture - Final NO GROWTH IN 5 DAYS 08/19/17 08/19/17 08/19/17 12:45 12:45 16:15 Creatine Kinase 117 129 CK-MB (CK-2) 1.07 Troponin I 0.019 NT-Pro-B Natriuret Pep 08/19/17 08/19/17 08/19/17 16:15 21:43 21:43 Creatine Kinase 131 CK-MB (CK-2) 1.11 0.98 Troponin I 0.021 0.022 NT-Pro-B Natriuret Pep 08/20/17 08/21/17 08/22/17 04:41 05:17 05:05 Creatine Kinase CK-MB (CK-2) Troponin I NT-Pro-B Natriuret Pep 25324 H 27275 H 10652 H Impressions: Chest CT 08/19/17 00:00 IMPRESSION: Minimal basilar parenchymal opacities and pleural reaction. Chest X-Ray 08/19/17 00:00 IMPRESSION: 1. Cardiomegaly with pulmonary vascular congestion. Qualifiers - * PATEINT BEING DISCHARGED WITH ANY OF THE FOLLOWING DIAGNOSIS?: Heart Failure VTE patient discharged on overlapping Therapy?: Yes HF Pt being discharged on ACEI for LVEF less than 40%?: No Reason(s) for not prescribing ACEI:: Contraindicated HF Pt being discharged on ARBS for LVEF less than 40%?: No Reason(s) for not prescribing ARBS:: Contraindicated HF Pt with Afib discharged with Warfarin?: No Reason(s) for not prescribing Warfarin:: Not indicated HF Pt discharged on evidence-based Beta Liset:: Yes Plan Time Spent: Greater than 30 Minutes - Discharge home with the stable conditions With the cardiology outpatients with a sleep study and possible cardiac cath Follow with the nephrology for routine hemodialysis
[2017-08-25] MEDS: LEVOFLOXACIN 500 MG TABLET PO SCH (17:20)
--- NOTE | 2017-08-25 19:32 | PDOC PROGRESS REPORT ---
Subjective Progress Note for:: 08/25/17 Subjective:: Patient continues with shortness of breath on mild exertion. She however denied any chest pain today. Patient feels improved after blood transfusion yesterday. She is still concerned about need for oxygen. I told her that should be able to evaluate for her need for oxygen as an outpatient. Reason For Visit: SOB,CHF,RENAL FAILURE Physical Exam Vital Signs: Temp Pulse Resp BP Pulse Ox 99.5 F 81 16 141/66 H 98 08/25/17 15:25 08/25/17 15:25 08/25/17 15:25 08/25/17 15:25 08/25/17 16:28 Intake & Output 08/24/17 08/25/17 08/26/17 06:59 06:59 06:59 Intake Total 1550 2463 1400 Output Total 900 Balance 1550 1563 1400 Weight 125.3 kg 125.3 kg Exam: GENERAL: well-nourished and in no acute distress. Alert and oriented x3 HEAD: Atraumatic, normocephalic. EYES: Pupils equal round and reactive to light, extraocular movements intact, sclera anicteric, conjunctiva are normal. ENT: TMs normal, nares patent, oropharynx clear without exudates. Moist mucous membranes. No oral ulcerations or bleeding gums noted NECK: supple without lymphadenopathy. Trachea is central. No cervical or axillary lymphadenopathy noted. Carotids are 2+, JVD WNL LUNGS: Respiration seems nonlabored, no significant accessory muscle action noted. Breath sounds clear to auscultation bilaterally and equal noted. No wheezes rales or rhonchi noted. No significant dullness noted on percussion. CHEST: Palpation of the chest wall shows no significant chest wall tenderness. No other significant abnormalities noted. 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 ABDOMEN: Soft, no significant tenderness appreciated, normoactive bowel sounds. No guarding, no rebound. No rigidity noted . No masses appreciated. EXTREMITIES: Pedal pulses are 1-2+, no calf tenderness noted. No clubbing or cyanosis.trace to 1+ pedal edema noted. AV fistula versus graft noted in the left forearm. NEUROLOGICAL: Focused neurological exam showed no significant neurologic deficit. Normal speech, no focal weakness appreciated. PSYCH: Normal mood, normal affect. Judgment and insight within normal limits. SKIN: No significant ecchymosis, rash, ulcerations or signs of pruritus noted. MUSCULOSKELETAL EXAM: No significant joint swelling noted. Results Laboratory Results: 08/24/17 18:23 08/24/17 05:08 08/19/17 16:15 Blood Blood Culture - Final NO GROWTH IN 5 DAYS 08/19/17 08/19/17 08/19/17 12:45 12:45 16:15 Creatine Kinase 117 129 CK-MB (CK-2) 1.07 Troponin I 0.019 NT-Pro-B Natriuret Pep 08/19/17 08/19/17 08/19/17 16:15 21:43 21:43 Creatine Kinase 131 CK-MB (CK-2) 1.11 0.98 Troponin I 0.021 0.022 NT-Pro-B Natriuret Pep 08/20/17 08/21/17 08/22/17 04:41 05:17 05:05 Creatine Kinase CK-MB (CK-2) Troponin I NT-Pro-B Natriuret Pep 46343 H 99611 H 92616 H EKG Comments: Telemetry strips shows sinus rhythm without any sustained tacky or bradycardia arrhythmias. Impressions: Chest CT 08/19/17 00:00 IMPRESSION: Minimal basilar parenchymal opacities and pleural reaction. Chest X-Ray 08/19/17 00:00 IMPRESSION: 1. Cardiomegaly with pulmonary vascular congestion. Assessment & Plan - Diagnosis (1) Congestive heart failure Qualifiers: Heart failure type: unspecified Heart failure chronicity: acute on chronic Qualified Code(s): I50.9 - Heart failure, unspecified Is this a current diagnosis for this admission?: Yes (2) Hypertension Qualifiers: Hypertension type: essential hypertension Qualified Code(s): I10 - Essential (primary) hypertension Is this a current diagnosis for this admission?: Yes (3) Acute diastolic (congestive) heart failure Is this a current diagnosis for this admission?: Yes (4) Anemia in chronic kidney disease (CKD) Qualifiers: Chronic kidney disease stage: on chronic dialysis Qualified Code(s): N18.6 - End stage renal disease; D63.1 - Anemia in chronic kidney disease; D63.1 - Anemia in chronic kidney disease; Z99.2 - Dependence on renal dialysis; Z99.2 - Dependence on renal dialysis; Z99.2 - Dependence on renal dialysis; Z99.2 - Dependence on renal dialysis Is this a current diagnosis for this admission?: Yes (5) End-stage renal disease on hemodialysis Is this a current diagnosis for this admission?: Yes (6) Hyperlipidemia Qualifiers: Hyperlipidemia type: unspecified Qualified Code(s): E78.5 - Hyperlipidemia , unspecified Is this a current diagnosis for this admission?: Yes (7) Insulin dependent diabetes mellitus Is this a current diagnosis for this admission?: Yes (8) Insomnia Qualifiers: Insomnia type: unspecified Qualified Code(s): G47.00 - Insomnia, unspecified Is this a current diagnosis for this admission?: Yes (9) Obesity Qualifiers: Obesity type: unspecified obesity type Serious obesity comorbidity presence : unspecified whether serious comorbidity present Is this a current diagnosis for this admission?: Yes - Notes Notes: Congestive heart failure: Currently stable. Currently resolved. Was related to fluid overload in setting of diastolic dysfunction and significant anemia.. Acute respiratory failure: Patient had presented with severe hypoxemia. This was most likely related to CHF secondary to volume excess and severe hypertension. Possibly related to acute on chronic diastolic heart failure. This has resolved. Coronary artery disease: Patient noted to have some coronary calcification therefore has underlying CAD. At this point recommend optimization of therapy for CAD and heart failure. In this regard to recommend statin therapy, beta- krista therapy, aspirin and Plavix therapy. So far cardiac enzymes has been negative. Anemia: Recommend maintaining hemoglobin above 8 g percent. Improved since transfusion of 2 units of blood. Dyslipidemia: LDL goal should be less than 70. Hypertension: Recommend good control of blood pressure. Blood pressure goal should be 135/85 or less in this young patient with diabetes, coronary artery disease. Patient blood pressure under better control with carvedilol. Recommend adding angiotensin receptor blockers if no contraindication. 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 Avoid any hypoglycemia. End-stage renal disease: Patient being followed by loom starter. Sleep disorder: Patient describes significant problems with insomnia. Based on patient's comorbid diagnosis and body habitus she is likely to have significant sleep apnea problem. Patient will benefit from sleep study. Patient sleeping better with Ambien. Insomnia: Continue with Ambien therapy, may increase dose to 10 mg if needed. Obesity: Patient encouraged to increase her activities and cut back on the calories. - Time Time with patient: 15-25 minutes - CODE STATUS was discussed, patient remains full code. Surrogate decision-maker unchanged. Multiple medical problems were addressed. More than 50% of the time spent coordinating care, discussing management plans with involved caregivers. Management plans discussed with involved personnels. Medical decision making was of moderate to high complexity , patient's has multiple comorbidities. Medications reviewed and adjusted accordingly: Yes
[2017-08-25] MEDS: ATORVASTATIN CALCIUM 40 MG TABLET PO SCH (21:05)
[2017-08-25] MEDS: ZOLPIDEM TARTRATE 5 MG TABLET PO SCH (21:06)
[2017-08-25] MEDS: TRAZODONE HCL 50 MG TABLET PO SCH (21:07)
[2017-08-25] MEDS: INSULIN GLARGINE,HUM.REC.ANLOG 300 UNIT/3 ML INSULN.PEN SUBCUT SCH (23:10)
[2017-08-25] MEDS ORDERED: INSULIN GLARGINE,HUM.REC.ANLOG 1,000 UNIT/10 ML UNIT SUBCUT ONE (23:10)
[2017-08-26] MEDS ORDERED: HEPARIN SOD (PORCINE) 1,000 UNIT/ML 10 ML VIAL IV PRN ×3 (05:00)
[2017-08-26] MEDS ORDERED: EPOETIN ALFA INJ 20000 UNIT/1 ML VIAL (RENAL) IV PRN (05:00)
[2017-08-26] MEDS: HEPARIN SOD (PORCINE) 5,000 UNIT/ML 1 ML SYRINGE SUBCUT SCH ×2 (05:44→13:41)
[2017-08-26] MEDS: INSULIN LISPRO 100 UNIT/ML 3 ML VIAL SUBCUT PRN ×2 (05:58→13:41)
[2017-08-26 06:31] LABS: HEMATOCRIT 34.5 % (36.0-47.0); HEMOGLOBIN 11.3 g/dL (12.0-15.5); MEAN CORPUSCULAR HEMOGLOBIN 26.9 pg (27.0-33.4); MEAN CORPUSCULAR HGB CONC 32.7 g/dL (32.0-36.0); MEAN CORPUSCULAR VOLUME 82 fl (80-97); PLATELET COUNT 265 10^3/uL (150-450); RED BLOOD COUNT 4.21 10^6/uL (3.72-5.28); RED CELL DISTRIBUTION WIDTH 18.4 % (11.5-14.0); WHITE BLOOD COUNT 7.6 10^3/uL (4.0-10.5)
[2017-08-26 06:41] LABS: ANION GAP 11 (5-19); BLOOD UREA NITROGEN 38 mg/dL (7-20); CARBON DIOXIDE 26 mmol/L (22-30); CHLORIDE 100 mmol/L (98-107); GLUCOSE 210 mg/dL (75-110); POTASSIUM 4.7 mmol/L (3.6-5.0); SODIUM 136.6 mmol/L (137-145)
[2017-08-26] MEDS: ALPRAZOLAM 0.5 MG TABLET PO PRN ×3 (07:16→19:40)
[2017-08-26] MEDS: IPRATROPIUM/ALBUTEROL 0.5-2.5 MG/3 ML AMPUL NEB PRN ×2 (07:55→14:10)
[2017-08-26] MEDS: OXYCODONE-ACETAMINOPHEN 5-325 MG TABLET PO PRN (08:37)
[2017-08-26] MEDS: PREGABALIN 25 MG CAPSULE PO SCH (10:06)
--- NOTE | 2017-08-26 10:28 | PDOC PROGRESS REPORT ---
Subjective Progress Note for:: 08/26/17 Subjective:: Patient actually discharged yesterday but want to go today after the dialysis She does walk with the hallway without any oxygens Patient's denied any chest pain denied any shortness of the breath Reason For Visit: SOB,CHF,RENAL FAILURE Physical Exam Vital Signs: Temp Pulse Resp BP Pulse Ox 98.1 F 81 16 147/62 H 97 08/26/17 09:14 08/26/17 09:14 08/26/17 09:14 08/26/17 09:14 08/26/17 09:14 Intake & Output 08/25/17 08/26/17 08/27/17 06:59 06:59 06:59 Intake Total 2463 2755 Output Total 900 Balance 1563 2755 Weight 125.3 kg 124.9 kg General appearance: PRESENT: no acute distress, well-developed, well-nourished Head exam: PRESENT: atraumatic, normocephalic Eye exam: PRESENT: conjunctiva pink, EOMI, PERRLA. ABSENT: scleral icterus Ear exam: PRESENT: normal external ear exam Mouth exam: PRESENT: moist, tongue midline Neck exam: PRESENT: full ROM. ABSENT: carotid bruit, JVD, lymphadenopathy, thyromegaly Respiratory exam: PRESENT: clear to auscultation adrianne Cardiovascular exam: PRESENT: RRR. ABSENT: diastolic murmur, rubs, systolic murmur Pulses: PRESENT: normal dorsalis pedis pul, +2 pedal pulses bilateral Vascular exam: PRESENT: normal capillary refill GI/Abdominal exam: PRESENT: normal bowel sounds, soft. ABSENT: distended, guarding, mass, organolmegaly, rebound, tenderness Rectal exam: PRESENT: deferred Extremities exam: ABSENT: pedal edema Musculoskeletal exam: PRESENT: ambulatory Neurological exam: PRESENT: alert, awake, oriented to person, oriented to place , oriented to time, oriented to situation, CN II-XII grossly intact. ABSENT: motor sensory deficit Psychiatric exam: PRESENT: appropriate affect, normal mood. ABSENT: homicidal ideation, suicidal ideation Skin exam: PRESENT: dry, intact, warm. ABSENT: cyanosis, rash Results Laboratory Results: 08/26/17 05:58 08/26/17 05:58 08/26/17 08/26/17 05:58 05:58 WBC 7.6 RBC 4.21 Hgb 11.3 L Hct 34.5 L MCV 82 MCH 26.9 L MCHC 32.7 RDW 18.4 H Plt Count 265 Sodium 136.6 L Potassium 4.7 Chloride 100 Carbon Dioxide 26 Anion Gap 11 BUN 38 H Creatinine 5.06 H Est GFR ( Amer) 11 L Est GFR (Non-Af Amer) 9 L Glucose 210 H Calcium 9.0 08/19/17 08/19/17 08/19/17 12:45 12:45 16:15 Creatine Kinase 117 129 CK-MB (CK-2) 1.07 Troponin I 0.019 NT-Pro-B Natriuret Pep 08/19/17 08/19/17 08/19/17 16:15 21:43 21:43 Creatine Kinase 131 CK-MB (CK-2) 1.11 0.98 Troponin I 0.021 0.022 NT-Pro-B Natriuret Pep 08/20/17 08/21/17 08/22/17 04:41 05:17 05:05 Creatine Kinase CK-MB (CK-2) Troponin I NT-Pro-B Natriuret Pep 68827 H 53262 H 76428 H Impressions: Chest CT 08/19/17 00:00 IMPRESSION: Minimal basilar parenchymal opacities and pleural reaction. Chest X-Ray 08/19/17 00:00 IMPRESSION: 1. Cardiomegaly with pulmonary vascular congestion. Assessment & Plan - Diagnosis (1) Acute diastolic (congestive) heart failure Is this a current diagnosis for this admission?: Yes Plan: Currently doing well continues with the hemodialysis (2) End stage renal disease on dialysis Is this a current diagnosis for this admission?: Yes Plan: Currently follow with the nephrology and hemodialysis schedule tomorrow again (3) Pulmonary edema Qualifiers: Chronicity: acute Is this a current diagnosis for this admission?: Yes Plan: Currently all resolved (4) COPD (chronic obstructive pulmonary disease) Qualifiers: COPD type: chronic bronchitis Is this a current diagnosis for this admission?: Yes Plan: Use the Combivent (5) Hypertension Qualifiers: Hypertension type: essential hypertension Qualified Code(s): I10 - Essential (primary) hypertension Is this a current diagnosis for this admission?: Yes Plan: Continues to current medications (6) Anemia in chronic kidney disease (CKD) Qualifiers: Chronic kidney disease stage: on chronic dialysis Qualified Code(s): N18.6 - End stage renal disease; D63.1 - Anemia in chronic kidney disease; D63.1 - Anemia in chronic kidney disease; Z99.2 - Dependence on renal dialysis; Z99.2 - Dependence on renal dialysis; Z99.2 - Dependence on renal dialysis; Z99.2 - Dependence on renal dialysis Is this a current diagnosis for this admission?: Yes Plan: Transfused 1 unit of blood today (7) Insulin dependent diabetes mellitus Is this a current diagnosis for this admission?: Yes Plan: Continues to insulin and continues to sliding scale (8) Noncompliance Is this a current diagnosis for this admission?: No (9) Secondary hyperparathyroidism (of renal origin) Is this a current diagnosis for this admission?: Yes (10) Generalized anxiety disorder Is this a current diagnosis for this admission?: Yes (11) Chronic pain syndrome Is this a current diagnosis for this admission?: Yes (12) Leukocytosis Qualifiers: Leukocytosis type: unspecified Qualified Code(s): D72.829 - Elevated white blood cell count, unspecified Is this a current diagnosis for this admission?: Yes (13) Urinary tract infection Qualifiers: Urinary tract infection type: site unspecified Is this a current diagnosis for this admission?: Yes - Time Time Spent with patient: 15-24 minutes Medications reviewed and adjusted accordingly: Yes Anticipated discharge: Home Within: within 24 hours, Other - Inpatient Certification Medical Necessity: Need Close Monitoring Due to Risk of Patient Decompensation Post Hospital Care: D/C 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
--- NOTE | 2017-08-26 11:00 | PDOC PROGRESS REPORT ---
Subjective Progress Note for:: 08/26/17 Subjective:: Patient feeling much improved. She has ambulated in the hallway without any significant problems. Patient describes underlying anxiety. Patient feels improved after blood transfusion on last dialysis. Patient to have dialysis today with subsequent to discharge after that. I told her that should be able to evaluate for her need for oxygen as an outpatient. Reason For Visit: SOB,CHF,RENAL FAILURE Physical Exam Vital Signs: Temp Pulse Resp BP Pulse Ox 98.1 F 81 16 147/62 H 97 08/26/17 09:14 08/26/17 09:14 08/26/17 09:14 08/26/17 09:14 08/26/17 09:14 Intake & Output 08/25/17 08/26/17 08/27/17 06:59 06:59 06:59 Intake Total 2463 2755 Output Total 900 Balance 1563 2755 Weight 125.3 kg 124.9 kg Exam: GENERAL: well-nourished and in no acute distress. Alert and oriented x3 HEAD: Atraumatic, normocephalic. EYES: Pupils equal round and reactive to light, extraocular movements intact, sclera anicteric, conjunctiva are normal. ENT: TMs normal, nares patent, oropharynx clear without exudates. Moist mucous membranes. No oral ulcerations or bleeding gums noted NECK: supple without lymphadenopathy. Trachea is central. No cervical or axillary lymphadenopathy noted. Carotids are 2+, JVD WNL LUNGS: Respiration seems nonlabored, no significant accessory muscle action noted. Breath sounds clear to auscultation bilaterally and equal noted. No wheezes rales or rhonchi noted. No significant dullness noted on percussion. CHEST: Palpation of the chest wall shows no significant chest wall tenderness. No other significant abnormalities noted. 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 ABDOMEN: Soft, no significant tenderness appreciated, normoactive bowel sounds. No guarding, no rebound. No rigidity noted . No masses appreciated. EXTREMITIES: Pedal pulses are 1-2+, no calf tenderness noted. No clubbing or cyanosis.trace pedal edema noted. Patient has dialysis fistula/graft in the left arm. It is unclear if it has matured are not. NEUROLOGICAL: Focused neurological exam showed no significant neurologic deficit. Normal speech, no focal weakness appreciated. PSYCH: Normal mood, normal affect. Judgment and insight within normal limits. SKIN: No significant ecchymosis, rash, ulcerations or signs of pruritus noted. MUSCULOSKELETAL EXAM: No significant joint swelling noted. Results Laboratory Results: 08/26/17 05:58 08/26/17 05:58 08/26/17 08/26/17 05:58 05:58 WBC 7.6 RBC 4.21 Hgb 11.3 L Hct 34.5 L MCV 82 MCH 26.9 L MCHC 32.7 RDW 18.4 H Plt Count 265 Sodium 136.6 L Potassium 4.7 Chloride 100 Carbon Dioxide 26 Anion Gap 11 BUN 38 H Creatinine 5.06 H Est GFR ( Amer) 11 L Est GFR (Non-Af Amer) 9 L Glucose 210 H Calcium 9.0 08/19/17 08/19/17 08/19/17 12:45 12:45 16:15 Creatine Kinase 117 129 CK-MB (CK-2) 1.07 Troponin I 0.019 NT-Pro-B Natriuret Pep 08/19/17 08/19/17 08/19/17 16:15 21:43 21:43 Creatine Kinase 131 CK-MB (CK-2) 1.11 0.98 Troponin I 0.021 0.022 NT-Pro-B Natriuret Pep 08/20/17 08/21/17 08/22/17 04:41 05:17 05:05 Creatine Kinase CK-MB (CK-2) Troponin I NT-Pro-B Natriuret Pep 77391 H 87226 H 88538 H EKG Comments: Telemetry strip shows sinus rhythm without any sustained tacky or bradyarrhythmias. Impressions: Chest CT 08/19/17 00:00 IMPRESSION: Minimal basilar parenchymal opacities and pleural reaction. Chest X-Ray 08/19/17 00:00 IMPRESSION: 1. Cardiomegaly with pulmonary vascular congestion. Assessment & Plan - Diagnosis (1) Congestive heart failure Qualifiers: Heart failure type: unspecified Heart failure chronicity: acute on chronic Qualified Code(s): I50.9 - Heart failure, unspecified Is this a current diagnosis for this admission?: Yes (2) Hypertension Qualifiers: Hypertension type: essential hypertension Qualified Code(s): I10 - Essential (primary) hypertension Is this a current diagnosis for this admission?: Yes (3) Acute diastolic (congestive) heart failure Is this a current diagnosis for this admission?: Yes (4) Anemia in chronic kidney disease (CKD) Qualifiers: Chronic kidney disease stage: on chronic dialysis Qualified Code(s): N18.6 - End stage renal disease; D63.1 - Anemia in chronic kidney disease; D63.1 - Anemia in chronic kidney disease; Z99.2 - Dependence on renal dialysis; Z99.2 - Dependence on renal dialysis; Z99.2 - Dependence on renal dialysis; Z99.2 - Dependence on renal dialysis Is this a current diagnosis for this admission?: Yes (5) End-stage renal disease on hemodialysis Is this a current diagnosis for this admission?: Yes (6) Hyperlipidemia Qualifiers: Hyperlipidemia type: unspecified Qualified Code(s): E78.5 - Hyperlipidemia , unspecified Is this a current diagnosis for this admission?: Yes (7) Insulin dependent diabetes mellitus Is this a current diagnosis for this admission?: Yes (8) Insomnia Qualifiers: Insomnia type: unspecified Qualified Code(s): G47.00 - Insomnia, unspecified Is this a current diagnosis for this admission?: Yes (9) Obesity Qualifiers: Obesity type: unspecified obesity type Serious obesity comorbidity presence : unspecified whether serious comorbidity present Is this a current diagnosis for this admission?: Yes (10) CAD (coronary artery disease) Qualifiers: Coronary Disease-Associated Artery/Lesion type: [place] artery [place] vs. transplanted heart: [place] heart Associated angina: angina presence unspecified Qualified Code(s): I25.10 - Atherosclerotic heart disease of [place] coronary artery without angina pectoris Is this a current diagnosis for this admission?: Yes - Notes Notes: Congestive heart failure: Currently stable. Currently resolved. Was related to fluid overload in setting of diastolic dysfunction and significant anemia. Patient has been compensated for last several days. Acute respiratory failure: Currently resolved. Patient had presented with severe hypoxemia. This was most likely related to CHF secondary to volume excess and severe hypertension. Possibly related to acute on chronic diastolic heart failure. This has resolved. Coronary artery disease: Patient noted to have some coronary calcification therefore has underlying CAD. At this point recommend optimization of therapy for CAD and heart failure. In this regard to recommend continue statin therapy , beta-krista therapy, aspirin and Plavix therapy. So far cardiac enzymes has been negative. Anemia: Recommend maintaining hemoglobin above 8 g percent. Improved since transfusion of 2 units of blood. Hemoglobin today is stable at 11 g percent. Dyslipidemia: LDL goal should be less than 70. Hypertension: Recommend good control of blood pressure. Blood pressure goal should be 135/85 or less in this young patient with diabetes, coronary artery disease. Patient blood pressure under better control with carvedilol. Recommend adding angiotensin receptor blockers if no contraindication. Will let drawer in [place] decide on this. 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 Avoid any hypoglycemia. End-stage renal disease: Patient being followed by drawer in [place]. Sleep disorder: Patient describes significant problems with insomnia. Based on patient's comorbid diagnosis and body habitus she is likely to have significant sleep apnea problem. Patient will benefit from sleep study. Patient sleeping better with Ambien. Insomnia: Continue with Ambien therapy, may increase dose to 10 mg if needed. Obesity: Patient encouraged to increase her activities and cut back on the calories. - Time Time with patient: 15-25 minutes - CODE STATUS was discussed, patient remains full code. Surrogate decision-maker unchanged. Multiple medical problems were addressed. More than 50% of the time spent coordinating care, discussing management plans with involved caregivers. Management plans discussed with involved personnels. Medical decision making was of moderate to high complexity , patient's has multiple comorbidities. Medications reviewed and adjusted accordingly: Yes
--- NOTE | 2017-08-26 17:23 | PDOC PROGRESS REPORT ---
Subjective Progress Note for:: 08/26/17 Subjective:: I am seeing the patient during dialysis today. She is very comfortable and does not complain of any shortness of breath anymore. She felt better after the 2 units blood transfusion 2 days ago. She is scheduled to go home after dialysis today. She is currently tolerating dialysis without any problems so far. Reason For Visit: SOB,CHF, ESRD Physical Exam Vital Signs: Temp Pulse Resp BP Pulse Ox 99.1 F 86 16 147/69 H 97 08/26/17 11:35 08/26/17 14:10 08/26/17 14:10 08/26/17 11:35 08/26/17 14:10 Intake & Output 08/25/17 08/26/17 08/27/17 06:59 06:59 06:59 Intake Total 2463 2755 375 Output Total 900 Balance 1563 2755 375 Weight 125.3 kg 124.9 kg Vitals during dialysis: Blood pressure 134/63, heart rate of 90, blood flow rate of 300 mL/min, dialysate flow rate of 600 mL/min. Exam: General appearance: PRESENT: no acute distress, cooperative, well-developed, well-nourished Head exam: PRESENT: atraumatic, normocephalic Eye exam: PRESENT: conjunctiva pink, PERRLA. ABSENT: scleral icterus Neck exam: ABSENT: JVD Respiratory exam: PRESENT: Diminished normal breath sounds. ABSENT: crackles, rales, rhonchi, unlabored, wheezes Cardiovascular exam: PRESENT: Regular rate rhythm -+S1, +S2. ABSENT: diastolic murmur, systolic murmur GI/Abdominal exam: PRESENT: normal bowel sounds, soft. ABSENT: guarding, mass, tenderness Extremities exam: ABSENT: No edema Neurological exam: PRESENT: alert, awake, oriented to person, place and time. Skin exam: PRESENT: dry, warm, Results Laboratory Results: 08/26/17 05:58 08/26/17 05:58 08/26/17 08/26/17 05:58 05:58 WBC 7.6 RBC 4.21 Hgb 11.3 L Hct 34.5 L MCV 82 MCH 26.9 L MCHC 32.7 RDW 18.4 H Plt Count 265 Sodium 136.6 L Potassium 4.7 Chloride 100 Carbon Dioxide 26 Anion Gap 11 BUN 38 H Creatinine 5.06 H Est GFR ( Amer) 11 L Est GFR (Non-Af Amer) 9 L Glucose 210 H Calcium 9.0 08/19/17 08/19/17 08/19/17 12:45 12:45 16:15 Creatine Kinase 117 129 CK-MB (CK-2) 1.07 Troponin I 0.019 NT-Pro-B Natriuret Pep 08/19/17 08/19/17 08/19/17 16:15 21:43 21:43 Creatine Kinase 131 CK-MB (CK-2) 1.11 0.98 Troponin I 0.021 0.022 NT-Pro-B Natriuret Pep 08/20/17 08/21/17 08/22/17 04:41 05:17 05:05 Creatine Kinase CK-MB (CK-2) Troponin I NT-Pro-B Natriuret Pep 82613 H 65379 H 26450 H Impressions: Chest CT 08/19/17 00:00 IMPRESSION: Minimal basilar parenchymal opacities and pleural reaction. Chest X-Ray 08/19/17 00:00 IMPRESSION: 1. Cardiomegaly with pulmonary vascular congestion. Assessment & Plan - Diagnosis (1) End-stage renal disease on hemodialysis Is this a current diagnosis for this admission?: Yes Plan: We will do dialysis today for 3 hours, using the patient's PermCath, with 2 potassium bath, blood flow rate of 300-350 mL per minute, dialysate flow rate of 600 mL per minute, ultrafiltration 2-3 L, may give low dose heparin during dialysis and no Procrit during dialysis. Patient will be monitored all throughout dialysis treatment. From nephrology standpoint I think patient is very stable enough to go home today. Patient's next dialysis will be on Thursday at [facility] on her regular dialysis schedule. (2) Acute pulmonary edema Is this a current diagnosis for this admission?: Yes Plan: Patient had this episode during previous admission last year. Patient did not have evidence of renal artery stenosis at that time. She does have baseline diastolic congestive heart failure and end-stage renal disease which together could cause this. This is resolved. (3) Acute diastolic (congestive) heart failure Is this a current diagnosis for this admission?: Yes Plan: As mentioned we will do ultrafiltration. Dr. Petty following the patient. (4) Hypertension Qualifiers: Hypertension type: essential hypertension Qualified Code(s): I10 - Essential (primary) hypertension Is this a current diagnosis for this admission?: Yes Plan: Continue home medications. (5) Anemia in chronic kidney disease (CKD) Qualifiers: Chronic kidney disease stage: on chronic dialysis Qualified Code(s): N18.6 - End stage renal disease; D63.1 - Anemia in chronic kidney disease; D63.1 - Anemia in chronic kidney disease; Z99.2 - Dependence on renal dialysis; Z99.2 - Dependence on renal dialysis; Z99.2 - Dependence on renal dialysis; Z99.2 - Dependence on renal dialysis Is this a current diagnosis for this admission?: Yes Plan: Patient was transfuse 2 units of packed RBC and was given Procrit last Thursday. (6) Insulin dependent diabetes mellitus Is this a current diagnosis for this admission?: Yes (7) Generalized anxiety disorder Is this a current diagnosis for this admission?: Yes (8) Secondary hyperparathyroidism (of renal origin) Is this a current diagnosis for this admission?: Yes (9) Chronic pain syndrome Is this a current diagnosis for this admission?: Yes - Time Time with patient: 15-25 minutes
[2017-08-26 18:54] VITALS: BP 168/76
== END 2017-08-26 19:50 | disposition home or self-care (01) | DRG 291 ==
LOC: ER 04:20 → EH 09:23 → 3W 18:14
PROVIDERS: ADMIT Family Medicine; ATTEND Family Medicine
PROC: 5A1D70Z Performance of Urinary Filtration, Intermittent, Less than 6 Hours Per Day (ICD-10-PCS; principal; 2017-08-19)
PROC: 5A09357 Assistance with Respiratory Ventilation, Less than 24 Consecutive Hours, Continuous Positive Airway Pressure (ICD-10-PCS; 2017-08-19)
PROC: 3E0F73Z Introduction of Anti-inflammatory into Respiratory Tract, Via Natural or Artificial Opening (ICD-10-PCS; 2017-08-19)
PROC: 5A1D70Z Performance of Urinary Filtration, Intermittent, Less than 6 Hours Per Day (ICD-10-PCS; 2017-08-21)
PROC: 5A1D70Z Performance of Urinary Filtration, Intermittent, Less than 6 Hours Per Day (ICD-10-PCS; 2017-08-24)
PROC: 30233N1 Transfusion of Nonautologous Red Blood Cells into Peripheral Vein, Percutaneous Approach (ICD-10-PCS; 2017-08-24)
PROC: 5A1D70Z Performance of Urinary Filtration, Intermittent, Less than 6 Hours Per Day (ICD-10-PCS; 2017-08-26)
DX: I13.2 Hypertensive heart and chronic kidney disease with heart failure and with stage 5 chronic kidney disease, or end stage renal disease (principal); N18.6 End stage renal disease; I50.33 Acute on chronic diastolic (congestive) heart failure; J96.01 Acute respiratory failure with hypoxia; N39.0 Urinary tract infection, site not specified; N25.81 Secondary hyperparathyroidism of renal origin; Z68.43 Body mass index [BMI] 50.0-59.9, adult; N17.9 Acute kidney failure, unspecified; J44.9 Chronic obstructive pulmonary disease, unspecified; D63.1 Anemia in chronic kidney disease; E11.22 Type 2 diabetes mellitus with diabetic chronic kidney disease; F41.1 Generalized anxiety disorder; I25.2 Old myocardial infarction; G89.4 Chronic pain syndrome; E11.21 Type 2 diabetes mellitus with diabetic nephropathy; E78.5 Hyperlipidemia, unspecified; E66.9 Obesity, unspecified; K21.9 Gastro-esophageal reflux disease without esophagitis; F32.9 Major depressive disorder, single episode, unspecified; I25.10 Atherosclerotic heart disease of native coronary artery without angina pectoris; E11.43 Type 2 diabetes mellitus with diabetic autonomic (poly)neuropathy; E11.319 Type 2 diabetes mellitus with unspecified diabetic retinopathy without macular edema; D72.829 Elevated white blood cell count, unspecified; G47.00 Insomnia, unspecified; E87.6 Hypokalemia; E83.42 Hypomagnesemia; B96.20 Unspecified Escherichia coli [E. coli] as the cause of diseases classified elsewhere; B96.4 Proteus (mirabilis) (morganii) as the cause of diseases classified elsewhere; D50.9 Iron deficiency anemia, unspecified; Z99.2 Dependence on renal dialysis; Z79.4 Long term (current) use of insulin; Z91.19 Patient's noncompliance with other medical treatment and regimen; Z79.899 Other long term (current) drug therapy; Z90.49 Acquired absence of other specified parts of digestive tract; Z90.710 Acquired absence of both cervix and uterus; Z87.891 Personal history of nicotine dependence; Z82.49 Family history of ischemic heart disease and other diseases of the circulatory system; Z83.3 Family history of diabetes mellitus
CPT/HCPCS: 36415; 36430; 71045; 71250; 80048; 80053; 82550; 82553; 82962; 83735; 83880; 84132; 84484; 85025; 85027; 86850; 86900; 86901; 86920; 87040; 87086; 87088; 87186; 93005; 93010; 94640; 94660; 99285; J0696; J1644; J1815; J3475; J3490; J7620; P9016; Q4081

== ENCOUNTER 2017-09-27 10:23 | Observation (INO) | payer MEDICAID ==
--- NOTE | 2017-09-27 10:45 | ER Document Report ---
ED Medical Screen (RME) - General Chief Complaint: Dialysis Catheter Problem Stated Complaint: PORT PROBLEM Time Seen by Provider: 09/27/17 10:40 Notes: 57-year-old female dialysis patient comes emergency room due to her PermCath coming out during the night. PermCath was located in the right chest. Last dialyzed on Thursday, due to dialyze tomorrow on Thursday. Last meal about 9 PM last night. She does report that during dialysis on Thursday there were problems with the tube suggesting it was beginning to clot off. I have greeted and performed a rapid initial assessment of this patient. A comprehensive ED assessment and evaluation of the patient, analysis of test results and completion of the medical decision making process will be conducted by additional ED providers. TRAVEL OUTSIDE OF THE [place] IN LAST 30 DAYS: No - Related Data Allergies/Adverse Reactions: No Known Drug Allergies Allergy (Verified 09/24/17 14:53) Past Medical History - Past Medical History Cardiac Medical History: Reports: Hx Congestive Heart Failure, Hx Hypercholesterolemia, Hx Hypertension Denies: Hx Coronary Artery Disease, Hx Heart Attack Pulmonary Medical History: Denies: Hx Asthma - UNSURE, Hx Bronchitis, Hx COPD - UNSURE, Hx Pneumonia Neurological Medical History: Denies: Hx Cerebrovascular Accident, Hx Seizures Endocrine Medical History: Reports: Hx Diabetes Mellitus Type 2 Renal/ Medical History: Reports: Hx End Stage Renal Disease. Denies: Hx Peritoneal Dialysis GI Medical History: Reports: Hx Gastroesophageal Reflux Disease Musculoskeltal Medical History: Reports Hx Arthritis Psychiatric Medical History: Reports: Hx Depression Past Surgical History: Reports: Hx Cholecystectomy, Hx Hysterectomy - Immunizations Hx Diphtheria, Pertussis, Tetanus Vaccination: No History of Influenza Vaccine for 03/2017 - 08/2017 Season: Yes Influenza Administration Date for 03/2017 - 08/2017 Season: 07/30/17
--- NOTE | 2017-09-27 11:07 | ER Document Report ---
ED Dialysis Cath/Shunt Problem - General Chief Complaint: Dialysis Catheter Problem Stated Complaint: PORT PROBLEM Time Seen by Provider: 09/27/17 10:40 Mode of Arrival: Ambulatory Information source: Patient, Relative, [facility] Records Notes: 57-year-old female patient past history of chronic renal failure on dialysis. Dialyzes on a Thursday. Last dialyzed on Thursday 2 days ago. During that procedure she reports they had trouble pulling blood from the catheter suggesting it was beginning to clot off. She reports she woke up this morning and the catheter had come out and was on the floor. Last meal was 9 PM last night. She is asymptomatic at this time except for some nausea which she says has been a problem off and on for the past week or more. TRAVEL OUTSIDE OF THE [place] IN LAST 30 DAYS: No - Related Data Allergies/Adverse Reactions: No Known Drug Allergies Allergy (Verified 09/24/17 14:53) Past Medical History - General Information source: Patient, Relative, [facility] Records - Social History Smoking Status: Former Smoker Cigarette use (# per day): No Chew tobacco use (# tins/day): No Smoking Education Provided: No Frequency of alcohol use: None Drug Abuse: None Occupation: retired Lives with: Family Family History: Hypertension Patient has suicidal ideation: No Patient has homicidal ideation: No - Past Medical History Cardiac Medical History: Reports: Hx Congestive Heart Failure, Hx Hypercholesterolemia, Hx Hypertension Pulmonary Medical History: Reports: None EENT Medical History: Reports: None Neurological Medical History: Reports: None Endocrine Medical History: Reports: Hx Diabetes Mellitus Type 2 Renal/ Medical History: Reports: Hx End Stage Renal Disease, Hx Hemodialysis GI Medical History: Reports: Hx Gastroesophageal Reflux Disease Musculoskeltal Medical History: Reports Hx Arthritis Psychiatric Medical History: Reports: Hx Depression Past Surgical History: Reports: Hx Cholecystectomy, Hx Hysterectomy, Hx Vascular Surgery - Left arm AV fistula - Immunizations Hx Diphtheria, Pertussis, Tetanus Vaccination: No Review of Systems - Review of Systems Constitutional: No symptoms reported EENT: No symptoms reported Cardiovascular: No symptoms reported Respiratory: No symptoms reported Gastrointestinal: Nausea Genitourinary: No symptoms reported Female Genitourinary: Post menopausal Musculoskeletal: No symptoms reported Skin: No symptoms reported Hematologic/Lymphatic: No symptoms reported Neurological/Psychological: No symptoms reported Physical Exam - Vital signs Vitals: Temp Pulse Resp BP Pulse Ox 98.3 F 98 22 H 155/82 H 96 09/27/17 10:37 09/27/17 10:37 09/27/17 10:37 09/27/17 10:37 09/27/17 10:37 Interpretation: Normal, Hypertensive - General General appearance: Appears well, Alert In distress: None - HEENT Head: Normocephalic, Atraumatic Eyes: Normal Pupils: PERRL Neck: Normal. No: Thyromegally - Respiratory Respiratory status: No respiratory distress Breath sounds: Normal - Cardiovascular Rhythm: Regular Heart sounds: Normal auscultation Murmur: No - Abdominal Inspection: Morbidly Obese Bowel sounds: Normal Tenderness: Nontender - Back Back: Normal - Extremities General upper extremity: Normal inspection General lower extremity: Normal inspection - Neurological Neuro grossly intact: Yes - Psychological Associated symptoms: Normal affect, Normal mood - Skin Skin Temperature: Warm Skin Moisture: Dry Skin Color: Normal Course - Re-evaluation Re-evalutation: 09/27/17 11:12 Patient's care was discussed with Dr. Allen, he does prefer to get some lab work done. Patient reports she has no vascular access in her extremities and they always have to get blood from the PermCath. Dr. Allen is agreeable to not attempting to find a vein for lab work at this time, and will leave it up to the anesthesiologist's preference. - Vital Signs Vital signs: Temp Pulse Resp BP Pulse Ox 98.3 F 98 22 H 155/82 H 96 09/27/17 10:37 09/27/17 10:37 09/27/17 10:37 09/27/17 10:37 09/27/17 10:37 - Consults Dr. Allen Time consulted: 10:55 Consulted provider: will come to ER - Came to the emergency room to evaluate the patient, plans to take her to the operating room sometime this afternoon to replace the PermCath. Discharge - Discharge Clinical Impression: Displacement of central venous catheter (CVC), Chronic renal failure, stage 5 High blood pressure Qualifiers: Hypertension type: essential hypertension Qualified Code(s): I10 - Essential ( primary) hypertension Condition: Stable Disposition: ADMITTED INPATIENT Admitting Provider: Surgicalist Unit Admitted: OR
[2017-09-27] MEDS ORDERED: ONDANSETRON 4 MG TAB.RAPDIS PO ONE (11:08)
[2017-09-27] MEDS ORDERED: LIDOCAINE 1%/EPINEPHRINE INJ 20 ML VIAL ONE (11:32)
--- NOTE | 2017-09-27 11:44 | PDOC H&P ---
History of Present Illness Admission Date/PCP: September 27, 2017 Patient complains of: Ejected permacatheter History of Present Illness: JESUS CALDERÓN is a 57 year old female Who presents to the emergency department via ground rescue reporting her permacatheter fell out. Permacatheter was installed in April 2017. It has been used Thursday and Thursday with dialysis, with some difficulty with flow volumes and rates for the last several dialyses requiring streptokinase therapy. She has a maturing left arm AV fistula installed by Dr. Ady Macias and a half months ago. The patient is now assessed for permacatheter replacement on September 27. Past Medical History Cardiac Medical History: Reports: Congestive Heart Failure, Hyperlipidema, Hypertension Denies: Coronary Artery Disease, Myocardial Infarction Pulmonary Medical History: Reports: None Denies: Asthma - UNSURE, Bronchitis, Chronic Obstructive Pulmonary Disease ( COPD) - UNSURE, Pneumonia EENT Medical History: Reports: None Neurological Medical History: Reports: None Denies: Seizures Endocrine Medical History: Reports: Diabetes Mellitus Type 2 Renal/ Medical History: Reports: End Stage Renal Disease GI Medical History: Reports: Gastroesophageal Reflux Disease Musculoskeltal Medical History: Reports: Arthritis Psychiatric Medical History: Reports: Depression Hematology: Reports: Anemia Past Surgical History Past Surgical History: Reports: Cholecystectomy, Hysterectomy, Vascular Surgery - Left arm AV fistula Social History Lives with: Family Smoking Status: Former Smoker Frequency of Alcohol Use: None Hx Recreational Drug Use: No Hx Prescription Drug Abuse: No Family History Family History: Hypertension Parental Family History Reviewed: Yes Children Family History Reviewed: Yes Sibling(s) Family History Reviewed.: Yes Medication/Allergy Home Medications: B Complex W-C No.20/Folic Acid [Nephrocaps Softgel] 1 mg PO DAILY 08/19/17 Clonazepam [Klonopin] 0.5 mg PO DAILY 08/19/17 Furosemide [Lasix 40 mg Tablet] 40 mg PO QAM 08/19/17 Hydralazine HCl [Apresoline 50 mg Tablet] 50 mg PO Q8HP PRN 08/19/17 Insulin Aspart [Novolog Insulin (Aspart) 100 unit/mL] 0 unit SUBCUT .SLD SCALE 08/19/17 Insulin Glargine,Hum.rec.anlog [Lantus Insulin 100 Unit/1 ml 10 ml] 48 unit SUBCUT QHS 08/19/17 Nifedipine [Procardia XL 30 mg Tablet] 60 mg PO Q12 08/19/17 Pregabalin [Lyrica 25 mg Capsule] 25 mg PO DAILY 08/19/17 Promethazine HCl [Phenergan 25 mg Tablet] 25 mg PO Q8HP PRN 08/19/17 Trazodone HCl [Desyrel 50 mg Tablet] 100 mg PO QHS 08/19/17 Carvedilol [Coreg 12.5 mg Tablet] 25 mg PO Q12 #60 tablet 08/25/17 Ipratropium/Albuterol Sulfate [Combivent Inhaler] 14.7 gm IH BID #1 aer.w.adap 08/26/17 Tiotropium [place] [Spiriva Handihaler 18 mcg/dose (30 Dose)] 1 cap IH DAILY Allergies/Adverse Reactions: No Known Drug Allergies Allergy (Verified 09/24/17 14:53) Review of Systems Eyes: ABSENT: visual disturbances Ears: ABSENT: hearing changes Cardiovascular: ABSENT: chest pain, dyspnea on exertion, edema, orthropnea, palpitations Respiratory: PRESENT: as per HPI. ABSENT: cough, hemoptysis Gastrointestinal: ABSENT: abdominal pain, constipation, diarrhea, hematemesis, hematochezia, nausea, vomiting Musculoskeletal: PRESENT: other - Uses a wheelchair due to morbid obesity Physical Exam Vital Signs: Temp Pulse Resp BP Pulse Ox 98.3 F 98 22 H 155/82 H 96 09/27/17 10:37 09/27/17 10:37 09/27/17 10:37 09/27/17 10:37 09/27/17 10:37 Intake & Output 09/26/17 09/27/17 09/28/17 06:59 06:59 06:59 Weight 125.8 kg General appearance: PRESENT: other - In wheelchair Head exam: PRESENT: normocephalic Eye exam: PRESENT: EOMI Mouth exam: PRESENT: dry mucosa Neck exam: PRESENT: full ROM - Evidence of permacatheter right right neck Cardiovascular exam: PRESENT: RRR Pulses: PRESENT: other - Strong thrill and bruit antecubital fossa left side; minimal swelling left arm GI/Abdominal exam: PRESENT: soft Musculoskeletal exam: PRESENT: other - In wheelchair; unable to assess lower extremity strength Psychiatric exam: PRESENT: anxious Assessment & Plan - Diagnosis (1) Complication, dialysis catheter clot or failure Is this a current diagnosis for this admission?: Yes Plan: Right subclavian permacatheter has now ejected from the patient's chest wall; she needs dialysis access while her left arm AV fistula matures. She dialyzes Thursday and Thursday; she has been n.p.o. since 9:00 last night the patient is clinically stable from a physical examination standpoint Recommendations: 1. Obtain labs, check EKG 2. Plan for PermCath replacement, right subclavian and/or IJ position, LMAC, today, 1 hour,1 hr; risks of bleeding, infection, clot, catheter malfunction, pneumothorax all discussed with patient (2) Chronic renal failure, stage 5 Is this a current diagnosis for this admission?: Yes (3) Hypertension Qualifiers: Hypertension type: essential hypertension Qualified Code(s): I10 - Essential (primary) hypertension (4) Chronic pain syndrome Is this a current diagnosis for this admission?: Yes (5) Generalized anxiety disorder Is this a current diagnosis for this admission?: Yes (6) Hyperlipidemia Qualifiers: Is this a current diagnosis for this admission?: Yes (7) Morbid obesity Is this a current diagnosis for this admission?: Yes - Time Time Spent: 30 to 50 Minutes Critical Time spent with patient: 15-24 minutes Medications reviewed and adjusted accordingly: Yes Anticipated discharge: Home - Inpatient Certification Based on my medical assessment, after consideration of the patient's comorbidities, presenting symptoms, or acuity I expect that the services needed warrant INPATIENT care.: Yes I certify that my determination is in accordance with my understanding of Medicare's requirements for reasonable and necessary INPATIENT services [42 CFR 412.3e].: Yes Medical Necessity: Need for Surgery
[2017-09-27] MEDS ORDERED: CEFAZOLIN 1 GM/D5W RTU 1 GM/50 ML RTUPB IV ONE (12:00)
[2017-09-27] MEDS ORDERED: PROPOFOL INJ 200 MG/20 ML VIAL IV ONE (12:14)
[2017-09-27] MEDS ORDERED: MIDAZOLAM 2 MG/2 ML INJ ONE ×2 (12:14→12:26)
[2017-09-27] MEDS ORDERED: FENTANYL CITRATE INJ/PF 100 MCG/2 ML AMPUL ONE ×3 (12:14→13:28)
[2017-09-27] MEDS ORDERED: CEFAZOLIN INJ 1 GM VIAL ONE (12:36)
[2017-09-27] MEDS ORDERED: FENTANYL CITRATE INJ/PF 100 MCG/2 ML AMPUL IV PRN ×3 (12:42)
[2017-09-27] MEDS ORDERED: MEPERIDINE HCL/PF INJ 25 MG/1 ML DISP.SYRIN IV PRN (12:42)
[2017-09-27] MEDS ORDERED: DIPHENHYDRAMINE HCL 50 MG/ML VIAL IV PRN (12:42)
[2017-09-27] MEDS ORDERED: HEPARIN SOD (PORCINE) 5,000 UNIT/ML 1 ML SYRINGE ONE (13:11)
--- NOTE | 2017-09-27 13:15 | Operative Report ---
Operative Report DATE OF SURGERY: 09/27/17 PREOPERATIVE DIAGNOSIS: 1. End-stage renal failure. 2. Displaced permacatheter POSTOPERATIVE DIAGNOSIS: Same OPERATION: 1. Focused ultrasound of the neck with ultrasound directed insertion of 23 cm tip to cuff permacatheter. 2. Interpretation of intraoperative fluoroscopy. SURGEON: SAURABH MULLEN ANESTHESIA: LMAC TISSUE REMOVED OR ALTERED: none COMPLICATIONS: none ESTIMATED BLOOD LOSS: Minimal INTRAOPERATIVE FINDINGS: See below PROCEDURE: The patient was taken to the main operating room where LMAC anesthesia was induced. Neck was externally rotated to the left side, arms tucked, breast taped in a caudad position. The right neck and chest wall prepped and draped sterile fashion. This included the previous permacatheter exit site. Surgical plan and surgical timeout conducted Focused ultrasound of the right neck revealed a compressible, patent right internal jugular vein. Skin was anesthetized with plain lidocaine 1%, micro needle and wire threaded into the right internal jugular vein using ultrasound guidance. Suitable site for permacatheter exit lateral to the previous exit site was chosen. Skin anesthetized 1% plain lidocaine, incision made with 11 blade, and a permacatheter, 23 cm tip to cuff was threaded to in the 2 incisions with a cuff in the subcutaneous space midway between the 2 incisions. The micro needle and wire were switched out to a conventional 0.030 inch guidewire using the micro introducer sheath. We now dilated up the tract using the small medium and large dilators all under fluoroscopic guidance, without significant resistance. The strip away sheath and largest dilator with noted over the wire, the wire dilator removed, and the perm catheter free and threaded into the strip away sheath. The 15.5 [place] sheath was removed leaving the catheter in position by fluoroscopic guidance demonstrating tip in the superior vena cava right atrial region. There was no evidence of ectopy. There is no kinking of the catheter. The catheter lumens were flushed , after aspirating vigorously and demonstrating minimal air bubbles, with heparinized saline. Caps were placed into position. Biopatch applied. Catheter was secured to the skin at 3 sites with 2-0 suture, and wounds closed with 4-0 Vicryl suture. Sterile dressings were applied. Patient tolerated the procedure well, she was taken to the recovery room stable condition.
[2017-09-27] MEDS ORDERED: PROMETHAZINE HCL INJ 25 MG/1 ML VIAL ONE (13:28)
--- NOTE | 2017-09-27 13:58 | RADIOLOGY REPORT (SQ) ---
EXAM DESCRIPTION: CHEST SINGLE VIEW COMPLETED DATE/TIME: 09/27/2017 1:41 pm REASON FOR STUDY: post op perm catheter COMPARISON: 08/19/2017 EXAM PARAMETERS: NUMBER OF VIEWS: One view. TECHNIQUE: Single frontal radiographic view of the chest acquired. RADIATION DOSE: NA LIMITATIONS: None. FINDINGS: LUNGS AND PLEURA: No opacities, masses or pneumothorax. No pleural effusion. MEDIASTINUM AND HILAR STRUCTURES: No masses. Contour normal. HEART AND VASCULAR STRUCTURES: Heart normal in size. Normal vasculature. BONES: No acute findings. HARDWARE: Dual-lumen access catheter tips in expected location. OTHER: No other significant finding. IMPRESSION: New venous access catheter. Expected findings. No pneumothorax. TECHNICAL DOCUMENTATION: JOB ID: [id number] [email or web address]- All Rights Reserved Reading location - IP/workstation name: [email or web address]
--- NOTE | 2017-09-27 14:33 | RADIOLOGY REPORT (SQ) ---
EXAM DESCRIPTION: NO CHG FLUORO; CHEST SINGLE VIEW COMPLETED DATE/TIME: 09/27/2017 2:01 pm REASON FOR STUDY: PORT-A-CATH IN OR ASSISTED W/ FLUORO COMPARISON: None. FLUOROSCOPY TIME: 0.4 minutes 3 images saved to PACS. TECHNIQUE: Intra-operative images acquired during surgical procedure to evaluate progress. NUMBER OF IMAGES: 3 LIMITATIONS: None. FINDINGS: Placement of Port-A-Cath. IMPRESSION: IMAGE(S) OBTAINED DURING PROCEDURE. COMMENT: Quality ID 145: Final reports for procedures using fluoroscopy that document radiation exp osure indices, or exposure time and number of fluorographic images (if radiation exposure indices are not available) Please consult full operative report of the attending physician for description of the procedure. TECHNICAL DOCUMENTATION: JOB ID: [id number] [employer]- All Rights Reserved Reading location - IP/workstation name: [email or web address]
--- NOTE | 2017-09-27 14:33 | RADIOLOGY REPORT (SQ) ---
EXAM DESCRIPTION: NO CHG FLUORO; CHEST SINGLE VIEW COMPLETED DATE/TIME: 09/27/2017 2:01 pm REASON FOR STUDY: PORT-A-CATH IN OR ASSISTED W/ FLUORO COMPARISON: None. FLUOROSCOPY TIME: 0.4 minutes 3 images saved to PACS. TECHNIQUE: Intra-operative images acquired during surgical procedure to evaluate progress. NUMBER OF IMAGES: 3 LIMITATIONS: None. FINDINGS: Placement of Port-A-Cath. IMPRESSION: IMAGE(S) OBTAINED DURING PROCEDURE. COMMENT: Quality ID [id number]: Final reports for procedures using fluoroscopy that document radiation exp osure indices, or exposure time and number of fluorographic images (if radiation exposure indices are not available) Please consult full operative report of the attending physician for description of the procedure. TECHNICAL DOCUMENTATION: JOB ID: [id number] [employer]- All Rights Reserved Reading location - IP/workstation name: [email or web address]
[2017-09-27 16:50] VITALS: BP 155/69
--- NOTE | 2017-09-30 08:50 | DISCHARGE SUMMARY E ---
Discharge Summary NAME: JESUS CALDERÓN : 1960 AGE: 57Y ADMITTED: 09/27/2017 DISCHARGED: 09/27/2017 DETAILS OF HOSPITALIZATION: The patient is a 67-year-old -Indian female with end-stage renal failure, currently dialyzing Thursday, Thursday, Thursday through a right internal jugular perm catheter placement in 2016. She has a left arm AV fistula currently maturing. She presents to the emergency department reporting that her perm catheter fell out. Please see her admission history and physical document for complete records. The patient was taken to the operating room where she underwent right-sided perm catheter placement by Dr. Allen. She tolerated the procedure well. There were no complications. By the afternoon of the day of the procedure she was ready for discharge home. FINAL DIAGNOSIS: Displaced or ejected perm catheter status post replacement by Dr. Allen on 09/27/2017. RECOMMENDATIONS: The patient is discharged home in the care of her family. Followup with the dialysis team as previously scheduled and report to [facility]. Dr. Macias for fistula assessment in the future. DICTATING PHYSICIAN: SAURABH ALLEN M.D. [id number] PHY#: [id number] ID: [id number] JOB#: [id number] ACCT: [id number] cc:SAURABH ALLEN M.D. > MTDD
== END 2017-09-27 14:30 | disposition home or self-care (01) ==
LOC: ER 10:23 → INTOOBSV 11:38 → EH 11:38
PROVIDERS: ADMIT Surgery; ATTEND Surgery
PROC: 02HV33Z Insertion of Infusion Device into Superior Vena Cava, Percutaneous Approach (ICD-10-PCS; 2017-09-27)
PROC: 0JH63XZ Insertion of Tunneled Vascular Access Device into Chest Subcutaneous Tissue and Fascia, Percutaneous Approach (ICD-10-PCS; principal; 2017-09-27 12:30)
DX: T82.42XA Displacement of vascular dialysis catheter, initial encounter (principal); N18.5 Chronic kidney disease, stage 5; I12.0 Hypertensive chronic kidney disease with stage 5 chronic kidney disease or end stage renal disease; E11.22 Type 2 diabetes mellitus with diabetic chronic kidney disease; G89.4 Chronic pain syndrome; F41.1 Generalized anxiety disorder; E78.5 Hyperlipidemia, unspecified; E66.01 Morbid (severe) obesity due to excess calories; Z87.891 Personal history of nicotine dependence
CPT/HCPCS: 99284; 71045; 36556; C1713; C1752; J2250; J1644; J0690; J3010; J3490; J2550; J1642; 532; J2704

== ENCOUNTER 2017-10-06 05:36 | Day surgery (SDC) | payer MEDICAID ==
[~2017-10-06 05:36] MED LIST changes: +BACITRACIN INJ 50,000 UNIT VIAL ONE; +BUPIVACAINE HCL 0.25 % INJ/PF (2.5 MG/1 ML) 30 ML VIAL ONE; -CEFAZOLIN 1 GM/D5W RTU 1 GM/50 ML RTUPB IV PRN; -GLYCOPYRROLATE INJ 0.4 MG/2 ML VIAL ONE; +HEPARIN SOD (PORCINE) 1,000 UNIT/ML 10 ML VIAL ONE; +HEPARIN SODIUM,PORCINE/NS/PF 0 UNIT/0 ML RTUINJ IV ONE; +LIDOCAINE 0.5% INJ-PF (5 MG/ML) 50 ML SDV ONE; +LIDOCAINE 1% INJ-PF (10 MG/ML) 30 ML SDV ONE; -PHENYLEPHRINE HCL INJ/PF 10 MG/1 ML SDV ONE; +THROMBIN (BOVINE) TOPICAL 5000 UNIT VIAL ONE; +VANCOMYCIN HCL 500 MG in DEXTROSE 5%-WATER 100 ML IV PRN
[2017-10-06 06:31] LABS: ABSOLUTE LYMPHOCYTES (AUTO) 1.1 10^3/uL (0.5-4.7); ABSOLUTE MONOCYTES (AUTO) 0.4 10^3/uL (0.1-1.4); BASOPHILS % (AUTO) 0.5 % (0-2); EOSINOPHILS % (AUTO) 0.3 % (0-6); HEMOGLOBIN 10.7 g/dL (12.0-15.5); LYMPHOCYTES % (AUTO) 12.9 % (13-45); MEAN CORPUSCULAR HEMOGLOBIN 25.4 pg (27.0-33.4); MEAN CORPUSCULAR HGB CONC 32.4 g/dL (32.0-36.0); MEAN CORPUSCULAR VOLUME 78 fl (80-97); MONOCYTES % (AUTO) 4.5 % (3-13); PLATELET COUNT 261 10^3/uL (150-450); RED BLOOD COUNT 4.23 10^6/uL (3.72-5.28); RED CELL DISTRIBUTION WIDTH 20.5 % (11.5-14.0); SEGMENTED NEUTROPHILS % (AUTO) 81.8 % (42-78); TOTAL CELLS COUNTED % (AUTO) 100 %; WHITE BLOOD COUNT 8.6 10^3/uL (4.0-10.5)
[2017-10-06] MEDS ORDERED: MIDAZOLAM 2 MG/2 ML INJ ONE ×2 (06:52→09:09)
[2017-10-06] MEDS ORDERED: KETAMINE HCL INJ 500 MG/10 ML VIAL ONE (06:52)
[2017-10-06] MEDS ORDERED: PROPOFOL INJ 200 MG/20 ML VIAL IV ONE ×5 (06:52→14:29)
[2017-10-06] MEDS ORDERED: FENTANYL CITRATE INJ/PF 100 MCG/2 ML AMPUL ONE ×4 (06:52→11:34)
[2017-10-06] MEDS ORDERED: ACETAMINOPHEN 100 ML IV ONE (06:52)
[2017-10-06 06:54] LABS: ANION GAP 13 (5-19); BLOOD UREA NITROGEN 16 mg/dL (7-20); CALCIUM 8.4 mg/dL (8.4-10.2); CARBON DIOXIDE 26 mmol/L (22-30); CHLORIDE 99 mmol/L (98-107); GLUCOSE 270 mg/dL (75-110); POTASSIUM 3.2 mmol/L (3.6-5.0); SODIUM 137.9 mmol/L (137-145)
[2017-10-06] MEDS ORDERED: LIDOCAINE 0.5% INJ-PF (5 MG/ML) 50 ML SDV ONE (07:03)
[2017-10-06] MEDS ORDERED: FENTANYL CITRATE INJ/PF 100 MCG/2 ML AMPUL IV PRN ×3 (07:03)
[2017-10-06] MEDS ORDERED: ONDANSETRON HCL INJ/PF 4 MG/2 ML SDV IV PRN (07:03)
[2017-10-06] MEDS ORDERED: DIPHENHYDRAMINE HCL 50 MG/ML VIAL IV PRN (07:03)
[2017-10-06] MEDS ORDERED: PROMETHAZINE HCL INJ 25 MG/1 ML VIAL IV PRN ×2 (07:03)
[2017-10-06] MEDS ORDERED: MEPERIDINE HCL/PF INJ 25 MG/1 ML DISP.SYRIN IV PRN (07:03)
[2017-10-06] MEDS ORDERED: NITROGLYCERIN/D5W 50 MG/250 ML RTUINJ IV ONE (07:41)
--- NOTE | 2017-10-06 11:22 | Discharge Summary ---
Discharge Summary (SDC) - Discharge Final Diagnosis: #[address] 2. Immature arteriovenous fistula left brachiocephalic. 3. End-stage renal disease on hemodialysis. 4. Obesity. 5. Diabetes mellitus type 2. 6. Hypertension. Date of Surgery: 10/06/17 Condition: Good Treatment or Instructions: Discharge home [after recovery per ASU criteria]. Diet , [renal],as tolerated, when fully awake advance as tolerated. Activities within moderation encouraged. Follow up in my office by appointment on of this week by appointment. Call for appointment. Leave wounds [covered], [keep clean and dry, until office visit in 1 week]. Empty drain as needed. Hold of on school/work [until evaluation in office]. Meds per med rec. Percocet prescription. May shower [in 48 hrs], [try to keep operated area as dry as possible]. Prescriptions: Oxycodone HCl/Acetaminophen [Percocet 5-325 mg Tablet] 1 tab PO ASDIR PRN #15 tab PRN Reason: Referrals: WESTON ULRICH PA [Primary Care Provider] - Discharge Diet: Other (Comments) Respiratory Treatments at Home: Deep Breathing/Coughing Discharge Activity: Activity As Tolerated Report the Following to Your Physician Immediately: Shortness of Breath, Unusual Bleeding
--- NOTE | 2017-10-06 12:09 | Operative Report ---
Operative Report DATE OF SURGERY: 10/06/17 PREOPERATIVE DIAGNOSIS: #[address] 2. Immature arteriovenous fistula left brachiocephalic. 3. End-stage renal disease on hemodialysis. 4. Obesity. 5. Diabetes mellitus type 2. 6. Hypertension POSTOPERATIVE DIAGNOSIS: #[address] 2. Immature arteriovenous fistula left brachiocephalic. 3. End-stage renal disease on hemodialysis. 4. Obesity. 5. Diabetes mellitus type 2. 6. Hypertension OPERATION: Transposition, superficial superficialization of existing left brachial cephalic fistula. SURGEON: ISAIAS PATRICIA CHURCH OFFICIAL: Mireya ANESTHESIA: LMAC TISSUE REMOVED OR ALTERED: Adipose tissue. COMPLICATIONS: None. ESTIMATED BLOOD LOSS: 10 ml. INTRAOPERATIVE FINDINGS: Of a functioning but very deeply placed left brachiocephalic fistula. At places almost 2 cm below the skin. By a combination of bringing the skin down to the vein and bringing the vein up to the skin, the fistula is quite satisfactorily palpable for at least 10 cm at the end of the procedure. Ultrasound of the fistula showed it to be 6.5 mm in any places 5.3 mm. Angiographic dilatation may be needed before he can be used optimally. PROCEDURE: Operative Report PROCEDURE: After reviewing the procedure with the patient, [she] was taken to the operating room. The patient was sedated and the left upper extremity] prepared with chlorhexidine and draped out with sterile linen. After the "" universal timeout", in which it was verified that the patient [received IV antibiotics] the procedure commenced. The sterilely sheathed ultrasound probe was used to evaluate the left existing arteriovenous fistula and its course marked. Local anesthesia was infiltrated and a transverse incision made in the lower third of the arm, about 4 cm in length.. Dissection proceeded through the subcutaneous tissues down to the fistula. This was dissected out proximally and distally for about 4 cm proximally and distally, as far as the incision would allow. A few side branches were doubly clipped and divided. The adipose tissue was dissected off the vein as far distally and proximally as possible. The fat between the subcuticular area and the vein was now dissected off, in a thin tunnel. The vein was dissected medially and laterally. Having utilized the incision as much as possible a second incision was now made transversely superiorly and and at an appropriate level to give maximal dissection. This was done after local anesthesia infiltration. Again through the new incision, dissection proceeded over the vein proximally and distally as far as possible and then just beneath the subcu tissue and the intervening portion of adipose tissue removed and discarded. Again the vein was from the tissues laterally and medially and any additional branches transected between clips. The fascia adjacent to the fistula was now brought up to the subcuticular level and a continuous suture of 4-0 Monocryl used to approximate it to the subcuticular area. This was done proximally and distally in both incisions. The vein was now nicely palpable for almost its entire length in the arm. There was a substantial tunnel where the skin came down to the vein, this seems unavoidable given the thick layer of adiposity A Beto drain was now inserted taking care to stay away from the fistula as much as possible. It exited medially and inferiorly to the inferior wound. It was anchored with 2-0 Prolene. The skin was now closed using interrupted 3-0 PDS to the subcu layer and continuous 4-0 Monocryl to the skin. This was reinforced with Steri-Strips over benzoin and dressings applied. The urgent care physician assistant provided retraction, thus facilitating the operative view. Controlled bleeding. The urgent care physician assistant also followed the suturing, thus facilitating accurate suture placement. Sutured skin and applied dressings. DICTATING PHYSICIAN: ISAIAS NAPOLES M.D.
[2017-10-06] MEDS ORDERED: OXYCODONE-ACETAMINOPHEN 5-325 MG TABLET ONE (12:45)
[2017-10-06 14:28] VITALS: BP 145/84
[2017-10-06] MEDS ORDERED: ONDANSETRON HCL INJ/PF 4 MG/2 ML SDV ONE (14:59)
[2017-10-06] MEDS ORDERED: METOCLOPRAMIDE HCL INJ/PF 10 MG/2 ML SDV ONE (14:59)
[2017-10-06] MEDS ORDERED: LIDOCAINE 2% INJ-PF (20 MG/ML) 2 ML AMPUL ONE (14:59)
[2017-10-06] MEDS ORDERED: GLYCOPYRROLATE INJ 0.4 MG/2 ML VIAL ONE (14:59)
== END 2017-10-06 13:25 | disposition home or self-care (01) ==
LOC: OROUT 05:36
PROVIDERS: ATTEND Surgery
PROC: 05SA0ZZ Reposition Left Brachial Vein, Open Approach (ICD-10-PCS; principal; 2017-10-06 07:30)
DX: I25.10 Atherosclerotic heart disease of native coronary artery without angina pectoris (principal); I13.2 Hypertensive heart and chronic kidney disease with heart failure and with stage 5 chronic kidney disease, or end stage renal disease; I50.9 Heart failure, unspecified; N18.6 End stage renal disease; Z99.2 Dependence on renal dialysis; J45.909 Unspecified asthma, uncomplicated; M19.90 Unspecified osteoarthritis, unspecified site; D63.1 Anemia in chronic kidney disease; E66.9 Obesity, unspecified; Z86.14 Personal history of Methicillin resistant Staphylococcus aureus infection; Z87.891 Personal history of nicotine dependence; Z79.899 Other long term (current) drug therapy; Z79.51 Long term (current) use of inhaled steroids; Z68.43 Body mass index [BMI] 50.0-59.9, adult
CPT/HCPCS: 36821; 36415; 82962; 85025; 80048; J2250; J3490 ×7; J3010; J1644; J2765; J2405; J3370; S0020; J2704; J1642; J0131; 1844

== ENCOUNTER 2017-11-10 06:25 | Day surgery (SDC) | payer MEDICAID ==
[2017-11-10 07:22] LABS: HEMATOCRIT 32.7 % (36.0-47.0); HEMOGLOBIN 10.6 g/dL (12.0-15.5); MEAN CORPUSCULAR HEMOGLOBIN 25.7 pg (27.0-33.4); MEAN CORPUSCULAR HGB CONC 32.5 g/dL (32.0-36.0); MEAN CORPUSCULAR VOLUME 79 fl (80-97); PLATELET COUNT 225 10^3/uL (150-450); RED BLOOD COUNT 4.13 10^6/uL (3.72-5.28); RED CELL DISTRIBUTION WIDTH 21.1 % (11.5-14.0); WHITE BLOOD COUNT 7.8 10^3/uL (4.0-10.5)
[2017-11-10] MEDS ORDERED: OXYCODONE-ACETAMINOPHEN 5-325 MG TABLET ONE (07:29)
[2017-11-10] MEDS ORDERED: DIAZEPAM 5 MG TABLET ONE (07:29)
[2017-11-10 07:34] LABS: ALANINE AMINOTRANSFERASE 24 U/L (9-52); ALBUMIN 3.5 g/dL (3.5-5.0); ALKALINE PHOSPHATASE 97 U/L (38-126); ANION GAP 14 (5-19); ASPARTATE AMINO TRANSFERASE 14 U/L (14-36); BILIRUBIN,DIRECT 0.3 mg/dL (0.0-0.4); BILIRUBIN,TOTAL 0.3 mg/dL (0.2-1.3); BLOOD UREA NITROGEN 27 mg/dL (7-20); CARBON DIOXIDE 26 mmol/L (22-30); CHLORIDE 101 mmol/L (98-107); GLUCOSE 267 mg/dL (75-110); POTASSIUM 3.9 mmol/L (3.6-5.0); SODIUM 141.4 mmol/L (137-145); TOTAL PROTEIN 6.4 g/dL (6.3-8.2)
[2017-11-10] MEDS ORDERED: LIDOCAINE 0.5% INJ-PF (5 MG/ML) 50 ML SDV ONE (07:48)
[2017-11-10] MEDS ORDERED: HEPARIN SOD (PORCINE) 5,000 UNIT/ML 1 ML SYRINGE ONE (07:58)
[2017-11-10] MEDS ORDERED: MIDAZOLAM 2 MG/2 ML INJ ONE (07:58)
[2017-11-10] MEDS ORDERED: FENTANYL CITRATE INJ/PF 100 MCG/2 ML AMPUL ONE (07:58)
--- NOTE | 2017-11-10 10:14 | Discharge Summary ---
Discharge Summary (SDC) - Discharge Final Diagnosis: #1 malfunctioning arteriovenous fistula, left brachiocephalic. 2. Permacatheter in place. 3. End-stage renal disease on hemodialysis. 4. Morbid obesity. 5. Diabetes mellitus type 2. 6. Hypertension. Date of Surgery: 11/10/17 Discharge Date: 11/10/17 Condition: Good Treatment or Instructions: Discharge home [after recovery per ASU criteria]. Diet , [renal],as tolerated, when fully awake advance as tolerated. Activities within moderation encouraged. Follow up in my office by appointment in about [1 week]. Call for appointment. Leave wounds [covered], [keep clean and dry, until office visit in 1 week]. Meds per med rec. Hold of on school/work [until evaluation in office]. May shower [in 48 hrs], [try to keep operated area as dry as possible]. Prescriptions: Oxycodone HCl/Acetaminophen [Percocet 5-325 mg Tablet] 1 tab PO ASDIR PRN #5 tab PRN Reason: Referrals: RATNA HOOPER MD [Primary Care Provider] - Discharge Diet: Other (Comments) - Diabetic, renal. Respiratory Treatments at Home: Deep Breathing/Coughing Discharge Activity: Activity As Tolerated Report the Following to Your Physician Immediately: Shortness of Breath, Unusual Bleeding
--- NOTE | 2017-11-10 10:44 | RADIOLOGY REPORT (SQ) ---
EXAM DESCRIPTION: FISTULAGRAM W/PLASTY COMPLETED DATE/TIME: 11/10/2017 9:51 am REASON FOR STUDY: T82.858A T82.858A STENOSIS OF OTHER VASCULAR PROSTH DEV/GRFT, INIT COMPARISON: 06/03/2017 FLUOROSCOPY TIME: 40 seconds 40 digital images saved to PACS. TECHNIQUE: Intra-operative images acquired during surgical procedure to evaluate progress. NUMBER OF IMAGES: 40 digital radiographic images saved to pac's LIMITATIONS: None. FINDINGS: Intra procedural imaging and fluoro during evaluation and plasty of a left upper extremity dialysis access by Dr. Macias. Please see the operative report for further detail IMPRESSION: Intra procedural imaging and fluoro COMMENT: Quality ID [id number]: Final reports for procedures using fluoroscopy that document radiation exp osure indices, or exposure time and number of fluorographic images (if radiation exposure indices are not available) Please consult full operative report of the attending physician for description of the procedure. TECHNICAL DOCUMENTATION: JOB ID: [id number] [employer]- All Rights Reserved Reading location - IP/workstation name: [email or web address]
[2017-11-10 11:44] VITALS: BP 192/88
--- NOTE | 2017-11-16 18:10 | OPERATIVE REPORT E ---
Operative Report NAME: JESUS CALDERÓN : 1960 AGE: 57Y DATE OF SURGERY: 11/10/2017 ROOM: PREOPERATIVE DIAGNOSIS: 1. MALFUNCTIONING ARTERIOVENOUS FISTULA, LEFT ARM. 2. PERM CATHETER IN PLACE. 3. END STAGE RENAL DISEASE ON HEMODIALYSIS. 4. MORBID OBESITY. 5. HYPERTENSION. POSTOPERATIVE DIAGNOSIS: 1. MALFUNCTIONING ARTERIOVENOUS FISTULA, LEFT ARM. 2. PERM CATHETER IN PLACE. 3. END STAGE RENAL DISEASE ON HEMODIALYSIS. 4. MORBID OBESITY. 5. HYPERTENSION. OPERATION: 1. Needle access into fistula. 2. Multiple angioplasties of fistula. 3. Angiogram and interpretation. SURGEON: ISAIAS NAPOLES M.D. HOT STAMP OPERATOR: None. ANESTHESIA: Moderate sedation. TISSUE REMOVED OR ALTERED: Not applicable. COMPLICATIONS: None. ESTIMATED BLOOD LOSS: 2 mL. INTEROPERATIVE FINDINGS: A well-founded left brachiocephalic fistula. Somewhat hard to palpate. This fistula has been elevated close to the skin, however, it is still somewhat on the small size. After dilatation up to a 7 mm angioplasty balloon, it was much easier to palpate and should be accessible for dialysis in a week or so. PROCEDURE: After obtaining informed consent, the patient was taken to the laborer gold [place] and positioned supine. The left arm was prepared with chlorhexidine and draped off with sterile linen. After the universal timeout in which it was verified that the patient did not require antibiotic, the procedure commenced. Local anesthesia was infiltrated adjacent to the vein just below the elbow. Access was gained using a micropuncture needle, micropuncture wire, and then micropuncture catheter. This was followed by introduction of a 0.035 guidewire which allowed positioning of the 6 [place] introducer. An angiogram was done which demonstrated relative narrowing of the vessel. There was an additional area of narrowing, about 80% of the adjacent lumen for about 2 cm situated at about 15 cm from the anastomosis. Dilation was done using the 7 mm angioplasty balloon starting just above and continuing down to the introducer. Completion angiogram showed much improvement in the diameter of the fistula overall and elimination of the area of stenosis. The procedure now completed by applying light hand pressure for 10 minutes and then a dressing. DICTATING PHYSICIAN: ISAIAS NAPOLES M.D. [id number] Y#: [id number] ID: [id number] JOB#: [id number] ACCT: [id number] cc:ISAIAS NAPOLES M.D. > SIMÓN
== END 2017-11-10 11:40 | disposition home or self-care (01) ==
LOC: CCL 06:25
PROVIDERS: ATTEND Surgery
DX: T82.858A Stenosis of other vascular prosthetic devices, implants and grafts, initial encounter (principal); Y83.2 Surgical operation with anastomosis, bypass or graft as the cause of abnormal reaction of the patient, or of later complication, without mention of misadventure at the time of the procedure; I12.0 Hypertensive chronic kidney disease with stage 5 chronic kidney disease or end stage renal disease; E11.22 Type 2 diabetes mellitus with diabetic chronic kidney disease; N18.6 End stage renal disease; Z99.2 Dependence on renal dialysis; E66.01 Morbid (severe) obesity due to excess calories; Z86.14 Personal history of Methicillin resistant Staphylococcus aureus infection; Z68.43 Body mass index [BMI] 50.0-59.9, adult; Z79.899 Other long term (current) drug therapy; Z79.4 Long term (current) use of insulin; Z87.891 Personal history of nicotine dependence
CPT/HCPCS: 36415; 85027; 80053; 36902; 76937; C1725 ×2; C1752; Q9967; C1769; J2250; J1644 ×2; J3490 ×2; J3010

== ENCOUNTER 2017-12-02 07:49 | Inpatient (IN) | payer MEDICAID ==
--- NOTE | 2017-12-02 07:54 | ER Document Report ---
ED General - General Stated Complaint: NEAR SYNCOPE Time Seen by Provider: 12/02/17 07:52 Mode of Arrival: Medic Information source: Patient, Emergency Med Personnel Notes: 57-year-old female history of congestive heart failure who dialyzes on Wednesdays presents by medical transport with concerns of shortness of breath and syncopal episode. It is noted that the patient was heading to [place] to have a new dialysis catheter placed as her right TRAVEL OUTSIDE OF THE [place] IN LAST 30 DAYS: No - HPI Onset: Other Onset/Duration: Worse Quality of pain: No pain Severity: Moderate Pain Level: Denies Associated symptoms: Shortness of breath, Weakness Exacerbated by: Walking Relieved by: Denies Similar symptoms previously: Yes Recently seen / treated by doctor: Yes - Related Data Allergies/Adverse Reactions: No Known Drug Allergies Allergy (Verified 09/24/17 14:53) Past Medical History - Social History Smoking Status: Never Smoker Cigarette use (# per day): No Chew tobacco use (# tins/day): No Smoking Education Provided: No Family History: Hypertension - Past Medical History Cardiac Medical History: Reports: Hx Congestive Heart Failure, Hx Hypercholesterolemia, Hx Hypertension Denies: Hx Coronary Artery Disease, Hx Heart Attack Pulmonary Medical History: Denies: Hx Asthma - UNSURE, Hx Bronchitis, Hx COPD - UNSURE, Hx Pneumonia Neurological Medical History: Denies: Hx Cerebrovascular Accident, Hx Seizures Endocrine Medical History: Reports: Hx Diabetes Mellitus Type 2 Renal/ Medical History: Reports: Hx End Stage Renal Disease, Hx Hemodialysis. Denies: Hx Peritoneal Dialysis GI Medical History: Reports: Hx Gastroesophageal Reflux Disease Musculoskeltal Medical History: Reports Hx Arthritis Psychiatric Medical History: Reports: Hx Depression Past Surgical History: Reports: Hx Cholecystectomy, Hx Hysterectomy, Hx Vascular Surgery - Left arm AV fistula - Immunizations Hx Diphtheria, Pertussis, Tetanus Vaccination: No Review of Systems - Review of Systems Notes: REVIEW OF SYSTEMS: CONSTITUTIONAL : Denies fever, chills, or sweats. Denies recent illness. EENT: Denies eye, ear, throat, or mouth pain or symptoms. Denies nasal or sinus congestion or discharge. Denies throat, tongue, or mouth swelling or difficulty swallowing. CARDIOVASCULAR: Denies chest pain. Denies palpitations or racing or irregular heart beat. Denies ankle edema. RESPIRATORY: Admits shortness of breath GASTROINTESTINAL: Denies abdominal pain or distention. Denies nausea, vomiting , or diarrhea. Denies blood in vomitus, stools, or per rectum. Denies black, tarry stools. Denies constipation. GENITOURINARY: Denies difficulty urinating, painful urination, burning, frequency, blood in urine, or discharge. FEMALE GENITOURINARY: Denies vaginal bleeding, heavy or abnormal periods, irregular periods. Denies vaginal discharge or odor. MUSCULOSKELETAL: Denies back or neck pain or stiffness. Denies joint pain or swelling. SKIN: Denies rash, lesions or sores. HEMATOLOGIC : Denies easy bruising or bleeding. LYMPHATIC: Denies swollen, enlarged glands. NEUROLOGICAL: Admits to weakness PSYCHIATRIC: Denies anxiety or stress. Denies depression, suicidal ideation, or homicidal ideation. ALL OTHER SYSTEMS REVIEWED AND NEGATIVE. PHYSICAL EXAMINATION: GENERAL: Morbidly obese female HEAD: Atraumatic, normocephalic. EYES: Pupils equal round and reactive to light, extraocular movements intact, conjunctiva are normal. ENT: Nares patent, oropharynx clear without exudates. Moist mucous membranes. NECK: Normal range of motion, supple without lymphadenopathy LUNGS: Crackles at the bases no respiratory distress noted satting 89-90% on room air initially HEART: Regular rate and rhythm without murmurs ABDOMEN: Soft, nontender, nondistended abdomen. No guarding, no rebound. No masses appreciated. Female : deferred Musculoskeletal: Normal range of motion, no pitting or edema. No cyanosis. NEUROLOGICAL: Cranial nerves grossly intact. Normal speech, normal gait. Normal sensory, motor exams PSYCH: Normal mood, normal affect. SKIN: Warm, Dry, normal turgor, no rashes or lesions noted. Dictation was performed using [employer] voice recognition software Physical Exam - Vital signs Vitals: Pulse Ox 95 12/02/17 08:01 Course - Re-evaluation Re-evalutation: 12/02/17 08:03 Patient was helped out of the van that she was sitting in, she was immediately taken to the room where she was noted to be satting 89-90% while laying flat, patient was set up and her O2 sats improved [place] 9596% she is noted to be slightly tachycardic. She is a patient of Dr. Blanc's, I did speak with her and it appears that access for dialysis is the biggest concern, the patient was going to [facility] for second opinion as she used to be a patient of Dr. Ady Macias 12/02/17 11:04 Dr Stephen robbins for admission - Vital Signs Vital signs: Temp Pulse Resp BP Pulse Ox 97.6 F 24 H 164/75 H 96 12/02/17 08:02 12/02/17 08:02 12/02/17 08:02 12/02/17 08:02 - Laboratory Result Diagrams: 12/02/17 09:50 12/02/17 09:50 Laboratory results interpreted by me: 12/02/17 12/02/17 12/02/17 09:50 09:50 09:50 RBC 2.87 L Hgb 7.5 L Hct 23.3 L MCH 26.3 L RDW 20.4 H Seg Neutrophils % 80.6 H Absolute Neutrophils 8.3 H BUN 66 H Creatinine 7.74 H Est GFR ( Amer) 7 L Est GFR (Non-Af Amer) 5 L Glucose 418 H* NT-Pro-B Natriuret Pep 29011 H Total Protein 6.2 L Albumin 3.4 L Critical Care Note - Critical Care Note Total time excluding time spent on procedures (mins): 45 Comments: 45 minutes of critical care time spent in direct contact evaluating and reevaluating the patient, treating symptoms, reviewing labs and studies and speaking with family and consultants excluding any procedures Discharge - Discharge Clinical Impression: Anemia in CKD (chronic kidney disease) Qualifiers: Chronic kidney disease stage: stage 3 (moderate) Qualified Code(s): N18.3 - Chronic kidney disease, stage 3 (moderate); D63.1 - Anemia in chronic kidney disease; D63.1 - Anemia in chronic kidney disease Renal failure Qualifiers: Renal failure chronicity: chronic Chronic kidney disease stage: on chronic dialysis Qualified Code(s): N18.6 - End stage renal disease; Z99.2 - Dependence on renal dialysis; Z99.2 - Dependence on renal dialysis; Z99.2 - Dependence on renal dialysis; Z99.2 - Dependence on renal dialysis Condition: Critical Disposition: ADMITTED INPATIENT Admitting Provider: Brandon Unit Admitted: [facility] Referrals: RATNA HOOPER MD [Primary Care Provider] - Follow up as needed
--- NOTE | 2017-12-02 08:55 | RADIOLOGY REPORT (SQ) ---
EXAM DESCRIPTION: CHEST SINGLE VIEW COMPLETED DATE/TIME: 12/02/2017 8:35 am REASON FOR STUDY: sob COMPARISON: 09/27/2017. NUMBER OF VIEWS: One view. TECHNIQUE: Single frontal radiographic view of the chest acquired. LIMITATIONS: None. FINDINGS: LUNGS AND PLEURA: No opacities, masses or pneumothorax. No pleural effusion. MEDIASTINUM AND HILAR STRUCTURES: No masses. Contour normal. HEART AND VASCULAR STRUCTURES: Heart enlarged without failure. Normal vasculature. BONES: No acute findings. HARDWARE: Central line. OTHER: No other significant finding. IMPRESSION: HEART ENLARGED WITHOUT FAILURE. NO OTHER SIGNIFICANT RADIOGRAPHIC FINDING IN THE CHEST. TECHNICAL DOCUMENTATION: JOB ID: [id number] [employer] All Rights Reserved Reading location - IP/workstation name: [email or web address]
[2017-12-02 10:10] LABS: ABSOLUTE BASOPHILS # (AUTO) 0.1 10^3/uL (0.0-0.2); ABSOLUTE EOSINOPHILS # (AUTO) 0.1 10^3/uL (0.0-0.6); ABSOLUTE LYMPHOCYTES (AUTO) 1.4 10^3/uL (0.5-4.7); ABSOLUTE MONOCYTES (AUTO) 0.4 10^3/uL (0.1-1.4); ABSOLUTE NEUT (AUTO) 8.3 10^3/uL (1.7-8.2); BASOPHILS % (AUTO) 1.3 % (0-2); EOSINOPHILS % (AUTO) 0.8 % (0-6); HEMATOCRIT 23.3 % (36.0-47.0); LYMPHOCYTES % (AUTO) 13.3 % (13-45); MEAN CORPUSCULAR HEMOGLOBIN 26.3 pg (27.0-33.4); MEAN CORPUSCULAR HGB CONC 32.3 g/dL (32.0-36.0); MEAN CORPUSCULAR VOLUME 81 fl (80-97); PLATELET COUNT 222 10^3/uL (150-450); RED BLOOD COUNT 2.87 10^6/uL (3.72-5.28); RED CELL DISTRIBUTION WIDTH 20.4 % (11.5-14.0); SEGMENTED NEUTROPHILS % (AUTO) 80.6 % (42-78); TOTAL CELLS COUNTED % (AUTO) 100 %; WHITE BLOOD COUNT 10.3 10^3/uL (4.0-10.5)
[2017-12-02 10:14] LABS: HEMOGLOBIN 7.5 g/dL (12.0-15.5)
[2017-12-02] MEDS ORDERED: NORMAL SALINE 250 ML IV PRN ×2 (10:14)
[2017-12-02 10:27] LABS: ALANINE AMINOTRANSFERASE 21 U/L (9-52); ALBUMIN 3.4 g/dL (3.5-5.0); ALKALINE PHOSPHATASE 77 U/L (38-126); ANION GAP 11 (5-19); ASPARTATE AMINO TRANSFERASE 15 U/L (14-36); BILIRUBIN,DIRECT 0.2 mg/dL (0.0-0.4); BILIRUBIN,TOTAL 0.2 mg/dL (0.2-1.3); BLOOD UREA NITROGEN 66 mg/dL (7-20); CALCIUM 9.2 mg/dL (8.4-10.2); CARBON DIOXIDE 24 mmol/L (22-30); CHLORIDE 103 mmol/L (98-107); POTASSIUM 4.9 mmol/L (3.6-5.0); SODIUM 138.4 mmol/L (137-145); TOTAL PROTEIN 6.2 g/dL (6.3-8.2)
[2017-12-02 10:38] LABS: GLUCOSE 418 mg/dL (75-110)
--- NOTE | 2017-12-02 17:13 | PDOC CONSULTATION ---
Consultation Consult Date: 12/02/17 Attending physician:: RATNA HOOPER Consult reason:: I was asked by Dr. Dr. Hooper in the emergency room visit due to hypoxia requiring dialysis today. History of Present Illness Admission Date/PCP: 12/02/17 11:58 RATNA HOOPER MD History of Present Illness: JESUS CALDERÓN is a 57 year old female known to me with history of end-stage renal disease on maintenance hemodialysis on Mondays, Wednesdays and Fridays, diabetic nephropathy, hypertension, diabetes mellitus type 2, anemia and diastolic congestive heart failure who was brought in to the emergency room this morning after a syncopal episode. Patient tells me that she started having shortness of breath last night but then when she woke up she was more short of breath and so she put her oxygen on but despite that she remains to be short of breath. She was supposed to go to the vascular center in [place] today so the transportation came to get her but then she was noted to be weak, initially sleepy and then she passed out. So patient was brought instead to the emergency room. Patient is still a bit short of breath when I saw her on dialysis this afternoon. She denies any chest pains nor fever. She has slight nausea but no vomiting. She has slight cough with clear phlegm. The patient has been having issues with her vascular access cysts including her PermCath in her left arm AV fistula. Since her left arm AV fistula has not been able to function well, her PermCath is the one being use but has been having issues to for the last week. She has not been running a complete treatment time for the last week and has been having a lot of clotting issues. Due to this clotting issue it will not be a surprise of the patient's hemoglobin was low when she came in at 7.5. I saw her today during dialysis treatment and she seems to be still a little bit short of breath catching her breath every time she talks. She is on oxygen at 2 L via nasal cannula. She is awake. We are using the PermCath initially at the reverse position until it clotted in the system needs to be changed. She is also receiving 2 units of blood transfusion during dialysis treatment. Her blood pressure was initially elevated. Ultrafiltration will include blood transfusion. Patient is currently being monitored toward during dialysis treatment. Past Medical History Cardiac Medical History: Reports: CHF-Diastolic, Hyperlipidemia, Hypertension- primary - Since 1995 Endocrine Medical History: Reports: Diabetes Mellitus Type 2, Obesity Complications of Diabetes: Reports: Autonomic Neuropathy, Nephropathy, Retinopathy Renal/ Medical History: Reports: End Stage Renal Disease, Secondary Hyperparathyroidism GI Medical History: Reports: Gastroesophageal Reflux Disease Musculoskeltal Medical History: Reports: Arthritis, Other - Chronic pain Psychiatric Medical History: Reports: Depression, General Anxiety Disorder Hematology Medical History: Reports Anemia of Chronic Kidney Disease Past Surgical History Past Surgical History: Reports: Cholecystectomy, Dialysis Access Surgery AVF - by Dr. Macias, Hysterectomy, Vascular Surgery - PermCath placement for dialysis Social History Information Source: Patient Smoking Status: Former Smoker Frequency of Alcohol Use: None Hx Recreational Drug Use: No Hx Prescription Drug Abuse: No Family History Family History: DM - Siblings, Hypertension - Siblings Parental Family History Reviewed: Yes Children Family History Reviewed: Unknown Sibling(s) Family History Reviewed.: Yes Medication/Allergy Home Medications: B Complex W-C No.20/Folic Acid [Nephrocaps Softgel] 1 mg PO DAILY 08/19/17 Insulin Aspart [Novolog Insulin (Aspart) 100 unit/mL] 0 unit SUBCUT .SLD SCALE 08/19/17 Insulin Glargine,Hum.rec.anlog [Lantus Insulin 100 Unit/1 ml 10 ml] 48 unit SUBCUT QHS 08/19/17 Nifedipine [Procardia XL 30 mg Tablet] 60 mg PO Q12 08/19/17 Pregabalin [Lyrica 25 mg Capsule] 25 mg PO DAILY 08/19/17 Tiotropium [place] [Spiriva Handihaler 18 mcg/dose (30 Dose)] 1 cap IH DAILY Albuterol Sulfate [Proair Hfa Inhalation Aerosol 8.5 gm Mdi] 2 puff IH Q6 Atorvastatin Calcium [Lipitor 10 mg Tablet] 10 mg PO QHS 12/02/17 Buspirone HCl [Buspar 10 mg Tablet] 10 mg PO TID 12/02/17 Carvedilol [Coreg 25 mg Tablet] 25 mg PO Q12 12/02/17 Clonidine HCl [Catapres 0.1 mg Tablet] 0.1 mg PO Q12 12/02/17 Esomeprazole Magnesium [Nexium] 40 mg PO BID 12/02/17 Ipratropium/Albuterol Sulfate [Iprat-Albut 0.5-3(2.5) Mg/3 Ml] 3 ml IH Q6HP PRN 12/02/17 Vilazodone HCl [Viibryd] 20 mg PO DAILY 12/02/17 Zolpidem Tartrate [Ambien 5 mg Tablet] 5 mg PO HSP PRN 12/02/17 Allergies/Adverse Reactions: No Known Drug Allergies Allergy (Verified 12/02/17 13:38) Review of Systems All systems: reviewed and no additional remarkable complaints except as stated Review of Systems: Constitutional: ABSENT: chills, fatigue, fever(s), headache(s), weight gain, weight loss Eyes: ABSENT: visual disturbances Ears: ABSENT: hearing changes Cardiovascular: ABSENT: chest pain, edema, orthropnea, palpitations; admits shortness of breath Respiratory: ABSENT: Hemoptysis; admits shortness of breath and slight cough Gastrointestinal: ABSENT: abdominal pain, constipation, diarrhea, hematemesis, hematochezia, vomiting; admits nausea Genitourinary: ABSENT: dysuria, hematuria Musculoskeletal: ABSENT: joint swelling Integumentary: ABSENT: rash, wounds Neurological: ABSENT: abnormal gait, abnormal speech, confusion, dizziness, focal weakness, numbness; patient had syncope Psychiatric: ABSENT: anxiety, depression Endocrine: ABSENT: cold intolerance, heat intolerance, polydipsia, polyuria Hematologic/Lymphatic: ABSENT: easy bleeding, easy bruising, lymphadenopathy Physical Exam Vital Signs: Temp Pulse Resp BP Pulse Ox 98.6 F 86 14 179/83 H 100 12/02/17 16:32 12/02/17 16:32 12/02/17 16:32 12/02/17 16:32 12/02/17 15:30 Intake & Output 12/01/17 12/02/17 12/03/17 06:59 06:59 06:59 Intake Total 600 Balance 600 Vitals during dialysis: Blood pressure of 212/102, heart rate of 87, blood flow rate of 350 mL/min, dialysate flow rate of 800 mL/min. Exam: General appearance: no acute distress, cooperative, well-developed, well- nourished Head exam: PRESENT: atraumatic, normocephalic Eye exam: PRESENT: Conjunctiva pale, EOMI, PERRLA. ABSENT: conjunctival injection, scleral icterus Mouth exam: PRESENT: moist, neck supple, tongue midline Neck exam: PRESENT: full ROM. ABSENT: carotid bruit, JVD, lymphadenopathy, thyromegaly Respiratory exam: PRESENT: Diminished to auscultation bilaterally. ABSENT: rales, rhonchi, stridor, wheezes Cardiovascular exam: PRESENT: RRR, +S1, +S2. ABSENT: systolic murmur Pulses: PRESENT: normal radial pulses, normal dorsalis pedis pulses GI/Abdominal exam: PRESENT: normal bowel sounds, soft. ABSENT: guarding, mass, tenderness Rectal exam: deferred Extremities exam: PRESENT: full ROM. ABSENT: calf tenderness, pedal edema Musculoskeletal: PRESENT: full ROM. ABSENT: deformity Neurological exam: PRESENT: alert, Awake, Oriented to person, Oriented to place , Oriented to time, reflexes normal, CN II-XII grossly intact. ABSENT: motor sensory deficit Psychiatric exam: PRESENT: appropriate affect, normal mood. ABSENT: homicidal ideation, suicidal ideation Skin exam: PRESENT: intact, dry, warm. ABSENT: rash Results Laboratory Results: Laboratory 12/02/17 12/02/17 12/02/17 09:50 09:50 09:50 WBC 10.3 RBC 2.87 L Hgb 7.5 L Hct 23.3 L MCV 81 MCH 26.3 L MCHC 32.3 RDW 20.4 H Plt Count 222 Seg Neutrophils % 80.6 H Lymphocytes % 13.3 Monocytes % 4.0 Eosinophils % 0.8 Basophils % 1.3 Absolute Neutrophils 8.3 H Absolute Lymphocytes 1.4 Absolute Monocytes 0.4 Absolute Eosinophils 0.1 Absolute Basophils 0.1 Sodium 138.4 Potassium 4.9 Chloride 103 Carbon Dioxide 24 Anion Gap 11 BUN 66 H Creatinine 7.74 H Est GFR ( Amer) 7 L Est GFR (Non-Af Amer) 5 L Glucose 418 H* Calcium 9.2 Total Bilirubin 0.2 Direct Bilirubin 0.2 Neonat Total Bilirubin Not Reportable Neonat Direct Bilirubin Not Reportable Neonat Indirect Bili Not Reportable AST 15 ALT 21 Alkaline Phosphatase 77 NT-Pro-B Natriuret Pep 74853 H Total Protein 6.2 L Albumin 3.4 L Blood Type Antibody Screen Crossmatch 12/02/17 11:19 WBC RBC Hgb Hct MCV MCH MCHC RDW Plt Count Seg Neutrophils % Lymphocytes % Monocytes % Eosinophils % Basophils % Absolute Neutrophils Absolute Lymphocytes Absolute Monocytes Absolute Eosinophils Absolute Basophils Sodium Potassium Chloride Carbon Dioxide Anion Gap BUN Creatinine Est GFR ( Amer) Est GFR (Non-Af Amer) Glucose Calcium Total Bilirubin Direct Bilirubin Neonat Total Bilirubin Neonat Direct Bilirubin Neonat Indirect Bili AST ALT Alkaline Phosphatase NT-Pro-B Natriuret Pep Total Protein Albumin Blood Type A NEGATIVE Antibody Screen NEGATIVE Crossmatch See Detail Impressions: Chest X-Ray 12/02/17 08:05 IMPRESSION: HEART ENLARGED WITHOUT FAILURE. NO OTHER SIGNIFICANT RADIOGRAPHIC FINDING IN THE CHEST. Assessment & Plan - Diagnosis (1) Hypoxia Is this a current diagnosis for this admission?: Yes Plan: This could possibly be due to some relative pulmonary congestion due to suboptimal hemodialysis treatment due to vascular access malfunction at least for the past week. We will do ultrafiltration as tolerated during dialysis treatment today. Continue oxygen supplementation. (2) End-stage renal disease on hemodialysis Is this a current diagnosis for this admission?: Yes Plan: We will do dialysis today for 3 hours, using the patient's PermCath, with 2 potassium bath, blood flow rate of 350 mL per minute, dialysate flow rate of 800 mL per minute, ultrafiltration 4 L as tolerated, no heparin and no Procrit during dialysis since the patient will receive blood transfusion. Patient will be monitored during dialysis treatment. (3) Anemia in chronic kidney disease (CKD) Qualifiers: Chronic kidney disease stage: stage 3 (moderate) Qualified Code(s): N18.3 - Chronic kidney disease, stage 3 (moderate); D63.1 - Anemia in chronic kidney disease; D63.1 - Anemia in chronic kidney disease Is this a current diagnosis for this admission?: Yes Plan: We will give Procrit during dialysis as needed. (4) Anemia due to blood loss Is this a current diagnosis for this admission?: Yes Plan: This is most likely due to frequent clotting during dialysis for the past week. Agree with blood transfusion with 2 units packed RBC during dialysis treatment today. (5) Problem with dialysis access Is this a current diagnosis for this admission?: Yes Plan: I asked Dr. Macias to do PermCath exchange tomorrow since we are having problem with her PermCath. Dr. Macias is gracious to schedule the patient for PermCath exchange tomorrow. (6) Hypertension Qualifiers: Hypertension type: essential hypertension Qualified Code(s): I10 - Essential (primary) hypertension Is this a current diagnosis for this admission?: Yes Plan: Patient has supine hypertension but autonomic orthostatic hypotension. The patient's systolic blood pressure continues to be elevated greater than 200 then we will give the patient clonidine 0.1 mg during dialysis treatment. Continue all other current maintenance blood pressure medications. (7) Syncope Is this a current diagnosis for this admission?: Yes (8) Diabetes mellitus Is this a current diagnosis for this admission?: Yes - Notes Notes: Thank you very much for this consultation. We will supervise dialysis while here in the hospital. - Time Time Spent: 50 to 70 Minutes
[2017-12-02] MEDS ORDERED: HEPARIN SOD (PORCINE) 1,000 UNIT/ML 10 ML VIAL IV PRN (17:22)
[2017-12-02] MEDS: ACETAMINOPHEN 325 MG TABLET PO PRN (17:32)
[2017-12-02] MEDS ORDERED: DEXTROSE 50%-WATER SYRINGE 12.5 GM/25 ML DOSE IV PRN (19:31)
[2017-12-02] MEDS ORDERED: DEXTROSE 40% GEL 15 GM TUBE X 2 PO PRN (19:31)
[2017-12-02] MEDS ORDERED: GLUCAGON,HUMAN RECOMB 1 MG INJ IM PRN (19:31)
[2017-12-02] MEDS ORDERED: DEXTROSE 50%-WATER SYRINGE 25 GM/50 ML DOSE IV PRN (19:31)
[2017-12-02] MEDS ORDERED: DEXTROSE 40% GEL 15 GM TUBE PO PRN (19:31)
[2017-12-02] MEDS ORDERED: IPRATROPIUM/ALBUTEROL 0.5-2.5 MG/3 ML AMPUL NEB PRN (20:11)
[2017-12-02] MEDS ORDERED: (PENDING PHARMACY ID) (Vilazodone Hcl [Viibryd] 20 MG) PO SCH (20:15)
--- NOTE | 2017-12-02 20:26 | PDOC H&P ---
History of Present Illness Admission Date/PCP: 12/02/17 11:58 RATNA HOOPER MD History of Present Illness: JESUS CALDERÓN is a 57 year old female, she has a history of end-stage renal disease on maintenance hemodialysis she was on her way to [place], [place] for evaluation and management of her dialysis vascular access, she had episode of loss of consciousness while she was in the automobile, she was then transferred to the emergency room for evaluation. She was found to be anemic with hemoglobin of 7, she complained of shortness of breath in the last few days. There was no antecedent chest pain palpitation. 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 Past Medical History Cardiac Medical History: Reports: Hyperlipidema, Hypertension, Other - Chronic diastolic heart failure Endocrine Medical History: Reports: Diabetes Mellitus Type 2, Obesity Renal/ Medical History: Reports: End Stage Renal Disease GI Medical History: Reports: Gastroesophageal Reflux Disease Musculoskeltal Medical History: Reports: Arthritis, Other - Chronic pain Psychiatric Medical History: Reports: Depression, General Anxiety Disorder Hematology: Reports: Anemia Past Surgical History Past Surgical History: Reports: Cholecystectomy, Hysterectomy, Vascular Surgery - PermCath placement for dialysis Social History Smoking Status: Former Smoker Frequency of Alcohol Use: None Hx Recreational Drug Use: No Drugs: None Hx Prescription Drug Abuse: No Family History Family History: Hypertension Parental Family History Reviewed: Yes Children Family History Reviewed: Yes Sibling(s) Family History Reviewed.: Yes Medication/Allergy Home Medications: RX: B Complex W-C No.20/Folic Acid [Nephrocaps Softgel] 1 mg PO DAILY 08/19/17 RX: Insulin Aspart [Novolog Insulin (Aspart) 100 unit/mL] 0 unit SUBCUT .SLD SCALE 08/19/17 RX: Insulin Glargine,Hum.rec.anlog [Lantus Insulin 100 Unit/1 ml 10 ml] 48 unit SUBCUT QHS 08/19/17 RX: Nifedipine [Procardia XL 30 mg Tablet] 60 mg PO Q12 08/19/17 RX: Pregabalin [Lyrica 25 mg Capsule] 25 mg PO DAILY 08/19/17 RX: Tiotropium [place] [Spiriva Handihaler 18 mcg/dose (30 Dose)] 1 cap IH DAILY 09/21/17 Albuterol Sulfate [Proair Hfa Inhalation Aerosol 8.5 gm Mdi] 2 puff IH Q6 Atorvastatin Calcium [Lipitor 10 mg Tablet] 10 mg PO QHS 12/02/17 Buspirone HCl [Buspar 10 mg Tablet] 10 mg PO TID 12/02/17 Carvedilol [Coreg 25 mg Tablet] 25 mg PO Q12 12/02/17 Clonidine HCl [Catapres 0.1 mg Tablet] 0.1 mg PO Q12 12/02/17 Esomeprazole Magnesium [Nexium] 40 mg PO BID 12/02/17 Ipratropium/Albuterol Sulfate [Iprat-Albut 0.5-3(2.5) Mg/3 Ml] 3 ml IH Q6HP PRN 12/02/17 Vilazodone HCl [Viibryd] 20 mg PO DAILY 12/02/17 Zolpidem Tartrate [Ambien 5 mg Tablet] 5 mg PO HSP PRN 12/02/17 Allergies/Adverse Reactions: No Known Drug Allergies Allergy (Verified 12/02/17 13:38) Review of Systems Constitutional: ABSENT: chills, fever(s), headache(s), weight gain, weight loss Eyes: ABSENT: visual disturbances Ears: ABSENT: hearing changes Cardiovascular: PRESENT: dyspnea on exertion Respiratory: ABSENT: cough, hemoptysis Gastrointestinal: ABSENT: abdominal pain, constipation, diarrhea, hematemesis, hematochezia, nausea, vomiting Genitourinary: ABSENT: dysuria, hematuria Musculoskeletal: ABSENT: joint swelling Integumentary: ABSENT: rash, wounds Neurological: ABSENT: abnormal gait, abnormal speech, confusion, dizziness, focal weakness, syncope Psychiatric: ABSENT: anxiety, depression, homidical ideation, suicidal ideation Endocrine: ABSENT: cold intolerance, heat intolerance, menstrual abnormalities, polydipsia, polyuria Hematologic/Lymphatic: ABSENT: easy bleeding, easy bruising, lymphadenopathy Physical Exam Vital Signs: Temp Pulse Resp BP Pulse Ox 98.3 F 96 17 156/97 H 100 12/02/17 19:32 12/02/17 19:32 12/02/17 19:32 12/02/17 19:32 12/02/17 19:32 Intake & Output 12/01/17 12/02/17 12/03/17 06:59 06:59 06:59 Intake Total 600 Output Total 3800 Balance -3200 Weight 122.8 kg General appearance: PRESENT: mild distress Head exam: PRESENT: atraumatic, normocephalic Eye exam: PRESENT: conjunctiva pink, EOMI, PERRLA Ear exam: PRESENT: normal external ear exam Mouth exam: PRESENT: moist, tongue midline Neck exam: PRESENT: full ROM Respiratory exam: PRESENT: clear to auscultation adrianne Cardiovascular exam: PRESENT: RRR, +S1, +S2 Pulses: PRESENT: normal dorsalis pedis pul, +2 pedal pulses bilateral Vascular exam: PRESENT: normal capillary refill GI/Abdominal exam: PRESENT: normal bowel sounds, soft Rectal exam: PRESENT: deferred Neurological exam: PRESENT: alert, awake, oriented to person, oriented to place , oriented to time, oriented to situation, CN II-XII grossly intact Psychiatric exam: PRESENT: appropriate affect, normal mood Skin exam: PRESENT: dry, intact, warm Results Impressions: Chest X-Ray 12/02/17 08:05 IMPRESSION: HEART ENLARGED WITHOUT FAILURE. NO OTHER SIGNIFICANT RADIOGRAPHIC FINDING IN THE CHEST. Assessment & Plan - Diagnosis (1) Syncope Qualifiers: Syncope type: unspecified Qualified Code(s): R55 - Syncope and collapse Is this a current diagnosis for this admission?: Yes Plan: She has syncope this is probably related to the anemia (2) Anemia Qualifiers: Anemia type: unspecified type Qualified Code(s): D64.9 - Anemia, unspecified Is this a current diagnosis for this admission?: Yes (3) End stage renal disease Is this a current diagnosis for this admission?: Yes
[2017-12-02 21:52] LABS: LIPASE 43.7 U/L (23-300); PHOSPHORUS 3.9 mg/dL (2.5-4.5)
[2017-12-02] MEDS ORDERED: INSULIN GLARGINE,HUM.REC.ANLOG 1,000 UNIT/10 ML UNIT SUBCUT SCH (22:00)
[2017-12-02 22:04] LABS: CREATINE KINASE MB 0.75 ng/mL (<4.55); TROPONIN I 0.033 ng/mL
[2017-12-02 22:07] LABS: FREE T4 (FREE THYROXINE) 1.35 ng/dL (0.78-2.19)
[2017-12-02 22:21] LABS: THYROID STIMULATING HORMONE 0.81 uIU/mL (0.47-4.68)
[2017-12-02] MEDS: ALPRAZOLAM 0.5 MG TABLET PO SCH (23:33)
[2017-12-02] MEDS: CARVEDILOL 12.5 MG TABLET PO SCH (23:33)
[2017-12-02] MEDS: ATORVASTATIN CALCIUM 10 MG TABLET PO SCH (23:34)
[2017-12-02] MEDS: NIFEDIPINE 30 MG TAB.ER.24 PO SCH (23:35)
[2017-12-02] MEDS: CLONIDINE HCL 0.1 MG TABLET PO SCH (23:37)
[2017-12-02] MEDS: BUSPIRONE HCL 10 MG TABLET PO SCH (23:38)
[2017-12-02] MEDS: ZOLPIDEM TARTRATE 5 MG TABLET PO PRN (23:38)
[2017-12-02] MEDS: INSULIN LISPRO 100 UNIT/ML 3 ML VIAL SUBCUT PRN (23:40)
[2017-12-02] MEDS: INSULIN GLARGINE,HUM.REC.ANLOG 300 UNIT/3 ML INSULN.PEN SUBCUT SCH (23:42)
[2017-12-02] MEDS: TIOTROPIUM BROMIDE DPI 5 CAP/KIT (18 MCG/CAP) IH SCH (23:44)
[2017-12-03] MEDS: HEPARIN SOD (PORCINE) 5,000 UNIT/ML 1 ML SYRINGE SUBCUT SCH ×4 (00:01→22:18)
[2017-12-03 03:20] LABS: HEMATOCRIT 24.6 % (36.0-47.0); HEMOGLOBIN 8.3 g/dL (12.0-15.5); MEAN CORPUSCULAR HEMOGLOBIN 27.1 pg (27.0-33.4); MEAN CORPUSCULAR VOLUME 80 fl (80-97); PLATELET COUNT 195 10^3/uL (150-450); RED BLOOD COUNT 3.08 10^6/uL (3.72-5.28); RED CELL DISTRIBUTION WIDTH 18.5 % (11.5-14.0); WHITE BLOOD COUNT 8.7 10^3/uL (4.0-10.5)
[2017-12-03 03:30] LABS: INTERNATIONAL RATION (INR) 0.92; PROTHROMBIN TIME 12.8 SEC (11.4-15.4)
[2017-12-03 03:31] LABS: PARTIAL THROMBOPLASTIN TIME 29.3 SEC (23.5-35.8)
[2017-12-03 03:35] LABS: ALANINE AMINOTRANSFERASE 23 U/L (9-52); ALKALINE PHOSPHATASE 63 U/L (38-126); ANION GAP 7 (5-19); ASPARTATE AMINO TRANSFERASE 12 U/L (14-36); BILIRUBIN,DIRECT 0.2 mg/dL (0.0-0.4); BILIRUBIN,TOTAL 0.2 mg/dL (0.2-1.3); CALCIUM 8.7 mg/dL (8.4-10.2); CARBON DIOXIDE 30 mmol/L (22-30); CHLORIDE 102 mmol/L (98-107); CHOLESTEROL 163.52 mg/dL (0-200); GLUCOSE 256 mg/dL (75-110); TOTAL PROTEIN 5.5 g/dL (6.3-8.2); TRIGLYCERIDES 173 mg/dL (<150)
[2017-12-03 03:39] LABS: ABSOLUTE LYMPHOCYTES# (MANUAL) 2.1 10^3/uL (0.5-4.7); ABSOLUTE MONOCYTES # (MANUAL) 0.7 10^3/uL (0.1-1.4); ABSOLUTE NEUTROPHILS# (MANUAL) 5.7 10^3/uL (1.7-8.2); BASOPHILS % (MANUAL) 0 % (0-2); EOSINOPHILS % (MANUAL) 2 % (0-6); LYMPHOCYTES % (MANUAL) 24 % (13-45); MONOCYTES % (MANUAL) 8 % (3-13); SEGMENTED NEUTROPHILS % (MAN) 66 % (42-78); TOTAL CELLS COUNTED 100; TOXIC GRANULATION SLIGHT
[2017-12-03 03:40] LABS: ANISOCYTOSIS 2+; HYPOCHROMASIA SLIGHT; PLATELET COMMENT ADEQUATE; POIKILOCYTOSIS SLIGHT
[2017-12-03 03:46] LABS: CREATINE KINASE MB 0.77 ng/mL (<4.55); DIRECT LDL 92 mg/dL (<100); TROPONIN I 0.04 ng/mL
[2017-12-03 03:47] LABS: VLDL CHOLESTEROL 34.6 mg/dL (10-31)
[2017-12-03] MEDS: ACETAMINOPHEN 325 MG TABLET PO PRN (03:58)
[2017-12-03 03:59] LABS: BLOOD UREA NITROGEN 45 mg/dL (7-20); POTASSIUM 3.3 mmol/L (3.6-5.0)
[2017-12-03] MEDS: ALBUTEROL SULFATE HFA (90 MCG/PUFF) 200 PUFF/8.5 GM MDI IH SCH ×5 (04:01→23:53)
[2017-12-03 04:03] LABS: URINE AMPHETAMINES SCREEN NEGATIVE; URINE BARBITURATES SCREEN NEGATIVE; URINE BENZODIAZEPINES SCREEN NEGATIVE; URINE COCAINE SCREEN NEGATIVE; URINE MARIJUANA (THC) SCREEN NEGATIVE; URINE METHADONE SCREEN NEGATIVE; URINE PHENCYCLIDINE SCREEN NEGATIVE
[2017-12-03] MEDS: ZOLPIDEM TARTRATE 5 MG TABLET PO PRN (04:03)
[2017-12-03] MEDS: BUSPIRONE HCL 10 MG TABLET PO SCH ×3 (05:17→22:18)
[2017-12-03] MEDS: ZOLPIDEM TARTRATE 5 MG TABLET PO SCH ×2 (05:17→22:20)
[2017-12-03] MEDS ORDERED: ONDANSETRON HCL INJ/PF 4 MG/2 ML SDV ONE (05:40)
[2017-12-03] MEDS ORDERED: ONDANSETRON HCL INJ/PF 4 MG/2 ML SDV IV ONE (05:45)
[2017-12-03 08:54] LABS: CREATINE KINASE MB 0.96 ng/mL (<4.55); TROPONIN I 0.04 ng/mL
[2017-12-03] MEDS: FOLIC ACID/VITAMIN B COMP W-C CAPSULE PO SCH (09:51)
[2017-12-03] MEDS: LANSOPRAZOLE 30 MG TAB.RAP.DR PO SCH ×2 (09:51→17:13)
[2017-12-03] MEDS: PREGABALIN 25 MG CAPSULE PO SCH (09:51)
[2017-12-03] MEDS: CARVEDILOL 12.5 MG TABLET PO SCH ×2 (09:52→22:18)
[2017-12-03] MEDS: CLONIDINE HCL 0.1 MG TABLET PO SCH ×2 (09:52→22:19)
[2017-12-03] MEDS: NIFEDIPINE 30 MG TAB.ER.24 PO SCH ×2 (09:52→22:18)
[2017-12-03] MEDS: ALPRAZOLAM 0.5 MG TABLET PO SCH ×2 (09:53→22:25)
[2017-12-03] MEDS ORDERED: MIDAZOLAM 2 MG/2 ML INJ ONE (12:59)
[2017-12-03] MEDS ORDERED: BACITRACIN INJ 50,000 UNIT VIAL ONE (13:00)
[2017-12-03] MEDS ORDERED: LIDOCAINE 0.5% INJ-PF (5 MG/ML) 50 ML SDV ONE ×2 (13:00→13:08)
[2017-12-03] MEDS ORDERED: FENTANYL CITRATE INJ/PF 100 MCG/2 ML AMPUL ONE (13:00)
[2017-12-03] MEDS ORDERED: CEFAZOLIN INJ 1 GM VIAL ONE (13:50)
--- NOTE | 2017-12-03 15:03 | RADIOLOGY REPORT (SQ) ---
EXAM DESCRIPTION: TUNNELED CENTRAL LINE; REMOVAL CENTRAL TUNNELED LINE COMPLETED DATE/TIME: 12/03/2017 2:43 pm REASON FOR STUDY: NEED FOR VASCULAR ACCESS COMPARISON: None. FLUOROSCOPY TIME: Less than 1 second. 14 images saved to PACS. TECHNIQUE: Intra-operative images acquired during surgical procedure to evaluate progress. NUMBER OF IMAGES: 14 images. LIMITATIONS: None. FINDINGS: Images of the chest acquired during the procedure. IMPRESSION: IMAGE(S) OBTAINED DURING PROCEDURE. COMMENT: Quality ID 145: Final reports for procedures using fluoroscopy that document radiation exp osure indices, or exposure time and number of fluorographic images (if radiation exposure indices are not available) Please consult full operative report of the attending physician for description of the procedure. TECHNICAL DOCUMENTATION: JOB ID: [id number] [employer]- All Rights Reserved Reading location - IP/workstation name: [email or web address]
--- NOTE | 2017-12-03 15:03 | RADIOLOGY REPORT (SQ) ---
EXAM DESCRIPTION: TUNNELED CENTRAL LINE; REMOVAL CENTRAL TUNNELED LINE COMPLETED DATE/TIME: 12/03/2017 2:43 pm REASON FOR STUDY: NEED FOR VASCULAR ACCESS COMPARISON: None. FLUOROSCOPY TIME: Less than 1 second. 14 images saved to PACS. TECHNIQUE: Intra-operative images acquired during surgical procedure to evaluate progress. NUMBER OF IMAGES: 14 images. LIMITATIONS: None. FINDINGS: Images of the chest acquired during the procedure. IMPRESSION: IMAGE(S) OBTAINED DURING PROCEDURE. COMMENT: Quality ID 145: Final reports for procedures using fluoroscopy that document radiation exp osure indices, or exposure time and number of fluorographic images (if radiation exposure indices are not available) Please consult full operative report of the attending physician for description of the procedure. TECHNICAL DOCUMENTATION: JOB ID: [id number] [employer]- All Rights Reserved Reading location - IP/workstation name: [email or web address]
[2017-12-03] MEDS: OXYCODONE-ACETAMINOPHEN 5-325 MG TABLET PO PRN (16:01)
--- NOTE | 2017-12-03 17:05 | Operative Report ---
Operative Report DATE OF SURGERY: 12/03/17 PREOPERATIVE DIAGNOSIS: 1. Malfunctioning PermCath catheter. 2. End-stage renal disease on hemodialysis. 3. Multiple comorbidities. POSTOPERATIVE DIAGNOSIS: 1. Malfunctioning PermCath catheter. 2. End-stage renal disease on hemodialysis. 3. Multiple comorbidities. OPERATION: 1. Insertion of new PermCath catheter the existing eggs entry into the right internal jugular vein. 2. Removal of old PermCath catheter. 3. Cath angiogram. SURGEON: ISAIAS PATRICIA [employer] SERVICE ADVISOR: None. ANESTHESIA: Moderate Sedation TISSUE REMOVED OR ALTERED: Not applicable. COMPLICATIONS: None. ESTIMATED BLOOD LOSS: 5 mL. INTRAOPERATIVE FINDINGS: Of a well founded right-sided PermCath catheter. This was removed and a new one inserted. Superior vena cava angiogram through a 7 Thai introducer demonstrated a normal looking superior vena cava and right atrium. No fibrin sheath. Final angiogram demonstrated smooth flow of contrast through the right atrium, ventricle and pulmonary outflow tract. Tip of the catheter down in the right atrial pool. Easy egress of blood and ingress of heparinized solution through both ports. PROCEDURE: After obtaining informed consent, the patient was taken to the [News Librarian] and positioned supine. The [right neck] and chest were prepared with chlorhexidine and draped out with sterile linen. After the " universal timeout", in which it was verified that the patient continued to receive antibiotic, the procedure commenced. Local anesthesia was infiltrated and the previous the neck was open. The catheter was surrounded transected and proximally replaced with a 0.035 guidewire this was followed by introduction of a 0.035 guidewire the tip of which was placed down into the inferior vena cava . A 7 Thai introducer was placed allowing his superior vena cava angiogram of the findings above. A 23 cm long [split catheter] was now positioned over the chest and an exit site marked and locally anesthetized ,the catheter was placed between the 2 incisions. Proximally, the catheter was now positioned using a peel-away sheath. Easy ingress of heparinized solution and egress of blood obtained through both ports. A completion angiogram was done by injecting contrast. The findings were as dictated. The neck incision was now closed using interrupted 3-0 PDS to the subcutaneous tissues, the catheter was anchored at the exit site using 3-0 PDS. A Biopatch device was now placed adjacent to the catheter. Dressings were applied and the procedure concluded. Local anesthesia infiltrated at the prior exit site of the old catheter removed and discarded. Exposure time: [0.1 minutes]. Exposure: 28 mg. Contrast amount: [10 mL] of [id number] low osmolality. Copies of the dictated operative report for Dr. Isaias Macias MD.concluded. Copies of the dictated operative report for Dr. Isaias Macias MD.
[2017-12-03] MEDS ORDERED: ONDANSETRON HCL INJ/PF 4 MG/2 ML SDV IV PRN (17:23)
--- NOTE | 2017-12-03 17:28 | PDOC PROGRESS REPORT ---
Subjective Progress Note for:: 12/03/17 Subjective:: Patient was admitted yesterday for the management of syncope associated with anemia and low blood pressure Reason For Visit: SYMPTOMATIC ANEMIA, SYNCOPE ESRD ON HEMODIALYSIS Physical Exam Vital Signs: Temp Pulse Resp BP Pulse Ox 97.8 F 89 17 125/67 92 12/03/17 15:37 12/03/17 15:37 12/03/17 15:37 12/03/17 15:37 12/03/17 15:37 Intake & Output 12/02/17 12/03/17 12/04/17 06:59 06:59 06:59 Intake Total 849 10 Output Total 3800 300 Balance -2951 -290 Weight 124.7 kg 124.7 kg General appearance: PRESENT: no acute distress Eye exam: PRESENT: PERRLA Respiratory exam: PRESENT: clear to auscultation adrianne Cardiovascular exam: PRESENT: +S1, +S2 Neurological exam: PRESENT: alert Results Laboratory Results: 12/03/17 03:09 12/03/17 03:09 12/02/17 12/02/17 12/03/17 20:47 20:47 03:09 WBC 8.7 RBC 3.08 L Hgb 8.3 L Hct 24.6 L MCV 80 MCH 27.1 MCHC 34.0 RDW 18.5 H Plt Count 195 Seg Neutrophils % Not Reportable Lymphocytes % Not Reportable Monocytes % Not Reportable Eosinophils % Not Reportable Basophils % Not Reportable Absolute Neutrophils Not Reportable Absolute Lymphocytes Not Reportable Absolute Monocytes Not Reportable Absolute Eosinophils Not Reportable Absolute Basophils Not Reportable Sodium Potassium Chloride Carbon Dioxide Anion Gap BUN Creatinine Est GFR ( Amer) Est GFR (Non-Af Amer) Glucose Calcium Phosphorus 3.9 Magnesium 1.9 Total Bilirubin AST ALT Alkaline Phosphatase Total Protein Albumin Triglycerides Cholesterol LDL Cholesterol Direct VLDL Cholesterol HDL Cholesterol Amylase 78 Lipase 43.7 TSH 0.81 Free T4 1.35 12/03/17 12/03/17 03:09 03:09 WBC Cancelled RBC Cancelled Hgb Cancelled Hct Cancelled MCV Cancelled MCH Cancelled MCHC Cancelled RDW Cancelled Plt Count Cancelled Seg Neutrophils % Lymphocytes % Monocytes % Eosinophils % Basophils % Absolute Neutrophils Absolute Lymphocytes Absolute Monocytes Absolute Eosinophils Absolute Basophils Sodium 139.0 Potassium 3.3 L D Chloride 102 Carbon Dioxide 30 Anion Gap 7 BUN 45 H D Creatinine 5.80 H Est GFR ( Amer) 9 L Est GFR (Non-Af Amer) 8 L Glucose 256 H Calcium 8.7 Phosphorus Magnesium Total Bilirubin 0.2 AST 12 L ALT 23 Alkaline Phosphatase 63 Total Protein 5.5 L Albumin 3.0 L Triglycerides 173 H Cholesterol 163.52 LDL Cholesterol Direct 92 VLDL Cholesterol 34.6 H HDL Cholesterol 50 Amylase Lipase TSH Free T4 12/02/17 12/02/17 12/03/17 20:47 20:47 03:09 Creatine Kinase 129 124 CK-MB (CK-2) 0.75 Troponin I 0.033 NT-Pro-B Natriuret Pep 12/03/17 12/03/17 12/03/17 03:09 03:09 08:19 Creatine Kinase 128 CK-MB (CK-2) 0.77 Troponin I 0.040 NT-Pro-B Natriuret Pep 22018 H 12/03/17 08:19 Creatine Kinase CK-MB (CK-2) 0.96 Troponin I 0.040 NT-Pro-B Natriuret Pep Impressions: Chest X-Ray 12/02/17 08:05 IMPRESSION: HEART ENLARGED WITHOUT FAILURE. NO OTHER SIGNIFICANT RADIOGRAPHIC FINDING IN THE CHEST. Central Venous Line 12/03/17 00:00 IMPRESSION: IMAGE(S) OBTAINED DURING PROCEDURE. Tunnelled Catheter Removal 12/03/17 00:00 IMPRESSION: IMAGE(S) OBTAINED DURING PROCEDURE. Assessment & Plan - Diagnosis (1) Syncope Qualifiers: Syncope type: unspecified Qualified Code(s): R55 - Syncope and collapse Is this a current diagnosis for this admission?: Yes (2) Anemia Qualifiers: Anemia type: unspecified type Qualified Code(s): D64.9 - Anemia, unspecified Is this a current diagnosis for this admission?: Yes (3) End stage renal disease Is this a current diagnosis for this admission?: Yes
[2017-12-03] MEDS: TIOTROPIUM BROMIDE DPI 5 CAP/KIT (18 MCG/CAP) IH SCH (22:17)
[2017-12-03] MEDS: INSULIN GLARGINE,HUM.REC.ANLOG 300 UNIT/3 ML INSULN.PEN SUBCUT SCH (22:17)
[2017-12-03] MEDS: INSULIN LISPRO 100 UNIT/ML 3 ML VIAL SUBCUT PRN (22:17)
[2017-12-03] MEDS: ATORVASTATIN CALCIUM 10 MG TABLET PO SCH (22:19)
[2017-12-04] MEDS: OXYCODONE-ACETAMINOPHEN 5-325 MG TABLET PO PRN ×2 (03:32→12:54)
[2017-12-04] MEDS ORDERED: EPOETIN ALFA INJ 20000 UNIT/1 ML VIAL (RENAL) IV PRN (05:00)
[2017-12-04] MEDS ORDERED: HEPARIN SOD (PORCINE) 1,000 UNIT/ML 10 ML VIAL IV PRN (05:00)
[2017-12-04] MEDS ORDERED: NORMAL SALINE 1000 ML 1,000 ML IV PRN (05:00)
[2017-12-04 05:26] LABS: ABSOLUTE BASOPHILS # (AUTO) 0.1 10^3/uL (0.0-0.2); ABSOLUTE EOSINOPHILS # (AUTO) 0.1 10^3/uL (0.0-0.6); ABSOLUTE LYMPHOCYTES (AUTO) 1.4 10^3/uL (0.5-4.7); ABSOLUTE MONOCYTES (AUTO) 0.6 10^3/uL (0.1-1.4); ABSOLUTE NEUT (AUTO) 4.9 10^3/uL (1.7-8.2); EOSINOPHILS % (AUTO) 2.1 % (0-6); HEMATOCRIT 25.8 % (36.0-47.0); HEMOGLOBIN 8.6 g/dL (12.0-15.5); MEAN CORPUSCULAR HGB CONC 33.3 g/dL (32.0-36.0); MEAN CORPUSCULAR VOLUME 81 fl (80-97); MONOCYTES % (AUTO) 7.7 % (3-13); PLATELET COUNT 208 10^3/uL (150-450); RED BLOOD COUNT 3.19 10^6/uL (3.72-5.28); RED CELL DISTRIBUTION WIDTH 18.6 % (11.5-14.0); SEGMENTED NEUTROPHILS % (AUTO) 69.2 % (42-78); TOTAL CELLS COUNTED % (AUTO) 100 %; WHITE BLOOD COUNT 7.1 10^3/uL (4.0-10.5)
[2017-12-04] MEDS: HEPARIN SOD (PORCINE) 5,000 UNIT/ML 1 ML SYRINGE SUBCUT SCH ×2 (05:32→14:21)
[2017-12-04] MEDS: INSULIN LISPRO 100 UNIT/ML 3 ML VIAL SUBCUT PRN (05:32)
[2017-12-04] MEDS: ALBUTEROL SULFATE HFA (90 MCG/PUFF) 200 PUFF/8.5 GM MDI IH SCH ×3 (05:32→17:16)
[2017-12-04] MEDS: BUSPIRONE HCL 10 MG TABLET PO SCH ×2 (05:32→14:21)
[2017-12-04 05:48] LABS: ANION GAP 11 (5-19); BLOOD UREA NITROGEN 54 mg/dL (7-20); CALCIUM 8.8 mg/dL (8.4-10.2); CARBON DIOXIDE 28 mmol/L (22-30); CHLORIDE 101 mmol/L (98-107); GLUCOSE 186 mg/dL (75-110); POTASSIUM 3.8 mmol/L (3.6-5.0); SODIUM 139.6 mmol/L (137-145)
[2017-12-04 05:49] LABS: ANISOCYTOSIS 2+; PLATELET COMMENT ADEQUATE; POIKILOCYTOSIS SLIGHT; SCHISTOCYTES SLIGHT; TOXIC GRANULATION SLIGHT
[2017-12-04] MEDS: NIFEDIPINE 30 MG TAB.ER.24 PO SCH (12:10)
[2017-12-04] MEDS: FOLIC ACID/VITAMIN B COMP W-C CAPSULE PO SCH (12:10)
[2017-12-04] MEDS: CARVEDILOL 12.5 MG TABLET PO SCH (12:10)
[2017-12-04] MEDS: LANSOPRAZOLE 30 MG TAB.RAP.DR PO SCH ×2 (12:10→17:15)
[2017-12-04] MEDS: CLONIDINE HCL 0.1 MG TABLET PO SCH (12:10)
[2017-12-04] MEDS: PREGABALIN 25 MG CAPSULE PO SCH (12:10)
[2017-12-04] MEDS: ALPRAZOLAM 0.5 MG TABLET PO SCH (12:11)
--- NOTE | 2017-12-04 15:35 | PDOC PROGRESS REPORT ---
Subjective Progress Note for:: 12/04/17 Subjective:: I saw the patient during dialysis at around 8:20 AM this morning. She is in good spirits. She underwent right IJ PermCath placement by Dr. Macias yesterday and it was uneventful. Patient denies any nausea, vomiting nor any other symptoms. She looks pretty much baseline. Reason For Visit: SYMPTOMATIC ANEMIA, SYNCOPE, ESRD ON HEMODIALYSIS Physical Exam Vital Signs: Temp Pulse Resp BP Pulse Ox 98.2 F 91 20 150/68 H 96 12/04/17 15:13 12/04/17 15:13 12/04/17 15:13 12/04/17 15:13 12/04/17 15:13 Intake & Output 12/03/17 12/04/17 12/05/17 06:59 06:59 06:59 Intake Total 849 486 Output Total 3800 700 2100 Balance -2951 -214 -2100 Weight 124.7 kg 126.8 kg Vitals during dialysis: Blood pressure 151/57, heart rate 85, blood flow rate 350 mg minute, dialysate flow rate 800 mL/min, oxygen saturation 97% at room air. Exam: General appearance: PRESENT: no acute distress, cooperative, well-developed, well-nourished Head exam: PRESENT: atraumatic, normocephalic Eye exam: PRESENT: conjunctiva slightly pale, PERRLA. ABSENT: scleral icterus Neck exam: ABSENT: JVD Respiratory exam: PRESENT: Normal breath sounds. ABSENT: crackles, rales, rhonchi, unlabored, wheezes Cardiovascular exam: PRESENT: Regular rate rhythm -+S1, +S2. ABSENT: diastolic murmur, systolic murmur GI/Abdominal exam: PRESENT: normal bowel sounds, soft. ABSENT: guarding, mass, tenderness Extremities exam: ABSENT: No edema Neurological exam: PRESENT: alert, awake, oriented to person, place and time. Skin exam: PRESENT: dry, warm, Results Laboratory Results: 12/04/17 05:02 12/04/17 05:02 12/03/17 12/04/17 12/04/17 03:09 05:02 05:02 WBC Cancelled 7.1 RBC Cancelled 3.19 L Hgb Cancelled 8.6 L Hct Cancelled 25.8 L MCV Cancelled 81 MCH Cancelled 27.0 MCHC Cancelled 33.3 RDW Cancelled 18.6 H Plt Count Cancelled 208 Seg Neutrophils % 69.2 Lymphocytes % 20.0 Monocytes % 7.7 Eosinophils % 2.1 Basophils % 1.0 Absolute Neutrophils 4.9 Absolute Lymphocytes 1.4 Absolute Monocytes 0.6 Absolute Eosinophils 0.1 Absolute Basophils 0.1 Sodium 139.6 Potassium 3.8 Chloride 101 Carbon Dioxide 28 Anion Gap 11 BUN 54 H Creatinine 6.83 H Est GFR ( Amer) 8 L Est GFR (Non-Af Amer) 6 L Glucose 186 H Calcium 8.8 12/02/17 12/02/17 12/03/17 20:47 20:47 03:09 Creatine Kinase 129 124 CK-MB (CK-2) 0.75 Troponin I 0.033 NT-Pro-B Natriuret Pep 12/03/17 12/03/17 12/03/17 03:09 03:09 08:19 Creatine Kinase 128 CK-MB (CK-2) 0.77 Troponin I 0.040 NT-Pro-B Natriuret Pep 12449 H 12/03/17 08:19 Creatine Kinase CK-MB (CK-2) 0.96 Troponin I 0.040 NT-Pro-B Natriuret Pep Impressions: Chest X-Ray 12/02/17 08:05 IMPRESSION: HEART ENLARGED WITHOUT FAILURE. NO OTHER SIGNIFICANT RADIOGRAPHIC FINDING IN THE CHEST. Central Venous Line 12/03/17 00:00 IMPRESSION: IMAGE(S) OBTAINED DURING PROCEDURE. Tunnelled Catheter Removal 12/03/17 00:00 IMPRESSION: IMAGE(S) OBTAINED DURING PROCEDURE. Assessment & Plan - Diagnosis (1) End-stage renal disease on hemodialysis Is this a current diagnosis for this admission?: Yes Plan: We did dialysis today for 3 hours, using the patient's right IJ PermCath, with 3 potassium bath, blood flow rate of 350 mL per minute, dialysate flow rate of 800 mL per minute, ultrafiltration 2 L as tolerated, no heparin and Procrit with 20,000 units during dialysis intravenously. Patient was monitored throughout dialysis treatment by our dialysis nurse and has been stable. Patient tolerated dialysis without any problems. (2) Hypoxia Is this a current diagnosis for this admission?: Yes Plan: Resolved. (3) Anemia in chronic kidney disease (CKD) Qualifiers: Chronic kidney disease stage: stage 3 (moderate) Qualified Code(s): N18.3 - Chronic kidney disease, stage 3 (moderate); D63.1 - Anemia in chronic kidney disease; D63.1 - Anemia in chronic kidney disease Is this a current diagnosis for this admission?: Yes Plan: Patient had 2 units packed RBC blood transfusion 2 days ago and was given Procrit 20,000 units during dialysis today. (4) Anemia due to blood loss Is this a current diagnosis for this admission?: Yes Plan: Due to frequent clotting of dialysis access. Patient was given 2 units packed RBC blood transfusion. (5) Problem with dialysis access Is this a current diagnosis for this admission?: Yes Plan: PermCath removed and replaced with a new right IJ PermCath by Dr. Macias. (6) Hypertension Qualifiers: Hypertension type: essential hypertension Qualified Code(s): I10 - Essential (primary) hypertension Is this a current diagnosis for this admission?: Yes (7) Syncope Is this a current diagnosis for this admission?: Yes (8) Diabetes mellitus Is this a current diagnosis for this admission?: Yes (9) Urinary tract infection Qualifiers: Urinary tract infection type: site unspecified Is this a current diagnosis for this admission?: Yes Plan: The urine culture was positive for gram-negative rods. Patient can be given oral antibiotics upon discharge. Will defer to Dr. Taylor. - Notes Notes: From nephrology standpoint noting the patient is stable enough to be discharged home. Patient would like to attend her grandson's graduation at [place] tomorrow. Patient advised to keep her outpatient dialysis appointments at [facility] and next dialysis will be on Thursday. - Time Time with patient: 15-25 minutes
[2017-12-04 16:22] VITALS: BP 155/73
--- NOTE | 2017-12-04 20:37 | PDOC DISCHARGE SUMMARY ---
General - Admit/Disc Date/PCP Admission Date/Primary Care Provider: 12/02/17 11:58 RATNA HOOPER MD Discharge Date: 12/04/17 - Discharge Diagnosis (1) Syncope Is this a current diagnosis for this admission?: Yes (2) Anemia Is this a current diagnosis for this admission?: Yes (3) End stage renal disease Is this a current diagnosis for this admission?: Yes - Additional Information Discharge Diet: As Tolerated Discharge Activity: Activity As Tolerated, Balance Activity w/Rest Home Medications: RX: B Complex W-C No.20/Folic Acid [Nephrocaps Softgel] 1 mg PO DAILY 08/19/17 RX: Insulin Aspart [Novolog Insulin (Aspart) 100 unit/mL] 0 unit SUBCUT .SLD SCALE 08/19/17 RX: Insulin Glargine,Hum.rec.anlog [Lantus Insulin 100 Unit/1 ml 10 ml] 48 unit SUBCUT QHS 08/19/17 RX: Nifedipine [Procardia XL 30 mg Tablet] 60 mg PO Q12 08/19/17 RX: Pregabalin [Lyrica 25 mg Capsule] 25 mg PO DAILY 08/19/17 RX: Tiotropium Fulda [Spiriva Handihaler 18 mcg/dose (30 Dose)] 1 cap IH DAILY 09/21/17 Albuterol Sulfate [Proair Hfa Inhalation Aerosol 8.5 gm Mdi] 2 puff IH Q6 Atorvastatin Calcium [Lipitor 10 mg Tablet] 10 mg PO QHS 12/02/17 Buspirone HCl [Buspar 10 mg Tablet] 10 mg PO TID 12/02/17 Carvedilol [Coreg 25 mg Tablet] 25 mg PO Q12 12/02/17 Clonidine HCl [Catapres 0.1 mg Tablet] 0.1 mg PO Q12 12/02/17 Esomeprazole Magnesium [Nexium] 40 mg PO BID 12/02/17 Ipratropium/Albuterol Sulfate [Iprat-Albut 0.5-3(2.5) Mg/3 Ml] 3 ml IH Q6HP PRN 12/02/17 Vilazodone HCl [Viibryd] 20 mg PO DAILY 12/02/17 Zolpidem Tartrate [Ambien 5 mg Tablet] 5 mg PO HSP PRN 12/02/17 History of Present Illness History of Present Illness: JESUS CALDERÓN is a 57 year old female, she has a history of end-stage renal disease on maintenance hemodialysis she was on her way to [place], [place] for evaluation and management of her dialysis vascular access, she had episode of loss of consciousness while she was in the automobile, she was then transferred to the emergency room for evaluation. She was found to be anemic with hemoglobin of 7, she complained of shortness of breath in the last few days. There was no antecedent chest pain palpitation. 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 Hospital Course Hospital Course: Patient has was admitted for the management of anemia, syncope, end-stage renal disease on dialysis, she was seen by nephrology she underwent hemodialysis on this admission she was transfused with 2 units of packed red blood cells she was seen by vascular surgeon and she had PermCath in the right internal jugular vein. Physical Exam Vital Signs: Temp Pulse Resp BP Pulse Ox 98.2 F 91 20 155/73 H 96 12/04/17 16:18 12/04/17 16:18 12/04/17 16:18 12/04/17 16:18 12/04/17 16:18 Intake & Output 12/03/17 12/04/17 12/05/17 06:59 06:59 06:59 Intake Total 849 486 Output Total 3800 700 2100 Balance -2951 -214 -2100 Weight 124.7 kg 126.8 kg General appearance: PRESENT: no acute distress, well-developed, well-nourished Head exam: PRESENT: atraumatic, normocephalic Eye exam: PRESENT: conjunctiva pink, EOMI, PERRLA Ear exam: PRESENT: normal external ear exam Mouth exam: PRESENT: moist, tongue midline Neck exam: PRESENT: full ROM Respiratory exam: PRESENT: clear to auscultation adrianne Cardiovascular exam: PRESENT: RRR, +S1, +S2 Pulses: PRESENT: normal dorsalis pedis pul, +2 pedal pulses bilateral Vascular exam: PRESENT: normal capillary refill GI/Abdominal exam: PRESENT: normal bowel sounds, soft Rectal exam: PRESENT: deferred Neurological exam: PRESENT: alert, awake, oriented to person, oriented to place , oriented to time, oriented to situation, CN II-XII grossly intact Psychiatric exam: PRESENT: appropriate affect, normal mood Skin exam: PRESENT: dry, intact, warm Results Laboratory Results: 12/04/17 05:02 12/04/17 05:02 12/03/17 12/04/17 12/04/17 03:09 05:02 05:02 WBC Cancelled 7.1 RBC Cancelled 3.19 L Hgb Cancelled 8.6 L Hct Cancelled 25.8 L MCV Cancelled 81 MCH Cancelled 27.0 MCHC Cancelled 33.3 RDW Cancelled 18.6 H Plt Count Cancelled 208 Seg Neutrophils % 69.2 Lymphocytes % 20.0 Monocytes % 7.7 Eosinophils % 2.1 Basophils % 1.0 Absolute Neutrophils 4.9 Absolute Lymphocytes 1.4 Absolute Monocytes 0.6 Absolute Eosinophils 0.1 Absolute Basophils 0.1 Sodium 139.6 Potassium 3.8 Chloride 101 Carbon Dioxide 28 Anion Gap 11 BUN 54 H Creatinine 6.83 H Est GFR ( Amer) 8 L Est GFR (Non-Af Amer) 6 L Glucose 186 H Calcium 8.8 12/02/17 12/02/17 12/03/17 20:47 20:47 03:09 Creatine Kinase 129 124 CK-MB (CK-2) 0.75 Troponin I 0.033 NT-Pro-B Natriuret Pep 12/03/17 12/03/17 12/03/17 03:09 03:09 08:19 Creatine Kinase 128 CK-MB (CK-2) 0.77 Troponin I 0.040 NT-Pro-B Natriuret Pep 62743 H 12/03/17 08:19 Creatine Kinase CK-MB (CK-2) 0.96 Troponin I 0.040 NT-Pro-B Natriuret Pep Impressions: Chest X-Ray 12/02/17 08:05 IMPRESSION: HEART ENLARGED WITHOUT FAILURE. NO OTHER SIGNIFICANT RADIOGRAPHIC FINDING IN THE CHEST. Central Venous Line 12/03/17 00:00 IMPRESSION: IMAGE(S) OBTAINED DURING PROCEDURE. Tunnelled Catheter Removal 12/03/17 00:00 IMPRESSION: IMAGE(S) OBTAINED DURING PROCEDURE. Qualifiers - * PATIENT BEING DISCHARGED WITH ANY OF THE FOLLOWING DIAGNOSIS: No
== END 2017-12-04 17:42 | disposition home or self-care (01) | DRG 228 ==
LOC: ER 07:49 → EH 11:58 → 3W 18:14
PROVIDERS: ADMIT Internal Medicine; ATTEND Internal Medicine
PROC: 30233N1 Transfusion of Nonautologous Red Blood Cells into Peripheral Vein, Percutaneous Approach (ICD-10-PCS; 2017-12-02)
PROC: 5A1D70Z Performance of Urinary Filtration, Intermittent, Less than 6 Hours Per Day (ICD-10-PCS; 2017-12-02)
PROC: 02PA03Z Removal of Infusion Device from Heart, Open Approach (ICD-10-PCS; principal; 2017-12-03)
PROC: 02H633Z Insertion of Infusion Device into Right Atrium, Percutaneous Approach (ICD-10-PCS; 2017-12-03)
PROC: B2141ZZ Fluoroscopy of Right Heart using Low Osmolar Contrast (ICD-10-PCS; 2017-12-03)
DX: I13.2 Hypertensive heart and chronic kidney disease with heart failure and with stage 5 chronic kidney disease, or end stage renal disease (principal); N18.6 End stage renal disease; I50.32 Chronic diastolic (congestive) heart failure; Z68.43 Body mass index [BMI] 50.0-59.9, adult; T82.41XA Breakdown (mechanical) of vascular dialysis catheter, initial encounter; N39.0 Urinary tract infection, site not specified; D63.1 Anemia in chronic kidney disease; E11.22 Type 2 diabetes mellitus with diabetic chronic kidney disease; E11.21 Type 2 diabetes mellitus with diabetic nephropathy; E11.43 Type 2 diabetes mellitus with diabetic autonomic (poly)neuropathy; E11.319 Type 2 diabetes mellitus with unspecified diabetic retinopathy without macular edema; K21.9 Gastro-esophageal reflux disease without esophagitis; F41.1 Generalized anxiety disorder; E66.01 Morbid (severe) obesity due to excess calories; R55 Syncope and collapse; Z99.2 Dependence on renal dialysis; Z79.4 Long term (current) use of insulin
CPT/HCPCS: 36415; 36430; 36558; 36589; 71045; 77001; 80048; 80053; 80061; 80307; 82150; 82550; 82553; 82962; 83036; 83690; 83735; 83880; 84100; 84439; 84443; 84484; 85025; 85610; 85730; 86850; 86900; 86901; 86920; 87040; 87086; 87088; 99284; C1894; J0690; J1644; J1815; J2250; J2405; J3010; J3490; P9016; Q4081; Q9967

== ENCOUNTER 2017-12-12 14:00 | Emergency (ER) | payer MEDICAID ==
--- NOTE | 2017-12-12 14:49 | ER Document Report ---
ED Medical Screen (RME) - General Chief Complaint: Nausea Stated Complaint: NAUSEA Time Seen by Provider: 12/12/17 14:48 Notes: 57-year-old female. History of renal failure. History of congestive heart failure. Having a 3 day history of worsening nausea. Nothing seems to make it better. Constantly feeling like she needs to throw up. Intermittent pain in the chest. No shortness of breath. No fever. I have greeted and performed a rapid initial assessment of this patient. A comprehensive ED assessment and evaluation of the patient, analysis of test results and completion of the medical decision making process will be conducted by additional ED providers. TRAVEL OUTSIDE OF THE [place] IN LAST 30 DAYS: No - Related Data Allergies/Adverse Reactions: No Known Drug Allergies Allergy (Verified 12/02/17 13:38) Past Medical History - Past Medical History Cardiac Medical History: Reports: Hx Congestive Heart Failure, Hx Hypercholesterolemia, Hx Hypertension Denies: Hx Coronary Artery Disease, Hx Heart Attack Pulmonary Medical History: Denies: Hx Asthma - UNSURE, Hx Bronchitis, Hx COPD - UNSURE, Hx Pneumonia Neurological Medical History: Denies: Hx Cerebrovascular Accident, Hx Seizures Endocrine Medical History: Reports: Hx Diabetes Mellitus Type 2 Renal/ Medical History: Reports: Hx End Stage Renal Disease, Hx Hemodialysis. Denies: Hx Peritoneal Dialysis GI Medical History: Reports: Hx Gastroesophageal Reflux Disease Musculoskeltal Medical History: Reports Hx Arthritis Psychiatric Medical History: Reports: Hx Depression Past Surgical History: Reports: Hx Cholecystectomy, Hx Hysterectomy, Hx Vascular Surgery - Left arm AV fistula - Immunizations Hx Diphtheria, Pertussis, Tetanus Vaccination: No History of Influenza Vaccine for 03/2017 - 08/2017 Season: Yes Influenza Administration Date for 03/2017 - 08/2017 Season: 07/30/17 Physical Exam - Vital signs Vitals: Temp Pulse Resp BP Pulse Ox 99.0 F 95 24 H 176/77 H 96 12/12/17 14:23 12/12/17 14:23 12/12/17 14:23 12/12/17 14:23 12/12/17 14:23 Course - Vital Signs Vital signs: Temp Pulse Resp BP Pulse Ox 99.0 F 95 24 H 176/77 H 96 12/12/17 14:23 12/12/17 14:23 12/12/17 14:23 12/12/17 14:23 12/12/17 14:23 Doctor's Discharge - Discharge Referrals: RATNA HOOPER MD [Primary Care Provider] - Follow up as needed
[2017-12-12] MEDS ORDERED: ONDANSETRON 4 MG TAB.RAPDIS PO ONE (15:58)
--- NOTE | 2017-12-12 16:04 | ER Document Report ---
ED General - General Chief Complaint: Nausea Stated Complaint: NAUSEA Time Seen by Provider: 12/12/17 14:48 Mode of Arrival: Ambulatory Information source: Patient Notes: This is a 57-year-old female she has a history of hypertension, CHF, diabetes and end-stage renal disease (on hemodialysis) who presents to the emergency room with anxiousness, nausea and some tightness in the chest. Patient states it has been pretty much constant for the last 4 days. She states that she has had this fairly frequently since May and has seen a associate financial representative (Dr. Petty ). Echo this past May showed good LV function with no pericardial effusions. Patient has no history of coronary artery disease. She states that she does get anxious a lot with everything that has been going on (she started dialysis 6 months ago). She states that previously she has been treated with Xanax but they have weaned her off that. She is currently followed by cc and see for her depression and anxiety. Patient does think she has been under a lot of stress lately and she does have a long history of anxiety. TRAVEL OUTSIDE OF THE [place] IN LAST 30 DAYS: No - HPI Onset: Last week Onset/Duration: Gradual Quality of pain: Dull Severity: Mild Pain Level: 1 Associated symptoms: Chest pain, Nausea. denies: Fever, Shortness of breath Exacerbated by: Denies Relieved by: Denies Similar symptoms previously: Yes Recently seen / treated by doctor: Yes - Related Data Allergies/Adverse Reactions: No Known Drug Allergies Allergy (Verified 12/12/17 15:45) Past Medical History - General Information source: Patient - Social History Smoking Status: Former Smoker Cigarette use (# per day): No Chew tobacco use (# tins/day): No Frequency of alcohol use: None Drug Abuse: None Lives with: Alone Family History: Hypertension Patient has suicidal ideation: No Patient has homicidal ideation: No - Past Medical History Cardiac Medical History: Reports: Hx Congestive Heart Failure, Hx Hypercholesterolemia, Hx Hypertension Denies: Hx Coronary Artery Disease, Hx Heart Attack Pulmonary Medical History: Denies: Hx Asthma - UNSURE, Hx Bronchitis, Hx COPD - UNSURE, Hx Pneumonia Neurological Medical History: Denies: Hx Cerebrovascular Accident, Hx Seizures Endocrine Medical History: Reports: Hx Diabetes Mellitus Type 2 Renal/ Medical History: Reports: Hx End Stage Renal Disease, Hx Hemodialysis. Denies: Hx Peritoneal Dialysis GI Medical History: Reports: Hx Gastroesophageal Reflux Disease Musculoskeltal Medical History: Reports Hx Arthritis Psychiatric Medical History: Reports: Hx Depression Past Surgical History: Reports: Hx Cholecystectomy, Hx Hysterectomy, Hx Vascular Surgery - Left arm AV fistula - Immunizations Hx Diphtheria, Pertussis, Tetanus Vaccination: No Review of Systems - Review of Systems Constitutional: denies: Chills, Fever EENT: No symptoms reported Cardiovascular: No symptoms reported Respiratory: No symptoms reported Gastrointestinal: See HPI Genitourinary: No symptoms reported Female Genitourinary: No symptoms reported Musculoskeletal: No symptoms reported Skin: No symptoms reported Hematologic/Lymphatic: No symptoms reported Neurological/Psychological: See HPI Physical Exam - Vital signs Vitals: Temp Pulse Resp BP Pulse Ox 99.0 F 95 24 H 176/77 H 96 12/12/17 14:23 12/12/17 14:23 12/12/17 14:23 12/12/17 14:23 12/12/17 14:23 Notes: Physical exam: GENERAL: 57-year-old female, alert and oriented 3, no acute distress HEAD: Atraumatic, normocephalic. EYES: Pupils equal round and reactive to light, extraocular movements intact, sclera anicteric, conjunctiva are normal. ENT: TMs normal, nares patent, oropharynx clear without exudates. Moist mucous membranes. NECK: Normal range of motion, supple without obvious mass or JVD. LUNGS: Breath sounds clear to auscultation bilaterally and equal. No wheezes rales or rhonchi. HEART: Regular rate and rhythm without murmurs, rubs or gallops. ABDOMEN: Soft, normoactive bowel sounds. No tenderness to palpation. No guarding, no rebound. No masses appreciated. EXTREMITIES: Normal range of motion, no pitting or edema. No clubbing or cyanosis. NEUROLOGICAL: Cranial nerves II through XII grossly intact. Normal speech, moving all extremities. PSYCH: Normal mood, normal affect. SKIN: Warm, Dry, normal turgor, no rashes or lesions noted. Course - Re-evaluation Re-evalutation: 12/12/17 18:14 Patient is feeling better. Her EKG was unchanged. Her cardiac enzymes are negative. - Vital Signs Vital signs: Temp Pulse Resp BP Pulse Ox 98.1 F 95 18 185/92 H 95 12/12/17 18:00 12/12/17 14:23 12/12/17 18:00 12/12/17 18:00 12/12/17 18:00 - Laboratory Result Diagrams: 12/12/17 16:40 12/12/17 16:40 Laboratory results interpreted by me: 12/12/17 12/12/17 12/12/17 16:40 16:40 16:40 WBC 10.9 H RBC 3.59 L Hgb 9.6 L Hct 29.1 L MCH 26.6 L RDW 19.2 H Seg Neutrophils % 80.4 H Absolute Neutrophils 8.8 H Chloride 96 L Carbon Dioxide 31 H BUN 21 H Creatinine 5.16 H Est GFR ( Amer) 10 L Est GFR (Non-Af Amer) 9 L Glucose 319 H Creatine Kinase 183 H Urine Protein Urine Glucose (UA) Urine Ketones 12/12/17 16:40 WBC RBC Hgb Hct MCH RDW Seg Neutrophils % Absolute Neutrophils Chloride Carbon Dioxide BUN Creatinine Est GFR ( Amer) Est GFR (Non-Af Amer) Glucose Creatine Kinase Urine Protein >=500 H Urine Glucose (UA) >=500 H Urine Ketones TRACE H - Diagnostic Test Radiology reviewed: Image reviewed, Reports reviewed - Cardiomegaly without evidence of failure - EKG Interpretation by Me Rate: Normal Rhythm: NSR - EKG shows normal sinus rhythm with a ventricular rate of 97, there is no acute ST-T wave changes Discharge - Discharge Clinical Impression: Nausea, Anxiety Condition: Stable Disposition: HOME, SELF-CARE Additional Instructions: Take the Xanax only as needed for anxiety. Continue current medicines. Continue dialysis as planned. I would like you to follow-up with Dr. Taylor on Thursday. Return to the emergency room for any concerns that she getting worse, chest pain , shortness of breath. Prescriptions: Alprazolam [Xanax 0.5 Mg Tablet] 1 tab PO TID PRN #20 tablet PRN Reason: Anxiety Referrals: RATNA TAYLOR MD [Primary Care Provider] - 12/14/17
--- NOTE | 2017-12-12 16:14 | RADIOLOGY REPORT (SQ) ---
EXAM DESCRIPTION: CHEST SINGLE VIEW COMPLETED DATE/TIME: 12/12/2017 4:02 pm REASON FOR STUDY: CHEST HEAVINESS(PER DR MILLER) COMPARISON: Chest radiographs 12/02/2017 and 09/27/2017 ; chest CT 08/19/2017 EXAM PARAMETERS: NUMBER OF VIEWS: One view. TECHNIQUE: Single frontal radiographic view of the chest acquired. RADIATION DOSE: NA LIMITATIONS: None. FINDINGS: LUNGS AND PLEURA: No opacities, masses or pneumothorax. No pleural effusion. MEDIASTINUM AND HILAR STRUCTURES: No masses. Contour normal. HEART AND VASCULAR STRUCTURES: Stable cardiomegaly. Normal vasculature. BONES: No acute findings. HARDWARE: Right subclavian dual lumen catheter. OTHER: No other significant finding. IMPRESSION: Stable radiographic appearance of the chest demonstrating cardiomegaly without evidence of failure. No acute findings. TECHNICAL DOCUMENTATION: JOB ID: [id number] [email or web address]- All Rights Reserved Reading location - IP/workstation name: [email or web address]
--- NOTE | 2017-12-12 16:46 | EKG REPORT ---
SEVERITY:- ABNORMAL ECG - SINUS RHYTHM PROBABLE LEFT ATRIAL ABNORMALITY INCOMPLETE RIGHT BUNDLE BRANCH BLOCK LOW VOLTAGE IN FRONTAL LEADS NONSPECIFIC ST-T CHANGES- INFEROLATERAL LEADS : Confirmed by: Jalen Hallman MD 12-Dec-2017 16:46:00
[2017-12-12 17:00] LABS: ABSOLUTE BASOPHILS # (AUTO) 0.1 10^3/uL (0.0-0.2); ABSOLUTE LYMPHOCYTES (AUTO) 1.6 10^3/uL (0.5-4.7); ABSOLUTE MONOCYTES (AUTO) 0.4 10^3/uL (0.1-1.4); ABSOLUTE NEUT (AUTO) 8.8 10^3/uL (1.7-8.2); BASOPHILS % (AUTO) 0.6 % (0-2); EOSINOPHILS % (AUTO) 0.1 % (0-6); HEMATOCRIT 29.1 % (36.0-47.0); HEMOGLOBIN 9.6 g/dL (12.0-15.5); LYMPHOCYTES % (AUTO) 14.8 % (13-45); MEAN CORPUSCULAR HEMOGLOBIN 26.6 pg (27.0-33.4); MEAN CORPUSCULAR HGB CONC 32.9 g/dL (32.0-36.0); MEAN CORPUSCULAR VOLUME 81 fl (80-97); MONOCYTES % (AUTO) 4.1 % (3-13); PLATELET COUNT 268 10^3/uL (150-450); RED BLOOD COUNT 3.59 10^6/uL (3.72-5.28); RED CELL DISTRIBUTION WIDTH 19.2 % (11.5-14.0); SEGMENTED NEUTROPHILS % (AUTO) 80.4 % (42-78); TOTAL CELLS COUNTED % (AUTO) 100 %; WHITE BLOOD COUNT 10.9 10^3/uL (4.0-10.5)
[2017-12-12 17:17] LABS: ALANINE AMINOTRANSFERASE 18 U/L (9-52); ALBUMIN 3.5 g/dL (3.5-5.0); ALKALINE PHOSPHATASE 84 U/L (38-126); ANION GAP 11 (5-19); ASPARTATE AMINO TRANSFERASE 16 U/L (14-36); BILIRUBIN,DIRECT 0.4 mg/dL (0.0-0.4); BILIRUBIN,TOTAL 0.4 mg/dL (0.2-1.3); BLOOD UREA NITROGEN 21 mg/dL (7-20); CALCIUM 8.8 mg/dL (8.4-10.2); CARBON DIOXIDE 31 mmol/L (22-30); CHLORIDE 96 mmol/L (98-107); GLUCOSE 319 mg/dL (75-110); LIPASE 50.9 U/L (23-300); POTASSIUM 3.7 mmol/L (3.6-5.0); SODIUM 137.5 mmol/L (137-145); TOTAL PROTEIN 6.4 g/dL (6.3-8.2)
[2017-12-12] MEDS ORDERED: ACETAMINOPHEN 325 MG TABLET PO ONE (18:12)
[2017-12-12] MEDS ORDERED: ALPRAZOLAM 0.5 MG TABLET PO ONE (18:13)
[2017-12-12 18:31] LABS: APPEARANCE,URINE SLIGHTLY-CLOUDY; BILIRUBIN,URINE NEGATIVE (NEGATIVE); COLOR,URINE YELLOW; GLUCOSE, URINE >=500 mg/dL (NEGATIVE); KETONES,URINE TRACE mg/dL (NEGATIVE); LEUKOCYTE ESTERASE,URINE NEGATIVE (NEGATIVE); NITRITE,URINE NEGATIVE (NEGATIVE); PROTEIN,URINE >=500 mg/dL (NEGATIVE); URINE SPECIFIC GRAVITY 1.024; UROBILINOGEN,URINE NEGATIVE mg/dL (<2.0)
[2017-12-12 18:46] VITALS: BP 185/92
== END 2017-12-12 18:35 | disposition home or self-care (01) ==
LOC: ER 14:00
DX: R11.0 Nausea (principal); F41.9 Anxiety disorder, unspecified; R07.89 Other chest pain; I12.0 Hypertensive chronic kidney disease with stage 5 chronic kidney disease or end stage renal disease; E11.22 Type 2 diabetes mellitus with diabetic chronic kidney disease; N18.6 End stage renal disease; Z99.2 Dependence on renal dialysis; F32.9 Major depressive disorder, single episode, unspecified; Z87.891 Personal history of nicotine dependence
CPT/HCPCS: 93005; 99285; 36415; 82553; 82550; 83690; 85025; 80053; 81001; 84484; 71045; 93010; J3490 ×2; S0119

== ENCOUNTER 2017-12-25 07:54 | Inpatient (IN) | payer MEDICAID ==
[2017-12-25] MEDS ORDERED: DIPHENHYDRAMINE HCL 50 MG/ML VIAL IV ONE (08:20)
[2017-12-25] MEDS ORDERED: METOCLOPRAMIDE HCL INJ/PF 10 MG/2 ML SDV IV ONE (08:20)
[2017-12-25] MEDS ORDERED: FUROSEMIDE INJ/PF 40 MG/4 ML SDV IV ONE (08:53)
[2017-12-25 08:55] LABS: ALANINE AMINOTRANSFERASE 29 U/L (9-52); ALBUMIN 3.6 g/dL (3.5-5.0); ALKALINE PHOSPHATASE 90 U/L (38-126); ANION GAP 14 (5-19); ASPARTATE AMINO TRANSFERASE 34 U/L (14-36); BILIRUBIN,DIRECT 0.4 mg/dL (0.0-0.4); BILIRUBIN,TOTAL 0.4 mg/dL (0.2-1.3); BLOOD UREA NITROGEN 35 mg/dL (7-20); CALCIUM 8.8 mg/dL (8.4-10.2); CARBON DIOXIDE 26 mmol/L (22-30); CHLORIDE 101 mmol/L (98-107); CREATINE KINASE 107 U/L (30-135); POTASSIUM 4.3 mmol/L (3.6-5.0); SODIUM 140.9 mmol/L (137-145); TOTAL PROTEIN 6.3 g/dL (6.3-8.2)
[2017-12-25 09:02] LABS: GLUCOSE 470 mg/dL (75-110)
--- NOTE | 2017-12-25 09:04 | RADIOLOGY REPORT (SQ) ---
EXAM DESCRIPTION: CHEST SINGLE VIEW COMPLETED DATE/TIME: 12/25/2017 8:54 am REASON FOR STUDY: sob COMPARISON: CT chest 08/19/2017 AP chest 12/02/2017, 12/12/2017 EXAM PARAMETERS: NUMBER OF VIEWS: One view. TECHNIQUE: Single frontal radiographic view of the chest acquired. RADIATION DOSE: NA LIMITATIONS: None. FINDINGS: LUNGS AND PLEURA: No opacities, masses or pneumothorax. No pleural effusion. MEDIASTINUM AND HILAR STRUCTURES: No masses. Contour normal. HEART AND VASCULAR STRUCTURES: Stable moderate to marked cardiomegaly BONES: No acute findings. HARDWARE: Right jugular central venous dialysis catheter tip in the right atrium, unchanged OTHER: No other significant finding. IMPRESSION: No acute infiltrates. Stable moderate to marked cardiomegaly and right jugular central venous dialysis catheter TECHNICAL DOCUMENTATION: JOB ID: [id number] [employer] All Rights Reserved Reading location - IP/workstation name: [email or web address]
[2017-12-25 10:07] LABS: VENOUS BLOOD BASE EXCESS 1.2 mmol/L; VENOUS BLOOD HCO3 27.6 mmol/L (20-32); VENOUS BLOOD PCO2 54.5 mmHg (35-63); VENOUS BLOOD PH 7.32 (7.30-7.42)
[2017-12-25 10:22] LABS: HEMATOCRIT 27.1 % (36.0-47.0); HEMOGLOBIN 8.8 g/dL (12.0-15.5); MEAN CORPUSCULAR HEMOGLOBIN 26.5 pg (27.0-33.4); MEAN CORPUSCULAR HGB CONC 32.5 g/dL (32.0-36.0); MEAN CORPUSCULAR VOLUME 82 fl (80-97); PLATELET COUNT 270 10^3/uL (150-450); RED BLOOD COUNT 3.33 10^6/uL (3.72-5.28); RED CELL DISTRIBUTION WIDTH 19.5 % (11.5-14.0)
[2017-12-25 10:38] LABS: ABSOLUTE LYMPHOCYTES# (MANUAL) 1.3 10^3/uL (0.5-4.7); ABSOLUTE MONOCYTES # (MANUAL) 0.3 10^3/uL (0.1-1.4); ABSOLUTE NEUTROPHILS# (MANUAL) 12.2 10^3/uL (1.7-8.2); BASOPHILS % (MANUAL) 2 % (0-2); EOSINOPHILS % (MANUAL) 0 % (0-6); LYMPHOCYTES % (MANUAL) 9 % (13-45); MONOCYTES % (MANUAL) 2 % (3-13); SEGMENTED NEUTROPHILS % (MAN) 87 % (42-78); TOTAL CELLS COUNTED 100
[2017-12-25 10:39] LABS: ANISOCYTOSIS 2+; HYPOCHROMASIA 1+; PLATELET COMMENT ADEQUATE; POLYCHROMASIA 1+
--- NOTE | 2017-12-25 10:52 | ER Document Report ---
ED General - General Chief Complaint: Respiratory Distress Stated Complaint: RESPIRATORY DISTRESS Time Seen by Provider: 12/25/17 07:59 TRAVEL OUTSIDE OF THE [place] IN LAST 30 DAYS: No - HPI Patient complains to provider of: Respiratory distress Notes: Patient with history of COPD end-stage renal disease CHF currently on dialysis coming today for respiratory distress. According EMS patient was found that SPO2 the 50s patient had diffuse coarse wheezing was given a breathing treatment however remained tachypneic and hypoxia therefore was placed on CPAP transported. During transportation patient's SPO2 did increase to the 80s. Upon arrival patient still tachypnea 1-2 word dyspnea. Patient denies any chest pain abdominal pain. Patient denies any productive cough or sputum production. Patient is able to indicate that she is a Thursday dialysis patient has not received her dialysis today did not receive dialysis on Thursday. Patient states that she is able to make urine. Patient denies any changes in diet or excess water intake recently. Otherwise upon his evaluation patient does look to be in moderate respiratory distress BiPAP has been called for - Related Data Allergies/Adverse Reactions: No Known Drug Allergies Allergy (Verified 12/12/17 15:45) Past Medical History - Social History Smoking Status: Unknown if Ever Smoked Family History: Hypertension Patient has suicidal ideation: No Patient has homicidal ideation: No - Past Medical History Cardiac Medical History: Reports: Hx Congestive Heart Failure, Hx Hypercholesterolemia, Hx Hypertension Denies: Hx Coronary Artery Disease, Hx Heart Attack Pulmonary Medical History: Denies: Hx Asthma - UNSURE, Hx Bronchitis, Hx COPD - UNSURE, Hx Pneumonia Neurological Medical History: Denies: Hx Cerebrovascular Accident, Hx Seizures Endocrine Medical History: Reports: Hx Diabetes Mellitus Type 2 Renal/ Medical History: Reports: Hx End Stage Renal Disease, Hx Hemodialysis. Denies: Hx Peritoneal Dialysis GI Medical History: Reports: Hx Gastroesophageal Reflux Disease Musculoskeltal Medical History: Reports Hx Arthritis Psychiatric Medical History: Reports: Hx Depression Past Surgical History: Reports: Hx Cholecystectomy, Hx Hysterectomy, Hx Vascular Surgery - Left arm AV fistula - Immunizations Hx Diphtheria, Pertussis, Tetanus Vaccination: No Review of Systems - Review of Systems Constitutional: No symptoms reported EENT: No symptoms reported Cardiovascular: No symptoms reported Respiratory: Cough, Short of breath, Wheezing Gastrointestinal: No symptoms reported Genitourinary: No symptoms reported Female Genitourinary: No symptoms reported Musculoskeletal: No symptoms reported Skin: No symptoms reported Hematologic/Lymphatic: No symptoms reported Neurological/Psychological: No symptoms reported -: Yes All other systems reviewed and negative Physical Exam - Vital signs Vitals: Pulse Resp Pulse Ox 119 H 26 H 97 12/25/17 07:59 12/25/17 07:59 12/25/17 07:59 Interpretation: Tachycardic, Tachypneic - General General appearance: Appears well, Alert - HEENT Head: Normocephalic, Atraumatic Eyes: Normal Pupils: PERRL - Respiratory Respiratory status: Respiratory distress Chest status: Nontender Breath sounds: Rales, Rhonchi, Wheezing Chest palpation: Normal - Cardiovascular Rhythm: Regular Heart sounds: Normal auscultation Murmur: No - Abdominal Inspection: Morbidly Obese Distension: No distension Bowel sounds: Normal Tenderness: Nontender Organomegaly: No organomegaly - Back Back: Normal, Nontender - Extremities General upper extremity: Normal inspection, Nontender, Normal color, Normal ROM , Normal temperature General lower extremity: Normal inspection, Nontender, Normal color, Normal ROM , Normal temperature, Normal weight bearing. No: Wesley's sign - Neurological Neuro grossly intact: Yes Cognition: Normal Orientation: AAOx4 Alpine Coma Scale Eye Opening: Spontaneous Alpine Coma Scale Verbal: Oriented Mirtha Coma Scale Motor: Obeys Commands Alpine Coma Scale Total: 15 Speech: Normal Motor strength normal: LUE, RUE, LLE, RLE Sensory: Normal - Psychological Associated symptoms: Normal affect, Normal mood - Skin Skin Temperature: Warm Skin Moisture: Dry Skin Color: Normal Course - Re-evaluation Re-evalutation: 12/25/17 15:23 Patient's laboratory studies do show slight leukocytosis with a chest x-ray showing no signs of infiltrates or signs of infection. Although the patient did sound to have rales on examination signs of fluid overload. Initially because the rales and with the patient's history of end-stage renal disease on dialysis I did give the patient 40 of Lasix. Patient improved greatly on BiPAP. Did discuss patient's case with Dr. Blanc requested admission to the ICU for dialysis. Discussed with patient's PCP Dr. Taylor agrees with admission at this time - Vital Signs Vital signs: Temp Pulse Resp BP Pulse Ox 98.3 F 89 18 169/64 H 100 12/25/17 11:50 12/25/17 11:55 12/25/17 12:01 12/25/17 12:01 12/25/17 12:01 - Laboratory Result Diagrams: 12/25/17 09:42 12/25/17 08:13 Laboratory results interpreted by me: 12/25/17 12/25/17 12/25/17 08:13 08:21 09:42 WBC 14.0 H RBC 3.33 L Hgb 8.8 L Hct 27.1 L MCH 26.5 L RDW 19.5 H Seg Neuts % (Manual) 87 H Lymphocytes % (Manual) 9 L Monocytes % (Manual) 2 L Abs Neuts (Manual) 12.2 H Abs Basophils (Manual) 0.3 H BUN 35 H Creatinine 6.15 H Est GFR ( Amer) 9 L Est GFR (Non-Af Amer) 7 L Glucose 470 H* POC Glucose 453 H* Critical Care Note - Critical Care Note Total time excluding time spent on procedures (mins): 50 Comments: Multiple evaluations for patient with respiratory distress Discharge - Discharge Clinical Impression: End-stage renal disease on hemodialysis, Diabetes mellitus COPD (chronic obstructive pulmonary disease) Qualifiers: COPD type: unspecified COPD Qualified Code(s): J44.9 - Chronic obstructive pulmonary disease, unspecified Obesity Qualifiers: Obesity type: unspecified obesity type Obesity classification: unspecified obesity classification Serious obesity comorbidity presence: with serious comorbidity Qualified Code(s): E66.9 - Obesity, unspecified Condition: Fair Admitting Provider: Brandon Unit Admitted: ICU
[2017-12-25] MEDS ORDERED: EPOETIN ALFA INJ 20000 UNIT/1 ML VIAL (RENAL) IV PRN (15:07)
[2017-12-25] MEDS: HEPARIN SOD (PORCINE) 5,000 UNIT/ML 1 ML SYRINGE SUBCUT SCH ×2 (15:20→23:25)
--- NOTE | 2017-12-25 15:37 | PDOC CONSULTATION ---
Consultation Consult Date: 12/25/17 Attending physician:: RATNA HOOPER Consult reason:: I was asked to see this patient for emergency dialysis due to acute respiratory distress. History of Present Illness Admission Date/PCP: 12/25/17 11:43 RATNA HOOPER MD History of Present Illness: JESUS CALDERÓN is a 57 year old female known to me with history of ESRD on maintenance hemodialysis 5 days; diabetic nephropathy, hypertension, diabetes mellitus type 2, anemia, chronic diastolic heart failure who was brought into the emergency room by EMS because of acute onset of shortness of breath and respiratory distress. Patient relates that she underwent an overnight sleep study at Dr. Petty's facility last night and everything went well. I think she had a CPAP titration because she said as as the mass was removed she initially felt slight short of breath but not this bad. She went home and laid down and all of a sudden she felt this sudden moderate to severe shortness of breath so she told her daughter and the daughter called EMS. In the emergency room patient required BiPAP. She denied any chest pain, admits some slight nonproductive cough but no fever. She has a slight nausea but no vomiting or diarrhea. She has a slight headache. Her chest x-ray showed cardiomegaly but no obvious pulmonary congestion. The emergency room physician informed me that she was given some breathing treatment and was placed on BiPAP. I was called because today is her dialysis day and she needs to be dialyzed with her current acute respiratory distress. Next I am seeing her this afternoon during dialysis treatment. She is on BiPAP at FiO2 of 30% and seems comfortable. Her dialysis nurse told me that she was initially lethargic but currently she is well awake and answering questions appropriately. She was able to give me her history of what happened leading to her admission. Her blood pressure is slightly elevated at the start of dialysis and is slowly coming down. She is tolerating ultrafiltration without any problems currently. We are using her PermCath since her AV fistula is having issues recently at [facility] outpatient facility. Currently he does not have any other complaints otherwise. Past Medical History Cardiac Medical History: Reports: CHF-Diastolic, Hyperlipidemia, Hypertension- primary - Since 1995 Pulmonary Medical History: Reports: Sleep Apnea - Just underwent CPAP titration trial care of Dr. Petty. Endocrine Medical History: Reports: Diabetes Mellitus Type 2 Complications of Diabetes: Reports: Autonomic Neuropathy, Retinopathy Renal/ Medical History: Reports: End Stage Renal Disease, Secondary Hyperparathyroidism GI Medical History: Reports: Gastroesophageal Reflux Disease Musculoskeltal Medical History: Reports: Arthritis, Other - Chronic pain Psychiatric Medical History: Reports: Depression, General Anxiety Disorder Hematology Medical History: Reports Anemia of Chronic Kidney Disease Past Surgical History Past Surgical History: Reports: Cholecystectomy, Dialysis Access Surgery AVF - by Dr. Macias, Hysterectomy, Vascular Surgery - Left arm AV fistula Social History Information Source: Patient Smoking Status: Former Smoker Frequency of Alcohol Use: None Hx Recreational Drug Use: No Hx Prescription Drug Abuse: No Family History Family History: DM - Siblings, Hypertension - Siblings Parental Family History Reviewed: Yes Children Family History Reviewed: Unknown Sibling(s) Family History Reviewed.: Yes Medication/Allergy Home Medications: Atorvastatin Calcium [Lipitor 10 mg Tablet] 10 mg PO QHS 12/25/17 B Complex W-C No.20/Folic Acid [Virt-Caps Softgel] 1 cap PO DAILY 12/25/17 Carvedilol [Coreg 25 mg Tablet] 25 mg PO Q12 12/25/17 Esomeprazole Magnesium [Nexium] 40 mg PO BID 12/25/17 Insulin Aspart [Novolog Flexpen] 0 unit SQ .SLIDING SCALE 12/25/17 Insulin Glargine,Hum.rec.anlog [Lantus Solostar] 48 units SQ QHS 12/25/17 Nifedipine [Nifedipine ER] 60 mg PO Q12 12/25/17 Pregabalin [Lyrica 25 mg Capsule] 25 mg PO DAILY 12/25/17 Tiotropium [place] [Spiriva Handihaler 5 Cap/Kit (18 Mcg/Cap)] 1 puff IH DAILY 12/25/17 Trazodone HCl [Desyrel 50 mg Tablet] 100 mg PO HSP PRN 12/25/17 Vilazodone HCl [Viibryd] 20 mg PO DAILY 12/25/17 Zolpidem Tartrate [Ambien 5 mg Tablet] 5 mg PO HSP PRN 12/25/17 Allergies/Adverse Reactions: No Known Drug Allergies Allergy (Verified 12/12/17 15:45) Review of Systems All systems: reviewed and no additional remarkable complaints except as stated Review of Systems: Constitutional: ABSENT: chills, fatigue, fever(s), weight gain, weight loss; admits headache Eyes: ABSENT: visual disturbances Ears: ABSENT: hearing changes Cardiovascular: ABSENT: chest pain, edema, orthropnea, palpitations; admits shortness of breath Respiratory: ABSENT: hemoptysis; admits dry cough and shortness of breath Gastrointestinal: ABSENT: abdominal pain, constipation, diarrhea, hematemesis, hematochezia, vomiting; admits nausea Genitourinary: ABSENT: dysuria, hematuria Musculoskeletal: ABSENT: joint swelling Integumentary: ABSENT: rash, wounds Neurological: ABSENT: abnormal gait, abnormal speech, confusion, dizziness, focal weakness, numbness, syncope Psychiatric: ABSENT: anxiety, depression Endocrine: ABSENT: cold intolerance, heat intolerance, polydipsia, polyuria Hematologic/Lymphatic: ABSENT: easy bleeding, easy bruising, lymphadenopathy Physical Exam Vital Signs: Temp Pulse Resp BP Pulse Ox 98.3 F 89 18 169/64 H 100 12/25/17 11:50 12/25/17 11:55 12/25/17 12:01 12/25/17 12:01 12/25/17 12:01 Intake & Output 12/24/17 12/25/17 12/26/17 06:59 06:59 06:59 Weight 125.2 kg Vital signs currently on dialysis: Blood pressure 161/91, heart rate of 101, oxygen saturation 99% with FiO2 of 30% on BiPAP, respiratory rate of 16, temperature 98.3, blood flow rate 350 mL/min, dialysate flow rate 600 mL/min UF rate 3-4 L. Exam: General appearance: Currently on BiPAP, awake and answering questions, cooperative, well-developed, well-nourished Head exam: PRESENT: atraumatic, normocephalic Eye exam: PRESENT: Conjunctiva pale, EOMI, PERRLA. ABSENT: conjunctival injection, scleral icterus Mouth exam: PRESENT: moist, neck supple, tongue midline Neck exam: PRESENT: full ROM. ABSENT: carotid bruit, JVD, lymphadenopathy, thyromegaly Respiratory exam: PRESENT: clear to auscultation bilaterally. ABSENT: rales, rhonchi, stridor, wheezes Cardiovascular exam: PRESENT: RRR, +S1, +S2. ABSENT: systolic murmur Pulses: PRESENT: normal radial pulses, normal dorsalis pedis pulses, left arm AV fistula with good bruit and thrill GI/Abdominal exam: PRESENT: normal bowel sounds, soft. ABSENT: guarding, mass, tenderness Rectal exam: deferred Extremities exam: PRESENT: full ROM. ABSENT: calf tenderness, pedal edema Musculoskeletal: PRESENT: full ROM. ABSENT: deformity Neurological exam: PRESENT: alert, Awake, Oriented to person, Oriented to place , Oriented to time, reflexes normal, CN II-XII grossly intact. ABSENT: motor sensory deficit Psychiatric exam: PRESENT: appropriate affect, normal mood. ABSENT: homicidal ideation, suicidal ideation Skin exam: PRESENT: intact, dry, warm. ABSENT: rash Results Laboratory Results: Laboratory 12/25/17 12/25/17 12/25/17 08:13 08:13 08:21 WBC Cancelled RBC Cancelled Hgb Cancelled Hct Cancelled MCV Cancelled MCH Cancelled MCHC Cancelled RDW Cancelled Plt Count Cancelled Total Counted Seg Neutrophils % Cancelled Seg Neuts % (Manual) Lymphocytes % Cancelled Lymphocytes % (Manual) Monocytes % Cancelled Monocytes % (Manual) Eosinophils % Cancelled Eosinophils % (Manual) Basophils % Cancelled Basophils % (Manual) Absolute Neutrophils Cancelled Abs Neuts (Manual) Absolute Lymphocytes Cancelled Abs Lymphs (Manual) Absolute Monocytes Cancelled Abs Monocytes (Manual) Absolute Eosinophils Cancelled Absolute Eos (Manual) Absolute Basophils Cancelled Abs Basophils (Manual) Platelet Estimate Cancelled Platelet Comment Polychromasia Hypochromasia Anisocytosis VBG pH VBG pCO2 VBG HCO3 VBG Base Excess Sodium 140.9 Potassium 4.3 Chloride 101 Carbon Dioxide 26 Anion Gap 14 BUN 35 H Creatinine 6.15 H Est GFR ( Amer) 9 L Est GFR (Non-Af Amer) 7 L Glucose 470 H* POC Glucose 453 H* Lactic Acid Calcium 8.8 Total Bilirubin 0.4 Direct Bilirubin 0.4 Neonat Total Bilirubin Not Reportable Neonat Direct Bilirubin Not Reportable Neonat Indirect Bili Not Reportable AST 34 ALT 29 Alkaline Phosphatase 90 Creatine Kinase 107 CK-MB (CK-2) Total Protein 6.3 Albumin 3.6 Slides for Path Review Cancelled 12/25/17 12/25/17 12/25/17 08:45 08:45 09:42 WBC Cancelled RBC Cancelled Hgb Cancelled Hct Cancelled MCV Cancelled MCH Cancelled MCHC Cancelled RDW Cancelled Plt Count Cancelled Total Counted Seg Neutrophils % Cancelled Seg Neuts % (Manual) Lymphocytes % Cancelled Lymphocytes % (Manual) Monocytes % Cancelled Monocytes % (Manual) Eosinophils % Cancelled Eosinophils % (Manual) Basophils % Cancelled Basophils % (Manual) Absolute Neutrophils Cancelled Abs Neuts (Manual) Absolute Lymphocytes Cancelled Abs Lymphs (Manual) Absolute Monocytes Cancelled Abs Monocytes (Manual) Absolute Eosinophils Cancelled Absolute Eos (Manual) Absolute Basophils Cancelled Abs Basophils (Manual) Platelet Estimate Cancelled Platelet Comment Polychromasia Hypochromasia Anisocytosis VBG pH 7.32 VBG pCO2 54.5 VBG HCO3 27.6 VBG Base Excess 1.2 Sodium Potassium Chloride Carbon Dioxide Anion Gap BUN Creatinine Est GFR ( Amer) Est GFR (Non-Af Amer) Glucose POC Glucose Lactic Acid Calcium Total Bilirubin Direct Bilirubin Neonat Total Bilirubin Neonat Direct Bilirubin Neonat Indirect Bili AST ALT Alkaline Phosphatase Creatine Kinase CK-MB (CK-2) 1.05 Total Protein Albumin Slides for Path Review Cancelled 12/25/17 12/25/17 09:42 09:49 WBC 14.0 H RBC 3.33 L Hgb 8.8 L Hct 27.1 L MCV 82 MCH 26.5 L MCHC 32.5 RDW 19.5 H Plt Count 270 Total Counted 100 Seg Neutrophils % Not Reportable Seg Neuts % (Manual) 87 H Lymphocytes % Not Reportable Lymphocytes % (Manual) 9 L Monocytes % Not Reportable Monocytes % (Manual) 2 L Eosinophils % Not Reportable Eosinophils % (Manual) 0 Basophils % Not Reportable Basophils % (Manual) 2 Absolute Neutrophils Not Reportable Abs Neuts (Manual) 12.2 H Absolute Lymphocytes Not Reportable Abs Lymphs (Manual) 1.3 Absolute Monocytes Not Reportable Abs Monocytes (Manual) 0.3 Absolute Eosinophils Not Reportable Absolute Eos (Manual) 0.0 Absolute Basophils Not Reportable Abs Basophils (Manual) 0.3 H Platelet Estimate Platelet Comment ADEQUATE Polychromasia 1+ Hypochromasia 1+ Anisocytosis 2+ VBG pH VBG pCO2 VBG HCO3 VBG Base Excess Sodium Potassium Chloride Carbon Dioxide Anion Gap BUN Creatinine Est GFR ( Amer) Est GFR (Non-Af Amer) Glucose POC Glucose Lactic Acid 1.8 Calcium Total Bilirubin Direct Bilirubin Neonat Total Bilirubin Neonat Direct Bilirubin Neonat Indirect Bili AST ALT Alkaline Phosphatase Creatine Kinase CK-MB (CK-2) Total Protein Albumin Slides for Path Review Impressions: Chest X-Ray 12/25/17 07:59 IMPRESSION: No acute infiltrates. Stable moderate to marked cardiomegaly and right jugular central venous dialysis catheter Assessment & Plan - Diagnosis (1) Acute respiratory distress Is this a current diagnosis for this admission?: Yes Plan: Chest x-ray does not really show convincing acute pulmonary edema. Symptoms started after patient took off the CPAP which you are overnight for the sleep study. Consider possible pulmonary hypertension. Currently on BiPAP and is comfortable. Try to wean off after dialysis. (2) End-stage renal disease on hemodialysis Is this a current diagnosis for this admission?: Yes Plan: We will do dialysis today for 3 hours, using the patient's PermCath, with 2 potassium bath, blood flow rate of 350 mL per minute, dialysate flow rate of 600 mL per minute, ultrafiltration 3-4 L as tolerated, no heparin and Procrit with 20,000 units during dialysis intravenously. Patient is currently and will be monitored throughout dialysis treatment, adjust ultrafiltration rate depending on blood pressure. (3) Hypertension Qualifiers: Hypertension type: essential hypertension Qualified Code(s): I10 - Essential (primary) hypertension Is this a current diagnosis for this admission?: Yes Plan: Ultrafiltration will help. Resume all blood pressure medications postdialysis today. (4) Anemia in chronic kidney disease (CKD) Qualifiers: Chronic kidney disease stage: stage 3 (moderate) Qualified Code(s): N18.3 - Chronic kidney disease, stage 3 (moderate); D63.1 - Anemia in chronic kidney disease; D63.1 - Anemia in chronic kidney disease Is this a current diagnosis for this admission?: Yes Plan: We will give Procrit 20,000 units IV to dialysis today. Part of this anemia could be due to hemodilution and should also improve after ultrafiltration. (5) Diabetes mellitus Qualifiers: Diabetes mellitus type: type 2 Chronic kidney disease stage: on chronic dialysis Is this a current diagnosis for this admission?: Yes (6) Sleep disorder Is this a current diagnosis for this admission?: Yes Plan: Patient just got diagnosed with sleep apnea and just underwent CPAP titration talk trial last night. Patient should follow-up with Dr. Petty to set up CPAP machine for home. - Notes Notes: Thank you very much for this consultation. If patient stabilized and improved over the weekend and nothing else is going home patient can resume dialysis at [facility] on Thursday. Otherwise next dialysis will be Thursday here in the hospital if she continues to be an inpatient. - Time Time Spent: 50 to 70 Minutes
[2017-12-25] MEDS ORDERED: TRAZODONE HCL 50 MG TABLET PO PRN (18:12)
[2017-12-25] MEDS ORDERED: (PENDING PHARMACY ID) (Vilazodone Hcl [Viibryd] 20 MG) PO SCH (18:15)
[2017-12-25] MEDS ORDERED: LABETALOL HCL INJ 20 MG/4 ML DISP.SYRIN IV PRN (19:00)
[2017-12-25] MEDS ORDERED: FOLIC ACID/VITAMIN B COMP W-C CAPSULE PO ONE (19:30)
[2017-12-25] MEDS: ACETAMINOPHEN 325 MG TABLET PO PRN (19:31)
[2017-12-25] MEDS ORDERED: METOPROLOL TARTRATE PF/INJ 5 MG/5 ML SDV IV PRN (19:32)
[2017-12-25] MEDS ORDERED: PREGABALIN 25 MG CAPSULE PO ONE (20:00)
--- NOTE | 2017-12-25 20:34 | PDOC H&P ---
History of Present Illness Admission Date/PCP: 12/25/17 11:43 RATNA HOOPER MD History of Present Illness: JESUS CALDERÓN is a 57 year old female, She has history of end-stage renal disease on maintenance hemodialysis, diabetic nephropathy, hypertension, chronic diastolic heart failure she was brought to the emergency room by EMS for evaluation of acute onset of shortness of breath and respiratory distress. She was at the sleep lab yesterday for sleep study, this morning she said when she took of the mask from her face she developed acute shortness of breath, she has sleep apnea and the sleep study was for CPAP titration study, she developed acute shortness of breath, the daughter called EMS then she was transferred to the emergency room for further evaluation in the ER she required noninvasive ventilation with BiPAP. Chest x-ray did not show any acute pulmonary edema there was no pneumonia, the exact etiology of the shortness of breath is not clear, she get dialysis on Wednesdays and Fridays, she is due for dialysis today, consultation was obtained from nephrology, she was hemodialyzed today. Past Medical History Cardiac Medical History: Reports: Congestive Heart Failure, Hyperlipidema, Hypertension Pulmonary Medical History: Reports: Sleep Apnea - Just underwent CPAP titration trial care of Dr. Petty. Endocrine Medical History: Reports: Diabetes Mellitus Type 2 Renal/ Medical History: Reports: End Stage Renal Disease GI Medical History: Reports: Gastroesophageal Reflux Disease Musculoskeltal Medical History: Reports: Arthritis, Other - Chronic pain Psychiatric Medical History: Reports: Depression, General Anxiety Disorder Hematology: Reports: Anemia Past Surgical History Past Surgical History: Reports: Cholecystectomy, Hysterectomy, Vascular Surgery - Left arm AV fistula Social History Smoking Status: Former Smoker Frequency of Alcohol Use: None Hx Recreational Drug Use: No Hx Prescription Drug Abuse: No Family History Family History: Hypertension Parental Family History Reviewed: Yes Children Family History Reviewed: Yes Sibling(s) Family History Reviewed.: Yes Medication/Allergy Home Medications: B Complex W-C No.20/Folic Acid [Virt-Caps Softgel] 1 cap PO DAILY 12/25/17 Insulin Aspart [Novolog Flexpen] 0 unit SQ .SLIDING SCALE 12/25/17 Insulin Glargine,Hum.rec.anlog [Lantus Solostar] 48 units SQ QHS 12/25/17 Nifedipine [Nifedipine ER] 60 mg PO Q12 12/25/17 RX: Atorvastatin Calcium [Lipitor 10 mg Tablet] 10 mg PO QHS 12/25/17 RX: Carvedilol [Coreg 25 mg Tablet] 25 mg PO Q12 12/25/17 RX: Esomeprazole Magnesium [Nexium] 40 mg PO BID 12/25/17 RX: Pregabalin [Lyrica 25 mg Capsule] 25 mg PO DAILY 12/25/17 RX: Tiotropium [place] [Spiriva Handihaler 5 Cap/Kit (18 Mcg/Cap)] 1 puff IH DAILY 12/25/17 RX: Trazodone HCl [Desyrel 50 mg Tablet] 100 mg PO HSP PRN 12/25/17 RX: Zolpidem Tartrate [Ambien 5 mg Tablet] 5 mg PO HSP PRN 12/25/17 Vilazodone HCl [Viibryd] 20 mg PO DAILY 12/25/17 Allergies/Adverse Reactions: No Known Drug Allergies Allergy (Verified 12/12/17 15:45) Review of Systems Eyes: ABSENT: visual disturbances Ears: ABSENT: hearing changes Cardiovascular: ABSENT: as per HPI, chest pain, dyspnea on exertion, edema, orthropnea, palpitations, other Respiratory: PRESENT: dyspnea Gastrointestinal: ABSENT: abdominal pain, constipation, diarrhea, hematemesis, hematochezia, nausea, vomiting Genitourinary: ABSENT: dysuria, hematuria Musculoskeletal: ABSENT: joint swelling Integumentary: ABSENT: rash, wounds Neurological: ABSENT: abnormal gait, abnormal speech, confusion, dizziness, focal weakness, syncope Psychiatric: ABSENT: anxiety, depression, homidical ideation, suicidal ideation Endocrine: ABSENT: cold intolerance, heat intolerance, menstrual abnormalities, polydipsia, polyuria Hematologic/Lymphatic: ABSENT: easy bleeding, easy bruising, lymphadenopathy Physical Exam Vital Signs: Temp Pulse Resp BP Pulse Ox 98.2 F 89 19 158/99 H 100 12/25/17 19:48 12/25/17 11:55 12/25/17 20:00 12/25/17 19:45 12/25/17 20:00 Intake & Output 12/24/17 12/25/17 12/26/17 06:59 06:59 06:59 Intake Total 1100 Output Total 4800 Balance -3700 Weight 125.2 kg General appearance: PRESENT: no acute distress, well-developed, well-nourished Head exam: PRESENT: atraumatic, normocephalic Eye exam: PRESENT: conjunctiva pink, EOMI, PERRLA Ear exam: PRESENT: normal external ear exam Mouth exam: PRESENT: moist, tongue midline Neck exam: PRESENT: full ROM Respiratory exam: PRESENT: clear to auscultation adrianne Cardiovascular exam: PRESENT: RRR, +S1, +S2 Vascular exam: PRESENT: normal capillary refill GI/Abdominal exam: PRESENT: normal bowel sounds, soft Rectal exam: PRESENT: deferred Neurological exam: PRESENT: alert, awake, oriented to person, oriented to place , oriented to time, oriented to situation, CN II-XII grossly intact Psychiatric exam: PRESENT: appropriate affect, normal mood Skin exam: PRESENT: dry, intact, warm Results Impressions: Chest X-Ray 12/25/17 07:59 IMPRESSION: No acute infiltrates. Stable moderate to marked cardiomegaly and right jugular central venous dialysis catheter Assessment & Plan - Diagnosis (1) Shortness of breath Is this a current diagnosis for this admission?: Yes Plan: The differential diagnoses is very long, it includes acute diastolic heart failure, pulmonary embolism, acute flash pulmonary edema due to chronic diastolic heart failure, pneumonia, pulmonary edema, anxiety. The chest x-ray was negative for pulmonary edema, pneumonia, a VQ scan will be obtained to rule out pulmonary embolism which is a potential cause of this patient acute shortness of breath though she seems to be resting comfortably after the hemodialysis (2) Diabetes mellitus Qualifiers: Diabetes mellitus type: type 2 Diabetes mellitus intermediate insulin use: with medical terminologist use Diabetes mellitus complication status: with kidney complications Diabetes mellitus complication detail: with chronic kidney disease Chronic kidney disease stage: on chronic dialysis Qualified Code(s) : E11.22 - Type 2 diabetes mellitus with diabetic chronic kidney disease; N18.6 - End stage renal disease; N18.6 - End stage renal disease; N18.6 - End stage renal disease; N18.6 - End stage renal disease; Z79.4 - snf (current) use of insulin; Z79.4 - buttermaker continuous churn (current) use of insulin; Z79.4 - buttermaker continuous churn ( current) use of insulin; Z79.4 - buttermaker continuous churn (current) use of insulin; Z99.2 - Dependence on renal dialysis; Z99.2 - Dependence on renal dialysis; Z99.2 - Dependence on renal dialysis; Z99.2 - Dependence on renal dialysis Is this a current diagnosis for this admission?: Yes (3) End-stage renal disease on hemodialysis Is this a current diagnosis for this admission?: Yes
[2017-12-25] MEDS ORDERED: INSULIN GLARGINE,HUM.REC.ANLOG 1,000 UNIT/10 ML UNIT SUBCUT ONE (23:12)
[2017-12-25] MEDS: NIFEDIPINE 30 MG TAB.ER.24 PO SCH (23:25)
[2017-12-25] MEDS: CARVEDILOL 12.5 MG TABLET PO SCH (23:25)
[2017-12-25] MEDS: ATORVASTATIN CALCIUM 10 MG TABLET PO SCH (23:25)
--- NOTE | 2017-12-25 23:29 | RADIOLOGY REPORT (SQ) ---
EXAM DESCRIPTION: NM LUNG VENTILATION PERFUSION COMPLETED DATE/TME: 12/25/2017 00:00 CLINICAL HISTORY: 57 years, Female, shortness of breath COMPARISON: None. RADIONUCLIDE AND DOSE: 31.3 mCi technetium 99m DTPA. 5.07 mCi technetium 99m MAA TECHNIQUE: Aerosolized administration of technetium 99m DTPA. Ventilation images obtained in equilibrium phase only. Intravenous administration of technetium 99m MAA for perfusion images. FINDINGS: The ventilation scan demonstrates mild heterogeneity on equilibrium without segmental ventilation defect identified. No segmental perfusion defects identified. IMPRESSION: Normal ventilation/perfusion study. 2010 [employer]- All Rights Reserved
[2017-12-25] MEDS: INSULIN GLARGINE,HUM.REC.ANLOG 300 UNIT/3 ML INSULN.PEN SUBCUT SCH (23:33)
--- NOTE | 2017-12-26 00:18 | EKG REPORT ---
SEVERITY:- ABNORMAL ECG - SINUS TACHYCARDIA NONSPECIFIC T ABNORMALITIES, LATERAL LEADS BORDERLINE PROLONGED QT INTERVAL : Confirmed by: Ivory Mcelroy MD 26-Dec-2017 00:17:03
[2017-12-26] MEDS: ZOLPIDEM TARTRATE 5 MG TABLET PO PRN ×2 (00:28→21:23)
[2017-12-26] MEDS: LANSOPRAZOLE 30 MG TAB.RAP.DR PO SCH ×2 (06:37→16:24)
[2017-12-26] MEDS: HEPARIN SOD (PORCINE) 5,000 UNIT/ML 1 ML SYRINGE SUBCUT SCH ×3 (06:37→21:16)
[2017-12-26] MEDS: ACETAMINOPHEN 325 MG TABLET PO PRN ×3 (08:18→21:17)
[2017-12-26] MEDS: NIFEDIPINE 30 MG TAB.ER.24 PO SCH ×2 (09:28→21:16)
[2017-12-26] MEDS: FOLIC ACID/VITAMIN B COMP W-C CAPSULE PO SCH (09:29)
[2017-12-26] MEDS: CARVEDILOL 12.5 MG TABLET PO SCH ×2 (09:29→21:16)
[2017-12-26] MEDS: PREGABALIN 25 MG CAPSULE PO SCH (09:29)
[2017-12-26] MEDS: TIOTROPIUM BROMIDE DPI 5 CAP/KIT (18 MCG/CAP) IH SCH (09:56)
[2017-12-26] MEDS ORDERED: DEXTROSE 40% GEL 15 GM TUBE X 2 PO PRN (15:23)
[2017-12-26] MEDS ORDERED: DEXTROSE 50%-WATER SYRINGE 25 GM/50 ML DOSE IV PRN (15:23)
[2017-12-26] MEDS ORDERED: DEXTROSE 40% GEL 15 GM TUBE PO PRN (15:23)
[2017-12-26] MEDS ORDERED: DEXTROSE 50%-WATER SYRINGE 12.5 GM/25 ML DOSE IV PRN (15:23)
[2017-12-26] MEDS ORDERED: GLUCAGON,HUMAN RECOMB 1 MG INJ IM PRN (15:23)
[2017-12-26] MEDS: INSULIN LISPRO 100 UNIT/ML 3 ML VIAL SUBCUT PRN ×2 (16:25→21:23)
--- NOTE | 2017-12-26 16:38 | PDOC PROGRESS REPORT ---
Subjective Progress Note for:: 12/26/17 Subjective:: Patient still complaining of shortness of breath, she requires noninvasive ventilation with BiPAP, VQ scan done last night was negative for PE, the chest x -ray did not show any pneumonia or any pulmonary edema Reason For Visit: ACUTE PULMONARY EDEMA Physical Exam Vital Signs: Temp Pulse Resp BP Pulse Ox 98.6 F 87 20 154/65 H 97 12/26/17 14:55 12/26/17 14:55 12/26/17 14:55 12/26/17 14:55 12/26/17 14:55 Intake & Output 12/25/17 12/26/17 12/27/17 06:59 06:59 06:59 Intake Total 1572 Output Total 4800 Balance -3228 Weight 122.4 kg General appearance: PRESENT: obese Eye exam: PRESENT: PERRLA Respiratory exam: PRESENT: clear to auscultation adrianne Cardiovascular exam: PRESENT: +S1, +S2 GI/Abdominal exam: PRESENT: soft Neurological exam: PRESENT: alert Results Impressions: Lung Scan-VQ NM 12/25/17 00:00 IMPRESSION: Normal ventilation/perfusion study. 2010 [employer]- All Rights Reserved Chest X-Ray 12/25/17 07:59 IMPRESSION: No acute infiltrates. Stable moderate to marked cardiomegaly and right jugular central venous dialysis catheter Assessment & Plan - Diagnosis (1) Shortness of breath Is this a current diagnosis for this admission?: Yes Plan: Consultation obtained from cardiology Dr. Petty (2) Diabetes mellitus Qualifiers: Diabetes mellitus type: type 2 Diabetes mellitus roll coverer insulin use: with roll coverer use Diabetes mellitus complication status: with kidney complications Diabetes mellitus complication detail: with chronic kidney disease Chronic kidney disease stage: on chronic dialysis Qualified Code(s) : E11.22 - Type 2 diabetes mellitus with diabetic chronic kidney disease; N18.6 - End stage renal disease; Z99.2 - Dependence on renal dialysis; Z99.2 - Dependence on renal dialysis; Z99.2 - Dependence on renal dialysis; N18.6 - End stage renal disease; N18.6 - End stage renal disease; N18.6 - End stage renal disease; Z79.4 - MCC (current) use of insulin; Z79.4 - MCC (current ) use of insulin; Z79.4 - MCC (current) use of insulin; Z79.4 - MCC (current) use of insulin; Z99.2 - Dependence on renal dialysis Is this a current diagnosis for this admission?: Yes (3) End-stage renal disease on hemodialysis Is this a current diagnosis for this admission?: Yes
--- NOTE | 2017-12-26 18:46 | PDOC CONSULTATION ---
Consultation Consult Date: 12/26/17 Attending physician:: RATNA HOOPER Consult reason:: Pulmonary edema History of Present Illness Admission Date/PCP: 12/25/17 11:43 RATNA HOOPER MD Patient complains of: Shortness of breath History of Present Illness: JESUS CALDERÓN is a 57 year old female, She has history of end-stage renal disease on maintenance hemodialysis, diabetic nephropathy, hypertension, chronic diastolic heart failure she was brought to the emergency room by EMS for evaluation of acute onset of shortness of breath and respiratory distress. She was at the sleep lab yesterday for sleep study, this morning she said when she took of the mask from her face she developed acute shortness of breath, she has sleep apnea and the sleep study was for CPAP titration study, she developed acute shortness of breath, the daughter called EMS then she was transferred to the emergency room for further evaluation in the ER she required noninvasive ventilation with BiPAP. Chest x-ray did not show any acute pulmonary edema there was no pneumonia, the exact etiology of the shortness of breath is not clear, she get dialysis on Wednesdays and Fridays, she is due for dialysis today, consultation was obtained from nephrology, she was hemodialyzed today. This history obtained by the food order delivery runner was reviewed. Patient actually had a titration study on December 24 during which she felt fine. She was titrated up to 13 cm of water with 0 AHI however final pressure did not include REM sleep. At around 9 cm but she had some REM sleep, her AHI was 11.7. It is felt that patient will benefit from auto CPAP at 5-20 with EPR of 3 and this was prescribed but she has not been started on this therapy yet. On questioning patient denied any chest pain. Patient tells me that her blood pressure was noted to be extremely elevated at around 200 mmHg with an end- diastolic pressure being as high as in the 140s. Patient currently comfortable after having had dialysis yesterday.. Past Medical History Cardiac Medical History: Reports: Congestive Heart Failure, Hyperlipidema, Hypertension Denies: Coronary Artery Disease, Myocardial Infarction Pulmonary Medical History: Reports: Sleep Apnea - Just underwent CPAP titration trial care of Dr. Petty. Denies: Asthma - UNSURE, Bronchitis, Chronic Obstructive Pulmonary Disease ( COPD) - UNSURE, Pneumonia Neurological Medical History: Denies: Seizures Endocrine Medical History: Reports: Diabetes Mellitus Type 2 Renal/ Medical History: Reports: End Stage Renal Disease GI Medical History: Reports: Gastroesophageal Reflux Disease Musculoskeltal Medical History: Reports: Arthritis, Other - Chronic pain Psychiatric Medical History: Reports: Depression, General Anxiety Disorder Hematology: Reports: Anemia Past Surgical History Past Surgical History: Reports: Cholecystectomy, Hysterectomy, Vascular Surgery - Left arm AV fistula Social History Information Source: Patient Smoking Status: Former Smoker Frequency of Alcohol Use: None Hx Recreational Drug Use: No Hx Prescription Drug Abuse: No - Advance Directive Resuscitation Status: Full Code Family History Family History: Hypertension Parental Family History Reviewed: Yes Children Family History Reviewed: Yes Sibling(s) Family History Reviewed.: Yes Medication/Allergy Home Medications: Atorvastatin Calcium [Lipitor 10 mg Tablet] 10 mg PO QHS 12/25/17 B Complex W-C No.20/Folic Acid [Virt-Caps Softgel] 1 cap PO DAILY 12/25/17 Carvedilol [Coreg 25 mg Tablet] 25 mg PO Q12 12/25/17 Esomeprazole Magnesium [Nexium] 40 mg PO BID 12/25/17 Insulin Aspart [Novolog Flexpen] 0 unit SQ .SLIDING SCALE 12/25/17 Insulin Glargine,Hum.rec.anlog [Lantus Solostar] 48 units SQ QHS 12/25/17 Nifedipine [Nifedipine ER] 60 mg PO Q12 12/25/17 Pregabalin [Lyrica 25 mg Capsule] 25 mg PO DAILY 12/25/17 Tiotropium [place]is [Spiriva Handihaler 5 Cap/Kit (18 Mcg/Cap)] 1 puff IH DAILY 12/25/17 Trazodone HCl [Desyrel 50 mg Tablet] 100 mg PO HSP PRN 12/25/17 Vilazodone HCl [Viibryd] 20 mg PO DAILY 12/25/17 Zolpidem Tartrate [Ambien 5 mg Tablet] 5 mg PO HSP PRN 12/25/17 Allergies/Adverse Reactions: No Known Drug Allergies Allergy (Verified 12/12/17 15:45) Review of Systems Review of Systems: Please see history of present illness and past medical history as wall. Constitutional: No fever or chills reported. Head : No recent chronic headaches, recent head injury. Eyes: No recent eye pain, diplopia, redness, discharge, acute visual changes. Ears: No recent chronic ear pain, acute hearing loss, ear discharge. Oral cavity: No recent ulcerations, bleeding, oral cavity discomfort. Neck: No recent acute neck pain reported. Hematologic: No recent easy bruising or bleeding. Lymphatic: No recent lymph node enlargement reported. Cardiovascular system review: See history of present illness. Respiratory system review: No hemoptysis or blood clots in the lungs reported. Shortness of breath on exertion Gastrointestinal system review: Negative for any recent acute hematemesis, melena. Genitourinary system review: No recent acute or chronic hematuria, flank pain, UTI etc. reported. Skin system review: Negative for any recent abnormal bruising, no rash, no pruritus reported. Neurologic: No prior history of strokes, mini strokes, seizure disorder. Psychologic: No history of major psychosis or major depression reported. Patient has minor depression and also problems with insomnia. Musculoskeletal: Minor aches and pains reported. No acute joint swelling reported. Endocrine: No recent polyuria, polydipsia, recent heat or cold intolerance. Physical Exam Vital Signs: Temp Pulse Resp BP Pulse Ox 98.6 F 87 20 154/65 H 97 12/26/17 14:55 12/26/17 14:55 12/26/17 14:55 12/26/17 14:55 12/26/17 14:55 Intake & Output 12/25/17 12/26/17 12/27/17 06:59 06:59 06:59 Intake Total 1572 1702 Output Total 4800 400 Balance -3228 1302 Weight 122.4 kg Exam: GENERAL: well-nourished and in no acute distress. Alert and oriented x3 HEAD: Atraumatic, normocephalic. EYES: Pupils equal round and reactive to light, extraocular movements intact, sclera anicteric, conjunctiva are normal. ENT: TMs normal, nares patent, oropharynx clear without exudates. Moist mucous membranes. No oral ulcerations or bleeding gums noted NECK: supple without lymphadenopathy. Trachea is central. No cervical or axillary lymphadenopathy noted. Carotids are 2+, JVD WNL LUNGS: Respiration seems nonlabored, no significant accessory muscle action noted. Breath sounds clear to auscultation bilaterally and equal noted. No wheezes rales or rhonchi noted. No significant dullness noted on percussion. CHEST: Palpation of the chest wall shows no significant chest wall tenderness. 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 ABDOMEN: Soft, no significant tenderness appreciated, normoactive bowel sounds. No guarding, no rebound. No rigidity noted . No masses appreciated. EXTREMITIES: Pedal pulses are 1-2+, no calf tenderness noted. No clubbing or cyanosis. 1+ pedal edema noted NEUROLOGICAL: Focused neurological exam showed no significant neurologic deficit. Normal speech, no focal weakness appreciated. PSYCH: Normal mood, normal affect. Judgment and insight within normal limits. SKIN: No significant ecchymosis, skin is noted to be warm. MUSCULOSKELETAL EXAM: No significant acute joint swelling noted. Results EKG Comments: Sinus tachycardia, no acute ST-T wave changes are noted. Impressions: Lung Scan-VQ NM 12/25/17 00:00 IMPRESSION: Normal ventilation/perfusion study. 2010 [employer]- All Rights Reserved Chest X-Ray 12/25/17 07:59 IMPRESSION: No acute infiltrates. Stable moderate to marked cardiomegaly and right jugular central venous dialysis catheter Assessment & Plan - Diagnosis (1) Acute pulmonary edema Is this a current diagnosis for this admission?: Yes (2) Acute diastolic (congestive) heart failure Is this a current diagnosis for this admission?: Yes (3) COPD (chronic obstructive pulmonary disease) Qualifiers: COPD type: unspecified COPD Qualified Code(s): J44.9 - Chronic obstructive pulmonary disease, unspecified (4) Diabetes mellitus Qualifiers: Diabetes mellitus type: type 2 Diabetes mellitus salvage determiner insulin use: with salvage determiner use Diabetes mellitus complication status: with kidney complications Diabetes mellitus complication detail: with chronic kidney disease Chronic kidney disease stage: on chronic dialysis Qualified Code(s) : E11.22 - Type 2 diabetes mellitus with diabetic chronic kidney disease; N18.6 - End stage renal disease; Z99.2 - Dependence on renal dialysis; Z99.2 - Dependence on renal dialysis; Z99.2 - Dependence on renal dialysis; N18.6 - End stage renal disease; N18.6 - End stage renal disease; N18.6 - End stage renal disease; Z79.4 - termite renewal inspector (current) use of insulin; Z79.4 - intermediate (current ) use of insulin; Z79.4 - termite renewal inspector (current) use of insulin; Z79.4 - intermediate (current) use of insulin; Z99.2 - Dependence on renal dialysis Is this a current diagnosis for this admission?: Yes (5) End-stage renal disease on hemodialysis Is this a current diagnosis for this admission?: Yes (6) Shortness of breath Is this a current diagnosis for this admission?: Yes (7) Hyperlipidemia Qualifiers: Hyperlipidemia type: unspecified Is this a current diagnosis for this admission?: Yes (8) Hypertensive emergency Is this a current diagnosis for this admission?: Yes (9) Insomnia Qualifiers: Insomnia type: unspecified Qualified Code(s): G47.00 - Insomnia, unspecified Is this a current diagnosis for this admission?: Yes (10) Morbid obesity Is this a current diagnosis for this admission?: Yes (11) Obstructive sleep apnea syndrome Is this a current diagnosis for this admission?: Yes (12) Obesity Qualifiers: Obesity type: unspecified obesity type Obesity classification: unspecified obesity classification Serious obesity comorbidity presence: with serious comorbidity Qualified Code(s): E66.9 - Obesity, unspecified Is this a current diagnosis for this admission?: Yes - Notes Notes: Acute pulmonary edema, etiology not clear but patient noted to have severe hypertension on presentation. Could be related to severe hypertension. Patient could also be volume overloaded because of end-stage renal disease. So far EKGs been nonacute. Troponin I relatively unremarkable for ESRD patient. Continue to monitor. Patient tells me that she is scheduled for some cardiovascular tests as an outpatient next month at [facility]. Acute diastolic heart failure: Patient has history of normal LV systolic function. Patient will benefit from salt and fluid restriction. COPD: Currently stable. End-stage renal disease on dialysis: Currently being managed by financial services agent. Had dialysis today without any problems. Dyspnea: Currently stable on BiPAP therapy. Continue with it. Dyslipidemia: Recommend high potency statin therapy. Hypertensive emergency: Currently blood pressure under better control but intermittently noted to be high. Insomnia: This is quite troublesome for this patient. Recommend nightly Ambien therapy which she tolerates very well. Morbid obesity: Patient will benefit from gradual weight loss this has been explained multiple times. Obstructive sleep apnea: Recommend nightly CPAP therapy with auto CPAP at 5-20 with EPR of 3 if this can be arranged in the hospital otherwise continue current setting as prescribed by the respiratory department. Patient to report any further problems. Dr. Mcelroy to cover from tomorrow. Recommend restarting patient's all home medications. - Time Time Spent: 30 to 50 Minutes Medications reviewed and adjusted accordingly: Yes
[2017-12-26] MEDS: ATORVASTATIN CALCIUM 10 MG TABLET PO SCH (21:16)
[2017-12-26] MEDS: INSULIN GLARGINE,HUM.REC.ANLOG 300 UNIT/3 ML INSULN.PEN SUBCUT SCH (21:16)
[2017-12-27] MEDS: LANSOPRAZOLE 30 MG TAB.RAP.DR PO SCH ×2 (06:18→16:19)
[2017-12-27] MEDS: HEPARIN SOD (PORCINE) 5,000 UNIT/ML 1 ML SYRINGE SUBCUT SCH ×3 (06:18→22:03)
[2017-12-27] MEDS ORDERED: ONDANSETRON 4 MG TAB.RAPDIS ONE (08:01)
[2017-12-27] MEDS: ONDANSETRON 4 MG TAB.RAPDIS PO PRN (08:01)
[2017-12-27] MEDS: ACETAMINOPHEN 325 MG TABLET PO PRN ×2 (08:04→16:20)
[2017-12-27] MEDS: CARVEDILOL 12.5 MG TABLET PO SCH (09:43)
[2017-12-27] MEDS: FUROSEMIDE 40 MG TABLET PO SCH (09:43)
[2017-12-27] MEDS: FOLIC ACID/VITAMIN B COMP W-C CAPSULE PO SCH (09:43)
[2017-12-27] MEDS: TIOTROPIUM BROMIDE DPI 5 CAP/KIT (18 MCG/CAP) IH SCH (09:43)
[2017-12-27] MEDS: PREGABALIN 25 MG CAPSULE PO SCH (09:43)
[2017-12-27] MEDS: NIFEDIPINE 30 MG TAB.ER.24 PO SCH ×2 (09:43→22:03)
[2017-12-27] MEDS ORDERED: HYDRALAZINE HCL 25 MG TABLET PO ONE (16:15)
[2017-12-27] MEDS: INSULIN LISPRO 100 UNIT/ML 3 ML VIAL SUBCUT PRN ×2 (16:40→22:03)
--- NOTE | 2017-12-27 18:10 | PROGRESS NOTE E ---
Progress Note NAME: JESUS CALDERÓN : 1960 AGE: 57Y DATE: 12/27/2017 ROOM: SUBJECTIVE: Note that the patient states that the shortness of breath is much improved when she wears the BiPAP. She denies any chest pain or discomfort. There is orthopnea present, but no PND. There is no leg edema. There is no arrhythmia seen on the monitor. There are no palpitations. There are no TIA or CVA symptoms. OBJECTIVE: GENERAL: On examination, the patient is morbidly obese, but she is well-groomed. At present, in no acute distress. VITAL SIGNS: She is afebrile, with temperature 98.6 degrees Fahrenheit. Pulse is 83 beats per minute. Blood pressure 172/88. Respirations are 17 per minute. O2 sats are 96% on BiPAP, with an FiO2 of 30%. HEENT: Head is atraumatic, normocephalic. Eyes: Pupils are equal, round, regular, reactive to light and accommodation. Extraocular movements are normal. There is no conjunctival pallor. There is no scleral icterus. ENT is negative. NECK: Supple. There is no JVD. Carotids are equal. There is no bruit. There is no lymphadenopathy. There is no goiter. Trachea is central. LUNGS: With diminished air entry, prolonged expiration, without any rhonchi, rales or wheezing. On percussion, there is hyperresonance throughout. There is no chest wall tenderness. HEART: S1, S2 heard. There is no S3 gallop. There is no S4 gallop. There is a systolic murmur at the left sternal border, at the apex. There is no rub. ABDOMEN: Soft, nontender, obese. There is no hepatosplenomegaly. Bowel sounds are well-heard. There are no tender areas or masses. EXTREMITIES: Femorals are deep. Femorals are diminished. Leg pulses are diminished. There is no pedal edema. There is no DVT or cellulitis. There is no calf tenderness. There is no cyanosis or clubbing. RABBLER: The patient is conscious, awake, alert, oriented x3, with no focal deficits. PSYCHIATRIC: Patient's judgment and insight are intact. Her affect is normal. SKIN: She has a fistula that seems to be working, with continuous bruit over the AV fistula on the left arm, but the patient states that they have difficulty accessing it, and hence, she has a dialysis catheter on the right side of her chest. DIAGNOSTICS: The patient's blood sugar is 164. Her 24-hour intake is 1702 mL, output is 400 mL. She gets Lasix on the days that she is not on dialysis. IMPRESSION: 1. ACUTE ON CHRONIC DIASTOLIC HEART FAILURE. At present, seems to be compensated. 2. COPD, STABLE. 3. DIABETES MELLITUS, WITH CHRONIC KIDNEY DISEASE/END-STAGE RENAL DISEASE. 4. END-STAGE RENAL DISEASE, ON HEMODIALYSIS. 5. HYPERTENSION, NOT WELL-CONTROLLED. 6. HYPERLIPIDEMIA. 7. MORBID OBESITY. 8. OBSTRUCTIVE SLEEP APNEA. Patient on BiPAP. RECOMMENDATIONS: In view of the patient's blood pressure being elevated, and in view of the patient having COPD, would discontinue the patient's Coreg and switch to metoprolol at 50 mg p.o. q.12 hours. We will also start the patient on hydralazine 25 mg p.o. q.8 hours and give the first dose now. Note, that the patient has requested that the echo and the stress test be done here instead of her *------*, since she is sure to miss it, since she has to go to [place] for a week to live with her daughter, since her other daughter is relocating. In view of this, we will order an echo tomorrow, but will hold off on the stress test until the patient's blood pressure is well-controlled. Note, her medications have been reviewed, and medication changed. The patient is a FULL CODE. Her surrogate decision-maker has not changed. She will continue dialysis. Would recommend restricting fluids to less than 1500 mL in a 24-hour period. Medical decision-making is of moderate to high complexity. Forty minutes spent on this patient, with more than 50% of the time spent on direct patient care. Her records have been reviewed. Will follow with you. DICTATING PHYSICIAN: SEVERINO DUKE M.D. [id number] PHY#: [id number] ID: [id number] JOB#: [id number] ACCT: [id number] cc: >
[2017-12-27] MEDS ORDERED: GLYCERIN/WITCH HAZEL LEAF 1 EACH MED..PAD TP PRN (18:29)
[2017-12-27] MEDS: ZOLPIDEM TARTRATE 5 MG TABLET PO PRN (22:03)
[2017-12-27] MEDS: ATORVASTATIN CALCIUM 10 MG TABLET PO SCH (22:03)
[2017-12-27] MEDS: METOPROLOL TARTRATE 50 MG TABLET PO SCH (22:03)
[2017-12-27] MEDS: INSULIN GLARGINE,HUM.REC.ANLOG 300 UNIT/3 ML INSULN.PEN SUBCUT SCH (22:03)
[2017-12-27] MEDS: HYDRALAZINE HCL 25 MG TABLET PO SCH (22:03)
[2017-12-28] MEDS ORDERED: NORMAL SALINE 1000 ML 1,000 ML IV PRN (05:00)
[2017-12-28] MEDS ORDERED: EPOETIN ALFA INJ 20000 UNIT/1 ML VIAL (RENAL) IV PRN (05:00)
[2017-12-28 05:19] LABS: ABSOLUTE BASOPHILS # (AUTO) 0.1 10^3/uL (0.0-0.2); ABSOLUTE EOSINOPHILS # (AUTO) 0.1 10^3/uL (0.0-0.6); ABSOLUTE LYMPHOCYTES (AUTO) 2.3 10^3/uL (0.5-4.7); ABSOLUTE MONOCYTES (AUTO) 0.5 10^3/uL (0.1-1.4); ABSOLUTE NEUT (AUTO) 5.9 10^3/uL (1.7-8.2); BASOPHILS % (AUTO) 1.3 % (0-2); EOSINOPHILS % (AUTO) 1.4 % (0-6); HEMATOCRIT 25.4 % (36.0-47.0); HEMOGLOBIN 8.3 g/dL (12.0-15.5); LYMPHOCYTES % (AUTO) 25.5 % (13-45); MEAN CORPUSCULAR HEMOGLOBIN 26.6 pg (27.0-33.4); MEAN CORPUSCULAR HGB CONC 32.9 g/dL (32.0-36.0); MEAN CORPUSCULAR VOLUME 81 fl (80-97); MONOCYTES % (AUTO) 5.6 % (3-13); PLATELET COUNT 248 10^3/uL (150-450); RED BLOOD COUNT 3.14 10^6/uL (3.72-5.28); RED CELL DISTRIBUTION WIDTH 19.5 % (11.5-14.0); SEGMENTED NEUTROPHILS % (AUTO) 66.2 % (42-78); TOTAL CELLS COUNTED % (AUTO) 100 %; WHITE BLOOD COUNT 8.8 10^3/uL (4.0-10.5)
[2017-12-28 05:58] LABS: ANION GAP 10 (5-19); BLOOD UREA NITROGEN 55 mg/dL (7-20); CALCIUM 8.6 mg/dL (8.4-10.2); CARBON DIOXIDE 29 mmol/L (22-30); CHLORIDE 99 mmol/L (98-107); GLUCOSE 142 mg/dL (75-110); POTASSIUM 4.3 mmol/L (3.6-5.0); SODIUM 137.7 mmol/L (137-145)
[2017-12-28] MEDS: ONDANSETRON 4 MG TAB.RAPDIS PO PRN (06:10)
[2017-12-28] MEDS: HYDRALAZINE HCL 25 MG TABLET PO SCH ×2 (06:10→13:55)
[2017-12-28] MEDS: LANSOPRAZOLE 30 MG TAB.RAP.DR PO SCH ×2 (06:10→17:28)
[2017-12-28] MEDS: HEPARIN SOD (PORCINE) 5,000 UNIT/ML 1 ML SYRINGE SUBCUT SCH ×3 (06:10→22:48)
[2017-12-28] MEDS: NIFEDIPINE 30 MG TAB.ER.24 PO SCH ×2 (09:41→22:49)
[2017-12-28] MEDS: FOLIC ACID/VITAMIN B COMP W-C CAPSULE PO SCH (09:41)
[2017-12-28] MEDS: PREGABALIN 25 MG CAPSULE PO SCH (09:42)
[2017-12-28] MEDS: TIOTROPIUM BROMIDE DPI 5 CAP/KIT (18 MCG/CAP) IH SCH (09:42)
[2017-12-28] MEDS: METOPROLOL TARTRATE 50 MG TABLET PO SCH ×2 (09:48→22:48)
[2017-12-28] MEDS ORDERED: BUDESONIDE NEB 0.5 MG/2 ML AMPUL NEB ONE ×2 (11:20→12:00)
[2017-12-28] MEDS ORDERED: LEVALBUTEROL HCL NEB 0.63 MG/3 ML AMPUL NEB ONE ×2 (11:21→12:00)
--- NOTE | 2017-12-28 13:51 | PDOC CONSULTATION ---
Consultation Consult Date: 12/27/17 Attending physician:: RATNA HOOPER Consult reason:: Dyspnea History of Present Illness Admission Date/PCP: 12/25/17 11:43 RATNA HOOPER MD History of Present Illness: JESUS CALDERÓN is a 57 year old female,presented to the emergency room short of breath she has a long history of multiple medical problems states her breathing is gotten worse over the 3 days prior to admission he is uncertain as to whether she has had any fevers or chills she denies hemoptysis her PPD is negative dates unknown she denies history of chronic lung diseases child or adolescent treatments exposed to passive smoke as a child as well as an adult. She smoked a half a pack a day 40 years but has not smoked in the last 12 months is currently on disability and denies any known exposure to potential respiratory toxins. She has 2 dogs no recent travel he has occasional tightness in her chest is usually relieved with rest she is on 2 pillows frequent PND frequent nocturnal cough intermittent episodes of edema admits to snoring restless sleep nocturia 2-3 times per night unrestful sleep and excessive daytime somnolence. Patient states he has had a large problem with anxiety in the past she also result in her shortness of breath Past Medical History Cardiac Medical History: Reports: Congestive Heart Failure, Hyperlipidema, Hypertension Denies: Coronary Artery Disease, Myocardial Infarction Pulmonary Medical History: Reports: Sleep Apnea - Just underwent CPAP titration trial care of Dr. Petty. Denies: Asthma - UNSURE, Bronchitis, Chronic Obstructive Pulmonary Disease ( COPD) - UNSURE, Pneumonia Neurological Medical History: Denies: Seizures Endocrine Medical History: Reports: Diabetes Mellitus Type 2 Renal/ Medical History: Reports: End Stage Renal Disease GI Medical History: Reports: Gastroesophageal Reflux Disease Musculoskeltal Medical History: Reports: Arthritis, Other - Chronic pain Psychiatric Medical History: Reports: Depression, General Anxiety Disorder Hematology: Reports: Anemia Past Surgical History Past Surgical History: Reports: Cholecystectomy, Hysterectomy, Vascular Surgery - Left arm AV fistula Social History Information Source: Patient, [facility] Smoking Status: Current Some Day Smoker Passive smoke exposure as: Both Frequency of Alcohol Use: None Hx Recreational Drug Use: No Hx Prescription Drug Abuse: No Do you have pets?: No Have you had any respiratory illnesses as a child?: No Have you been exposed to any sick contacts recently?: No Have you had any recent respiratory illnesses?: No Have you travelled outside of [place] in the past 12 months?: No - Advance Directive Resuscitation Status: Full Code Family History Family History: Hypertension Parental Family History Reviewed: Yes Children Family History Reviewed: Yes Sibling(s) Family History Reviewed.: Yes Medication/Allergy Home Medications: Atorvastatin Calcium [Lipitor 10 mg Tablet] 10 mg PO QHS 12/25/17 B Complex W-C No.20/Folic Acid [Virt-Caps Softgel] 1 cap PO DAILY 12/25/17 Carvedilol [Coreg 25 mg Tablet] 25 mg PO Q12 12/25/17 Esomeprazole Magnesium [Nexium] 40 mg PO BID 12/25/17 Insulin Aspart [Novolog Flexpen] 0 unit SQ .SLIDING SCALE 12/25/17 Insulin Glargine,Hum.rec.anlog [Lantus Solostar] 48 units SQ QHS 12/25/17 Nifedipine [Nifedipine ER] 60 mg PO Q12 12/25/17 Pregabalin [Lyrica 25 mg Capsule] 25 mg PO DAILY 12/25/17 Tiotropium [place] [Spiriva Handihaler 5 Cap/Kit (18 Mcg/Cap)] 1 puff IH DAILY 12/25/17 Trazodone HCl [Desyrel 50 mg Tablet] 100 mg PO HSP PRN 12/25/17 Vilazodone HCl [Viibryd] 20 mg PO DAILY 12/25/17 Zolpidem Tartrate [Ambien 5 mg Tablet] 5 mg PO HSP PRN 12/25/17 Allergies/Adverse Reactions: No Known Drug Allergies Allergy (Verified 12/12/17 15:45) Review of Systems Constitutional: ABSENT: headache(s), night sweats, weakness Ears: ABSENT: hearing changes Nose, Mouth, and Throat: ABSENT: mouth pain Cardiovascular: PRESENT: dyspnea on exertion, orthropnea. ABSENT: palpitations Respiratory: PRESENT: dyspnea. ABSENT: hemoptysis Gastrointestinal: ABSENT: coffee ground emesis, hematemesis, hematochezia, melena Genitourinary: ABSENT: dysuria, hematuria Musculoskeletal: ABSENT: joint swelling Integumentary: ABSENT: pruritus, rash Neurological: ABSENT: abnormal speech, confusion, focal weakness, frequent falls , lack of coordination, memory loss Psychiatric: ABSENT: hallucinations, homidical ideation, suicidal ideation Endocrine: ABSENT: cold intolerance, heat intolerance Hematologic/Lymphatic: PRESENT: easy bruising Physical Exam Vital Signs: Temp Pulse Resp BP Pulse Ox 98.4 F 83 19 157/75 H 100 12/27/17 15:41 12/27/17 15:41 12/27/17 15:41 12/27/17 15:41 12/27/17 15:41 Intake & Output 12/26/17 12/27/17 12/28/17 06:59 06:59 06:59 Intake Total 1572 1702 960 Output Total 4800 400 400 Balance -3228 1302 560 Weight 122.4 kg 122.3 kg General appearance: PRESENT: no acute distress, cooperative, disheveled, morbidly obese Head exam: PRESENT: atraumatic, normocephalic Eye exam: PRESENT: conjunctiva pale, EOMI. ABSENT: nystagmus, periorbital swelling, scleral icterus Mouth exam: PRESENT: dry mucosa, neck supple, tongue midline Neck exam: ABSENT: carotid bruit, JVD, lymphadenopathy, thyromegaly, tracheal deviation, tracheostomy Respiratory exam: PRESENT: decreased breath sounds, prolonged expiratory phas, rhonchi, unlabored, wheezes. ABSENT: rales, retraction, stridor Cardiovascular exam: PRESENT: RRR, +S1, +S2 Pulses: PRESENT: normal radial pulses GI/Abdominal exam: PRESENT: normal bowel sounds, soft Extremities exam: ABSENT: calf tenderness, clubbing, joint swelling Musculoskeletal exam: ABSENT: deformity, dislocation Neurological exam: PRESENT: alert, awake Psychiatric exam: PRESENT: flat affect Skin exam: PRESENT: dry, warm Results Impressions: Lung Scan-VQ NM 12/25/17 00:00 IMPRESSION: Normal ventilation/perfusion study. 2010 [employer]- All Rights Reserved Chest X-Ray 12/25/17 07:59 IMPRESSION: No acute infiltrates. Stable moderate to marked cardiomegaly and right jugular central venous dialysis catheter Assessment & Plan - Diagnosis (1) Anxiety Is this a current diagnosis for this admission?: Yes Plan: States she is on Xanax analcime but has not received any here will restart as of possible withdrawal would be pending (2) Acute respiratory distress Is this a current diagnosis for this admission?: Yes Plan: Pulmicort Xopenex low-dose Generic Name Dose Route Start Last Admin Trade Name Freq PRN Reason Stop Dose Admin Tiotropium [place] 1 cap 12/26/17 10:00 12/28/17 09:42 Spiriva Handihaler 5 Cap/Kit (18 Mcg/Cap) IH 01/25/18 09:59 1 cap DAILY THERESA (3) End-stage renal disease on hemodialysis Is this a current diagnosis for this admission?: Yes Plan: As per dialysis (4) Obesity Qualifiers: Obesity type: unspecified obesity type Obesity classification: unspecified obesity classification Serious obesity comorbidity presence: with serious comorbidity Qualified Code(s): E66.9 - Obesity, unspecified Is this a current diagnosis for this admission?: Yes (5) Obstructive sleep apnea syndrome Is this a current diagnosis for this admission?: Yes Plan: Apparently patient will order titrated after display an AHI of 31 auto titration resulted in optimal CPAP of 13 (6) CAD (coronary artery disease) Qualifiers: Coronary Disease-Associated Artery/Lesion type: [place] artery Teller vs. transplanted heart: [place] heart Associated angina: angina presence unspecified Qualified Code(s): I25.10 - Atherosclerotic heart disease of [place] coronary artery without angina pectoris Is this a current diagnosis for this admission?: Yes (7) Hypertension Qualifiers: Hypertension type: essential hypertension Qualified Code(s): I10 - Essential (primary) hypertension Is this a current diagnosis for this admission?: Yes Plan: Stable at this time (8) Noncompliance Is this a current diagnosis for this admission?: Yes Plan: Historically (9) Tobacco abuse Is this a current diagnosis for this admission?: Yes Plan: Allegedly not smoking the last 12 months
[2017-12-28] MEDS: ALPRAZOLAM 0.25 MG TABLET PO PRN ×2 (13:54→22:48)
[2017-12-28] MEDS: INSULIN LISPRO 100 UNIT/ML 3 ML VIAL SUBCUT PRN ×2 (17:30→22:48)
[2017-12-28] MEDS: ACETAMINOPHEN 325 MG TABLET PO PRN (18:17)
[2017-12-28] MEDS ORDERED: HYDRALAZINE HCL 25 MG TABLET PO SCH (19:42)
[2017-12-28] MEDS: LEVALBUTEROL HCL NEB 0.63 MG/3 ML AMPUL NEB SCH (19:48)
[2017-12-28] MEDS: BUDESONIDE NEB 0.5 MG/2 ML AMPUL NEB SCH (19:48)
--- NOTE | 2017-12-28 19:52 | PDOC PROGRESS REPORT ---
Subjective Progress Note for:: 12/28/17 Subjective:: I am seeing the patient on dialysis currently. Patient reports that she feels much better when she is wearing the BiPAP. This morning when she got up she said she felt a little bit tired but that has resolved after a while. She is currently also being followed by her chest pain coordinator and installation and service technician. Echocardiogram was done this morning and is scheduled still currently pending. Patient is comfortable and tolerating dialysis well at this time without any problems. She said she is not sure if she has been having chest pain versus heartburn. Otherwise she does not have any other further complaints. Reason For Visit: ESRD Physical Exam Vital Signs: Temp Pulse Resp BP Pulse Ox 98.6 F 95 20 174/70 H 100 12/28/17 17:11 12/28/17 17:11 12/28/17 17:11 12/28/17 17:11 12/28/17 17:11 Intake & Output 12/27/17 12/28/17 12/29/17 06:59 06:59 06:59 Intake Total 1702 1728 318 Output Total 400 1050 Balance 1302 678 318 Weight 122.3 kg 123.2 kg Vital signs currently during dialysis: Blood pressure 145/74, heart rate of 71, oxygen saturation 100% on 2 L of oxygen via nasal cannula, blood flow rate of 350 mL/min, dialysate flow rate of 600 mL/min. Exam: General appearance: PRESENT: no acute distress, cooperative, well-developed, well-nourished Head exam: PRESENT: atraumatic, normocephalic Eye exam: PRESENT: conjunctiva pale, PERRLA. ABSENT: scleral icterus Neck exam: ABSENT: JVD, there is some crust over her PermCath but no purulent drainage nor erythema. Respiratory exam: PRESENT: Normal breath sounds. ABSENT: crackles, rales, rhonchi, unlabored, wheezes Cardiovascular exam: PRESENT: Regular rate rhythm -+S1, +S2. ABSENT: diastolic murmur, systolic murmur GI/Abdominal exam: PRESENT: normal bowel sounds, soft. ABSENT: guarding, mass, tenderness Extremities exam: Present: Trace bilateral lower extremity pitting edema Neurological exam: PRESENT: alert, awake, oriented to person, place and time. Skin exam: PRESENT: dry, warm, Results Laboratory Results: 12/28/17 04:24 12/28/17 04:24 12/28/17 12/28/17 04:24 04:24 WBC 8.8 RBC 3.14 L Hgb 8.3 L Hct 25.4 L MCV 81 MCH 26.6 L MCHC 32.9 RDW 19.5 H Plt Count 248 Seg Neutrophils % 66.2 Lymphocytes % 25.5 Monocytes % 5.6 Eosinophils % 1.4 Basophils % 1.3 Absolute Neutrophils 5.9 Absolute Lymphocytes 2.3 Absolute Monocytes 0.5 Absolute Eosinophils 0.1 Absolute Basophils 0.1 Sodium 137.7 Potassium 4.3 Chloride 99 Carbon Dioxide 29 Anion Gap 10 BUN 55 H Creatinine 8.02 H Est GFR ( Amer) 6 L Est GFR (Non-Af Amer) 5 L Glucose 142 H Calcium 8.6 Impressions: Lung Scan-VQ NM 12/25/17 00:00 IMPRESSION: Normal ventilation/perfusion study. 2010 [employer]- All Rights Reserved Chest X-Ray 12/25/17 07:59 IMPRESSION: No acute infiltrates. Stable moderate to marked cardiomegaly and right jugular central venous dialysis catheter Assessment & Plan - Diagnosis (1) End-stage renal disease on hemodialysis Is this a current diagnosis for this admission?: Yes Plan: We will do dialysis today for 3 hours, using the patient's PermCath, with 2 potassium bath, blood flow rate of 350 mL per minute, dialysate flow rate of 600 mL per minute, ultrafiltration 3.5-4 L as tolerated, no heparin and Procrit with 20,000 units during dialysis intravenously. Patient will be continuously monitored throughout dialysis treatment. If the patient continues to be inpatient on Thursday, Dr. Carlson will be covering her on my behalf. However if she gets discharge before that then her next dialysis will be at [facility] on her regular scheduled time. At this time she seems to be fairly stable and from nephrology standpoint I think she can be discharged home provided she is cleared by the other specialist providers on her case. (2) Hypertension Qualifiers: Hypertension type: essential hypertension Qualified Code(s): I10 - Essential (primary) hypertension Is this a current diagnosis for this admission?: Yes Plan: Currently uncontrolled. We will increase her hydralazine to her usual home dose of 50 mg every 8 hours. If it still elevated her clonidine can be resumed. (3) Anemia in chronic kidney disease (CKD) Qualifiers: Chronic kidney disease stage: stage 3 (moderate) Qualified Code(s): N18.3 - Chronic kidney disease, stage 3 (moderate); D63.1 - Anemia in chronic kidney disease; D63.1 - Anemia in chronic kidney disease Is this a current diagnosis for this admission?: Yes Plan: We will give her Procrit 20,000 units today during dialysis. (4) Acute respiratory distress Is this a current diagnosis for this admission?: Yes Plan: Currently improved. Cardiology and pulmonology services on board. (5) Obstructive sleep apnea syndrome Is this a current diagnosis for this admission?: Yes (6) Diabetes mellitus Qualifiers: Diabetes mellitus type: type 2 Diabetes mellitus half-way insulin use: with game manager use Diabetes mellitus complication status: with kidney complications Diabetes mellitus complication detail: with chronic kidney disease Chronic kidney disease stage: on chronic dialysis Qualified Code(s) : E11.22 - Type 2 diabetes mellitus with diabetic chronic kidney disease; N18.6 - End stage renal disease; Z99.2 - Dependence on renal dialysis; Z99.2 - Dependence on renal dialysis; Z99.2 - Dependence on renal dialysis; N18.6 - End stage renal disease; N18.6 - End stage renal disease; N18.6 - End stage renal disease; Z79.4 - intermediate (current) use of insulin; Z79.4 - cook cold meat (current ) use of insulin; Z79.4 - intermediate (current) use of insulin; Z79.4 - cook cold meat (current) use of insulin; Z99.2 - Dependence on renal dialysis Is this a current diagnosis for this admission?: Yes - Time Time with patient: 15-25 minutes
--- NOTE | 2017-12-28 20:02 | PDOC PROGRESS REPORT ---
Subjective Progress Note for:: 12/28/17 Subjective:: She had dialysis today,She was seen by the bedside Reason For Visit: ACUTE PULMONARY EDEMA Physical Exam Vital Signs: Temp Pulse Resp BP Pulse Ox 98.6 F 95 20 174/70 H 100 12/28/17 17:11 12/28/17 17:11 12/28/17 17:11 12/28/17 17:11 12/28/17 17:11 Intake & Output 12/27/17 12/28/17 12/29/17 06:59 06:59 06:59 Intake Total 1702 1728 318 Output Total 400 1050 Balance 1302 678 318 Weight 122.3 kg 123.2 kg Head exam: PRESENT: atraumatic, normocephalic Eye exam: PRESENT: conjunctiva pink, EOMI, PERRLA Neck exam: PRESENT: full ROM Respiratory exam: PRESENT: clear to auscultation adrianne Cardiovascular exam: PRESENT: RRR, +S1, +S2 Pulses: PRESENT: normal dorsalis pedis pul, +2 pedal pulses bilateral Vascular exam: PRESENT: normal capillary refill GI/Abdominal exam: PRESENT: normal bowel sounds, soft Rectal exam: PRESENT: deferred Neurological exam: PRESENT: alert, awake, oriented to person, oriented to place , oriented to time, oriented to situation, CN II-XII grossly intact Psychiatric exam: PRESENT: appropriate affect, normal mood Skin exam: PRESENT: dry, intact, warm. ABSENT: cyanosis, rash Results Laboratory Results: 12/28/17 04:24 12/28/17 04:24 12/28/17 12/28/17 04:24 04:24 WBC 8.8 RBC 3.14 L Hgb 8.3 L Hct 25.4 L MCV 81 MCH 26.6 L MCHC 32.9 RDW 19.5 H Plt Count 248 Seg Neutrophils % 66.2 Lymphocytes % 25.5 Monocytes % 5.6 Eosinophils % 1.4 Basophils % 1.3 Absolute Neutrophils 5.9 Absolute Lymphocytes 2.3 Absolute Monocytes 0.5 Absolute Eosinophils 0.1 Absolute Basophils 0.1 Sodium 137.7 Potassium 4.3 Chloride 99 Carbon Dioxide 29 Anion Gap 10 BUN 55 H Creatinine 8.02 H Est GFR ( Amer) 6 L Est GFR (Non-Af Amer) 5 L Glucose 142 H Calcium 8.6 Impressions: Lung Scan-VQ NM 12/25/17 00:00 IMPRESSION: Normal ventilation/perfusion study. 2010 [employer]- All Rights Reserved Chest X-Ray 12/25/17 07:59 IMPRESSION: No acute infiltrates. Stable moderate to marked cardiomegaly and right jugular central venous dialysis catheter Assessment & Plan - Diagnosis (1) Shortness of breath Is this a current diagnosis for this admission?: Yes (2) Diabetes mellitus Qualifiers: Diabetes mellitus type: type 2 Diabetes mellitus oysterman insulin use: with oysterman use Diabetes mellitus complication status: with kidney complications Diabetes mellitus complication detail: with chronic kidney disease Chronic kidney disease stage: on chronic dialysis Qualified Code(s) : E11.22 - Type 2 diabetes mellitus with diabetic chronic kidney disease; N18.6 - End stage renal disease; N18.6 - End stage renal disease; N18.6 - End stage renal disease; N18.6 - End stage renal disease; Z79.4 - bed bug exterminator (current) use of insulin; Z79.4 - senior care (current) use of insulin; Z79.4 - bed bug exterminator ( current) use of insulin; Z79.4 - senior care (current) use of insulin; Z99.2 - Dependence on renal dialysis; Z99.2 - Dependence on renal dialysis; Z99.2 - Dependence on renal dialysis; Z99.2 - Dependence on renal dialysis Is this a current diagnosis for this admission?: Yes (3) End-stage renal disease on hemodialysis Is this a current diagnosis for this admission?: Yes (4) Chronic diastolic heart failure Is this a current diagnosis for this admission?: Yes (5) Obstructive sleep apnea syndrome Is this a current diagnosis for this admission?: Yes
--- NOTE | 2017-12-28 20:59 | XCELERA REPORT ---
[address] [address] Transthoracic Echocardiogram Report Name: JESUS CALDERÓN Age: 57 yrs Gender: Female : 1960 Patient Status: Inpatient Patient Location: [address] [place] [address] Study Date: 12/28/2017 10:36 AM Procedure: A two-dimensional transthoracic echocardiogram with color flow and Doppler was performed. The study was technically difficult with many images being suboptimal in quality. Study Quality: Technically suboptimal. Reason For Study: CHF History: CHF. Ordering Physician: IVORY DUKE Performed By: Tiffany Kwok Interpretation Summary The left ventricle is normal in size. There is normal left ventricular wall thickness. LV EF is 55% to 60% Left ventricular systolic function is normal. Doppler measurements suggest normal left ventricular diastolic function The left ventricular wall motion is normal. There is no thrombus. The right ventricle is not well visualized secondary to technical limitations The left atrial size is normal. There is no evidence of mitral valve prolapse. There is no vegetation seen on the mitral valve. There is no mitral valve stenosis. There is no mitral regurgitation noted. There is no aortic valve stenosis There is no LVOT obstruction. No aortic regurgitation is present. There is no tricuspid stenosis. There is a trace to mild amount of tricuspid regurgitation There is mild pulmonary hypertension by echo RVSP is 41 mm of Hg , with RA mean of 10/ There is no pulmonic valvular stenosis. There is a trace amount of pulmonic regurgitation The aortic root is not well visualized but is probably normal size. There is no pericardial effusion. MMode/2D Measurements & Calculations RVDd: 3.1 cm LVIDd: 5.5 cmFS: 25.6 % Ao root diam: 2.7 cm IVSd: 0.94 cm LVIDs: 4.1 cmEDV(Teich): 146.7 ml Ao root area: 5.5 cm2 LVPWd: 1.4 cmESV(Teich): 73.4 ml EF(Teich): 49.9 % LVOT diam: 2.1 cm LVOT area: 3.4 cm2 Doppler Measurements & Calculations MV E max wade: MV dec slope: Ao V2 max: LV V1 max P.5 cm/sec 130.4 cm/sec 2.8 mmHg MV A max wade: 475.7 cm/sec2 Ao max PG: LV V1 max: 100.5 cm/sec MV dec time: 6.8 mmHg 83.6 cm/sec MV E/A: 1.2 0.26 sec SHAISTA(V,D): 2.2 cm2 PA V2 max: PI max wade: TR max wade: Pulm Sys Wade: 109.2 cm/sec 112.2 cm/sec 251.4 cm/sec 59.9 cm/sec PA max PG: PI max P.0 mmHgTR max PG: Pulm León Wade: 4.8 mmHg PI dec slope: 25.8 mmHg 48.8 cm/sec Pulm A Revs Wade: 92.2 cm/sec2 18.3 cm/sec Pulm A Revs Dur: 0.13 sec Pulm S/D: 1.2 Left Ventricle The left ventricle is normal in size. There is normal left ventricular wall thickness. LV EF is 55% to 60%. Left ventricular systolic function is normal. Doppler measurements suggest normal left ventricular diastolic function. The left ventricular wall motion is normal. There is no thrombus. Right Ventricle The right ventricle is not well visualized secondary to technical limitations. Atria The right atrium is normal. The left atrial size is normal. Mitral Valve There is no evidence of mitral valve prolapse. There is no vegetation seen on the mitral valve. There is no mitral valve stenosis. There is no mitral regurgitation noted. Aortic Valve There is no aortic valvular vegetation. There is no aortic valve stenosis. There is no LVOT obstruction. No aortic regurgitation is present. Tricuspid Valve There is no tricuspid stenosis. There is a trace to mild amount of tricuspid regurgitation. There is mild pulmonary hypertension by echo. RVSP is 41 mm of Hg , with RA mean of 10/. Pulmonic Valve There is no pulmonic valvular stenosis. There is a trace amount of pulmonic regurgitation. Great Vessels The aortic root is not well visualized but is probably normal size. Effusions There is no pericardial effusion. : IVORY DUKE > Ivory Duke
--- NOTE | 2017-12-28 22:25 | PROGRESS NOTE E ---
Progress Note NAME: JESUS CALDERÓN : 1960 AGE: 57Y DATE: 12/28/2017 ROOM: 427 SUBJECTIVE: The patient states as long as she has the BiPAP on she is not short of breath. There is no PND. There is chronic orthopnea. There is no leg edema. There is no chest pain or discomfort. There are no palpitations. There is no dizziness, syncope, or near syncope. There are no symptoms of TIA or CVA. OBJECTIVE: GENERAL: On examination the patient is morbidly obese but well-groomed. VITAL SIGNS: Her temperature is 99.1 degrees Fahrenheit, pulse is 71 beats per minute, blood pressure is 152/98, respirations are 20 per minute, O2 saturations are 98% on room air. Earlier O2 sat was 98% on a BiPAP with FiO2 of 30%. HEENT: Head is atraumatic, normocephalic. Eyes: Pupils are equal, round and regular, reactive to light and accommodation. Extraocular movements are normal. There is mild conjunctival pallor. There is no scleral icterus. ENT is negative. NECK: Supple. There is no JVD. There is no lymphadenopathy. There is no goiter. Carotids are equal. There is no bruit. Trachea is central. LUNGS: Show diminished air entry and prolonged expiration without any rhonchi, rales, or wheezing. HEART: S1, S2 is heard. There is no S3 gallop. There is no S4 gallop. There is a systolic murmur in the left sternal border and the apex. There is no rub. ABDOMEN: Obese, nontender. There is no hepatosplenomegaly. Bowel sounds are well heard. There are no tender areas or masses. EXTREMITIES: Femorals are deep. Femorals are diminished. There are no femoral bruits. Leg pulses are diminished. There is no pedal edema at present. There is no calf tenderness. CENTRAL NERVOUS SYSTEM: The patient is conscious, awake, alert and oriented x3 with no focal deficits. PSYCHIATRIC: The patient's judgment and insight are intact. Her affect is normal. DIAGNOSTICS: The patient's white count is 8800, hemoglobin is 8.3, hematocrit is 35.4, platelet count is 248,000. The patient's sodium s 137.7, potassium 4.3, chloride is 99, CO2 is 29. The patient's BUN is 55, creatinine is 3.02, GFR is reduced at 6 mL. Her glucose is *------*. Her calcium is 8.6. IMPRESSION: 1. CONGESTIVE HEART FAILURE, ACUTE ON CHRONIC DIASTOLIC HEART FAILURE. Await echocardiogram which was done. We will review the echo. 2. COPD WITHOUT EXACERBATION. 3. DIABETES MELLITUS TYPE 2, INSULIN DEPENDENT WITH CHRONIC KIDNEY DISEASE. 4. END-STAGE RENAL DISEASE ON DIALYSIS. 5. HYPERLIPIDEMIA. 6. HYPERTENSION, NOT WELL-CONTROLLED. 7. MORBID OBESITY. 8. OBSTRUCTIVE SLEEP APNEA. See note. PLAN: We will check the patient's echo. Note I reviewed the patient's medication. Dr. Blanc has just increased her hydralazine to 50 mg p.o. q.8 hours. We will recheck the patient's blood pressure in the morning. If it is still high we will increase the hydralazine to either 50 mg p.o. q.6 hours or 100 mg p.o. q.8 hours. We will discuss with nephrology. Note the patient is not yet ready for a stress test. Note medical decision making is of moderate to high complexity. Discussed with the patient and discussed with the hospitalist taking care of the patient. Awaiting to read the patient's echo. We will follow with you. DICTATING PHYSICIAN: SEVERINO DUKE M.D. [id number] [place]#: [id number] ID: [id number] JOB#: [id number] ACCT: [id number] cc: >
[2017-12-28] MEDS: HYDRALAZINE HCL 50 MG TABLET PO SCH (22:48)
[2017-12-28] MEDS: ATORVASTATIN CALCIUM 10 MG TABLET PO SCH (22:48)
[2017-12-28] MEDS: INSULIN GLARGINE,HUM.REC.ANLOG 300 UNIT/3 ML INSULN.PEN SUBCUT SCH (22:48)
[2017-12-28] MEDS: ZOLPIDEM TARTRATE 5 MG TABLET PO PRN (22:49)
[2017-12-29] MEDS: LEVALBUTEROL HCL NEB 0.63 MG/3 ML AMPUL NEB SCH ×4 (02:01→19:51)
[2017-12-29] MEDS: LANSOPRAZOLE 30 MG TAB.RAP.DR PO SCH ×2 (06:08→18:33)
[2017-12-29] MEDS: HEPARIN SOD (PORCINE) 5,000 UNIT/ML 1 ML SYRINGE SUBCUT SCH ×3 (06:08→21:40)
[2017-12-29] MEDS: HYDRALAZINE HCL 50 MG TABLET PO SCH ×3 (06:09→21:39)
[2017-12-29] MEDS: INSULIN LISPRO 100 UNIT/ML 3 ML VIAL SUBCUT PRN ×4 (07:46→21:40)
[2017-12-29] MEDS: ALPRAZOLAM 0.25 MG TABLET PO PRN ×2 (07:46→16:13)
[2017-12-29] MEDS: BUDESONIDE NEB 0.5 MG/2 ML AMPUL NEB SCH ×2 (08:08→19:51)
[2017-12-29] MEDS: METOPROLOL TARTRATE 50 MG TABLET PO SCH ×2 (10:13→21:39)
[2017-12-29] MEDS: FOLIC ACID/VITAMIN B COMP W-C CAPSULE PO SCH (10:13)
[2017-12-29] MEDS: FUROSEMIDE 40 MG TABLET PO SCH (10:13)
[2017-12-29] MEDS: NIFEDIPINE 30 MG TAB.ER.24 PO SCH ×2 (10:13→21:39)
[2017-12-29] MEDS: PREGABALIN 25 MG CAPSULE PO SCH (10:14)
[2017-12-29] MEDS: TIOTROPIUM BROMIDE DPI 5 CAP/KIT (18 MCG/CAP) IH SCH (10:14)
[2017-12-29] MEDS: ACETAMINOPHEN 325 MG TABLET PO PRN ×2 (12:30→19:38)
--- NOTE | 2017-12-29 19:27 | PDOC PROGRESS REPORT ---
Subjective Progress Note for:: 12/29/17 Subjective:: She was seen by the bedside, she was seen by pulmonary and cardiology ,she is very anxious Reason For Visit: ACUTE PULMONARY EDEMA Physical Exam Vital Signs: Temp Pulse Resp BP Pulse Ox 98.4 F 74 18 143/58 H 100 12/29/17 15:22 12/29/17 15:22 12/29/17 15:22 12/29/17 15:22 12/29/17 15:22 Intake & Output 12/28/17 12/29/17 12/30/17 06:59 06:59 06:59 Intake Total 9062 718 7745 Output Total 1050 4000 Balance 678 -3069 1136 Weight 123.2 kg 126.7 kg Eye exam: PRESENT: PERRLA Respiratory exam: PRESENT: clear to auscultation adrianne Cardiovascular exam: PRESENT: +S1, +S2 GI/Abdominal exam: PRESENT: soft Neurological exam: PRESENT: alert Results Laboratory Results: 12/28/17 04:24 12/28/17 04:24 Impressions: Lung Scan-VQ NM 12/25/17 00:00 IMPRESSION: Normal ventilation/perfusion study. 2010 [employer]- All Rights Reserved Chest X-Ray 12/25/17 07:59 IMPRESSION: No acute infiltrates. Stable moderate to marked cardiomegaly and right jugular central venous dialysis catheter Assessment & Plan - Diagnosis (1) Shortness of breath Is this a current diagnosis for this admission?: Yes (2) Diabetes mellitus Qualifiers: Diabetes mellitus type: type 2 Diabetes mellitus group home insulin use: with group home use Diabetes mellitus complication status: with kidney complications Diabetes mellitus complication detail: with chronic kidney disease Chronic kidney disease stage: on chronic dialysis Qualified Code(s) : E11.22 - Type 2 diabetes mellitus with diabetic chronic kidney disease; N18.6 - End stage renal disease; N18.6 - End stage renal disease; N18.6 - End stage renal disease; N18.6 - End stage renal disease; Z79.4 - termite inspector (current) use of insulin; Z79.4 - termite inspector (current) use of insulin; Z79.4 - termite inspector ( current) use of insulin; Z79.4 - termite inspector (current) use of insulin; Z99.2 - Dependence on renal dialysis; Z99.2 - Dependence on renal dialysis; Z99.2 - Dependence on renal dialysis; Z99.2 - Dependence on renal dialysis Is this a current diagnosis for this admission?: Yes (3) End-stage renal disease on hemodialysis Is this a current diagnosis for this admission?: Yes
[2017-12-29] MEDS: ZOLPIDEM TARTRATE 5 MG TABLET PO PRN (21:39)
[2017-12-29] MEDS: ATORVASTATIN CALCIUM 10 MG TABLET PO SCH (21:39)
[2017-12-29] MEDS: INSULIN GLARGINE,HUM.REC.ANLOG 300 UNIT/3 ML INSULN.PEN SUBCUT SCH (21:40)
[2017-12-30] MEDS: LEVALBUTEROL HCL NEB 0.63 MG/3 ML AMPUL NEB SCH ×4 (01:46→20:22)
[2017-12-30] MEDS: ALPRAZOLAM 0.25 MG TABLET PO PRN ×3 (04:19→22:06)
[2017-12-30] MEDS: HEPARIN SOD (PORCINE) 5,000 UNIT/ML 1 ML SYRINGE SUBCUT SCH ×3 (05:11→22:05)
[2017-12-30] MEDS: HYDRALAZINE HCL 50 MG TABLET PO SCH ×3 (05:11→22:06)
[2017-12-30] MEDS: LANSOPRAZOLE 30 MG TAB.RAP.DR PO SCH ×2 (05:11→16:48)
[2017-12-30 05:45] LABS: ABSOLUTE BASOPHILS # (AUTO) 0.1 10^3/uL (0.0-0.2); ABSOLUTE EOSINOPHILS # (AUTO) 0.1 10^3/uL (0.0-0.6); ABSOLUTE MONOCYTES (AUTO) 0.6 10^3/uL (0.1-1.4); ABSOLUTE NEUT (AUTO) 5.8 10^3/uL (1.7-8.2); BASOPHILS % (AUTO) 1.2 % (0-2); EOSINOPHILS % (AUTO) 1.3 % (0-6); HEMATOCRIT 26.2 % (36.0-47.0); HEMOGLOBIN 8.6 g/dL (12.0-15.5); LYMPHOCYTES % (AUTO) 23.6 % (13-45); MEAN CORPUSCULAR HEMOGLOBIN 26.8 pg (27.0-33.4); MEAN CORPUSCULAR HGB CONC 32.9 g/dL (32.0-36.0); MEAN CORPUSCULAR VOLUME 81 fl (80-97); MONOCYTES % (AUTO) 6.6 % (3-13); PLATELET COUNT 240 10^3/uL (150-450); RED BLOOD COUNT 3.22 10^6/uL (3.72-5.28); RED CELL DISTRIBUTION WIDTH 19.9 % (11.5-14.0); SEGMENTED NEUTROPHILS % (AUTO) 67.3 % (42-78); TOTAL CELLS COUNTED % (AUTO) 100 %; WHITE BLOOD COUNT 8.6 10^3/uL (4.0-10.5)
[2017-12-30 05:48] LABS: ANION GAP 12 (5-19); BLOOD UREA NITROGEN 52 mg/dL (7-20); CALCIUM 8.6 mg/dL (8.4-10.2); CARBON DIOXIDE 28 mmol/L (22-30); CHLORIDE 99 mmol/L (98-107); GLUCOSE 189 mg/dL (75-110); POTASSIUM 4.4 mmol/L (3.6-5.0); SODIUM 138.9 mmol/L (137-145)
[2017-12-30] MEDS: INSULIN LISPRO 100 UNIT/ML 3 ML VIAL SUBCUT PRN ×3 (06:03→22:05)
[2017-12-30] MEDS: BUDESONIDE NEB 0.5 MG/2 ML AMPUL NEB SCH ×2 (09:12→20:21)
[2017-12-30] MEDS: PREGABALIN 25 MG CAPSULE PO SCH ×2 (10:00→13:51)
[2017-12-30] MEDS: NIFEDIPINE 30 MG TAB.ER.24 PO SCH ×2 (10:00→22:06)
[2017-12-30] MEDS: METOPROLOL TARTRATE 50 MG TABLET PO SCH ×2 (10:00→22:06)
[2017-12-30] MEDS: TIOTROPIUM BROMIDE DPI 5 CAP/KIT (18 MCG/CAP) IH SCH (10:00)
[2017-12-30] MEDS: FOLIC ACID/VITAMIN B COMP W-C CAPSULE PO SCH (10:00)
[2017-12-30] MEDS ORDERED: EPOETIN ALFA INJ 20000 UNIT/1 ML VIAL (RENAL) IV PRN (11:00)
--- NOTE | 2017-12-30 12:53 | PDOC PROGRESS REPORT ---
Subjective Progress Note for:: 12/30/17 Reason For Visit: Patient seen today on Dialysis as I am covering for Dr Blanc who is off till Thursday.She is doing well .Dyspnea much improved with Bi pap.ECHO shows normal LVfunctuion with mild pulmonary hypertension.Labs and medications were reviewed ,Dialysis orders were discussed with the treating clay transporter. Physical Exam Vital Signs: Temp Pulse Resp BP Pulse Ox 98.7 F 81 20 154/64 H 100 12/30/17 07:29 12/30/17 09:12 12/30/17 09:12 12/30/17 07:29 12/30/17 09:12 Intake & Output 12/29/17 12/30/17 12/31/17 06:59 06:59 06:59 Intake Total 931 1786 Output Total 4000 200 Balance -3069 1586 Weight 126.7 kg 126.5 kg General appearance: PRESENT: no acute distress Respiratory exam: PRESENT: clear to auscultation adrianne. ABSENT: crackles Cardiovascular exam: PRESENT: +S1, +S2 GI/Abdominal exam: PRESENT: normal bowel sounds, soft. ABSENT: mass, tenderness Neurological exam: PRESENT: alert, awake, oriented to person, oriented to place Skin exam: ABSENT: cyanosis, erythema, rash Results Laboratory Results: 12/30/17 05:08 12/30/17 05:08 12/30/17 12/30/17 05:08 05:08 WBC 8.6 RBC 3.22 L Hgb 8.6 L Hct 26.2 L MCV 81 MCH 26.8 L MCHC 32.9 RDW 19.9 H Plt Count 240 Seg Neutrophils % 67.3 Lymphocytes % 23.6 Monocytes % 6.6 Eosinophils % 1.3 Basophils % 1.2 Absolute Neutrophils 5.8 Absolute Lymphocytes 2.0 Absolute Monocytes 0.6 Absolute Eosinophils 0.1 Absolute Basophils 0.1 Sodium 138.9 Potassium 4.4 Chloride 99 Carbon Dioxide 28 Anion Gap 12 BUN 52 H Creatinine 7.53 H Est GFR ( Amer) 7 L Est GFR (Non-Af Amer) 6 L Glucose 189 H Calcium 8.6 Impressions: Lung Scan-VQ NM 12/25/17 00:00 IMPRESSION: Normal ventilation/perfusion study. 2010 [employer]- All Rights Reserved Chest X-Ray 12/25/17 07:59 IMPRESSION: No acute infiltrates. Stable moderate to marked cardiomegaly and right jugular central venous dialysis catheter Assessment & Plan - Diagnosis (1) Acute respiratory distress Is this a current diagnosis for this admission?: Yes Plan: Much improved. (2) COPD (chronic obstructive pulmonary disease) Qualifiers: COPD type: unspecified COPD Qualified Code(s): J44.9 - Chronic obstructive pulmonary disease, unspecified Plan: Stable. (3) Diabetes mellitus Qualifiers: Diabetes mellitus type: type 2 Diabetes mellitus intermediate frame tender insulin use: with intermediate frame tender use Diabetes mellitus complication status: with kidney complications Diabetes mellitus complication detail: with chronic kidney disease Chronic kidney disease stage: on chronic dialysis Qualified Code(s) : E11.22 - Type 2 diabetes mellitus with diabetic chronic kidney disease; N18.6 - End stage renal disease; Z99.2 - Dependence on renal dialysis; Z99.2 - Dependence on renal dialysis; Z99.2 - Dependence on renal dialysis; N18.6 - End stage renal disease; N18.6 - End stage renal disease; N18.6 - End stage renal disease; Z79.4 - long-term (current) use of insulin; Z79.4 - computer terminal operator (current ) use of insulin; Z79.4 - computer terminal operator (current) use of insulin; Z79.4 - long-term (current) use of insulin; Z99.2 - Dependence on renal dialysis Is this a current diagnosis for this admission?: Yes Plan: Adv tight control. (4) End-stage renal disease on hemodialysis Is this a current diagnosis for this admission?: Yes Plan: Seen on dialysis.Undergoing dialysis without any issues.VS are stable .Plan to remove 3-4 L as tolerated.Orders were discussed with the treating RN. (5) Obesity Qualifiers: Obesity type: unspecified obesity type Obesity classification: unspecified obesity classification Serious obesity comorbidity presence: with serious comorbidity Qualified Code(s): E66.9 - Obesity, unspecified Is this a current diagnosis for this admission?: Yes (6) Obstructive sleep apnea syndrome Is this a current diagnosis for this admission?: Yes Plan: On Bi pap, and better. (7) Hypertension Qualifiers: Hypertension type: essential hypertension Qualified Code(s): I10 - Essential (primary) hypertension Is this a current diagnosis for this admission?: Yes Plan: Relatively controlled.
[2017-12-30] MEDS: ACETAMINOPHEN 325 MG TABLET PO PRN ×2 (13:52→19:50)
--- NOTE | 2017-12-30 17:47 | PDOC DISCHARGE SUMMARY ---
General - Admit/Disc Date/PCP Admission Date/Primary Care Provider: 12/25/17 11:43 RATNA HOOPER MD Discharge Date: 12/30/17 - Discharge Diagnosis (1) Acute diastolic (congestive) heart failure Is this a current diagnosis for this admission?: Yes (2) Shortness of breath Is this a current diagnosis for this admission?: Yes (3) Diabetes mellitus Is this a current diagnosis for this admission?: Yes (4) End-stage renal disease on hemodialysis Is this a current diagnosis for this admission?: Yes (5) Morbid obesity Is this a current diagnosis for this admission?: Yes (6) Obstructive sleep apnea syndrome Is this a current diagnosis for this admission?: Yes (7) Secondary hyperparathyroidism (of renal origin) Is this a current diagnosis for this admission?: Yes - Additional Information Resuscitation Status: Full Code Discharge Diet: Diabetic Discharge Activity: Activity As Tolerated, Weigh Daily Home Medications: RX: Atorvastatin Calcium [Lipitor 10 mg Tablet] 10 mg PO QHS 12/25/17 RX: B Complex W-C No.20/Folic Acid [Virt-Caps Softgel] 1 cap PO DAILY 12/25/17 RX: Carvedilol [Coreg 25 mg Tablet] 25 mg PO Q12 12/25/17 RX: Esomeprazole Magnesium [Nexium] 40 mg PO BID 12/25/17 RX: Insulin Aspart [Novolog Flexpen] 0 unit SQ .SLIDING SCALE 12/25/17 RX: Insulin Glargine,Hum.rec.anlog [Lantus Solostar] 48 units SQ QHS 12/25/17 RX: Nifedipine [Nifedipine ER] 60 mg PO Q12 12/25/17 RX: Pregabalin [Lyrica 25 mg Capsule] 25 mg PO DAILY 12/25/17 RX: Tiotropium [place] [Spiriva Handihaler 5 Cap/Kit (18 Mcg/Cap)] 1 puff IH DAILY 12/25/17 RX: Trazodone HCl [Desyrel 50 mg Tablet] 100 mg PO HSP PRN 12/25/17 RX: Vilazodone HCl [Viibryd] 20 mg PO DAILY 12/25/17 RX: Zolpidem Tartrate [Ambien 5 mg Tablet] 5 mg PO HSP PRN 12/25/17 History of Present Illness History of Present Illness: JESUS CALDERÓN is a 57 year old female, She has history of end-stage renal disease on maintenance hemodialysis, diabetic nephropathy, hypertension, chronic diastolic heart failure she was brought to the emergency room by EMS for evaluation of acute onset of shortness of breath and respiratory distress. She was at the sleep lab yesterday for sleep study, this morning she said when she took of the mask from her face she developed acute shortness of breath, she has sleep apnea and the sleep study was for CPAP titration study, she developed acute shortness of breath, the daughter called EMS then she was transferred to the emergency room for further evaluation in the ER she required noninvasive ventilation with BiPAP. Chest x-ray did not show any acute pulmonary edema there was no pneumonia, the exact etiology of the shortness of breath is not clear, she get dialysis on Wednesdays and Fridays, she is due for dialysis today, consultation was obtained from nephrology, she was hemodialyzed today. Hospital Course Hospital Course: Patient was admitted for the management of acute respiratory distress felt to be secondary to acute diastolic heart failure, obstructive sleep apnea and also anxiety disorder. She has end-stage renal disease on maintenance hemodialysis was seen by nephrology he underwent hemodialysis on this admission. She was seen by cardiology, respiratory she was prescribed noninvasive positive pressure ventilation BiPAP. Patient was asking for Xanax I tried to dissuade her from use of benzodiazepine because of potential for respiratory depression especially in the setting of morbid obesity and obstructive sleep apnea. Physical Exam Vital Signs: Temp Pulse Resp BP Pulse Ox 98.8 F 90 12 154/67 H 100 12/30/17 16:00 12/30/17 16:00 12/30/17 16:00 12/30/17 16:00 12/30/17 16:00 Intake & Output 12/29/17 12/30/17 12/31/17 06:59 06:59 06:59 Intake Total 931 1786 Output Total 4000 200 4000 Balance -3069 1586 -4000 Weight 126.7 kg 126.5 kg General appearance: PRESENT: no acute distress, well-developed, well-nourished Head exam: PRESENT: atraumatic, normocephalic Eye exam: PRESENT: conjunctiva pink, EOMI, PERRLA Ear exam: PRESENT: normal external ear exam Mouth exam: PRESENT: moist, tongue midline Neck exam: PRESENT: full ROM Respiratory exam: PRESENT: clear to auscultation adrianne Cardiovascular exam: PRESENT: RRR, +S1, +S2 Pulses: PRESENT: normal dorsalis pedis pul, +2 pedal pulses bilateral Vascular exam: PRESENT: normal capillary refill GI/Abdominal exam: PRESENT: normal bowel sounds, soft Rectal exam: PRESENT: deferred Neurological exam: PRESENT: alert, awake, oriented to person, oriented to place , oriented to time, oriented to situation, CN II-XII grossly intact Psychiatric exam: PRESENT: appropriate affect, normal mood Skin exam: PRESENT: dry, intact, warm Results Laboratory Results: 12/30/17 05:08 12/30/17 05:08 12/30/17 12/30/17 05:08 05:08 WBC 8.6 RBC 3.22 L Hgb 8.6 L Hct 26.2 L MCV 81 MCH 26.8 L MCHC 32.9 RDW 19.9 H Plt Count 240 Seg Neutrophils % 67.3 Lymphocytes % 23.6 Monocytes % 6.6 Eosinophils % 1.3 Basophils % 1.2 Absolute Neutrophils 5.8 Absolute Lymphocytes 2.0 Absolute Monocytes 0.6 Absolute Eosinophils 0.1 Absolute Basophils 0.1 Sodium 138.9 Potassium 4.4 Chloride 99 Carbon Dioxide 28 Anion Gap 12 BUN 52 H Creatinine 7.53 H Est GFR ( Amer) 7 L Est GFR (Non-Af Amer) 6 L Glucose 189 H Calcium 8.6 Impressions: Lung Scan-VQ NM 12/25/17 00:00 IMPRESSION: Normal ventilation/perfusion study. 2010 [employer]- All Rights Reserved Chest X-Ray 12/25/17 07:59 IMPRESSION: No acute infiltrates. Stable moderate to marked cardiomegaly and right jugular central venous dialysis catheter Qualifiers - * PATIENT BEING DISCHARGED WITH ANY OF THE FOLLOWING DIAGNOSIS: No
[2017-12-30] MEDS: INSULIN GLARGINE,HUM.REC.ANLOG 300 UNIT/3 ML INSULN.PEN SUBCUT SCH (22:06)
[2017-12-30] MEDS: ZOLPIDEM TARTRATE 5 MG TABLET PO PRN (22:06)
[2017-12-30] MEDS: ATORVASTATIN CALCIUM 10 MG TABLET PO SCH (22:07)
[2017-12-31] MEDS: LEVALBUTEROL HCL NEB 0.63 MG/3 ML AMPUL NEB SCH ×3 (02:34→14:22)
[2017-12-31] MEDS: HEPARIN SOD (PORCINE) 5,000 UNIT/ML 1 ML SYRINGE SUBCUT SCH ×2 (06:06→14:08)
[2017-12-31] MEDS: ACETAMINOPHEN 325 MG TABLET PO PRN ×2 (06:06→14:58)
[2017-12-31] MEDS: HYDRALAZINE HCL 50 MG TABLET PO SCH ×2 (06:06→13:31)
[2017-12-31] MEDS: LANSOPRAZOLE 30 MG TAB.RAP.DR PO SCH (06:06)
[2017-12-31] MEDS: ALPRAZOLAM 0.25 MG TABLET PO PRN ×2 (06:06→14:58)
[2017-12-31] MEDS: INSULIN LISPRO 100 UNIT/ML 3 ML VIAL SUBCUT PRN ×2 (07:44→11:29)
[2017-12-31] MEDS: BUDESONIDE NEB 0.5 MG/2 ML AMPUL NEB SCH (07:56)
[2017-12-31] MEDS: NIFEDIPINE 30 MG TAB.ER.24 PO SCH (09:45)
[2017-12-31] MEDS: FOLIC ACID/VITAMIN B COMP W-C CAPSULE PO SCH (09:45)
[2017-12-31] MEDS: METOPROLOL TARTRATE 50 MG TABLET PO SCH (09:45)
[2017-12-31] MEDS: TIOTROPIUM BROMIDE DPI 5 CAP/KIT (18 MCG/CAP) IH SCH (09:45)
[2017-12-31] MEDS: FUROSEMIDE 40 MG TABLET PO SCH (09:45)
[2017-12-31] MEDS: PREGABALIN 25 MG CAPSULE PO SCH (09:46)
[2017-12-31 14:48] VITALS: BP 154/67
== END 2017-12-31 15:43 | disposition home or self-care (01) | DRG 291 ==
LOC: ER 07:54 → EH 11:43 → ICU 12:54 → 4S 20:40
PROVIDERS: ADMIT Internal Medicine; ATTEND Internal Medicine
PROC: 5A1D70Z Performance of Urinary Filtration, Intermittent, Less than 6 Hours Per Day (ICD-10-PCS; principal; 2017-12-25)
DX: I13.2 Hypertensive heart and chronic kidney disease with heart failure and with stage 5 chronic kidney disease, or end stage renal disease (principal); N18.6 End stage renal disease; I50.33 Acute on chronic diastolic (congestive) heart failure; Z68.42 Body mass index [BMI] 45.0-49.9, adult; N25.81 Secondary hyperparathyroidism of renal origin; I16.1 Hypertensive emergency; R06.03 Acute respiratory distress; E11.22 Type 2 diabetes mellitus with diabetic chronic kidney disease; E11.21 Type 2 diabetes mellitus with diabetic nephropathy; J44.9 Chronic obstructive pulmonary disease, unspecified; E78.00 Pure hypercholesterolemia, unspecified; K21.9 Gastro-esophageal reflux disease without esophagitis; D63.1 Anemia in chronic kidney disease; G47.00 Insomnia, unspecified; G47.33 Obstructive sleep apnea (adult) (pediatric); F41.1 Generalized anxiety disorder; E66.01 Morbid (severe) obesity due to excess calories; Z99.2 Dependence on renal dialysis; Z79.4 Long term (current) use of insulin; Z79.899 Other long term (current) drug therapy
CPT/HCPCS: 36415; 71045; 78582; 80048; 80053; 82550; 82553; 82803; 82962; 83605; 85025; 87040; 93005; 93010; 93306; 94660; 96374; 96375; 99291; A9540; A9567; J1200; J1644; J1815; J1940; J2765; J3490; J7614; Q4081; Q9969; S0119